=== PATIENT | female | born 1955 | race African-American/Black ===

== ENCOUNTER 2016-02-26 10:05 | Emergency (ER) | payer BC, MEDICARE ==
[~2016-02-26] VITALS: Ht 177.8 cm; Wt 127.9 kg
[~2016-02-26 10:05] MED LIST: AMLO10TA2 PO; AMLO5TAB2 PO; AZIT250T PO; BENZ100C PO; BUDE10.2 IH; CYCL10TA2 PO; HYDR-971 PO; HYDR50TA6 PO; LEVO200T PO; LOSA100T2 PO; MONT10TA6 PO; PRED50TA PO; PROAIR RESPICL90 MCG IH; RANI150T6 PO; ZOLP5TAB PO
--- NOTE | 2016-02-26 10:43 | RAD ---
EXAM: Chest, single view. HISTORY: Chest pain. COMPARISON: 02/09/2016. FINDINGS: A frontal view of the chest is obtained. There is stable left basilar atelectasis or pleural-parenchymal scarring. There is stable cardiomegaly. There is no pneumothorax. IMPRESSION: 1. Stable suspected left basilar atelectasis or pleural parenchymal scarring. 2. Stable cardiomegaly.
[2016-02-26 10:44] LABS: BASO # 0.1 x10^3/uL (0.0-0.2); BASO % 1 % (0-3); EOS % 9 % (0-3); HEMATOCRIT 43.8 % (36.0-47.0); HEMOGLOBIN 14.1 g/dL (12.0-15.5); LYMPH % 38 % (24-48); MEAN CORPUSCULAR HEMOGLOBIN 27 pg (25-35); MEAN CORPUSCULAR HGB CONC 32 g/dL (31-37); MEAN CORPUSCULAR VOLUME 82 fL (79-100); MONO % 4 % (0-9); NEUT % 48 % (31-73); PLATELET COUNT 255 x10^3/uL (140-400); RED BLOOD COUNT 5.31 x10^6/uL (3.50-5.40); RED CELL DISTRIBUTION WIDTH 15.9 % (11.5-14.5); WHITE BLOOD COUNT 7.8 x10^3/uL (4.0-11.0)
--- NOTE | 2016-02-26 10:44 | EKG ---
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
[2016-02-26 10:46] LABS: CREATININE 1.5 mg/dL (0.6-1.0); GFR 43.2; POTASSIUM 3.6 mmol/L (3.5-5.1)
--- NOTE | 2016-02-26 10:49 | PHYS DOC ---
Past Medical History Past Medical History: Asthma, CHF, Hypertension, Hypothyroid Additional Past Medical Histor: constipation Past Surgical History: Cholecystectomy, Hysterectomy Additional Past Surgical Histo: hernia repair, exploratory, nasal polyps removed Additional Information: quit in 2002 Alcohol Use: None Drug Use: Opiates Adult General Chief Complaint Chief Complaint: CHEST PAIN HPI HPI 52-year-old female presenting to the emergency department today with chest pain that started yesterday around noon. It is intermittent and described as a heaviness. She also complains of pain in her abdomen and left upper quadrant that is sharp mild. She reports falling down 5 or 6 steps in her house. She describes this as slipping onto her bottom and slowly bumping down each step. She denies head trauma or loss of consciousness. Patient reports deathly allergy to aspirin. She reports throat closure. Review of Systems Review of Systems ROS is negative for nausea vomiting fevers chills. She denies diaphoresis or cough. She denies headache. All other review of systems is negative unless otherwise noted in history of present illness. Allergies Allergies Allergies Coded Allergies Type Severity Reaction Last Updated Verified aspirin Allergy Severe Shortness of Air 02/26/16 Yes Sulfa (Sulfonamide Antibiotics) Allergy Intermediate 02/26/16 Yes ketorolac Allergy Intermediate 02/26/16 Yes sulfamethoxazole Allergy Intermediate 02/26/16 Yes trimethoprim Allergy Intermediate 02/26/16 Yes Physical Exam Physical Exam Constitutional: Well developed, well nourished, no acute distress, non-toxic appearance. HENT: Normocephalic, atraumatic, no evidence of ecchymosis lacerations or abrasions., bilateral external ears normal, oropharynx moist, no oral exudates, nose normal. [] Eyes: PERRLA, EOMI, conjunctiva normal, no discharge. [] Neck: Normal range of motion, no tenderness, supple, no stridor. Spinal evaluation shows nontender in the cervical thoracic or lumbar region. No step- offs abrasions ecchymosis or lacerations present. Cardiovascular:Heart rate regular rhythm, no murmur Lungs & Thorax: Bilateral breath sounds clear to auscultation [] Abdomen: Bowel sounds normal, soft, no tenderness, no masses, no pulsatile masses. [] Skin: Warm, dry, no erythema, no rash. Back: No tenderness, no CVA tenderness. [] Extremities: No tenderness, no cyanosis, no clubbing, ROM intact, no edema. Neurologic: Alert and oriented X 3, normal motor function, normal sensory function, no focal deficits noted. Psychologic: Affect normal, judgement normal, mood normal. [] Current Patient Data Vital Signs Vital Signs Date Time Temp Pulse Resp B/P Pulse Ox O2 Delivery O2 Flow Rate FiO2 02/26/16 12:10 64 20 152/95 97 Room Air 02/26/16 10:17 97.2 97.2 Lab Values Laboratory Tests Test 02/26/16 10:19 White Blood Count 7.8x10^3/uL (4.0-11.0) Red Blood Count 5.31x10^6/uL (3.50-5.40) Hemoglobin 14.1g/dL (12.0-15.5) Hematocrit 43.8% (36.0-47.0) Mean Corpuscular Volume 82fL (79-100) Mean Corpuscular Hemoglobin 27pg (25-35) Mean Corpuscular Hemoglobin Concent 32g/dL (31-37) Red Cell Distribution Width 15.9% (11.5-14.5) H Platelet Count 255x10^3/uL (140-400) Neutrophils (%) (Auto) 48% (31-73) Lymphocytes (%) (Auto) 38% (24-48) Monocytes (%) (Auto) 4% (0-9) Eosinophils (%) (Auto) 9% (0-3) H Basophils (%) (Auto) 1% (0-3) Neutrophils # (Auto) 3.7x10^3uL (1.8-7.7) Lymphocytes # (Auto) 3.0x10^3/uL (1.0-4.8) Monocytes # (Auto) 0.3x10^3/uL (0.0-1.1) Eosinophils # (Auto) 0.7x10^3/uL (0.0-0.7) Basophils # (Auto) 0.1x10^3/uL (0.0-0.2) Sodium Level 136mmol/L (136-145) Potassium Level 3.6mmol/L (3.5-5.1) Chloride Level 101mmol/L (98-107) Carbon Dioxide Level 29mmol/L (21-32) Anion Gap 6 (6-14) Blood Urea Nitrogen 9mg/dL (7-20) Creatinine 1.5mg/dL (0.6-1.0) H Estimated GFR (Cockcroft-Gault) 43.2 Glucose Level 123mg/dL (70-99) H Calcium Level 10.0mg/dL (8.5-10.1) Total Bilirubin 1.0mg/dL (0.2-1.0) Direct Bilirubin 0.1mg/dL (0.0-0.2) Aspartate Amino Transferase (AST) 24U/L (15-37) Alanine Aminotransferase (ALT) 25U/L (14-59) Alkaline Phosphatase 47U/L (46-116) Troponin I Quantitative < 0.017ng/mL (0.000-0.055) TY-Nzt-N-Type Natriuretic Peptide 38pg/mL (0-124) Total Protein 7.5g/dL (6.4-8.2) Albumin 3.8g/dL (3.4-5.0) Lipase 203U/L (73-393) Laboratory Tests 02/26/16 10:19 Laboratory Tests 02/26/16 10:19 EKG EKG EKG shows sinus rhythm with a regular rate. [place] is leftward. Intervals show prolonged QT. ST segments are congruent. [] Radiology/Procedures Radiology/Procedures [facility] [address] [place] [address] IMAGING REPORT Signed PATIENT: JERRY WAYNE ACCOUNT: [id number] : 1955 LOCATION: ER AGE: 60 SEX: F EXAM STATUS: PRE ER ORD. PHYSICIAN: ROSANA ELLINGTON MD REASON: chest pain PROCEDURE: CHEST AP ONLY EXAM: Chest, single view. HISTORY: Chest pain. COMPARISON: 02/09/2016. FINDINGS: A frontal view of the chest is obtained. There is stable left basilar atelectasis or pleural-parenchymal scarring. There is stable cardiomegaly. There is no pneumothorax. IMPRESSION: 1. Stable suspected left basilar atelectasis or pleural parenchymal scarring. 2. Stable cardiomegaly. DICTATED and SIGNED BY: KIMBERLY PALACIOS MD DATE: 02/26/16 1040 CC: ROSANA ELILNGTON MD; EWA MORENO MD ~ [] Course & Med Decision Making Course & Med Decision Making Pertinent Labs and Imaging studies reviewed. (See chart for details) [52-year-old female presenting to the emergency department today with chest pain and abdominal pain. She reported a recent fall. No evidence of head trauma on examination. Vital signs remarkable for mild hypertension otherwise within normal limits. Physical exam showed no evidence of traumatic injury to the chest wall neck or head. No soft and nontender. EKG without previous comparison shows no ST changes. Not suggestive of acute ischemia. Chest x-ray without acute findings. Blood work shows normal CBC. Chemistry panel shows mild elevation creatinine similar to previous. Troponin negative. Lipase within normal limits. ProBNP normal. On reevaluation the patient's pain improved. She described being chest pain-free. Her symptoms had been present for greater than 6 hours. I felt 1 troponin sufficient at this time. The patient was in discharged home with nitroglycerin as needed if her pain returned to follow-up with cardiology on Monday or Monday for outpatient evaluation.. Dragon Disclaimer Dragon Disclaimer This electronic medical record was generated, in whole or in part, using a voice recognition dictation system. Departure Departure Impression: Primary Impression: Chest pain Additional Impressions: Fall Abdominal pain Disposition: HOME, SELF-CARE Condition: IMPROVED Referrals: EWA MORENO MD (PCP) Patient Instructions: Chest Pain (Nonspecific) Additional Instructions: Thank you for allowing us to participate in your care today. Followup with Cardiology on Monday or Monday of next week. If you do not have a primary care provider you can ask for a list of our primary care providers. Return to the emergency department you have any new or concerning findings. This should be evaluated by the primary care physician and any necessary consulting services for continued management within a few days after discharge. Return to emergency room if you have any new or concerning symptoms including but not limited to fever, chills, nausea, vomiting, intractable pain, any new rashes, chest pain, shortness of air, uncontrolled bleeding, difficulty breathing, and/or vision loss. You may have been prescribed medication that can change in your level of thinking and ability to operate machinery. These medications include hydrocodone and Ativan. Also, Benadryl has been known to do this as well. Be sure to check with your pharmacist and ask if the medications you've prescribed can affect your level of consciousness. I recommend not operating heavy machinery or driving while on medication such as these. Scripts Nitroglycerin (NITROGLYCERIN SubLingual)0.4 Mg Tab.subl1 Tab SL UD #5 TAB Ref 0 Take one tablet underneath the tongue if your chest pressure develops. You may take up to 2 tablets within 30 minutes. If you take 2 tablets of this medication call 911 to bring a to and emergency department. Prov:ROSANA ELLINGTON MD 02/26/16 Problem Qualifiers ROSANA ELLINGTON MD Feb 26, 2016 10:49
[2016-02-26 10:52] LABS: ALBUMIN 3.8 g/dL (3.4-5.0); DIRECT BILIRUBIN 0.1 mg/dL (0.0-0.2); TOTAL PROTEIN 7.5 g/dL (6.4-8.2)
[2016-02-26] MEDS ORDERED: NITR0.4T6 SL (11:55)
[2016-02-26 12:10] VITALS: BP 152/95
== END 2016-02-26 12:15 | disposition home or self-care (01) ==
LOC: ER 10:05
DX: R07.89 Other chest pain (principal); R10.12 Left upper quadrant pain; I11.0 Hypertensive heart disease with heart failure; I50.9 Heart failure, unspecified; J45.909 Unspecified asthma, uncomplicated; E03.9 Hypothyroidism, unspecified; F11.10 Opioid abuse, uncomplicated; Z87.891 Personal history of nicotine dependence; Z90.710 Acquired absence of both cervix and uterus; Z90.49 Acquired absence of other specified parts of digestive tract; Z88.2 Allergy status to sulfonamides; Z88.8 Allergy status to other drugs, medicaments and biological substances; W10.8XXA Fall (on) (from) other stairs and steps, initial encounter; Y93.89 Activity, other specified; Y99.8 Other external cause status; Y92.098 Other place in other non-institutional residence as the place of occurrence of the external cause
CPT/HCPCS: 36415; 71010; 80048; 80076; 83690; 83880; 84484; 85027; 93005; 99285-25

== ENCOUNTER 2016-04-01 21:08 | Emergency (ER) | payer SELFPAY ==
[~2016-04-01] VITALS: Ht 177.8 cm; Wt 127.9 kg
[~2016-04-01 21:08] MED LIST changes: +NITR0.4T6 SL
[2016-04-01] MEDS ORDERED: IPRATRPIUM/ALBUTEROL 0.5/2.5MG 3 ML NEBU. NEB ONE (22:00)
--- NOTE | 2016-04-01 22:47 | ED.ADGEN ---
Past Medical History Past Medical History: Asthma, CHF, Hypertension, Hypothyroid Additional Past Medical Histor: constipation Past Surgical History: Cholecystectomy, Hysterectomy Additional Past Surgical Histo: hernia repair, exploratory, nasal polyps removed Alcohol Use: None Drug Use: Opiates Adult General Chief Complaint Chief Complaint: SHORTNESS OF BREATH HPI HPI Patient is a 60 year old woman, history of asthma, CHF, hypertension, who presents to the emergency department with complaint of cough and shortness of breath. 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 Does not currently have an albuterol inhaler. Denies any chest pain, any nausea or vomiting, any weakness numbness or tingling , any injuries. No headache, no blurry vision, no swelling in extremities. Patient received 2 tablets treatment en route to the ED via EMS, and is currently receiving a nebulizer treatment in the ED. Does not use steroids and regular basis. She states that she is feeling somewhat better after receiving a breathing treatment. Review of Systems Review of Systems Constitutional: Fever, no chills. Eyes: Denies change in visual acuity. [] HENT: Denies nasal congestion or sore throat. [] Respiratory: Cough, shortness of breath. Cardiovascular: Denies chest pain or edema. [] GI: Denies abdominal pain, nausea, vomiting, bloody stools or diarrhea. [] : Denies dysuria. [] Musculoskeletal: Denies back pain or joint pain. [] Integument: Denies rash. [] Neurologic: Denies headache, focal weakness or sensory changes. [] Endocrine: Denies polyuria or polydipsia. [] Lymphatic: Denies swollen glands. [] Psychiatric: Denies depression or anxiety. [] Current Medications Current Medications Current Medications Medications (Trade) Dose Ordered Sig/Indra Start Time Stop Time Status Last Admin Dose Admin Albuterol/ Ipratropium (Duoneb) 3 ml 1X ONCE 04/01/16 22:00 04/01/16 22:01 DC 04/01/16 21:48 3 ML Prednisone (Prednisone) 40 mg 1X ONCE 04/02/16 00:00 04/02/16 00:01 DC 04/01/16 23:54 40 MG Allergies Allergies Allergies Coded Allergies Type Severity Reaction Last Updated Verified aspirin Allergy Severe Shortness of Air 02/26/16 Yes Sulfa (Sulfonamide Antibiotics) Allergy Intermediate 02/26/16 Yes ketorolac Allergy Intermediate 02/26/16 Yes sulfamethoxazole Allergy Intermediate 02/26/16 Yes trimethoprim Allergy Intermediate 02/26/16 Yes Physical Exam Physical Exam Constitutional: Well developed, well nourished, no acute distress, non-toxic appearance. [] HENT: Normocephalic, atraumatic, bilateral external ears normal, oropharynx moist, no oral exudates, nose normal. [] Eyes: PERRLA, EOMI, conjunctiva normal, no discharge. [] Neck: Normal range of motion, no tenderness, supple, no stridor. [] Cardiovascular:Heart rate regular rhythm, no murmur, tachycardic, S1, S2, rubs or gallops. [] Lungs & Thorax: Mild scattered wheezing noted throughout, patient coughing and examination. [] Abdomen: Bowel sounds normal, soft, no tenderness, no rebound, rigidity, no guarding, no masses, no pulsatile masses. [] Skin: Warm, dry, no erythema, no rash. [] Back: No tenderness, no CVA tenderness. [] Extremities: No tenderness, no cyanosis, no clubbing, ROM intact, no edema. Negative Homans sign. [] Neurologic: Alert and oriented X 3, normal motor function, normal sensory function, no focal deficits noted. [] Psychologic: Affect normal, judgement normal, mood normal. [] Current Patient Data Vital Signs Vital Signs Date Time Temp Pulse Resp B/P Pulse Ox O2 Delivery O2 Flow Rate FiO2 04/01/16 23:56 90 20 150/89 98 Room Air 04/01/16 21:25 99.7 99.7 Lab Values Laboratory Tests Test 04/01/16 22:36 04/01/16 22:40 White Blood Count 8.8x10^3/uL (4.0-11.0) Red Blood Count 4.37x10^6/uL (3.50-5.40) Hemoglobin 11.8g/dL (12.0-15.5) L Hematocrit 37.0% (36.0-47.0) Mean Corpuscular Volume 85fL (79-100) Mean Corpuscular Hemoglobin 27pg (25-35) Mean Corpuscular Hemoglobin Concent 32g/dL (31-37) Red Cell Distribution Width 16.4% (11.5-14.5) H Platelet Count 179x10^3/uL (140-400) Neutrophils (%) (Auto) 84% (31-73) H Lymphocytes (%) (Auto) 10% (24-48) L Monocytes (%) (Auto) 6% (0-9) Eosinophils (%) (Auto) 1% (0-3) Basophils (%) (Auto) 0% (0-3) Neutrophils # (Auto) 7.4x10^3uL (1.8-7.7) Lymphocytes # (Auto) 0.8x10^3/uL (1.0-4.8) L Monocytes # (Auto) 0.5x10^3/uL (0.0-1.1) Eosinophils # (Auto) 0.1x10^3/uL (0.0-0.7) Basophils # (Auto) 0.0x10^3/uL (0.0-0.2) Sodium Level 148mmol/L (136-145) H Potassium Level 3.4mmol/L (3.5-5.1) L Chloride Level 110mmol/L (98-107) H Carbon Dioxide Level 29mmol/L (21-32) Anion Gap 9 (6-14) Blood Urea Nitrogen 14mg/dL (7-20) Creatinine 1.4mg/dL (0.6-1.0) H Estimated GFR (Cockcroft-Gault) 46.7 Glucose Level 120mg/dL (70-99) H Calcium Level 10.1mg/dL (8.5-10.1) Influenza Type A Antigen Negative (NEGATIVE) Influenza Type B Antigen Negative (NEGATIVE) Laboratory Tests 04/01/16 22:36 Laboratory Tests 04/01/16 22:36 EKG EKG ECG: Heart rate 121 beats minute, sinus tachycardia, QTC of 389, QRS of 96, left axis deviation, abnormal ECG, does not meet STEMI criteria. As interpreted by me. [] Radiology/Procedures Radiology/Procedures X-ray: Two-view: PA and lateral: Enlarged cardiac silhouette, no infiltrates, no effusions, no pneumothorax, mildly flattened diaphragms, as interpreted by me. Course & Med Decision Making Course & Med Decision Making Pertinent Labs and Imaging studies reviewed. (See chart for details) Patient's heart rate initially 80s, after receiving multiple nebulizer treatments, heart rate is now in the 1 teens to 120s, patient states that she is feeling better, wheezing is completely resolved after the last treatment. Chest x-rays unremarkable, lab her studies not reveal any signs of infection or other concerning findings. I did discuss these findings with patient, she is resting comfortably at this time, states that she is ready to go home. She states that she does not currently have a inhaler at this time, requested a refill given. She was ablated in the emergency department, oxygen saturation was 94-95, heart rate from the 90s to 114, she denies any lightheadedness or dizziness, and states that she again is ready be discharged. Patient's family is at bedside. We did discuss concerning symptoms that prompt return. Patient was given a dose of prednisone in the ED, given a four-day course of prednisone , 40 mg to be taken once daily, along with a prescription for albuterol inhaler , and also for guaifenesin with codeine, medication instructions and precautions given. Patient has an appointment to follow up with her primary care provider next Monday, will do so, and return to the ED if any concerning symptoms develop. Patient discharged home with her family with plan as above in stable condition. Dragon Disclaimer Dragon Disclaimer This electronic medical record was generated, in whole or in part, using a voice recognition dictation system. Departure Impression: Primary Impression: Asthma exacerbation Disposition: HOME, SELF-CARE Condition: IMPROVED Scripts Prednisone 20 Mg Tablet2 Tab PO DAILY #8 TAB Prov:KWESI CEDEÑO DO 04/02/16 Albuterol Sulfate (Proair Hfa Inhaler)8.5 Gm Hfa.aer.ad2 Puff INH PRN Q4-6HRS PRN SHORTNESS OF BREATH #1 INHALER Ref 0 Prov:KWESI CEDEÑO DO 04/02/16 Guaifenesin/Codeine Phosphate (Codeine-Guaifen 10-100 mg/5 ml)120 Ml Liquid5 Ml PO Q6-8HRS PRN COUGH #120 LIQUID Prov:KWESI CEDEÑO DO 04/02/16 KWESI CEDEÑO DO Apr 01, 2016 22:47
[2016-04-01 22:48] LABS: BASO % 0 % (0-3); EOS % 1 % (0-3); HEMOGLOBIN 11.8 g/dL (12.0-15.5); LYMPH # 0.8 x10^3/uL (1.0-4.8); LYMPH % 10 % (24-48); MEAN CORPUSCULAR HEMOGLOBIN 27 pg (25-35); MEAN CORPUSCULAR HGB CONC 32 g/dL (31-37); MEAN CORPUSCULAR VOLUME 85 fL (79-100); MONO % 6 % (0-9); NEUT % 84 % (31-73); PLATELET COUNT 179 x10^3/uL (140-400); RED BLOOD COUNT 4.37 x10^6/uL (3.50-5.40); RED CELL DISTRIBUTION WIDTH 16.4 % (11.5-14.5); WHITE BLOOD COUNT 8.8 x10^3/uL (4.0-11.0)
[2016-04-01 22:55] LABS: CALCIUM 10.1 mg/dL (8.5-10.1); CREATININE 1.4 mg/dL (0.6-1.0); GFR 46.7; POTASSIUM 3.4 mmol/L (3.5-5.1)
[2016-04-01 23:06] LABS: OBC FLU VALID
[2016-04-01 23:56] VITALS: BP 150/89
[2016-04-02] MEDS ORDERED: PREDNISONE 20 MG TABLET PO ONE
[2016-04-02] MEDS ORDERED: GUAI120L35 PO (00:04)
[2016-04-02] MEDS ORDERED: PRED20TA PO (00:04)
[2016-04-02] MEDS ORDERED: PROAIR HFA8.5 GM INH (00:04)
--- NOTE | 2016-04-02 02:12 | EKG ---
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
--- NOTE | 2016-04-02 08:18 | RAD ---
Indication shortness of breath. History of asthma. PA and lateral views of the chest were obtained and are compared to a study February 26, 2016. There is unchanged cardiomegaly. There is some persistent volume loss in the left lower lobe probably reflecting scar. Aeration of the left lung base has improved slightly relative to the previous study. The right hemithorax is clear. A new finding in the chest is not seen. There is no gross congestive heart failure. There may be a small left pleural effusion. There is no pneumothorax. IMPRESSION: Stable cardiomegaly. Some volume loss persists in the left lower lobe but aeration of the left lung has improved slightly relative to the previous exam. A new finding in the chest is not seen
== END 2016-04-02 00:10 | disposition home or self-care (01) ==
LOC: ER 21:08
DX: J45.901 Unspecified asthma with (acute) exacerbation (principal); E03.9 Hypothyroidism, unspecified; I10 Essential (primary) hypertension; I11.0 Hypertensive heart disease with heart failure; I50.9 Heart failure, unspecified; Z88.2 Allergy status to sulfonamides; Z88.8 Allergy status to other drugs, medicaments and biological substances; Z88.6 Allergy status to analgesic agent
CPT/HCPCS: 36415; 71020; 80048; 85027; 87804; 93005; 94250; 94640; 99285; J7512; J7620

== ENCOUNTER 2016-04-16 19:31 | Emergency (ER) | payer SELFPAY ==
[~2016-04-16 19:31] MED LIST changes: +GUAI120L35 PO; +PRED20TA PO; +PROAIR HFA8.5 GM INH
[2016-04-16 21:03] VITALS: BP 150/89
--- NOTE | 2016-04-16 21:03 | PHYS DOC ---
Past Medical History Past Medical History: Asthma, CHF, Hypertension, Hypothyroid Additional Past Medical Histor: constipation Past Surgical History: Cholecystectomy, Hysterectomy Additional Past Surgical Histo: hernia repair, exploratory, nasal polyps removed Alcohol Use: None Drug Use: Opiates Adult General Chief Complaint Chief Complaint: KNEE INJURY HPI HPI Patient is a 60 year old female who presents with right knee pain after fall at 1730 tonight. Patient states that she got up to answer the phone at her job and tripped on the cord. She fell, landing on the right knee. She denies any other injuries. She denies any numbness or tingling in the toes. She has been ambulatory since the injury, however with pain. Her PCP is Dr. Moreno. Review of Systems Review of Systems Constitutional: Denies fever or chills. [] Musculoskeletal: Denies back pain. Reports right knee pain. Integument: Denies rash or skin lesions. [] Neurologic: Denies headache, focal weakness or sensory changes. [] Allergies Allergies Allergies Coded Allergies Type Severity Reaction Last Updated Verified aspirin Allergy Severe Shortness of Air 02/26/16 Yes Sulfa (Sulfonamide Antibiotics) Allergy Intermediate 02/26/16 Yes ketorolac Allergy Intermediate 02/26/16 Yes sulfamethoxazole Allergy Intermediate 02/26/16 Yes trimethoprim Allergy Intermediate 02/26/16 Yes Physical Exam Physical Exam Constitutional: Well developed, well nourished, no acute distress, non-toxic appearance. [] HENT: Normocephalic, atraumatic, oropharynx moist. [] Eyes: PERRLA, EOMI, conjunctiva normal, no discharge. [] Skin: Warm, dry, no erythema, no rash. There is no laceration, abrasion, ecchymosis, or other external sign of injury. Extremities: Right patellar tenderness, full extension with flexion limited to 90 in the right knee, mild edema. Distal pulses equal bilaterally. Less than 2 second capillary refill in the toes. Light touch sensation intact in the toes. There is no tenderness in the hip, thigh, calf, ankle, or foot. Neurologic: Alert and oriented X 3, normal motor function, normal sensory function, no focal deficits noted. [] Psychologic: Affect normal, judgement normal, mood normal. [] Current Patient Data Vital Signs Vital Signs Date Time Temp Pulse Resp B/P Pulse Ox O2 Delivery O2 Flow Rate FiO2 3/4/17 21:03 98.2 85 18 97 Room Air 98.2 EKG EKG [] Radiology/Procedures Radiology/Procedures 4-view xray of the right knee reviewed and interpreted by myself with Dr. Pierre. There are no acute fractures or dislocations. Course & Med Decision Making Course & Med Decision Making Pertinent Labs and Imaging studies reviewed. (See chart for details) The patient was provided with an Bhavik wrap. She was given contact information for orthopedics for follow up. She was given a work note for light duty for 1 week. Return precautions were discussed. She verbalizes understanding and agrees with plan. Dragon Disclaimer Dragon Disclaimer This electronic medical record was generated, in whole or in part, using a voice recognition dictation system. Departure Departure Impression: Primary Impression: Knee injury Disposition: HOME, SELF-CARE Condition: STABLE Referrals: EWA MORENO MD (PCP) CARLOS DYER II, MD Patient Instructions: Knee Pain, [id number], Knee Wraps (Elastic Bandage) and RICE Additional Instructions: Your xray does not show any broken bones or dislocations. Please wear the provided Bhavik wrap for comfort and stability. Please take the prescribed pain medication as directed. Do not drive or operate heavy machinery while taking pain medication. Please follow up with the orthopedic doctor listed below if your pain continues. Return to the emergency department if you have any new or concerning symptoms. Scripts Acetaminophen With Codeine (Tylenol With Codeine #3 Tablet)1 Each Tablet1 Tab PO PRN Q6HRS PRN PAIN #20 TAB Prov:KWESI BOLAÑOS 04/16/16 Problem Qualifiers Primary Impression: Knee injury Encounter type: initial encounter Laterality: right Qualified Code: S89.91XA - Unspecified injury of right lower leg, initial encounter KWESI BOLAÑOS Apr 16, 2016 21:03
[2016-04-16] MEDS ORDERED: ACET-704 PO (21:43)
--- NOTE | 2016-04-17 08:54 | RAD ---
Examination: 4 views of the right knee History: History of trauma anterior knee pain Comparison: None available Findings: The alignment of the right knee joint grossly appears unremarkable. Small osteophyte formation identified in the medial compartment. There is no acute fracture or dislocation evident. Small knee joint effusion. Mild soft tissue irregularity identified in the infrapatellar region likely secondary to soft tissue injury Impression: 1. No acute osseous findings. 2. Small knee joint effusion. 3. Mild soft tissue irregularity identified in the infrapatellar region likely secondary to soft tissue injury
== END 2016-04-16 21:52 | disposition home or self-care (01) ==
LOC: ER 19:31
DX: S89.91XA Unspecified injury of right lower leg, initial encounter (principal); E03.9 Hypothyroidism, unspecified; I11.0 Hypertensive heart disease with heart failure; I50.9 Heart failure, unspecified; J45.909 Unspecified asthma, uncomplicated; F11.10 Opioid abuse, uncomplicated; Z88.1 Allergy status to other antibiotic agents; Z88.2 Allergy status to sulfonamides; Z88.6 Allergy status to analgesic agent; W18.09XA Striking against other object with subsequent fall, initial encounter; Y93.89 Activity, other specified; Y92.89 Other specified places as the place of occurrence of the external cause; Y99.8 Other external cause status
CPT/HCPCS: 73564; 99284

== ENCOUNTER 2016-06-08 13:23 | Emergency (ER) | payer SELFPAY ==
[~2016-06-08 13:23] MED LIST changes: +ACET-704 PO
[2016-06-08] MEDS ORDERED: predniSONE 10 MG TABLET ONE (13:50)
[2016-06-08] MEDS ORDERED: HYDROCODONE/APAP 5/325MG TABLET. ONE (13:50)
[2016-06-08] MEDS ORDERED: HYDROCODONE/APAP 5/325MG TABLET. PO ONE (14:00)
[2016-06-08] MEDS ORDERED: predniSONE 10 MG TABLET PO ONE (14:00)
[2016-06-08] MEDS ORDERED: IPRATRPIUM/ALBUTEROL 0.5/2.5MG 3 ML NEBU. NEB ONE (14:00)
--- NOTE | 2016-06-08 14:01 | PHYS DOC ---
Past Medical History Past Medical History: Asthma, CHF, COPD, Hypertension, Hypothyroid Additional Past Medical Histor: constipation Past Surgical History: Cholecystectomy, Hysterectomy Additional Past Surgical Histo: hernia repair, exploratory, nasal polyps removed Alcohol Use: None Drug Use: Opiates Adult General Chief Complaint Chief Complaint: GENERALIZED BODY ACHES HPI HPI 60-year-old female who's having generalized myalgias since last evening. She describes some mild nausea but no vomiting. She states she has been able to drink cranberry juice and water today without difficulty. She states she has a minimal appetite. She does state some mild chest tenderness but states she is achey all over. She has history of asthma but does not currently take any asthma medications. She does not smoke or drink alcohol. She does report a mild sore throat as well. Patient is speaking in complete sentences and in no acute distress saturating near 100% on room air. She is completely nontoxic and afebrile upon arrival. She states she does have history of hypertension but is compliant with her medications and took them earlier today. Review of Systems Review of Systems Constitutional: Denies fever or chills [] Eyes: Denies change in visual acuity, redness, or eye pain [] HENT: Denies nasal congestion or sore throat [] Respiratory: Denies cough or shortness of breath [] Cardiovascular: No additional information not addressed in HPI [] GI: Denies abdominal pain, nausea, vomiting, bloody stools or diarrhea [] : Denies dysuria or hematuria [] Musculoskeletal: Denies back pain, has joint pain [] Integument: Denies rash or skin lesions [] Neurologic: Denies headache, focal weakness or sensory changes [] Endocrine: Denies polyuria or polydipsia [] Current Medications Current Medications Current Medications Medications (Trade) Dose Ordered Sig/Indra Start Time Stop Time Status Last Admin Dose Admin Acetaminophen/ Hydrocodone Bitart (Lortab 5/325) 1 tab STK-MED ONCE 06/08/16 13:50 06/08/16 13:51 DC Albuterol/ Ipratropium (Duoneb) 3 ml 1X ONCE 06/08/16 14:00 06/08/16 14:01 DC 06/08/16 14:00 3 ML Prednisone (Prednisone) 10 mg STK-MED ONCE 06/08/16 13:50 06/08/16 13:51 DC Allergies Allergies Allergies Coded Allergies Type Severity Reaction Last Updated Verified aspirin Allergy Severe Shortness of Air 02/26/16 Yes Sulfa (Sulfonamide Antibiotics) Allergy Intermediate 02/26/16 Yes ketorolac Allergy Intermediate 02/26/16 Yes sulfamethoxazole Allergy Intermediate 02/26/16 Yes trimethoprim Allergy Intermediate 02/26/16 Yes Physical Exam Physical Exam Constitutional: Well developed, well nourished, no acute distress, non-toxic appearance. [] HENT: Normocephalic, atraumatic, bilateral external ears normal, oropharynx moist, no oral exudates, nose normal. [] Eyes: PERRLA, EOMI, conjunctiva normal, no discharge. [] Neck: Normal range of motion, no tenderness, supple, no stridor. [] Cardiovascular:Heart rate regular rhythm, no murmur [] Lungs & Thorax: Bilateral breath sounds clear to auscultation [] Abdomen: Bowel sounds normal, soft, no tenderness, no masses, no pulsatile masses. [] Skin: Warm, dry, no erythema, no rash. [] Back: No tenderness, no CVA tenderness. [] Extremities: No tenderness, no cyanosis, no clubbing, ROM intact, no edema. [] Neurologic: Alert and oriented X 3, normal motor function, normal sensory function, no focal deficits noted. [] Psychologic: Affect normal, judgement normal, mood normal. [] Current Patient Data Vital Signs Vital Signs Date Time Temp Pulse Resp B/P Pulse Ox O2 Delivery O2 Flow Rate FiO2 06/08/16 14:22 80 20 153/106 94 Room Air 06/08/16 13:36 98.4 98.4 Lab Values Laboratory Tests Test 06/08/16 13:50 White Blood Count 6.0x10^3/uL (4.0-11.0) Red Blood Count 4.50x10^6/uL (3.50-5.40) Hemoglobin 12.6g/dL (12.0-15.5) Hematocrit 38.2% (36.0-47.0) Mean Corpuscular Volume 85fL (79-100) Mean Corpuscular Hemoglobin 28pg (25-35) Mean Corpuscular Hemoglobin Concent 33g/dL (31-37) Red Cell Distribution Width 16.3% (11.5-14.5) H Platelet Count 205x10^3/uL (140-400) Neutrophils (%) (Auto) 46% (31-73) Lymphocytes (%) (Auto) 36% (24-48) Monocytes (%) (Auto) 7% (0-9) Eosinophils (%) (Auto) 10% (0-3) H Basophils (%) (Auto) 1% (0-3) Neutrophils # (Auto) 2.8x10^3uL (1.8-7.7) Lymphocytes # (Auto) 2.2x10^3/uL (1.0-4.8) Monocytes # (Auto) 0.4x10^3/uL (0.0-1.1) Eosinophils # (Auto) 0.6x10^3/uL (0.0-0.7) Basophils # (Auto) 0.1x10^3/uL (0.0-0.2) Sodium Level 144mmol/L (136-145) Potassium Level 3.6mmol/L (3.5-5.1) Chloride Level 107mmol/L (98-107) Carbon Dioxide Level 30mmol/L (21-32) Anion Gap 7 (6-14) Blood Urea Nitrogen 16mg/dL (7-20) Creatinine 1.2mg/dL (0.6-1.0) H Estimated GFR (Cockcroft-Gault) 55.8 Glucose Level 94mg/dL (70-99) Calcium Level 9.8mg/dL (8.5-10.1) Troponin I Quantitative 0.028ng/mL (0.000-0.055) Laboratory Tests 06/08/16 13:50 Laboratory Tests 06/08/16 13:50 EKG EKG EKG as interpreted by dc shows a sinus rhythm with a rate of 70 bpm. There is a leftward axis. Intervals are normal. There are no obvious ischemic findings. This EKG does not meet STEMI criteria. Radiology/Procedures Radiology/Procedures Exam: AP portable chest. History: Chest pain, flulike symptoms, congestive heart failure. Comparison: 04/01/2016. Findings: There is persistent enlargement of the cardiac silhouette. Lungs are without infiltrate. No pneumothorax or pleural effusion is appreciated. Impression: 1. No acute cardiopulmonary process. 2. Persistent enlargement of cardiac silhouette. DICTATED and SIGNED BY: VIDAL MCKEON MD DATE: 06/08/16 [id number] CC: NICOL FARMER DO; EWA MORENO MD ~ Course & Med Decision Making Course & Med Decision Making Pertinent Labs and Imaging studies reviewed. (See chart for details) 60 yo female with generalized myalgias and subjective reproducible chest pain will have laboratory workup, EKG, and chest film. Her EKG at this time does not reveal any obvious ischemic findings. Patient is unable to tolerate anti- inflammatory medications. I will order her a DuoNeb for her asthma history and prednisone. I believe her symptoms are likely related to a viral syndrome. She is currently nontoxic and afebrile at this time. Her laboratory workup is unremarkable. Her symptoms are nonspecific at this time. Her chest film shows continued demonstration of an enlarged cardiac silhouette but no acute process. Upon my repeat assessment, the patient does feels symptomatically better after breathing treatment although slightly jittery per her words. I will be prescribing her nebulizer solution an inhaler as well as a course of prednisone and pain meds as needed. I did want her to follow closely in the next 1-[address] Moreno for symptom resolution and she is agreeable with this plan. Dragon Disclaimer Dragon Disclaimer This electronic medical record was generated, in whole or in part, using a voice recognition dictation system. Departure Departure Impression: Primary Impression: Asthma Additional Impression: Generalized muscle ache Disposition: 01 HOME, SELF-CARE Admitting Physician: Other Condition: IMPROVED Referrals: EWA MORENO MD (PCP) Patient Instructions: Asthma, Adult, Viral Syndrome Additional Instructions: Please take your medications as prescribed and follow closely with Dr. Moreno in the next 1-2 days for your bodyache symptoms. Return to the ER immediately if you develop any worsening of your breathing or develop any chest pain or worsening of your symptoms. Scripts Hydrocodone/Apap 5-325 (Peosta 5-325 Tablet)1 Each Tablet1 Tab PO PRN Q6HRS PRN PAIN #10 TAB Ref 0 Prov:NICOL FARMER DO 06/08/16 Prednisone 50 Mg [id number] Mg PO DAILY #4 TAB Prov:NICOL FARMER DO 06/08/16 Albuterol Sulfate (Proair Hfa Inhaler)8.5 Gm Hfa.aer.ad1 Puff INH PRN Q6HRS PRN SHORTNESS OF BREATH #1 INHALER Ref 0 Prov:NICOL FARMER DO 06/08/16 Albuterol Sulfate (Albuterol Sulfate Neb Soln)0.63 Mg/3 Ml Vial.neb0.63 Mg NEB PRN Q4HRS PRN WHEEZING #1 EACH Ref 0 Prov:NICOL FARMER DO 06/08/16 Problem Qualifiers NICOL FARMER DO Jun 08, 2016 14:01
[2016-06-08 14:03] LABS: BASO # 0.1 x10^3/uL (0.0-0.2); BASO % 1 % (0-3); EOS % 10 % (0-3); HEMATOCRIT 38.2 % (36.0-47.0); HEMOGLOBIN 12.6 g/dL (12.0-15.5); LYMPH # 2.2 x10^3/uL (1.0-4.8); LYMPH % 36 % (24-48); MEAN CORPUSCULAR HEMOGLOBIN 28 pg (25-35); MEAN CORPUSCULAR HGB CONC 33 g/dL (31-37); MEAN CORPUSCULAR VOLUME 85 fL (79-100); MONO % 7 % (0-9); NEUT % 46 % (31-73); PLATELET COUNT 205 x10^3/uL (140-400); RED CELL DISTRIBUTION WIDTH 16.3 % (11.5-14.5)
[2016-06-08 14:11] LABS: CALCIUM 9.8 mg/dL (8.5-10.1); CREATININE 1.2 mg/dL (0.6-1.0); GFR 55.8; POTASSIUM 3.6 mmol/L (3.5-5.1)
[2016-06-08 14:22] VITALS: BP 153/106
--- NOTE | 2016-06-08 14:40 | RAD ---
Exam: AP portable chest. History: Chest pain, flulike symptoms, congestive heart failure. Comparison: 04/01/2016. Findings: There is persistent enlargement of the cardiac silhouette. Lungs are without infiltrate. No pneumothorax or pleural effusion is appreciated. Impression: 1. No acute cardiopulmonary process. 2. Persistent enlargement of cardiac silhouette.
[2016-06-08] MEDS ORDERED: ALBU0.63 NEB (14:54)
[2016-06-08] MEDS ORDERED: PRED50TA PO (14:54)
[2016-06-08] MEDS ORDERED: PROAIR HFA8.5 GM INH (14:54)
[2016-06-08] MEDS ORDERED: HYDR-971 PO (14:54)
--- NOTE | 2016-06-08 16:23 | EKG ---
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
== END 2016-06-08 15:27 | disposition home or self-care (01) ==
LOC: ER 13:23
DX: J45.909 Unspecified asthma, uncomplicated (principal); M79.1 Myalgia; R11.0 Nausea; I11.0 Hypertensive heart disease with heart failure; I50.9 Heart failure, unspecified; J44.9 Chronic obstructive pulmonary disease, unspecified; F11.10 Opioid abuse, uncomplicated; E03.9 Hypothyroidism, unspecified; Z88.2 Allergy status to sulfonamides; Z88.6 Allergy status to analgesic agent; Z88.1 Allergy status to other antibiotic agents
CPT/HCPCS: 36415; 71010; 80048; 84484; 85027; 93005; 94640; 99285; J7512; J7620

== ENCOUNTER 2016-07-08 18:10 | Emergency (ER) | payer SELFPAY ==
[~2016-07-08] VITALS: Ht 177.8 cm; Wt 127.9 kg
[~2016-07-08 18:10] MED LIST changes: +ALBU0.63 NEB
[2016-07-08 18:30] VITALS: BP 143/89
[2016-07-08] MEDS ORDERED: AZIT250T6 PO (18:39)
--- NOTE | 2016-07-08 18:40 | PHYS DOC ---
Past Medical History Past Medical History: Asthma, CHF, COPD, Hypertension, Hypothyroid Additional Past Medical Histor: constipation Past Surgical History: Cholecystectomy, Hysterectomy Additional Past Surgical Histo: hernia repair, exploratory, nasal polyps removed Alcohol Use: None Drug Use: Opiates Adult General Chief Complaint Chief Complaint: SORE THROAT HPI HPI 60-year-old female presenting to the emergency department with sore throat cough congestion over 2 weeks. She also has sinus pressure. She is been using nasal rinses with mild relief. He denies fevers chills or neck stiffness. Onset 2 weeks. Location sinuses and lungs. Duration intermittent. No exacerbating factors present. Review of systems is negative for fevers chills. She does complain of a mild headache. She denies vision changes numbness or weakness. All other review of systems is negative unless otherwise noted in history of present illness. Review of Systems Review of Systems SEE ABOVE. Allergies Allergies Allergies Coded Allergies Type Severity Reaction Last Updated Verified aspirin Allergy Severe Shortness of Air 02/26/16 Yes Sulfa (Sulfonamide Antibiotics) Allergy Intermediate 02/26/16 Yes ketorolac Allergy Intermediate 02/26/16 Yes sulfamethoxazole Allergy Intermediate 02/26/16 Yes trimethoprim Allergy Intermediate 02/26/16 Yes Physical Exam Physical Exam Constitutional: Well developed, well nourished, no acute distress, non-toxic appearance. HENT: Normocephalic, atraumatic, bilateral external ears normal, oropharynx moist, no oral exudates, nose normal. [] Eyes: PERRLA, EOMI, conjunctiva normal, no discharge. Neck: Normal range of motion, no tenderness, supple, no stridor. [] Cardiovascular:Heart rate regular rhythm, no murmur [] Lungs & Thorax: Bilateral breath sounds clear to auscultation Abdomen: Bowel sounds normal, soft, no tenderness, no masses, no pulsatile masses. [] Skin: Warm, dry, no erythema, no rash. Back: No tenderness, no CVA tenderness. [] Extremities: No tenderness, no cyanosis, no clubbing, ROM intact, no edema. Neurologic: Alert and oriented X 3, normal motor function, normal sensory function, no focal deficits noted. [] Psychologic: Affect normal, judgement normal, mood normal. EKG EKG [] Radiology/Procedures Radiology/Procedures [] Course & Med Decision Making Course & Med Decision Making Pertinent Labs and Imaging studies reviewed. (See chart for details) 52-year-old female presenting to the emergency department with signs and symptoms suggestive of acute sinusitis versus upper respiratory tract infection. I recommended she continue using nasal rinses and given the timing of her symptoms I added on azithromycin. The patient was then discharged home in stable condition to follow up with their primary care physician over the next 2-3 days. They were to return if their symptoms worsened or if they were concerned for any reason. [id number] discharge instructions and return precautions were given. Patient's questions were answered to their satisfaction. Patient is comfortable plan. Dragon Disclaimer Dragon Disclaimer This electronic medical record was generated, in whole or in part, using a voice recognition dictation system. Departure Departure Impression: Primary Impression: Acute sinusitis Additional Impression: Head congestion Disposition: 01 HOME, SELF-CARE Condition: STABLE Referrals: EWA MORENO MD (PCP) Patient Instructions: Sinusitis Additional Instructions: Thank you for allowing us to participate in your care today. What is sinusitis? Sinusitis is a condition that can cause a stuffy nose, pain in the face, and yellow or green discharge (mucus) from the nose. The sinuses are hollow areas in the bones of the face (figure 1). They have a thin lining that normally makes a small amount of mucus. When this lining gets infected, it swells and makes extra mucus. This causes symptoms. Sinusitis can occur when a person gets sick with a cold. The germs causing the cold can also infect the sinuses. Many times, a person feels like his or her cold is getting better. But then he or she gets sinusitis and begins to feel sick again. What are the symptoms of sinusitis? Common symptoms of sinusitis include: Stuffy or blocked nose Thick yellow or green discharge from the nose Pain in the teeth Pain or pressure in the face This often feels worse when a person bends forward. People with sinusitis can also have other symptoms that include: Fever Cough Trouble smelling Ear pressure or fullness Headache Bad breath Feeling tired Most of the time, symptoms start to improve in 7 to 10 days. Should I see a doctor or nurse? See your doctor or nurse if your symptoms last more than 10 days, or if your symptoms get better at first but then get worse. Sometimes, sinusitis can lead to serious problems. See your doctor or nurse right away (do not wait 10 days) if you have: Fever higher than 102F (38.9C) Sudden and severe pain in the face and head Trouble seeing or seeing double Trouble thinking clearly Swelling or redness around one or both eyes A stiff neck Is there anything I can do on my own to feel better? Yes. To reduce your symptoms, you can: Take an uxif-xcm-dunyxym pain reliever to reduce the pain Rinse your nose and sinuses with salt water a few times a day Ask your doctor or nurse about the best way to do this. Antihistamines do not improve symptoms of sinusitis. Common antihistamines include diphenhydramine (sample brand name: Benadryl), chlorpheniramine (sample brand name: Chlor-Trimeton), loratadine (sample brand name: Claritin), and cetirizine (sample brand name: Zyrtec). They can treat allergies, but not sinus infections, and could increase your discomfort by drying the lining of your nose and sinuses, or making you tired. Your doctor might also prescribe a steroid nose spray to reduce the swelling in your nose. (Steroid nose sprays do not contain the same steroids that some athletes take illegally.) How is sinusitis treated? Most of the time, sinusitis does not need to be treated with antibiotic medicines. This is because most sinusitis is caused by viruses not bacteria and antibiotics do not kill viruses. Many people get over sinus infections without antibiotics. Some people with sinusitis do need treatment with antibiotics. If your symptoms have not improved after 10 days, ask your doctor if you should take antibiotics. Your doctor might recommend that you wait 1 more week to see if your symptoms improve. But if you have symptoms such as a fever or a lot of pain , he or she might prescribe antibiotics. It is important to follow your doctor' s instructions about taking your antibiotics. What if my symptoms do not get better? If your symptoms do not get better, talk with your doctor or nurse. He or she might order tests to figure out why you still have symptoms. These can include: CT scan or other imaging tests Imaging tests create pictures of the inside of the body. A test to look inside the sinuses For this test, a doctor puts a thin tube with a camera on the end into the nose and up into the sinuses. Some people get a lot of sinus infections or have symptoms that last at least 3 months. These people can have a different type of sinusitis called "chronic sinusitis." Chronic sinusitis can be caused by different things. For example, some people have growths in their nose or sinuses that are called "polyps." Other people have allergies that cause their symptoms. Chronic sinusitis can be treated in different ways. If you have chronic sinusitis, talk with your doctor about which treatments are right for you. Followup with your primary care physician in 3 days if your symptoms do not improve. If you do not have a primary care provider you can ask for a list of our primary care providers. Return to the emergency department you have any new or concerning findings. This should be evaluated by the primary care physician and any necessary consulting services for continued management within a few days after discharge. Return to emergency room if you have any new or concerning symptoms including but not limited to fever, chills, nausea, vomiting, intractable pain, any new rashes, chest pain, shortness of air, uncontrolled bleeding, difficulty breathing, and/or vision loss. Scripts Azithromycin (AZITHROMYCIN TABLET) 250 Mg Tablet 1 PKG PO UD, #6 TAB Prov: ROSANA ELLINGTON MD 07/08/16 Problem Qualifiers ROSANA ELLINGTON MD July 08, 2016 18:40
[2016-07-08] MEDS ORDERED: BENZ100C PO (18:42)
== END 2016-07-08 18:56 | disposition home or self-care (01) ==
LOC: ER 18:56
DX: J01.90 Acute sinusitis, unspecified (principal); R09.81 Nasal congestion; R51 Headache; I11.0 Hypertensive heart disease with heart failure; I50.9 Heart failure, unspecified; J44.9 Chronic obstructive pulmonary disease, unspecified; E03.9 Hypothyroidism, unspecified; F11.10 Opioid abuse, uncomplicated; Z88.6 Allergy status to analgesic agent; Z88.2 Allergy status to sulfonamides; Z88.1 Allergy status to other antibiotic agents; Z88.8 Allergy status to other drugs, medicaments and biological substances
CPT/HCPCS: 99283

== ENCOUNTER 2016-07-25 04:49 | Emergency (ER) | payer SELFPAY ==
[~2016-07-25] VITALS: Ht 176.5 cm; Wt 127.9 kg
[~2016-07-25 04:49] MED LIST changes: +AZIT250T6 PO; +NITR0.4T22 SL; -NITR0.4T6 SL
[2016-07-25 05:29] VITALS: BP 139/98
--- NOTE | 2016-07-25 06:50 | PHYS DOC ---
Past Medical History Past Medical History: Asthma, Hypertension, Hypothyroid Additional Past Medical Histor: constipation Past Surgical History: Hysterectomy, Other Additional Past Surgical Histo: HERNIA REPAIR, GALL BLADDER, NASAL Alcohol Use: None Drug Use: None Adult General Chief Complaint Chief Complaint: COUGH HPI HPI Patient is a 60 year old female presenting to the emergency department for evaluation of cough and chest congestion body aches shortness of breath that has been going on for at least 2 days. She says the cough is productive of greenish sputum and that she feels quite short of breath. She says that she has a history of asthma but is only been using her inhaler sparingly for unclear reasons. Patient says she has chills but no measured fevers and no nausea vomiting or diaphoresis. Review of Systems Review of Systems Constitutional: Denies fever or chills [] Eyes: Denies change in visual acuity, redness, or eye pain [] HENT: + nasal congestion and sore throat [] Respiratory: + cough and shortness of breath [] Cardiovascular: No additional information not addressed in HPI [] GI: Denies abdominal pain, nausea, vomiting, bloody stools or diarrhea [] Current Medications Current Medications Current Medications Medications (Trade) Dose Ordered Sig/Indra Start Time Stop Time Status Last Admin Dose Admin Albuterol Sulfate (Ventolin Neb Soln) 5 mg 1X ONCE 07/25/16 07:00 07/25/16 07:01 DC 07/25/16 06:41 5 MG Albuterol/ Ipratropium (Duoneb) 3 ml 1X ONCE 07/25/16 07:00 07/25/16 07:01 DC 07/25/16 06:40 3 ML Dexamethasone (Decadron) 10 mg 1X ONCE 07/25/16 07:00 07/25/16 07:01 DC 07/25/16 06:47 10 MG Allergies Allergies Allergies Coded Allergies Type Severity Reaction Last Updated Verified aspirin Allergy Severe Shortness of Air 02/26/16 Yes Sulfa (Sulfonamide Antibiotics) Allergy Intermediate 02/26/16 Yes ketorolac Allergy Intermediate 02/26/16 Yes sulfamethoxazole Allergy Intermediate 02/26/16 Yes trimethoprim Allergy Intermediate 02/26/16 Yes Physical Exam Physical Exam Constitutional: Well developed, well nourished, no acute distress, non-toxic appearance. [] HENT: Normocephalic, atraumatic, bilateral external ears normal, oropharynx erythematous with boggy nasal turbinates Eyes: PERRLA, EOMI, conjunctiva normal, no discharge. [] Cardiovascular:Heart rate regular rhythm, no murmur [] Lungs & Thorax: Bilateral breath sounds diminished with inspiratory and expiratory wheezing Current Patient Data Vital Signs Vital Signs Date Time Temp Pulse Resp B/P (MAP) Pulse Ox O2 Delivery O2 Flow Rate FiO2 07/25/16 06:46 96 Room Air 07/25/16 05:29 99.3 80 20 99.3 EKG EKG [] Radiology/Procedures Radiology/Procedures EXAM: Chest 2 views. HISTORY: Cough. COMPARISON: 06/08/2016. FINDINGS: Frontal and lateral views of the chest are obtained. Interstitial opacities in the bases best seen on the lateral projection suggest atelectasis and mild pulmonary edema. There is a small amount of fluid in the right minor fissure. There is no pneumothorax. The heart is moderately enlarged. The aorta is calcified and tortuous. Cholecystectomy clips are noted. IMPRESSION: 1. Moderate cardiomegaly. Mild pulmonary edema. DICTATED and SIGNED BY: MALLIKA ROBERTSON MD DATE: 07/25/16 07 Course & Med Decision Making Course & Med Decision Making Will give breathing treatment steroid check chest x-ray and reassess. Patient says that she is feeling completely better and on repeat exam she has no further wheezing and much improved aeration of her lungs. Her repeat vital signs are normal including a normal oxygen saturation. Given patient appears well with normal vital signs benign physical exam and workup she'll be discharged with supportive treatment including nebulized treatments every 4 hours along with Zithromax and instructions to take Benadryl. Patient aware and agreeable with plan for discharge and verbalized understanding of the above instructions. Dragon Disclaimer Dragon Disclaimer This electronic medical record was generated, in whole or in part, using a voice recognition dictation system. Departure Departure Impression: Primary Impression: Acute bronchitis Additional Impression: Asthma exacerbation Disposition: 01 HOME, SELF-CARE Condition: GOOD Referrals: EWA MORENO MD (PCP) Patient Instructions: Acute Bronchitis Additional Instructions: Use here albuterol every 4 hours and more often if needed. Take antihistamine such as Benadryl or Claritin in addition use [id number] Nasonex for your sinus congestion. Follow with your primary care provider later this week and come back to the ER sooner with any worsening pain shortness of breath or other general concerns. Scripts Hydrocodone/Apap 5-325 (NORCO 5-325 TABLET) 1 Each Tablet 1 TAB PO PRN Q6HRS for COUGH, #10 TAB 0 Refills Prov: PATRICIA TRAORE DO 07/25/16 Azithromycin (ZITHROMAX PACKET) 1 Gm Packet 1 PACKET PO ONCE, #1 PACKET Prov: PATRICIA TRAORE DO 07/25/16 Problem Qualifiers Primary Impression: Acute bronchitis Bronchitis organism: unspecified organism Qualified Codes: J20.9 - Acute bronchitis, unspecified PATRICIA TRAORE DO Jul 25, 2016 06:50
[2016-07-25] MEDS ORDERED: ALBUTEROL SULFATE 2.5 MG/3 ML NEBU. NEB ONE (07:00)
[2016-07-25] MEDS ORDERED: IPRATRPIUM/ALBUTEROL 0.5/2.5MG 3 ML NEBU. NEB ONE (07:00)
[2016-07-25] MEDS ORDERED: DEXAMETHASONE 4 MG TABLET PO ONE (07:00)
--- NOTE | 2016-07-25 07:27 | RAD ---
EXAM: Chest 2 views. HISTORY: Cough. COMPARISON: 06/08/2016. FINDINGS: Frontal and lateral views of the chest are obtained. Interstitial opacities in the bases best seen on the lateral projection suggest atelectasis and mild pulmonary edema. There is a small amount of fluid in the right minor fissure. There is no pneumothorax. The heart is moderately enlarged. The aorta is calcified and tortuous. Cholecystectomy clips are noted. IMPRESSION: 1. Moderate cardiomegaly. Mild pulmonary edema.
[2016-07-25] MEDS ORDERED: HYDR-971 PO (08:06)
[2016-07-25] MEDS ORDERED: AZIT1PAC PO (08:06)
[2016-07-25 10:16] LABS: NEGATIVE OBC STREP NEG; POSITIVE OBC STREP POS
[2016-07-25 10:39] LABS: OBC FLU VALID
== END 2016-07-25 08:35 | disposition home or self-care (01) ==
LOC: ER 04:49
DX: J45.901 Unspecified asthma with (acute) exacerbation (principal); J20.9 Acute bronchitis, unspecified; I10 Essential (primary) hypertension; E03.9 Hypothyroidism, unspecified; Z88.6 Allergy status to analgesic agent; Z88.2 Allergy status to sulfonamides
CPT/HCPCS: 71020; 87070; 87804; 87880; 94640; 99285; J7620; J8540

== ENCOUNTER 2016-09-30 15:59 | Emergency (ER) | payer MEDICARE ==
[~2016-09-30] VITALS: Ht 175.3 cm; Wt 127.9 kg
[~2016-09-30 15:59] MED LIST changes: +AZIT1PAC PO
[2016-09-30 16:40] LABS: BASO # 0.1 x10^3/uL (0.0-0.2); BASO % 1 % (0-3); EOS % 20 % (0-3); HEMATOCRIT 37.9 % (36.0-47.0); HEMOGLOBIN 12.4 g/dL (12.0-15.5); LYMPH # 2.4 x10^3/uL (1.0-4.8); LYMPH % 30 % (24-48); MEAN CORPUSCULAR HEMOGLOBIN 27 pg (25-35); MEAN CORPUSCULAR HGB CONC 33 g/dL (31-37); MEAN CORPUSCULAR VOLUME 83 fL (79-100); MONO % 4 % (0-9); NEUT % 45 % (31-73); PLATELET COUNT 206 x10^3/uL (140-400); RED BLOOD COUNT 4.56 x10^6/uL (3.50-5.40); RED CELL DISTRIBUTION WIDTH 15.8 % (11.5-14.5); WHITE BLOOD COUNT 7.9 x10^3/uL (4.0-11.0)
[2016-09-30] MEDS ORDERED: IPRATRPIUM/ALBUTEROL 0.5/2.5MG 3 ML NEBU. NEB ONE (16:45)
[2016-09-30] MEDS ORDERED: methylPREDNISolone SOD SUCC PF 125 MG/2 ML VIAL. IV ONE (16:45)
--- NOTE | 2016-09-30 17:05 | RAD ---
Portable chest, 09/30/2016: History: Shortness of breath, asthma Comparison is made to a study from 07/25/2016. The heart is moderately enlarged. The pulmonary vascularity is within normal limits. There is tortuosity of the thoracic aorta. Poor definition of the left hemidiaphragm is probably due to the patient's size and the portable technique. No definite acute infiltrate is seen. There is no evidence of pleural fluid. IMPRESSION: 1. Cardiomegaly and aortic ectasia. 2. No acute abnormality is detected.
[2016-09-30 17:48] LABS: CALCIUM 9.9 mg/dL (8.5-10.1); CREATININE 1.5 mg/dL (0.6-1.0); POTASSIUM 3.6 mmol/L (3.5-5.1)
[2016-09-30 17:54] LABS: ALBUMIN 3.8 g/dL (3.4-5.0); ALBUMIN/GLOBULIN RATIO 1.2 (1.0-1.7)
[2016-09-30] MEDS ORDERED: ALBUTEROL SULFATE 2.5 MG/3 ML NEBU. NEB ONE ×2 (18:00)
[2016-09-30] MEDS ORDERED: PRED50TA PO (19:00)
--- NOTE | 2016-09-30 19:00 | PHYS DOC ---
Past Medical History Past Medical History: Asthma, Hypertension, Hypothyroid, Other Additional Past Medical Histor: constipation, graves disease Past Surgical History: , Hysterectomy, Other Additional Past Surgical Histo: HERNIA REPAIR, GALL BLADDER, NASAL Alcohol Use: None Drug Use: None Adult General Chief Complaint Chief Complaint: ASTHMA HPI HPI Patient is a 61 year old female who presents here today secondary to shortness of breath. Patient has a history of hypertension and asthma. Patient reports she was diagnosed with asthma in 2004. Patient has any history of coronary disease, CHF, or strokes. Patient denies any diabetes liver longer kidney problems. Patient is status post a cholecystectomy and hernia repair. Patient does not smoke drink or do any drugs. Patient is allergies Bactrim Toradol and aspirin. Recent fevers shakes chills. Patient reports that she's had some nausea with no vomiting or diarrhea. Patient reports she's had URI symptoms with a nonproductive cough. Patient reports that she usually uses a nebulizer machine at home however her nebulizers recently broken and she has not been able to get a new one quite yet. Patient reports that she does have inhalers at home which she has been utilizing. Review of systems: Constitutional: Denies fever or chills Eyes: Denies change in visual acuity, redness, or eye pain HENT: Denies nasal congestion or sore throat All other review systems are negative except as documented in the history of present illness portion. Physical exam: Constitutional: Well developed, well nourished, no acute distress, non-toxic appearance. HENT: Normocephalic, atraumatic, bilateral external ears normal, nose normal. Eyes: EOMI, conjunctiva normal, no discharge. Neck: Normal range of motion, no tenderness, supple, no stridor. Cardiovascular:Heart rate regular rhythm Lungs & Thorax: Bilateral breath sounds clear to auscultation no respiratory distress diffuse inspiratory and expiratory wheezing. Abdomen: Bowel sounds normal, soft, no tenderness, no masses, no pulsatile masses. Skin: Warm, dry, no erythema, no rash. Back: No tenderness, no CVA tenderness. Extremities: No tenderness, no cyanosis, no clubbing, ROM intact, no edema. Neurologic: Alert and oriented X 3, normal motor function, normal sensory function, no focal deficits noted. Psychologic: Affect normal, judgement normal, mood normal. Patient's physical exam the ER significant for diffuse inspiratory expiratory wheezing. Patient's pulse ox is 98% on room air. Patient is able speak in full sentences. Patient does not appear to be in respiratory distress. Patient's chest x-ray revealed a normal heart no infiltrates or effusions. EKG Normal sinus rhythm at a heart rate of [address]-T wave abnormalities, no evidence of ST elevation [place], interpreted by ER physician. Assessment and plan: Acute asthma exacerbation 61-year-old female who presents here today secondary to acute asthma exacerbation. While in the ER the patient received a DuoNeb and 2 Ventolin neb treatments. Patient received IV Solu-Medrol. Patient was evaluated for possible admission. Patient reports after her neb treatment she feels 100% improved and does not think it she would benefit from being admitted to the hospital. Patient has been ambulated in the ER and she feels back to her baseline. Patient is requesting that we assist her with a prescription for a nebulizer machine. Patient is stable for discharge to home. Patient's pulse ox has remained 98-99% on room air in the ER. Patient speaking in full sentences without any dyspnea. Patient's repeat lung exam reveals clear lungs without any wheezing rales or rhonchi. After ambulation the patient's lungs are still clear. Patient will be discharged home with a prescription for steroids and have nebulizer machine. Current Medications Current Medications Current Medications Medications (Trade) Dose Ordered Sig/Indra Start Time Stop Time Status Last Admin Dose Admin Albuterol Sulfate (Ventolin Neb Soln) 2.5 mg 1X ONCE 09/30/16 18:00 09/30/16 18:01 DC 09/30/16 18:09 2.5 MG Albuterol/ Ipratropium (Duoneb) 3 ml 1X ONCE 09/30/16 16:45 09/30/16 16:46 DC 09/30/16 16:19 3 ML Methylprednisolone Sodium Succinate (SOLU-Medrol 125MG VIAL) 125 mg 1X ONCE 09/30/16 16:45 09/30/16 16:46 DC 09/30/16 16:37 125 MG Allergies Allergies Allergies Coded Allergies Type Severity Reaction Last Updated Verified aspirin Allergy Severe Shortness of Air 02/26/16 Yes Sulfa (Sulfonamide Antibiotics) Allergy Intermediate 02/26/16 Yes ketorolac Allergy Intermediate 02/26/16 Yes sulfamethoxazole Allergy Intermediate 02/26/16 Yes trimethoprim Allergy Intermediate 02/26/16 Yes Current Patient Data Vital Signs Vital Signs Date Time Temp Pulse Resp B/P (MAP) Pulse Ox O2 Delivery O2 Flow Rate FiO2 09/30/16 18:15 Room Air 09/30/16 18:10 94 09/30/16 17:30 62 15 159/101 (120) 09/30/16 16:09 97.8 97.8 Lab Values Laboratory Tests Test 09/30/16 16:20 09/30/16 17:20 White Blood Count 7.9 x10^3/uL (4.0-11.0) Red Blood Count 4.56 x10^6/uL (3.50-5.40) Hemoglobin 12.4 g/dL (12.0-15.5) Hematocrit 37.9 % (36.0-47.0) Mean Corpuscular Volume 83 fL (79-100) Mean Corpuscular Hemoglobin 27 pg (25-35) Mean Corpuscular Hemoglobin Concent 33 g/dL (31-37) Red Cell Distribution Width 15.8 % (11.5-14.5) H Platelet Count 206 x10^3/uL (140-400) Neutrophils (%) (Auto) 45 % (31-73) Lymphocytes (%) (Auto) 30 % (24-48) Monocytes (%) (Auto) 4 % (0-9) Eosinophils (%) (Auto) 20 % (0-3) H Basophils (%) (Auto) 1 % (0-3) Neutrophils # (Auto) 3.6 x10^3uL (1.8-7.7) Lymphocytes # (Auto) 2.4 x10^3/uL (1.0-4.8) Monocytes # (Auto) 0.3 x10^3/uL (0.0-1.1) Eosinophils # (Auto) 1.6 x10^3/uL (0.0-0.7) H Basophils # (Auto) 0.1 x10^3/uL (0.0-0.2) Platelet Estimate Pending Sodium Level 143 mmol/L (136-145) Potassium Level 3.6 mmol/L (3.5-5.1) Chloride Level 106 mmol/L (98-107) Carbon Dioxide Level 29 mmol/L (21-32) Anion Gap 8 (6-14) Blood Urea Nitrogen 13 mg/dL (7-20) Creatinine 1.5 mg/dL (0.6-1.0) H Estimated GFR (Cockcroft-Gault) 43.0 BUN/Creatinine Ratio 9 (6-20) Glucose Level 112 mg/dL (70-99) H Calcium Level 9.9 mg/dL (8.5-10.1) Total Bilirubin 1.0 mg/dL (0.2-1.0) Aspartate Amino Transferase (AST) 36 U/L (15-37) Alanine Aminotransferase (ALT) 29 U/L (14-59) Alkaline Phosphatase 52 U/L (46-116) Troponin I Quantitative 0.017 ng/mL (0.000-0.055) LW-Xhj-K-Type Natriuretic Peptide 82 pg/mL (0-124) Total Protein 7.0 g/dL (6.4-8.2) Albumin 3.8 g/dL (3.4-5.0) Albumin/Globulin Ratio 1.2 (1.0-1.7) Laboratory Tests 09/30/16 16:20 Laboratory Tests 09/30/16 17:20 EKG EKG [] Radiology/Procedures Radiology/Procedures [] Course & Med Decision Making Course & Med Decision Making Pertinent Labs and Imaging studies reviewed. (See chart for details) [] Dragon Disclaimer Dragon Disclaimer This electronic medical record was generated, in whole or in part, using a voice recognition dictation system. Departure Departure Impression: Primary Impression: Asthma exacerbation Disposition: 01 HOME, SELF-CARE Condition: IMPROVED Referrals: EWA MORENO MD (PCP) Patient Instructions: Asthma, Adult Additional Instructions: Thank you for allowing us to participate in your care today. Followup with your primary care physician in 3 days if your symptoms do not improve. Call your Primary Doctor tomorrow and inform them of your visit today. If you do not have a primary care provider you can ask for a list of our primary care providers. Return to the emergency department you have any new or concerning findings. This should be evaluated by the primary care physician and any necessary consulting services for continued management within a few days after discharge. Return to emergency room if you have any new or concerning symptoms including but not limited to fever, chills, nausea, vomiting, intractable pain, any new rashes, chest pain, shortness of air, uncontrolled bleeding, difficulty breathing, and/or vision loss. You may have been prescribed medication that can change in your level of thinking and ability to operate machinery. These medications include hydrocodone and Ativan. Also, Benadryl has been known to do this as well. Be sure to check with your pharmacist and ask if the medications you've prescribed can affect your level of consciousness. I recommend not operating heavy machinery or driving while on medication such as these. Scripts Prednisone (PREDNISONE) 50 Mg Tablet 1 TAB PO DAILY, #5 TAB Prov: MAZIN SHOEMAKER MD 09/30/16 MAZIN SHOEMAKER MD Sep 30, 2016 19:00
[2016-09-30 19:10] VITALS: BP 139/91
[2016-09-30 19:25] LABS: % BASOS 2 % (0-3); % EOS 12 % (0-5)
[2016-09-30 19:30] LABS: ANISOCYTOSIS SLIGHT; PLT ESTIMATE ADEQUATE (ADEQUATE)
--- NOTE | 2016-10-01 07:13 | EKG ---
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
== END 2016-09-30 19:10 | disposition home or self-care (01) ==
LOC: ER 15:59
DX: J45.901 Unspecified asthma with (acute) exacerbation (principal); I11.0 Hypertensive heart disease with heart failure; I50.9 Heart failure, unspecified; E03.9 Hypothyroidism, unspecified; E05.00 Thyrotoxicosis with diffuse goiter without thyrotoxic crisis or storm; Z86.73 Personal history of transient ischemic attack (TIA), and cerebral infarction without residual deficits; Z90.49 Acquired absence of other specified parts of digestive tract; Z79.899 Other long term (current) drug therapy; Z88.6 Allergy status to analgesic agent; Z88.2 Allergy status to sulfonamides; Z88.1 Allergy status to other antibiotic agents; Z88.8 Allergy status to other drugs, medicaments and biological substances
CPT/HCPCS: 36415; 71010; 80053; 83880; 84484; 85007; 85025; 93005; 94250; 94640; 96374; 99285; J2930; J7613; J7620

== ENCOUNTER 2016-11-09 09:46 | Inpatient (IN) | payer MEDICARE ==
[~2016-11-09] VITALS: Ht 177.8 cm; Wt 135.2 kg
--- NOTE | 2016-11-09 09:51 | PHYS DOC ---
Past Medical History Past Medical History: Asthma, Hypertension, Hypothyroid, Other Additional Past Medical Histor: constipation, graves disease Past Surgical History: , Hysterectomy, Other Additional Past Surgical Histo: HERNIA REPAIR, GALL BLADDER, NASAL Alcohol Use: None Drug Use: None Adult General Chief Complaint Chief Complaint: ASTHMA HPI HPI Patient is a 61 year old -[place] female who presents with shortness of breath and chest pain. She states she's had intermittent chest pain over the last 2 weeks but this morning she got up when she started and late she had dull achy sensation in her right side of her chest that did not radiate. She felt nauseated became diaphoretic and short of breath with this. She states it resolved when she stopped walking. She states she's been having yellow minimal sputum production over the last several days. She is been using her albuterol inhaler more without any relief. She states her nebulizer is broken. 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 She denies ever having a heart attack in the past and she states been several years since she's had an echo. She states she is allergic to nonsteroidals and they make her itch. She does have a history of smoking but stopped several years ago and smoked approximately 3-4 cigarettes a day for 20 years. Review of Systems Review of Systems Constitutional: Denies fever or chills [] Eyes: Denies change in visual acuity, redness, or eye pain [] HENT: Denies nasal congestion or sore throat [] Respiratory: Positive for yellow sputum and dyspnea on exertion Cardiovascular: No additional information not addressed in HPI [] GI: Denies abdominal pain, nausea, vomiting, bloody stools or diarrhea [] : Denies dysuria or hematuria [] Musculoskeletal: Denies back pain or joint pain [] Integument: Denies rash or skin lesions [] Neurologic: Denies headache, focal weakness or sensory changes [] Endocrine: Denies polyuria or polydipsia [] Current Medications Current Medications Current Medications Medications (Trade) Dose Ordered Sig/Indra Start Time Stop Time Status Last Admin Dose Admin Albuterol/ Ipratropium (Duoneb) 3 ml 1X ONCE 11/09/16 10:15 11/09/16 10:16 DC 11/09/16 10:54 3 ML Methylprednisolone Sodium Succinate (SOLU-Medrol 125MG VIAL) 125 mg 1X ONCE 11/09/16 13:00 11/09/16 13:01 DC 11/09/16 13:04 125 MG Allergies Allergies Allergies Coded Allergies Type Severity Reaction Last Updated Verified NSAIDS (Non-Steroidal Anti-Inflamma Allergy Severe itching,throat"swells" 11/09 Yes aspirin Allergy Severe Shortness of Air 11/09/16 Yes Sulfa (Sulfonamide Antibiotics) Allergy Intermediate 11/09/16 Yes ketorolac Allergy Intermediate 11/09/16 Yes sulfamethoxazole Allergy Intermediate 11/09/16 Yes trimethoprim Allergy Intermediate 11/09/16 Yes Physical Exam Physical Exam Constitutional: Well developed, well nourished, no acute distress, non-toxic appearance. [] HENT: Normocephalic, atraumatic, bilateral external ears normal, oropharynx moist, no oral exudates, nose normal. [] Eyes: PERRLA, EOMI, conjunctiva normal, no discharge. [] Neck: Normal range of motion, no tenderness, supple, no stridor. [] Cardiovascular:Heart rate regular rhythm, no murmur [] Lungs & Thorax: Decreased breath sounds at the bases bilaterally, no wheezing noted Abdomen: Bowel sounds normal, soft, no tenderness, no masses, no pulsatile masses. [] Skin: Warm, dry, no erythema, no rash. [] Back: No tenderness, no CVA tenderness. [] Extremities: No tenderness, no cyanosis, no clubbing, ROM intact, no edema. [] Neurologic: Alert and oriented X 3, normal motor function, normal sensory function, no focal deficits noted. [] Psychologic: Affect normal, judgement normal, mood normal. [] Current Patient Data Vital Signs Vital Signs Date Time Temp Pulse Resp B/P (MAP) Pulse Ox O2 Delivery O2 Flow Rate FiO2 11/09/16 12:22 74 20 158/107 (124) 97 Room Air 11/09/16 09:55 98.0 98.0 Lab Values Laboratory Tests Test 11/09/16 10:20 White Blood Count 6.2 x10^3/uL (4.0-11.0) Red Blood Count 4.47 x10^6/uL (3.50-5.40) Hemoglobin 12.0 g/dL (12.0-15.5) Hematocrit 37.2 % (36.0-47.0) Mean Corpuscular Volume 83 fL (79-100) Mean Corpuscular Hemoglobin 27 pg (25-35) Mean Corpuscular Hemoglobin Concent 32 g/dL (31-37) Red Cell Distribution Width 17.0 % (11.5-14.5) H Platelet Count 210 x10^3/uL (140-400) Neutrophils (%) (Auto) 43 % (31-73) Lymphocytes (%) (Auto) 38 % (24-48) Monocytes (%) (Auto) 5 % (0-9) Eosinophils (%) (Auto) 13 % (0-3) H Basophils (%) (Auto) 1 % (0-3) Neutrophils # (Auto) 2.7 x10^3uL (1.8-7.7) Lymphocytes # (Auto) 2.4 x10^3/uL (1.0-4.8) Monocytes # (Auto) 0.3 x10^3/uL (0.0-1.1) Eosinophils # (Auto) 0.8 x10^3/uL (0.0-0.7) H Basophils # (Auto) 0.1 x10^3/uL (0.0-0.2) Prothrombin Time 13.4 SEC (11.7-14.0) Prothrombin Time INR 1.1 (0.8-1.1) Sodium Level 143 mmol/L (136-145) Potassium Level 3.8 mmol/L (3.5-5.1) Chloride Level 106 mmol/L (98-107) Carbon Dioxide Level 31 mmol/L (21-32) Anion Gap 6 (6-14) Blood Urea Nitrogen 11 mg/dL (7-20) Creatinine 1.4 mg/dL (0.6-1.0) H Estimated GFR (Cockcroft-Gault) 46.6 Glucose Level 99 mg/dL (70-99) Calcium Level 9.3 mg/dL (8.5-10.1) Magnesium Level 2.2 mg/dL (1.8-2.4) Total Bilirubin 1.1 mg/dL (0.2-1.0) H Direct Bilirubin 0.2 mg/dL (0.0-0.2) Aspartate Amino Transferase (AST) 53 U/L (15-37) H Alanine Aminotransferase (ALT) 43 U/L (14-59) Alkaline Phosphatase 49 U/L (46-116) Creatine Kinase 716 U/L (26-192) H Creatine Kinase MB (Mass) 6.3 ng/mL (0.0-3.6) H Creatine Kinase MB Relative Index 0.9 % (0-4) Troponin I Quantitative 0.023 ng/mL (0.000-0.055) FE-Sri-U-Type Natriuretic Peptide 242 pg/mL (0-124) H Total Protein 7.3 g/dL (6.4-8.2) Albumin 3.8 g/dL (3.4-5.0) Lipase 162 U/L (73-393) Thyroid Stimulating Hormone (TSH) 36.679 uIU/mL (0.358-3.74) H Laboratory Tests 11/09/16 10:20 Laboratory Tests 11/09/16 10:20 EKG EKG EKG shows sinus rhythm with rate [address] elevations, T-wave inversions noted in lead 3, V1 through V5, left axis deviation noted, QTC 432 ms , as interpreted by me. Radiology/Procedures Radiology/Procedures [facility] [address] [place], [place] [id number] IMAGING REPORT Signed PATIENT: JERRY WAYNE ACCOUNT: [id number] : 1955 LOCATION: ER AGE: 61 SEX: F EXAM STATUS: REG ER ORD. PHYSICIAN: FABIÁN HART MD REASON: soa PROCEDURE: PORTABLE CHEST 1V EXAM: Chest, single view. HISTORY: Shortness of air. COMPARISON: 09/30/2016. FINDINGS: A frontal view of the chest is obtained. There is blunting of the left costophrenic angle, suggesting a small left pleural effusion. There is suspected left lower lobe atelectasis or infiltrate. There is stable enlargement of the cardiac silhouette. There is suspected scarring or atelectasis along the right pleural fissure. There is no pneumothorax. IMPRESSION: 1. Suspected small left pleural effusion with lower lobe atelectasis or infiltrate. 2. Cardiomegaly. DICTATED and SIGNED BY: KIMBERLY PALACIOS MD DATE: 11/09/16 1036 CC: FABIÁN HART MD; WEA MORENO MD ~ Impressions: Shortness of breath Chest discomfort Hypertension Asthma Diastolic heart failure Course & Med Decision Making Course & Med Decision Making Pertinent Labs and Imaging studies reviewed. (See chart for details) EKG is similar to one performed in September 2016, troponin is negative S x-ray shows a small effusion with questionable infiltrate. I do not believe she has an infiltrate or infectious process going on and she doesn't have a fever she is a have a leukocytosis. She felt better after she received a DuoNeb. We will start Solu-Medrol and admit to Dr. Grover with cardiology consultation. Patient' s agreeable plans in stable condition at this time. Dragon Disclaimer Dragon Disclaimer This electronic medical record was generated, in whole or in part, using a voice recognition dictation system. Departure Departure Impression: Primary Impression: Chest pain Disposition: ADMITTED INPATIENT Admitting Physician: Michelle Grover Condition: STABLE Referrals: EWA MORENO MD (PCP) Problem Qualifiers Primary Impression: Chest pain Chest pain type: unspecified Qualified Codes: R07.9 - Chest pain, unspecified FABIÁN HART MD Nov 09, 2016 09:51
[2016-11-09] MEDS ORDERED: IPRATRPIUM/ALBUTEROL 0.5/2.5MG 3 ML NEBU. NEB ONE (10:15)
[2016-11-09 10:35] LABS: BASO # 0.1 x10^3/uL (0.0-0.2); BASO % 1 % (0-3); EOS % 13 % (0-3); HEMATOCRIT 37.2 % (36.0-47.0); LYMPH # 2.4 x10^3/uL (1.0-4.8); LYMPH % 38 % (24-48); MEAN CORPUSCULAR HEMOGLOBIN 27 pg (25-35); MEAN CORPUSCULAR HGB CONC 32 g/dL (31-37); MEAN CORPUSCULAR VOLUME 83 fL (79-100); MONO % 5 % (0-9); NEUT % 43 % (31-73); PLATELET COUNT 210 x10^3/uL (140-400); RED BLOOD COUNT 4.47 x10^6/uL (3.50-5.40); WHITE BLOOD COUNT 6.2 x10^3/uL (4.0-11.0)
--- NOTE | 2016-11-09 10:35 | EKG ---
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
--- NOTE | 2016-11-09 10:40 | RAD ---
EXAM: Chest, single view. HISTORY: Shortness of air. COMPARISON: 09/30/2016. FINDINGS: A frontal view of the chest is obtained. There is blunting of the left costophrenic angle, suggesting a small left pleural effusion. There is suspected left lower lobe atelectasis or infiltrate. There is stable enlargement of the cardiac silhouette. There is suspected scarring or atelectasis along the right pleural fissure. There is no pneumothorax. IMPRESSION: 1. Suspected small left pleural effusion with lower lobe atelectasis or infiltrate. 2. Cardiomegaly.
[2016-11-09 10:50] LABS: CALCIUM 9.3 mg/dL (8.5-10.1); CREATININE 1.4 mg/dL (0.6-1.0); GFR 46.6; POTASSIUM 3.8 mmol/L (3.5-5.1)
[2016-11-09 10:52] LABS: ALBUMIN 3.8 g/dL (3.4-5.0); DIRECT BILIRUBIN 0.2 mg/dL (0.0-0.2); MAGNESIUM 2.2 mg/dL (1.8-2.4); TOTAL BILIRUBIN 1.1 mg/dL (0.2-1.0); TOTAL PROTEIN 7.3 g/dL (6.4-8.2)
[2016-11-09 10:55] LABS: INR 1.1 (0.8-1.1); PROTHROMBIN TIME PATIENT 13.4 SEC (11.7-14.0)
[2016-11-09 11:01] LABS: CKMB MASS 6.3 ng/mL (0.0-3.6)
[2016-11-09] MEDS ORDERED: methylPREDNISolone SOD SUCC PF 125 MG/2 ML VIAL. IV ONE (13:00)
[2016-11-09] MEDS ORDERED: ONDANSETRON PF 4 MG/2 ML VIAL. IV PRN (13:15)
[2016-11-09 13:16] LABS: BILIRUBIN,URINE NEGATIVE (NEG); GLUCOSE,URINE NEGATIVE (NEG); NITRITE,URINE NEGATIVE (NEG); PROTEIN,URINE 30 mg/dL (NEG-TRACE); UROBILINOGEN,URINE 0.2 mg/dL (0.2 mg/dL)
[2016-11-09] MEDS ORDERED: ALBUTEROL SULFATE 2.5 MG/3 ML NEBU. NEB PRN (13:30)
[2016-11-09 13:40] LABS: RBC,URINE RARE /HPF (0-2)
[2016-11-09 13:41] LABS: BACTERIA,URINE FEW /HPF (0-FEW); SQUAMOUS EPITHELIAL CELL,UR FEW /LPF
--- NOTE | 2016-11-09 14:37 | PDOC2 ---
CARDIAC CONSULT DATE OF CONSULT Date of Consult DATE: 11/09/16 TIME: 14:29 REASON FOR CONSULT Reason for Consult: Chest pain REFERRING PHYSICIAN Referring Physician: Akash SOURCE Source: Chart review, Patient HISTORY OF PRESENT ILLNESS HISTORY OF PRESENT ILLNESS This is a 61 yo female admitted for complains of chest pain and SOA. Reports that this has been going on for the last 2 days. This was described as dull lower sternal discomfort and is reproducible with epigastric palpation. She does have remote hx of of PUD in the past. Also positive for nausea but no vomiting. No significant diaphoresis nor palpitations. In the last 2 days she has been using her inhalers >5 x a day. He nebulizer is broken. She does not have insurance thus she has been spacing out her medications. She used to use marijuana and cocaine but has not used int in a while. PAST MEDICAL HISTORY Cardiovascular: CHF, HTN, Other (cardiomyopathy?) Pulmonary: Asthma CENTRAL NERVOUS SYSTEM: Other (No pertinent history) GI: GERD Heme/Onc: Other (multiple allergies) Musculoskeletal: Osteoarthritis, Other (morbid obesity) ENT: No pertinent hx Endocrine: Hypothyroidism (graves) Dermatology: No pertinent hx SOCIAL HISTORY Smoke: No ALCOHOL: none Drugs: Other (hx of polysubstance abuse) CURRENT MEDICATIONS CURRENT MEDICATIONS Current Medications Medications (Trade) Dose Ordered Sig/Indra Route PRN Reason Start Time Stop Time Status Last Admin Dose Admin Albuterol/ Ipratropium (Duoneb) 3 ml 1X ONCE NEB 11/09/16 10:15 11/09/16 10:16 DC 11/09/16 10:54 Methylprednisolone Sodium Succinate (SOLU-Medrol 125MG VIAL) 125 mg 1X ONCE IV 11/09/16 13:00 11/09/16 13:01 DC 11/09/16 13:04 ALLERGIES ALLERGIES: Coded Allergies: NSAIDS (Non-Steroidal Anti-Inflamma (Verified Allergy, Severe, itching, throat"swells", 11/09/16) aspirin (Verified Allergy, Severe, Shortness of Air, 11/09/16) Sulfa (Sulfonamide Antibiotics) (Verified Allergy, Intermediate, 11/09/16) ketorolac (Verified Allergy, Intermediate, 11/09/16) sulfamethoxazole (Verified Allergy, Intermediate, 11/09/16) trimethoprim (Verified Allergy, Intermediate, 11/09/16) ROS Review of System 14 point ROS evaluated with pertinent positives noted per HPI PHYSICAL EXAM General: Alert, Oriented X3, Cooperative, No acute distress HEENT: Atraumatic, Mucous membr. moist/pink Lungs: Other (dimnished bases;basilar crackles) Abdomen: Soft, Other (epigastric tenderness, obese) Extremities: No cyanosis, Other (trace to 1+ bilateral LE pitting edema) Skin: No breakdown Neuro: Normal speech, Sensation intact Psych/Mental Status: Mood NL MUSCULOSKELETAL: Osteoarthritic changes both hands VITALS VITALS Vital Signs Date Time Temp Pulse Resp B/P (MAP) Pulse Ox O2 Delivery O2 Flow Rate FiO2 11/09/16 14:15 81 16 133/85 (101) 97 Room Air 11/09/16 09:55 98.0 98.0 LABS Lab: Laboratory Tests Test 11/09/16 10:20 11/09/16 12:37 White Blood Count 6.2 x10^3/uL (4.0-11.0) Red Blood Count 4.47 x10^6/uL (3.50-5.40) Hemoglobin 12.0 g/dL (12.0-15.5) Hematocrit 37.2 % (36.0-47.0) Mean Corpuscular Volume 83 fL (79-100) Mean Corpuscular Hemoglobin 27 pg (25-35) Mean Corpuscular Hemoglobin Concent 32 g/dL (31-37) Red Cell Distribution Width 17.0 % (11.5-14.5) Platelet Count 210 x10^3/uL (140-400) Neutrophils (%) (Auto) 43 % (31-73) Lymphocytes (%) (Auto) 38 % (24-48) Monocytes (%) (Auto) 5 % (0-9) Eosinophils (%) (Auto) 13 % (0-3) Basophils (%) (Auto) 1 % (0-3) Neutrophils # (Auto) 2.7 x10^3uL (1.8-7.7) Lymphocytes # (Auto) 2.4 x10^3/uL (1.0-4.8) Monocytes # (Auto) 0.3 x10^3/uL (0.0-1.1) Eosinophils # (Auto) 0.8 x10^3/uL (0.0-0.7) Basophils # (Auto) 0.1 x10^3/uL (0.0-0.2) Prothrombin Time 13.4 SEC (11.7-14.0) Prothromb Time International Ratio 1.1 (0.8-1.1) Sodium Level 143 mmol/L (136-145) Potassium Level 3.8 mmol/L (3.5-5.1) Chloride Level 106 mmol/L (98-107) Carbon Dioxide Level 31 mmol/L (21-32) Anion Gap 6 (6-14) Blood Urea Nitrogen 11 mg/dL (7-20) Creatinine 1.4 mg/dL (0.6-1.0) Estimated GFR (Cockcroft-Gault) 46.6 Glucose Level 99 mg/dL (70-99) Calcium Level 9.3 mg/dL (8.5-10.1) Magnesium Level 2.2 mg/dL (1.8-2.4) Total Bilirubin 1.1 mg/dL (0.2-1.0) Direct Bilirubin 0.2 mg/dL (0.0-0.2) Aspartate Amino Transf (AST/SGOT) 53 U/L (15-37) Alanine Aminotransferase (ALT/SGPT) 43 U/L (14-59) Alkaline Phosphatase 49 U/L (46-116) Creatine Kinase 716 U/L (26-192) Creatine Kinase MB (Mass) 6.3 ng/mL (0.0-3.6) Creatine Kinase MB Relative Index 0.9 % (0-4) Troponin I Quantitative 0.023 ng/mL (0.000-0.055) MQ-Rmg-J-Type Natriuretic Peptide 242 pg/mL (0-124) Total Protein 7.3 g/dL (6.4-8.2) Albumin 3.8 g/dL (3.4-5.0) Lipase 162 U/L (73-393) Thyroid Stimulating Hormone (TSH) 36.679 uIU/mL (0.358-3.74) Urine Collection Type Unknown Urine Color Yellow Urine Clarity Clear Urine pH 7.0 Urine Specific [place] 1.010 Urine Protein 30 mg/dL (NEG-TRACE) Urine Glucose (UA) Negative mg/dL (NEG) Urine Ketones (Stick) Negative mg/dL (NEG) Urine Blood Negative (NEG) Urine Nitrite Negative (NEG) Urine Bilirubin Negative (NEG) Urine Urobilinogen Dipstick 0.2 mg/dL (0.2 mg/dL) Urine Leukocyte Esterase Negative (NEG) Urine RBC Rare /HPF (0-2) Urine WBC 1-4 /HPF (0-4) Urine Squamous Epithelial Cells Few /LPF Urine Bacteria Few /HPF (0-FEW) ASSESSMENT/PLAN ASSESSMENT/PLAN 1. Atypical chest pain: Initial troponin normal, EKG SR without acute changes. Doubt ACS. Suspect GI and bronchospasm 2. Mild rhabdomyolysis: CK 716, suspect due to uncontrolled hypothyroidism 3. HTN: labile 4. Hypothyroidism: TSH 36. per PCP 5. Asthma exacerbation: hx of multiple allergies. per PCP 6. Noncompliance to treatment: mainly the reason for above uncontrolled comorbid conditions. Reports of financial constraints 7. Morbid obesity: BMI 40 8. Hx of polysubstance abuse Recommendations 1. Discussed treatment compliance, will tailor made meds with [facility] 4 $ 2. TTE, lipids, trend troponin, repeat EKG. UDS 3. Restart prior home meds. Start ppi, imdur and losartan. Allergy to ASA. 4. Lifestyle modification Problems: FATOU ALMONTE CHIEF ARCHITECT Nov 09, 2016 14:37
[2016-11-09 14:39] VITALS: BP 162/114
--- NOTE | 2016-11-09 15:23 | EKG ---
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
[2016-11-09 15:26] LABS: CHOLESTEROL/HDL RATIO 3.1
[2016-11-09] MEDS ORDERED: FLUT1DIS IH (15:36)
[2016-11-09] MEDS ORDERED: hydrALAZINE 20 MG/ML VIAL. IVP PRN (16:15)
[2016-11-09] MEDS ORDERED: IV NORMAL SALINE 1000ML BAG 1,000 ML IV ONE (16:30)
[2016-11-09] MEDS ORDERED: IBUPROFEN 600 MG TABLET. PO PRN (17:00)
[2016-11-09] MEDS ORDERED: NON FORMULARY ITEM (Albuterol Sulfate (Albuterol Sulfate Neb Soln) 0.63 MG) NEB PRN (17:15)
[2016-11-09] MEDS ORDERED: NON FORMULARY ITEM (Albuterol Sulfate (Proair Hfa Inhaler) 2 PUFF) INH PRN (17:15)
[2016-11-09] MEDS: ACETAMINOPHEN 325 MG TABLET. PO PRN (17:25)
[2016-11-09 19:00] VITALS: BP 121/80
[2016-11-09] MEDS: ALBUTEROL SULFATE 2.5 MG/3 ML NEBU. NEB SCH (19:03)
[2016-11-09] MEDS: BUDESONIDE 0.5 MG/2 ML NEBU. NEB SCH (19:03)
[2016-11-09] MEDS ORDERED: NON FORMULARY ITEM (Fluticasone/Salmeterol (Advair 100-50 Diskus) 1 PUFF) IH SCH (21:00)
[2016-11-09 23:00] VITALS: BP 123/86
[2016-11-10] MEDS: ACETAMINOPHEN 325 MG TABLET. PO PRN ×4 (01:57→21:29)
[2016-11-10 03:00] VITALS: BP 149/112
[2016-11-10 04:11] LABS: BASO % 0 % (0-3); EOS % 0 % (0-3); HEMOGLOBIN 12.3 g/dL (12.0-15.5); LYMPH # 0.8 x10^3/uL (1.0-4.8); LYMPH % 17 % (24-48); MEAN CORPUSCULAR HEMOGLOBIN 27 pg (25-35); MEAN CORPUSCULAR HGB CONC 32 g/dL (31-37); MEAN CORPUSCULAR VOLUME 84 fL (79-100); MONO % 2 % (0-9); NEUT % 81 % (31-73); PLATELET COUNT 197 x10^3/uL (140-400); RED BLOOD COUNT 4.54 x10^6/uL (3.50-5.40); RED CELL DISTRIBUTION WIDTH 17.5 % (11.5-14.5); WHITE BLOOD COUNT 4.7 x10^3/uL (4.0-11.0)
[2016-11-10 04:24] LABS: CALCIUM 9.8 mg/dL (8.5-10.1); CREATININE 1.4 mg/dL (0.6-1.0); GFR 46.6; POTASSIUM 4.1 mmol/L (3.5-5.1)
[2016-11-10] MEDS: ALBUTEROL SULFATE 2.5 MG/3 ML NEBU. NEB SCH ×4 (05:48→19:15)
[2016-11-10] MEDS: BUDESONIDE 0.5 MG/2 ML NEBU. NEB SCH ×2 (05:50→19:14)
[2016-11-10 07:00] VITALS: BP 161/107
[2016-11-10] MEDS ORDERED: LEVOTHYROXINE 25 MCG TABLET. PO SCH (07:00)
[2016-11-10] MEDS ORDERED: NON FORMULARY ITEM (Losartan Potassium (Cozaar) 100 MG) PO SCH (09:00)
[2016-11-10] MEDS: LOSARTAN POTASSIUM 50 MG TABLET. PO SCH (09:08)
[2016-11-10] MEDS: PANTOPRAZOLE 40 MG TABLET.DR. PO SCH (09:09)
[2016-11-10] MEDS: MONTELUKAST SODIUM 10 MG TABLET. PO SCH (09:09)
[2016-11-10] MEDS: ISOSORBIDE MONONITRATE ER 30 MG TAB.ER.24H PO SCH (09:09)
[2016-11-10 09:24] LABS: BARBITURATES NEG (NEG); BENZODIAZEPINES NEG (NEG); CANNABINOIDS NEG (NEG); COCAINE NEG (NEG); METHADONE NEG (NEG); OPIATES NEG (NEG); PHENCYCLIDINE NEG (NEG)
--- NOTE | 2016-11-10 10:07 | PDOC ---
CARDIO Progress Notes Date and Time Date of Service 11/10/2016 Time of Evaluation 1000 Subjective Subjective: No Chest Pain, No shortness of breath, No Palpitations, Other ( feels better today) Vitals Vitals Vital Signs Date Time Temp Pulse Resp B/P (MAP) Pulse Ox O2 Delivery O2 Flow Rate FiO2 11/10/16 09:09 128/94 11/10/16 08:01 Room Air 11/10/16 07:00 97.7 75 17 96 97.7 Weight Weight [ ] Laboratory Labs Laboratory Tests Test 11/09/16 10:20 11/09/16 12:37 11/09/16 15:00 11/09/16 19:15 White Blood Count 6.2 x10^3/uL (4.0-11.0) Red Blood Count 4.47 x10^6/uL (3.50-5.40) Hemoglobin 12.0 g/dL (12.0-15.5) Hematocrit 37.2 % (36.0-47.0) Mean Corpuscular Volume 83 fL (79-100) Mean Corpuscular Hemoglobin 27 pg (25-35) Mean Corpuscular Hemoglobin Concent 32 g/dL (31-37) Red Cell Distribution Width 17.0 % (11.5-14.5) Platelet Count 210 x10^3/uL (140-400) Neutrophils (%) (Auto) 43 % (31-73) Lymphocytes (%) (Auto) 38 % (24-48) Monocytes (%) (Auto) 5 % (0-9) Eosinophils (%) (Auto) 13 % (0-3) Basophils (%) (Auto) 1 % (0-3) Neutrophils # (Auto) 2.7 x10^3uL (1.8-7.7) Lymphocytes # (Auto) 2.4 x10^3/uL (1.0-4.8) Monocytes # (Auto) 0.3 x10^3/uL (0.0-1.1) Eosinophils # (Auto) 0.8 x10^3/uL (0.0-0.7) Basophils # (Auto) 0.1 x10^3/uL (0.0-0.2) Prothrombin Time 13.4 SEC (11.7-14.0) Prothromb Time International Ratio 1.1 (0.8-1.1) Sodium Level 143 mmol/L (136-145) Potassium Level 3.8 mmol/L (3.5-5.1) Chloride Level 106 mmol/L (98-107) Carbon Dioxide Level 31 mmol/L (21-32) Anion Gap 6 (6-14) Blood Urea Nitrogen 11 mg/dL (7-20) Creatinine 1.4 mg/dL (0.6-1.0) Estimated GFR (Cockcroft-Gault) 46.6 Glucose Level 99 mg/dL (70-99) Calcium Level 9.3 mg/dL (8.5-10.1) Magnesium Level 2.2 mg/dL (1.8-2.4) Total Bilirubin 1.1 mg/dL (0.2-1.0) Direct Bilirubin 0.2 mg/dL (0.0-0.2) Aspartate Amino Transf (AST/SGOT) 53 U/L (15-37) Alanine Aminotransferase (ALT/SGPT) 43 U/L (14-59) Alkaline Phosphatase 49 U/L (46-116) Creatine Kinase 716 U/L (26-192) Creatine Kinase MB (Mass) 6.3 ng/mL (0.0-3.6) Creatine Kinase MB Relative Index 0.9 % (0-4) Troponin I Quantitative 0.023 ng/mL (0.000-0.055) < 0.017 ng/mL (0.000-0.055) < 0.017 ng/mL (0.000-0.055) ZX-Vuc-M-Type Natriuretic Peptide 242 pg/mL (0-124) Total Protein 7.3 g/dL (6.4-8.2) Albumin 3.8 g/dL (3.4-5.0) Triglycerides Level 65 mg/dL (0-150) Cholesterol Level 257 mg/dL (0-200) LDL Cholesterol, Calculated 160 mg/dL (0-100) VLDL Cholesterol, Calculated 13 mg/dL (0-40) Non-HDL Cholesterol Calculated 173 mg/dL (0-129) HDL Cholesterol 84 mg/dL (40-60) Cholesterol/HDL Ratio 3.1 Lipase 162 U/L (73-393) Thyroid Stimulating Hormone (TSH) 36.679 uIU/mL (0.358-3.74) Urine Collection Type Unknown Urine Color Yellow Urine Clarity Clear Urine pH 7.0 Urine Specific [place] 1.010 Urine Protein 30 mg/dL (NEG-TRACE) Urine Glucose (UA) Negative mg/dL (NEG) Urine Ketones (Stick) Negative mg/dL (NEG) Urine Blood Negative (NEG) Urine Nitrite Negative (NEG) Urine Bilirubin Negative (NEG) Urine Urobilinogen Dipstick 0.2 mg/dL (0.2 mg/dL) Urine Leukocyte Esterase Negative (NEG) Urine RBC Rare /HPF (0-2) Urine WBC 1-4 /HPF (0-4) Urine Squamous Epithelial Cells Few /LPF Urine Bacteria Few /HPF (0-FEW) Test 11/10/16 01:35 11/10/16 04:00 11/10/16 09:00 Troponin I Quantitative < 0.017 ng/mL (0.000-0.055) White Blood Count 4.7 x10^3/uL (4.0-11.0) Red Blood Count 4.54 x10^6/uL (3.50-5.40) Hemoglobin 12.3 g/dL (12.0-15.5) Hematocrit 38.0 % (36.0-47.0) Mean Corpuscular Volume 84 fL (79-100) Mean Corpuscular Hemoglobin 27 pg (25-35) Mean Corpuscular Hemoglobin Concent 32 g/dL (31-37) Red Cell Distribution Width 17.5 % (11.5-14.5) Platelet Count 197 x10^3/uL (140-400) Neutrophils (%) (Auto) 81 % (31-73) Lymphocytes (%) (Auto) 17 % (24-48) Monocytes (%) (Auto) 2 % (0-9) Eosinophils (%) (Auto) 0 % (0-3) Basophils (%) (Auto) 0 % (0-3) Neutrophils # (Auto) 3.8 x10^3uL (1.8-7.7) Lymphocytes # (Auto) 0.8 x10^3/uL (1.0-4.8) Monocytes # (Auto) 0.1 x10^3/uL (0.0-1.1) Eosinophils # (Auto) 0.0 x10^3/uL (0.0-0.7) Basophils # (Auto) 0.0 x10^3/uL (0.0-0.2) Sodium Level 144 mmol/L (136-145) Potassium Level 4.1 mmol/L (3.5-5.1) Chloride Level 107 mmol/L (98-107) Carbon Dioxide Level 26 mmol/L (21-32) Anion Gap 11 (6-14) Blood Urea Nitrogen 14 mg/dL (7-20) Creatinine 1.4 mg/dL (0.6-1.0) Estimated GFR (Cockcroft-Gault) 46.6 Glucose Level 180 mg/dL (70-99) Calcium Level 9.8 mg/dL (8.5-10.1) Urine Opiates Screen Neg (NEG) Urine Methadone Screen Neg (NEG) Urine Barbiturates Neg (NEG) Urine Phencyclidine Screen Neg (NEG) Urine Amphetamine/Methamphetamine Neg (NEG) Urine Benzodiazepines Screen Neg (NEG) Urine Cocaine Screen Neg (NEG) Urine Cannabinoids Screen Neg (NEG) Urine Ethyl Alcohol Neg (NEG) Physical Exam HEENT: Neck Supple W Full Motion Chest: Symmetric LUNGS: Clear to Auscultation Heart: S1S2, RRR (SR no signfiicant ectopies) Abdomen: Soft N/T, Other (obese) Extremities: No Calf Tenderness Neurology: alert, oriented, follow commands Assessment Assessment 1. Atypical chest pain: Suspect GI and bronchospasm. SR, no significnat ectopies overnight. 2. Mild rhabdomyolysis: CK 716, suspect due to uncontrolled hypothyroidism 3. HTN: better with current regimen. 4. Hypothyroidism: TSH 36. per PCP 5. Asthma exacerbation: hx of multiple allergies. SOA better 6. Noncompliance to treatment: mainly the reason for above uncontrolled comorbid conditions. Reports of financial constraints 7. Morbid obesity: BMI 40 8. Hx of polysubstance abuse: negative UDS 9. HLP Recommendations 1. Reinforced treatment compliance, will tailor made meds with [facility] 4$ 2. Await TTE today, if no significant changes then no further cardiac testing. 3. Allergy to ASA. Start on statin, Continue with current BP regimen and PPI 4. Lifestyle modifications FATOU ALMONTE APRN Nov 10, 2016 10:07
--- NOTE | 2016-11-10 10:09 | PDOC1 ---
History and Physical Date of Admission Date of Admission 11/09/16 Identification/Chief Complaint Chief Complaint SOB Problems: Source Source: Chart review, Patient History of Present Illness History of Present Illness Patient is a 61 year old -[place] female who presents with shortness of breath and chest pain. She states she's had intermittent chest pain over the last 2 weeks but this morning she had dull achy sensation in her right side of her chest that did not radiate. She felt nauseated became diaphoretic and short of breath with this. She states it resolved when she stopped walking. She states she's been having yellow minimal sputum production over the last several days. She is been using her albuterol inhaler more without any relief. She states her nebulizer is broken. 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 She denies ever having a heart attack in the past and she states been several years since she's had an echo. she has not been taking any of her meds because can not afford and no insurance Past Medical History Cardiovascular: CHF, HTN, Other (cardiomyopathy?) Pulmonary: Asthma, COPD CENTRAL NERVOUS SYSTEM: Periperal neuropathy, Other (No pertinent history) GI: GERD Heme/Onc: Other (multiple allergies) Hepatobiliary: Other (cholecystectomy) Psych: Depression ENT: No pertinent hx Renal/: UTI Endocrine: Hypothyroidism (graves) Dermatology: No pertinent hx Past Surgical History Past Surgical History: Cholecystectomy, , Hernia Repair, Hysterectomy Family History Family History: High Cholestrol, Hypertension Social History Smoke: Quit ALCOHOL: none Drugs: Other (hx of polysubstance abuse) Current Problem List Problem List Problems Medical Problems: (1) Chest pain Status: Acute Current Medications Current Medications Current Medications Medications (Trade) Dose Ordered Sig/Indra Start Time Stop Time Status Last Admin Dose Admin Acetaminophen (Tylenol) 650 mg PRN Q4HRS PRN 11/09/16 17:00 11/10/16 09:08 650 MG Albuterol Sulfate (Ventolin Neb Soln) 2.5 mg RTQID 11/09/16 20:00 11/10/16 05:48 2.5 MG Albuterol/ Ipratropium (Duoneb) 3 ml 1X ONCE 11/09/16 10:15 11/09/16 10:16 DC 11/09/16 10:54 3 ML Budesonide (Pulmicort) 0.5 mg RTBID 11/09/16 20:00 11/10/16 05:50 0.5 MG Hydralazine HCl (Apresoline) 10 mg PRN Q4HRS PRN 11/09/16 16:15 Ibuprofen (Motrin) 600 mg PRN Q4HRS PRN 11/09/16 17:00 11/09/16 17:09 DC Isosorbide Mononitrate (Imdur) 30 mg DAILY 11/10/16 09:00 11/10/16 09:09 30 MG Levothyroxine Sodium (Synthroid) 25 mcg DAILY07 11/10/16 07:00 11/10/16 05:38 25 MCG Losartan Potassium (Cozaar) 100 mg DAILY 11/10/16 09:00 11/10/16 09:08 100 MG Methylprednisolone Sodium Succinate (SOLU-Medrol 125MG VIAL) 125 mg 1X ONCE 11/09/16 13:00 11/09/16 13:01 DC 11/09/16 13:04 125 MG Montelukast Sodium (Singulair) 10 mg DAILY 11/10/16 09:00 11/10/16 09:09 10 MG Non-Formulary Medication 100 mg DAILY 11/10/16 09:00 UNV Ondansetron HCl (Zofran) 4 mg PRN Q8HRS PRN 11/09/16 13:15 11/10/16 13:14 Pantoprazole Sodium (Protonix) 40 mg DAILYAC 11/10/16 07:30 11/10/16 09:09 40 MG Sodium Chloride 1,000 ml @ 75 mls/hr 1X ONCE 11/09/16 16:30 11/10/16 05:49 DC 11/09/16 16:22 75 MLS/HR Allergies Allergies Allergies Coded Allergies Type Severity Reaction Last Updated Verified NSAIDS (Non-Steroidal Anti-Inflamma Allergy Severe itching,throat"swells" 11/09 Yes aspirin Allergy Severe Shortness of Air 11/09/16 Yes Sulfa (Sulfonamide Antibiotics) Allergy Intermediate 11/09/16 Yes ketorolac Allergy Intermediate 11/09/16 Yes sulfamethoxazole Allergy Intermediate 11/09/16 Yes trimethoprim Allergy Intermediate 11/09/16 Yes ROS Review of System CONSTITUTIONAL: No fever or chills EYES: No recent changes SKIN: No rash or itching CARDIOVASCULAR: see HPI no palpitation RESPIRATORY: see HPI GASTROINTESTINAL: + nausea, NO vomiting or abdominal pain NEUROLOGICAL: some headaches no weakness ENDOCRINE: + cold or heat intolerance GENITOURINARY: No urgency or frequency of urination MUSCULOSKELETAL: No back pain or joint pain LYMPHATICS: No enlarged lymph nodes Physical Exam Physical Exam GEN.: No apparent distress. Alert and oriented. HEENT: Head is normocephalic, atraumatic NECK: Supple. LUNGS: Clear to auscultation. HEART: RRR, S1, S2 present. Peripheral pulses intact ABDOMEN: Soft, mild epigastric tenderness. Positive bowel sounds. EXTREMITIES: Without any cyanosis. NEUROLOGIC: Normal speech, normal tone PSYCHIATRIC: Normal affect, normal mood. SKIN: No ulcerations Vitals Vitals Vital Signs Date Time Temp Pulse Resp B/P (MAP) Pulse Ox O2 Delivery O2 Flow Rate FiO2 11/10/16 09:09 128/94 11/10/16 08:01 Room Air 11/10/16 07:00 97.7 75 17 96 97.7 Labs Labs Laboratory Tests Test 11/09/16 10:20 11/09/16 12:37 11/09/16 15:00 11/09/16 19:15 White Blood Count 6.2 x10^3/uL (4.0-11.0) Red Blood Count 4.47 x10^6/uL (3.50-5.40) Hemoglobin 12.0 g/dL (12.0-15.5) Hematocrit 37.2 % (36.0-47.0) Mean Corpuscular Volume 83 fL (79-100) Mean Corpuscular Hemoglobin 27 pg (25-35) Mean Corpuscular Hemoglobin Concent 32 g/dL (31-37) Red Cell Distribution Width 17.0 % (11.5-14.5) Platelet Count 210 x10^3/uL (140-400) Neutrophils (%) (Auto) 43 % (31-73) Lymphocytes (%) (Auto) 38 % (24-48) Monocytes (%) (Auto) 5 % (0-9) Eosinophils (%) (Auto) 13 % (0-3) Basophils (%) (Auto) 1 % (0-3) Neutrophils # (Auto) 2.7 x10^3uL (1.8-7.7) Lymphocytes # (Auto) 2.4 x10^3/uL (1.0-4.8) Monocytes # (Auto) 0.3 x10^3/uL (0.0-1.1) Eosinophils # (Auto) 0.8 x10^3/uL (0.0-0.7) Basophils # (Auto) 0.1 x10^3/uL (0.0-0.2) Prothrombin Time 13.4 SEC (11.7-14.0) Prothromb Time International Ratio 1.1 (0.8-1.1) Sodium Level 143 mmol/L (136-145) Potassium Level 3.8 mmol/L (3.5-5.1) Chloride Level 106 mmol/L (98-107) Carbon Dioxide Level 31 mmol/L (21-32) Anion Gap 6 (6-14) Blood Urea Nitrogen 11 mg/dL (7-20) Creatinine 1.4 mg/dL (0.6-1.0) Estimated GFR (Cockcroft-Gault) 46.6 Glucose Level 99 mg/dL (70-99) Calcium Level 9.3 mg/dL (8.5-10.1) Magnesium Level 2.2 mg/dL (1.8-2.4) Total Bilirubin 1.1 mg/dL (0.2-1.0) Direct Bilirubin 0.2 mg/dL (0.0-0.2) Aspartate Amino Transf (AST/SGOT) 53 U/L (15-37) Alanine Aminotransferase (ALT/SGPT) 43 U/L (14-59) Alkaline Phosphatase 49 U/L (46-116) Creatine Kinase 716 U/L (26-192) Creatine Kinase MB (Mass) 6.3 ng/mL (0.0-3.6) Creatine Kinase MB Relative Index 0.9 % (0-4) Troponin I Quantitative 0.023 ng/mL (0.000-0.055) < 0.017 ng/mL (0.000-0.055) < 0.017 ng/mL (0.000-0.055) ZO-Wmq-G-Type Natriuretic Peptide 242 pg/mL (0-124) Total Protein 7.3 g/dL (6.4-8.2) Albumin 3.8 g/dL (3.4-5.0) Triglycerides Level 65 mg/dL (0-150) Cholesterol Level 257 mg/dL (0-200) LDL Cholesterol, Calculated 160 mg/dL (0-100) VLDL Cholesterol, Calculated 13 mg/dL (0-40) Non-HDL Cholesterol Calculated 173 mg/dL (0-129) HDL Cholesterol 84 mg/dL (40-60) Cholesterol/HDL Ratio 3.1 Lipase 162 U/L (73-393) Thyroid Stimulating Hormone (TSH) 36.679 uIU/mL (0.358-3.74) Urine Collection Type Unknown Urine Color Yellow Urine Clarity Clear Urine pH 7.0 Urine Specific [place] 1.010 Urine Protein 30 mg/dL (NEG-TRACE) Urine Glucose (UA) Negative mg/dL (NEG) Urine Ketones (Stick) Negative mg/dL (NEG) Urine Blood Negative (NEG) Urine Nitrite Negative (NEG) Urine Bilirubin Negative (NEG) Urine Urobilinogen Dipstick 0.2 mg/dL (0.2 mg/dL) Urine Leukocyte Esterase Negative (NEG) Urine RBC Rare /HPF (0-2) Urine WBC 1-4 /HPF (0-4) Urine Squamous Epithelial Cells Few /LPF Urine Bacteria Few /HPF (0-FEW) Test 11/10/16 01:35 11/10/16 04:00 11/10/16 09:00 Troponin I Quantitative < 0.017 ng/mL (0.000-0.055) White Blood Count 4.7 x10^3/uL (4.0-11.0) Red Blood Count 4.54 x10^6/uL (3.50-5.40) Hemoglobin 12.3 g/dL (12.0-15.5) Hematocrit 38.0 % (36.0-47.0) Mean Corpuscular Volume 84 fL (79-100) Mean Corpuscular Hemoglobin 27 pg (25-35) Mean Corpuscular Hemoglobin Concent 32 g/dL (31-37) Red Cell Distribution Width 17.5 % (11.5-14.5) Platelet Count 197 x10^3/uL (140-400) Neutrophils (%) (Auto) 81 % (31-73) Lymphocytes (%) (Auto) 17 % (24-48) Monocytes (%) (Auto) 2 % (0-9) Eosinophils (%) (Auto) 0 % (0-3) Basophils (%) (Auto) 0 % (0-3) Neutrophils # (Auto) 3.8 x10^3uL (1.8-7.7) Lymphocytes # (Auto) 0.8 x10^3/uL (1.0-4.8) Monocytes # (Auto) 0.1 x10^3/uL (0.0-1.1) Eosinophils # (Auto) 0.0 x10^3/uL (0.0-0.7) Basophils # (Auto) 0.0 x10^3/uL (0.0-0.2) Sodium Level 144 mmol/L (136-145) Potassium Level 4.1 mmol/L (3.5-5.1) Chloride Level 107 mmol/L (98-107) Carbon Dioxide Level 26 mmol/L (21-32) Anion Gap 11 (6-14) Blood Urea Nitrogen 14 mg/dL (7-20) Creatinine 1.4 mg/dL (0.6-1.0) Estimated GFR (Cockcroft-Gault) 46.6 Glucose Level 180 mg/dL (70-99) Calcium Level 9.8 mg/dL (8.5-10.1) Urine Opiates Screen Neg (NEG) Urine Methadone Screen Neg (NEG) Urine Barbiturates Neg (NEG) Urine Phencyclidine Screen Neg (NEG) Urine Amphetamine/Methamphetamine Neg (NEG) Urine Benzodiazepines Screen Neg (NEG) Urine Cocaine Screen Neg (NEG) Urine Cannabinoids Screen Neg (NEG) Urine Ethyl Alcohol Neg (NEG) Laboratory Tests Test 11/09/16 10:20 11/09/16 12:37 11/09/16 15:00 11/09/16 19:15 White Blood Count 6.2 x10^3/uL (4.0-11.0) Red Blood Count 4.47 x10^6/uL (3.50-5.40) Hemoglobin 12.0 g/dL (12.0-15.5) Hematocrit 37.2 % (36.0-47.0) Mean Corpuscular Volume 83 fL (79-100) Mean Corpuscular Hemoglobin 27 pg (25-35) Mean Corpuscular Hemoglobin Concent 32 g/dL (31-37) Red Cell Distribution Width 17.0 % (11.5-14.5) Platelet Count 210 x10^3/uL (140-400) Neutrophils (%) (Auto) 43 % (31-73) Lymphocytes (%) (Auto) 38 % (24-48) Monocytes (%) (Auto) 5 % (0-9) Eosinophils (%) (Auto) 13 % (0-3) Basophils (%) (Auto) 1 % (0-3) Neutrophils # (Auto) 2.7 x10^3uL (1.8-7.7) Lymphocytes # (Auto) 2.4 x10^3/uL (1.0-4.8) Monocytes # (Auto) 0.3 x10^3/uL (0.0-1.1) Eosinophils # (Auto) 0.8 x10^3/uL (0.0-0.7) Basophils # (Auto) 0.1 x10^3/uL (0.0-0.2) Prothrombin Time 13.4 SEC (11.7-14.0) Prothromb Time International Ratio 1.1 (0.8-1.1) Sodium Level 143 mmol/L (136-145) Potassium Level 3.8 mmol/L (3.5-5.1) Chloride Level 106 mmol/L (98-107) Carbon Dioxide Level 31 mmol/L (21-32) Anion Gap 6 (6-14) Blood Urea Nitrogen 11 mg/dL (7-20) Creatinine 1.4 mg/dL (0.6-1.0) Estimated GFR (Cockcroft-Gault) 46.6 Glucose Level 99 mg/dL (70-99) Calcium Level 9.3 mg/dL (8.5-10.1) Magnesium Level 2.2 mg/dL (1.8-2.4) Total Bilirubin 1.1 mg/dL (0.2-1.0) Direct Bilirubin 0.2 mg/dL (0.0-0.2) Aspartate Amino Transf (AST/SGOT) 53 U/L (15-37) Alanine Aminotransferase (ALT/SGPT) 43 U/L (14-59) Alkaline Phosphatase 49 U/L (46-116) Creatine Kinase 716 U/L (26-192) Creatine Kinase MB (Mass) 6.3 ng/mL (0.0-3.6) Creatine Kinase MB Relative Index 0.9 % (0-4) Troponin I Quantitative 0.023 ng/mL (0.000-0.055) < 0.017 ng/mL (0.000-0.055) < 0.017 ng/mL (0.000-0.055) IU-Xig-J-Type Natriuretic Peptide 242 pg/mL (0-124) Total Protein 7.3 g/dL (6.4-8.2) Albumin 3.8 g/dL (3.4-5.0) Triglycerides Level 65 mg/dL (0-150) Cholesterol Level 257 mg/dL (0-200) LDL Cholesterol, Calculated 160 mg/dL (0-100) VLDL Cholesterol, Calculated 13 mg/dL (0-40) Non-HDL Cholesterol Calculated 173 mg/dL (0-129) HDL Cholesterol 84 mg/dL (40-60) Cholesterol/HDL Ratio 3.1 Lipase 162 U/L (73-393) Thyroid Stimulating Hormone (TSH) 36.679 uIU/mL (0.358-3.74) Urine Collection Type Unknown Urine Color Yellow Urine Clarity Clear Urine pH 7.0 Urine Specific [place] 1.010 Urine Protein 30 mg/dL (NEG-TRACE) Urine Glucose (UA) Negative mg/dL (NEG) Urine Ketones (Stick) Negative mg/dL (NEG) Urine Blood Negative (NEG) Urine Nitrite Negative (NEG) Urine Bilirubin Negative (NEG) Urine Urobilinogen Dipstick 0.2 mg/dL (0.2 mg/dL) Urine Leukocyte Esterase Negative (NEG) Urine RBC Rare /HPF (0-2) Urine WBC 1-4 /HPF (0-4) Urine Squamous Epithelial Cells Few /LPF Urine Bacteria Few /HPF (0-FEW) Test 11/10/16 01:35 11/10/16 04:00 11/10/16 09:00 Troponin I Quantitative < 0.017 ng/mL (0.000-0.055) White Blood Count 4.7 x10^3/uL (4.0-11.0) Red Blood Count 4.54 x10^6/uL (3.50-5.40) Hemoglobin 12.3 g/dL (12.0-15.5) Hematocrit 38.0 % (36.0-47.0) Mean Corpuscular Volume 84 fL (79-100) Mean Corpuscular Hemoglobin 27 pg (25-35) Mean Corpuscular Hemoglobin Concent 32 g/dL (31-37) Red Cell Distribution Width 17.5 % (11.5-14.5) Platelet Count 197 x10^3/uL (140-400) Neutrophils (%) (Auto) 81 % (31-73) Lymphocytes (%) (Auto) 17 % (24-48) Monocytes (%) (Auto) 2 % (0-9) Eosinophils (%) (Auto) 0 % (0-3) Basophils (%) (Auto) 0 % (0-3) Neutrophils # (Auto) 3.8 x10^3uL (1.8-7.7) Lymphocytes # (Auto) 0.8 x10^3/uL (1.0-4.8) Monocytes # (Auto) 0.1 x10^3/uL (0.0-1.1) Eosinophils # (Auto) 0.0 x10^3/uL (0.0-0.7) Basophils # (Auto) 0.0 x10^3/uL (0.0-0.2) Sodium Level 144 mmol/L (136-145) Potassium Level 4.1 mmol/L (3.5-5.1) Chloride Level 107 mmol/L (98-107) Carbon Dioxide Level 26 mmol/L (21-32) Anion Gap 11 (6-14) Blood Urea Nitrogen 14 mg/dL (7-20) Creatinine 1.4 mg/dL (0.6-1.0) Estimated GFR (Cockcroft-Gault) 46.6 Glucose Level 180 mg/dL (70-99) Calcium Level 9.8 mg/dL (8.5-10.1) Urine Opiates Screen Neg (NEG) Urine Methadone Screen Neg (NEG) Urine Barbiturates Neg (NEG) Urine Phencyclidine Screen Neg (NEG) Urine Amphetamine/Methamphetamine Neg (NEG) Urine Benzodiazepines Screen Neg (NEG) Urine Cocaine Screen Neg (NEG) Urine Cannabinoids Screen Neg (NEG) Urine Ethyl Alcohol Neg (NEG) VTE Prophylaxis Ordered VTE Prophylaxis Devices: Yes VTE Pharmacological Prophylaxi: Yes Assessment/Plan Assessment/Plan 1. Atypical chest pain. 2. Mild rhabdomyolysis: CK 716, suspect due to uncontrolled hypothyroidism 3. HTN: labile 4. Hypothyroidism: TSH 36. restart medication 5. Asthma exacerbation started steroids and inhalers 6. Noncompliance to treatment: discussed 7. Morbid obesity: BMI 40 8. Hx of polysubstance abuse agree with cardiology plan, restart medication going for generics, echo today MARCELO RUSS MD Nov 10, 2016 10:09
[2016-11-10 10:37] VITALS: BP 132/78
[2016-11-10] MEDS: predniSONE 20 MG TABLET PO SCH (11:14)
[2016-11-10] MEDS: ENOXAPARIN 40 MG/0.4 ML SYRINGE. SQ SCH ×2 (11:14→21:33)
[2016-11-10] MEDS: POTASSIUM CL 20MEQ D5-0.45NACL 1,000 ML IV SCH ×2 (11:15→22:50)
[2016-11-10] MEDS: POLYETHYLENE GLYCOL 3350 17 GM PACKET. PO SCH (11:33)
[2016-11-10] MEDS ORDERED: FLU VACC QS2017-18 (36MOS+)/PF 0.5 ML SYRINGE. VAX IM ONE ×2 (13:15→14:00)
[2016-11-10 15:10] VITALS: BP 120/64
--- NOTE | 2016-11-10 15:29 | CARD ---
APPROVED REPORT EXAM: Two-dimensional and M-mode echocardiogram with Doppler and color Doppler. Other Information Quality : Average INDICATION Chest Pain 2D DIMENSIONS RVDd4.0 (2.9-3.5cm)Left Atrium(2D)3.8 (1.6-4.0cm) IVSd1.3 (0.7-1.1cm)Aortic Root(2D)3.3 (2.0-3.7cm) LVDd5.0 (3.9-5.9cm)LVOT Diameter2.1 (1.8-2.4cm) PWd1.3 (0.7-1.1cm)LVDs3.5 (2.5-4.0cm) SV65.9 mlLVEF(%)33.0 (>50%) Aortic Valve AoV Peak Beau.106.3cm/sAoV VTI15.1cm AO Peak GR.4.5mmHgLVOT Peak Beau.80.6cm/s LVOT VTI 10.41cmAO Mean GR.3mmHg JARED (VMAX)2.79lq8MVG (VTI)2.37cm2 Pulmonary Valve PV Peak Xdzctxdd615.1cm/sPV Peak Grad.4mmHg Tricuspid Valve TR P. Adjrggtu217kj/sRAP SHTXXENL9pqHh TR Peak Gr.35goGqQCKX07hvGi Pulmonary Vein S1 Xemqgbzy95.9cm/sD2 Qyisymrj23.6cm/s LEFT VENTRICLE The left ventricle is normal size. There is borderline concentric left ventricular hypertrophy. Left ventricle systolic function is moderately impaired. The Ejection Fraction is 30-35%. There is global hypokinesis of the left ventricle. Unable to assess diastolic function. There is no ventricular septa l defect visualized. RIGHT VENTRICLE The right ventricle is normal size. The right ventricular systolic function is normal. ATRIA The left atrium size is normal. The right atrium size is normal. The interatrial septum is intact wit h no evidence for an atrial septal defect or patent foramen ovale as noted on 2-D or Doppler imaging. AORTIC VALVE The aortic valve is not well visualized. The aortic valve is trileaflet. Doppler and Color Flow revea led no significant aortic regurgitation. There is no significant aortic valvular stenosis. MITRAL VALVE Mitral annular calcification is mild. There is no mitral valve stenosis. Doppler and Color Flow revea led no mitral valve regurgitation noted. TRICUSPID VALVE The tricuspid valve is normal in structure and function. Doppler and Color Flow revealed mild tricusp id regurgitation. The PA pressure was estimated at 25 mmHg. There is no tricuspid valve stenosis. PULMONIC VALVE The pulmonic valve is not well visualized. Doppler and Color Flow revealed no pulmonic valvular regur gitation. There is no pulmonic valvular stenosis. GREAT VESSELS The aortic root is normal in size. Normal pulmonary venous flow (Doppler). The IVC is normal in size and collapses >50% with inspiration. PERICARDIAL EFFUSION There is a small loculated posterior pericardial effusion with no hemodynamic significance. Critical Notification Date: 11/10/2016 Time: 09:08 Other Discipline : Dunia Jimenez APRN Critical Value: Yes <Conclusion> The left ventricle is normal size. Left ventricle systolic function is moderately impaired. The Ejection Fraction is 30-35%. There is global hypokinesis of the left ventricle. There is no significant aortic valvular stenosis. Doppler and Color Flow revealed no significant aortic regurgitation. Doppler and Color Flow revealed no mitral valve regurgitation noted. Doppler and Color Flow revealed mild tricuspid regurgitation. The PA pressure was estimated at 25 mmHg. There is a small loculated posterior pericardial effusion with no hemodynamic significance.
[2016-11-10] MEDS: METOPROLOL TART IMMED RELEASE 25 MG TABLET. PO SCH ×2 (17:19→21:30)
[2016-11-10 19:00] VITALS: BP 115/74
[2016-11-10] MEDS: ATORVASTATIN CALCIUM 20 MG TABLET PO SCH (21:29)
[2016-11-10 23:00] VITALS: BP 132/91
[2016-11-11 03:07] VITALS: BP 132/86
[2016-11-11 07:00] VITALS: BP 138/95
[2016-11-11] MEDS ORDERED: REGADENOSON 0.4 MG/5 ML DISP.SYRIN. IV ONE (07:45)
[2016-11-11] MEDS: ALBUTEROL SULFATE 2.5 MG/3 ML NEBU. NEB SCH ×4 (07:49→19:16)
[2016-11-11] MEDS: BUDESONIDE 0.5 MG/2 ML NEBU. NEB SCH ×3 (07:52→19:16)
--- NOTE | 2016-11-11 09:29 | PDOC ---
SUBJECTIVE Subjective having stress test this AM, has been with HERRERA last 2 days very persistant HERRERA OBJECTIVE Vital Signs Vital Signs Date Time Temp Pulse Resp B/P (MAP) Pulse Ox O2 Delivery O2 Flow Rate FiO2 11/11/16 07:52 98 Room Air 11/11/16 07:50 98 Room Air 11/11/16 07:35 Room Air 11/11/16 03:07 97.6 57 20 132/86 (101) 96 Room Air 97.6 11/10/16 23:00 97.7 67 20 132/91 (105) 93 Room Air 97.7 11/10/16 21:30 66 133/92 11/10/16 20:00 Room Air 11/10/16 19:16 96 Room Air 11/10/16 19:00 97.8 67 20 115/74 (88) 95 Room Air 97.8 11/10/16 17:19 71 120/64 11/10/16 15:29 96 Room Air 11/10/16 15:10 98.7 71 18 120/64 (82) 96 Room Air 98.7 11/10/16 11:31 97 Room Air 11/10/16 10:37 97.6 78 18 132/78 (96) 95 Room Air 97.6 PHYSICAL EXAM Physical Exam few basilar rales heart RRR abd soft ext no edema ASSESSMENT/PLAN Assessment/Plan 1. Atypical chest pain, but echo with low EF agree with stress test being done this AM 2. Mild rhabdomyolysis: CK improving , suspect due to uncontrolled hypothyroidism 3. HTN: labile but stable now 4. Hypothyroidism: TSH 36. restart medication 5. Asthma exacerbation started steroids and inhalers 6. Noncompliance to treatment: discussed 7. Morbid obesity: BMI 40 8. Hx of polysubstance abuse 9- persistant HERRERA will check CT head and ask neuro eval ? rebound plan to address HERRERA , in process of stress test today, low EF noted Problems: MARCELO RUSS MD Nov 11, 2016 09:29
[2016-11-11 11:00] VITALS: BP 176/116
--- NOTE | 2016-11-11 11:40 | PDOC ---
CARDIO Progress Notes Date and Time Date of Service 11/11/2016 Time of Evaluation 1130 Subjective Subjective: No Chest Pain, No shortness of breath, No Palpitations, No Dizziness Vitals Vitals Vital Signs Date Time Temp Pulse Resp B/P (MAP) Pulse Ox O2 Delivery O2 Flow Rate FiO2 11/11/16 11:30 97 Room Air 11/11/16 07:00 97.5 61 17 138/95 (109) 97.5 Weight Weight [ ] Physical Exam HEENT: Neck Supple W Full Motion Chest: Symmetric LUNGS: Clear to Auscultation Heart: S1S2, RRR (SRSB 50-60s no signfiicant ectopies) Abdomen: Soft N/T, Other (obese) Extremities: No Calf Tenderness Neurology: alert, oriented, follow commands Assessment Assessment 1. Atypical chest pain: Suspect GI and bronchospasm. SR, no significant ectopies overnight. 2. Mild rhabdomyolysis: peaked CK 716, suspect due to uncontrolled hypothyroidism 3. HTN: controlled 4. Hypothyroidism: TSH 36. per PCP 5. Asthma exacerbation: hx of multiple allergies. Much better 6. Noncompliance to treatment: mainly the reason for above uncontrolled comorbid conditions. Reports of financial constraints 7. Morbid obesity: BMI 40 8. Hx of polysubstance abuse: negative UDS 9. HLP 10. Hx of cardiomyopathy: unknown past EF. Presently EF 30-35%, suspect NICM with culprit being obesity/possible ALFRED/hypothyroidism Recommendations 1. Again Reinforced treatment compliance, will tailor made meds with [facility] gener[facility] 4$ 2. MPI pending today to rule out any ischemic etiology. If any perfusion defects then would need to start on plavix. 3. Allergy to ASA. Continue with secondary prevention measures. Low dose BB. 4. Lifestyle modifications 5. further recommendation after cardiac testing result. Discussed compliance and treatment plan 6. Will reeval in 3 months post optimization for ACID consideration. 7. Encouraged home BP, weight and HR monitoring and FR 2L daily. FATOU ALMONTE PLANT ETIOLOGIST Nov 11, 2016 11:40
--- NOTE | 2016-11-11 12:22 | RAD ---
CT head without contrast History: Persistent headache. Comparison: 03/27/2009. Procedure: Axial images are obtained of the head from the skull base through the vertex without IV contrast. Findings: The ventricles and sulci are normal for the patient's age. No mass-effect, intracranial mass, midline shift, hemorrhage or obvious acute infarction is identified. Basilar cisterns are patent. Bone windows demonstrate no significant calvarial abnormality. Moderate mucosal thickening identified in the bilateral sphenoid sinuses and the bilateral ethmoidal sinuses.. Impression: 1. No acute intracranial process. 2. Moderate mucosal thickening identified in the bilateral sphenoid sinuses and the ethmoidal sinuses likely sinus disease. PQRS Compliance Statement: One or more of the following individualized dose reduction techniques were utilized for this examination: 1. Automated exposure control 2. Adjustment of the mA and/or kV according to patient size 3. Use of iterative reconstruction technique faint
[2016-11-11] MEDS: ISOSORBIDE MONONITRATE ER 30 MG TAB.ER.24H PO SCH (12:38)
[2016-11-11] MEDS: MONTELUKAST SODIUM 10 MG TABLET. PO SCH (12:39)
[2016-11-11] MEDS: predniSONE 20 MG TABLET PO SCH (12:39)
[2016-11-11] MEDS: LOSARTAN POTASSIUM 50 MG TABLET. PO SCH (12:39)
[2016-11-11] MEDS: METOPROLOL TART IMMED RELEASE 25 MG TABLET. PO SCH ×2 (12:40→21:07)
[2016-11-11] MEDS: ACETAMINOPHEN 325 MG TABLET. PO PRN ×2 (12:40→23:57)
[2016-11-11] MEDS: LEVOTHYROXINE 75 MCG TABLET PO SCH (12:40)
[2016-11-11] MEDS: PANTOPRAZOLE 40 MG TABLET.DR. PO SCH (12:40)
[2016-11-11] MEDS: POLYETHYLENE GLYCOL 3350 17 GM PACKET. PO SCH (12:41)
[2016-11-11] MEDS: ENOXAPARIN 40 MG/0.4 ML SYRINGE. SQ SCH ×2 (12:41→21:06)
[2016-11-11] MEDS: FUROSEMIDE 20 MG TABLET PO SCH (12:44)
[2016-11-11] MEDS: POTASSIUM CL 20MEQ D5-0.45NACL 1,000 ML IV SCH (12:45)
[2016-11-11] MEDS: AMOXICILLIN/K CLAV 875/125MG TABLET. PO SCH ×2 (14:33→21:06)
--- NOTE | 2016-11-11 14:33 | PDOC2 ---
NEUROLOGY CONSULT Date of Admission Date of Admission DATE: 11/11/16 TIME: 14:22 Reason for Consult Reason for Consult: IMPRESSION: Headaches. SOB Chest pain. DM HTN HLD CHF, EF 30-35% Hypothyroidism Grave's disease. Morbid obesity. RECOMMENDATIONS/PLAN: HCT Continue Lipitor HS. Treat medical and cardiac diseases. HCT on 11/11/16: NO SAH. No acute findings. HISTORY OF PRESENT ILLNESS HISTORY OF PRESENT ILLNESS This is a 61 yo female admitted for complains of chest pain, SOB and other complaints for 2 days before coming to the ER of [facility] She was admitted for furte evaluation. She complained headaches for about 2 days since in the hospital, but her headaches were resolved on 11/11/16. She stated she had headaches in the past but not frequent.No symptoms of mental status changes, decreased vision, diplopia, ataxia, projectile vomiting, numbness or weakness. PAST MEDICAL HISTORY Cardiovascular: CHF, HTN, Other (cardiomyopathy?) Pulmonary: Asthma CENTRAL NERVOUS SYSTEM: Other (No pertinent history) GI: GERD Heme/Onc: Other (multiple allergies) Musculoskeletal: Osteoarthritis, Other (morbid obesity) ENT: No pertinent hx Endocrine: Hypothyroidism (graves) Dermatology: No pertinent hx Past Surgical History Cholecystectomy, , Hernia Repair, Hysterectomy Family History High Cholestrol, Hypertension SOCIAL HISTORY Smoke: No ALCOHOL: none Drugs: Other (hx of polysubstance abuse). ALLERGY: ASA MEDICATIONS: Refer to MAR REVIEW OF SYSTEMS: Constitutional: Obesity. Head: No traumatic brain or head injury. Skin: No edema, or rash. Ear: No infection, tinnitus. Eyes: No vision loss or color blindness. Nose: No bleeding or purulent discharges. Hearing: No hearing decrease. Neck: No injury. Breast: No history of cancer, masses,or discharges. Cardiac: Chest pain, CHF, HTN, HLD. Pulmonary: No COPD. GI: No GI ulcer, GI bleeding, GERD. Urinary/genital: UTI. Endocrinologic: Diabetes Mellitus, hypothyroidism, morbid obesity. Skeletomuscular: No muscular atrophy, deformity, Generalized weakness. Neurological: see HP. Psychiatric: Denies drug use/abuse. Otherwise, not [id number] review of systems. PHYSICAL EXAMINATION: General appearance is in no acute distress. HEENT: Normocephalic and nontraumatic. Eyes, nose, ears, and throat are unremarkable. Neck is supple. No lymphadenopathy. No bruits are heard over the carotid artery. No crepitus. Cardiovascular: S1, S2, regular rate and rhythm. Pulmonary: Clear to auscultation bilaterally. Abdomen: Bowel sounds are positive. Abdomen is soft, nontender, and nondistended. Extremities: No rash, lesions, or edema. No restriction of range of motion NEUROLOGICAL EXAMINATION: Alert Oriented to time, place and person. PERRL. EOMI. CN: no focal findings. Neck: No resistance. Muscle tone: within normal. Muscle strength: 5 DTR: 1+ due to obesity. Plantar reflex: Flexor response bilaterally Gait: At baseline normal. Sensory exam: no abnormal findings. No cerebellar signs elicited. F-T-N test accurate. Current Medications Current Medications Current Medications Albuterol/ Ipratropium (Duoneb) 3 ml 1X ONCE NEB Last administered on 10:54; Start 11/09/16 at 10:15; Stop 11/09/16 at 10:16; Status DC Methylprednisolone Sodium Succinate (SOLU-Medrol 125MG VIAL) 125 mg 1X ONCE IV Last administered on 11/09/16 13:04; Start 11/09/16 at 13:00; Stop 11/09/16 at 13:01; Status DC Ondansetron HCl (Zofran) 4 mg PRN Q8HRS PRN IV NAUSEA/VOMITING; Start 11/09/16 at 13:15; Stop 11/10/16 at 13:14; Status DC Albuterol Sulfate (Ventolin Neb Soln) 2.5 mg PRN Q4HRS PRN NEB SOA; Start 11/09 at 13:30 Sodium Chloride 1,000 ml @ 75 mls/hr 1X ONCE IV Last administered on 16:22; Start 11/09/16 at 16:30; Stop 11/10/16 at 05:49; Status DC Losartan Potassium (Cozaar) 100 mg DAILY PO Last administered on 11/11/16 12: 39; Start 11/10/16 at 09:00 Isosorbide Mononitrate (Imdur) 30 mg DAILY PO Last administered on 11/11/16 12 :38; Start 11/10/16 at 09:00 Hydralazine HCl (Apresoline) 10 mg PRN Q4HRS PRN IVP ELEVATED BP, SEE COMMENTS ; Start 11/09/16 at 16:15 Pantoprazole Sodium (Protonix) 40 mg DAILYAC PO Last administered on 11/11/16 12:40; Start 11/10/16 at 07:30 Acetaminophen (Tylenol) 650 mg PRN Q4HRS PRN PO PAin Last administered on 12:40; Start 11/09/16 at 17:00 Ibuprofen (Motrin) 600 mg PRN Q4HRS PRN PO INFLAMMATION; Start 11/09/16 at 17: 00; Stop 11/09/16 at 17:09; Status DC Montelukast Sodium (Singulair) 10 mg DAILY PO Last administered on 11/11/16 12 :39; Start 11/10/16 at 09:00 Non-Formulary Medication 0.63 mg PRN Q4HRS PRN NEB WHEEZING; Start 11/09/16 at 17:15; Status UNV Non-Formulary Medication 2 puff PRN Q4-6HRS PRN INH SHORTNESS OF BREATH; Start 11/09/16 at 17:15; Status UNV Non-Formulary Medication 1 puff BID IH ; Start 11/09/16 at 21:00; Status UNV Non-Formulary Medication 100 mg DAILY PO ; Start 11/10/16 at 09:00; Status UNV Levothyroxine Sodium (Synthroid) 25 mcg DAILY07 PO Last administered on 05:38; Start 11/10/16 at 07:00; Stop 11/10/16 at 10:21; Status DC Budesonide (Pulmicort) 0.5 mg RTBID NEB Last administered on 11/11/16 07:52; Start 11/09/16 at 20:00 Albuterol Sulfate (Ventolin Neb Soln) 2.5 mg RTQID NEB Last administered on 11:29; Start 11/09/16 at 20:00 Atorvastatin Calcium (Lipitor) 20 mg QHS PO Last administered on 11/10/16 21: 29; Start 11/10/16 at 21:00 Levothyroxine Sodium (Synthroid) 75 mcg DAILY07 PO Last administered on 12:40; Start 11/11/16 at 07:00 Prednisone (Prednisone) 40 mg DAILY PO Last administered on 11/11/16 12:39; Start 11/10/16 at 11:00; Stop 11/11/16 at 13:35; Status DC Enoxaparin Sodium (Lovenox 40mg Syringe) 40 mg Q12HR SQ Last administered on 12:41; Start 11/10/16 at 11:00 Potassium Chloride/Dextrose/ Sod Cl 1,000 ml @ 75 mls/hr [id number] IV Last administered on 11/11/16 12:45; Start 11/10/16 at 10:30 Polyethylene Glycol (miraLAX PACKET) 17 gm DAILY PO Last administered on 12:41; Start 11/10/16 at 12:00 Influenza Virus Vaccine Quadrival (Fluarix Quad Syringe) 0.5 ml ONCE ONCE VAX IM ; Start 11/10/16 at 13:15; Stop 11/10/16 at 13:16; Status Cancel Influenza Virus Vaccine Quadrival (Fluarix Quad Syringe) 0.5 ml ONCE ONCE VAX IM Last administered on 11/10/16 13:56; Start 11/10/16 at 14:00; Stop 11/10/16 at 14:01; Status DC Metoprolol Tartrate (Lopressor) 12.5 mg BID PO Last administered on 11/11/16 12:40; Start 11/10/16 at 16:30 Regadenoson (Lexiscan) 0.4 mg 1X ONCE IV Last administered on 11/11/16 07:45 ; Start 11/11/16 at 07:45; Stop 11/11/16 at 07:46; Status DC Furosemide (Lasix) 20 mg DAILY PO Last administered on 11/11/16 12:44; Start 11/11/16 at 12:00 Prednisone (Prednisone) 30 mg DAILY PO ; Start 11/12/16 at 09:00 Amoxicillin/ Clavulanate Potassium (Augmentin 875/ 125mg) 1 tab BID PO ; Start 11/11/16 at 14:00 Active Scripts Active Albuterol Sulfate Neb Soln (Albuterol Sulfate) 0.63 Mg/3 Ml Vial.neb 0.63 Mg NEB PRN Q4HRS PRN Proair Hfa Inhaler (Albuterol Sulfate) 8.5 Gm Hfa.aer.ad 2 Puff INH PRN Q4-6HRS PRN Proair Respiclick (Albuterol Sulfate) 90 Mcg Aer.pow.ba 1 Puff IH PRN Q6HRS PRN Reported Advair 100-50 Diskus (Fluticasone/Salmeterol) 1 Each Disk.w.dev 1 Puff IH BID Singulair Tablet (Montelukast Sodium) 10 Mg Tablet 10 Mg PO DAILY Cozaar (Losartan Potassium) 100 Mg Tablet 100 Mg PO DAILY Synthroid (Levothyroxine Sodium) 200 Mcg Tablet 200 Mcg PO Allergies Allergies: Coded Allergies: NSAIDS (Non-Steroidal Anti-Inflamma (Verified Allergy, Severe, itching, throat"swells", 11/09/16) aspirin (Verified Allergy, Severe, Shortness of Air, 11/09/16) Sulfa (Sulfonamide Antibiotics) (Verified Allergy, Intermediate, 11/09/16) ketorolac (Verified Allergy, Intermediate, 11/09/16) sulfamethoxazole (Verified Allergy, Intermediate, 11/09/16) trimethoprim (Verified Allergy, Intermediate, 11/09/16) Vitals VITALS Vital Signs Date Time Temp Pulse Resp B/P (MAP) Pulse Ox O2 Delivery O2 Flow Rate FiO2 11/11/16 12:40 61 138/95 11/11/16 11:30 97 Room Air 11/11/16 11:00 97.9 17 97.9 Labs Labs Laboratory Tests Test 11/09/16 15:00 11/09/16 19:15 11/10/16 01:35 11/10/16 04:00 Troponin I Quantitative < 0.017 ng/mL (0.000-0.055) < 0.017 ng/mL (0.000-0.055) < 0.017 ng/mL (0.000-0.055) White Blood Count 4.7 x10^3/uL (4.0-11.0) Red Blood Count 4.54 x10^6/uL (3.50-5.40) Hemoglobin 12.3 g/dL (12.0-15.5) Hematocrit 38.0 % (36.0-47.0) Mean Corpuscular Volume 84 fL (79-100) Mean Corpuscular Hemoglobin 27 pg (25-35) Mean Corpuscular Hemoglobin Concent 32 g/dL (31-37) Red Cell Distribution Width 17.5 % (11.5-14.5) Platelet Count 197 x10^3/uL (140-400) Neutrophils (%) (Auto) 81 % (31-73) Lymphocytes (%) (Auto) 17 % (24-48) Monocytes (%) (Auto) 2 % (0-9) Eosinophils (%) (Auto) 0 % (0-3) Basophils (%) (Auto) 0 % (0-3) Neutrophils # (Auto) 3.8 x10^3uL (1.8-7.7) Lymphocytes # (Auto) 0.8 x10^3/uL (1.0-4.8) Monocytes # (Auto) 0.1 x10^3/uL (0.0-1.1) Eosinophils # (Auto) 0.0 x10^3/uL (0.0-0.7) Basophils # (Auto) 0.0 x10^3/uL (0.0-0.2) Sodium Level 144 mmol/L (136-145) Potassium Level 4.1 mmol/L (3.5-5.1) Chloride Level 107 mmol/L (98-107) Carbon Dioxide Level 26 mmol/L (21-32) Anion Gap 11 (6-14) Blood Urea Nitrogen 14 mg/dL (7-20) Creatinine 1.4 mg/dL (0.6-1.0) Estimated GFR (Cockcroft-Gault) 46.6 Glucose Level 180 mg/dL (70-99) Hemoglobin A1c 6.0 % (4.8-5.6) Calcium Level 9.8 mg/dL (8.5-10.1) Creatine Kinase 561 U/L (26-192) Test 11/10/16 09:00 Urine Opiates Screen Neg (NEG) Urine Methadone Screen Neg (NEG) Urine Barbiturates Neg (NEG) Urine Phencyclidine Screen Neg (NEG) Urine Amphetamine/Methamphetamine Neg (NEG) Urine Benzodiazepines Screen Neg (NEG) Urine Cocaine Screen Neg (NEG) Urine Cannabinoids Screen Neg (NEG) Urine Ethyl Alcohol Neg (NEG) PARVIZ WOODS MD Nov 11, 2016 14:33
[2016-11-11 15:00] VITALS: BP 135/85
[2016-11-11 19:00] VITALS: BP 131/78
[2016-11-11] MEDS: ATORVASTATIN CALCIUM 20 MG TABLET PO SCH (21:06)
[2016-11-11 23:00] VITALS: BP 132/86
[2016-11-12 03:00] VITALS: BP 134/85
[2016-11-12] MEDS: POTASSIUM CL 20MEQ D5-0.45NACL 1,000 ML IV SCH ×2 (03:21→20:31)
[2016-11-12 04:55] LABS: HEMATOCRIT 36.9 % (36.0-47.0); HEMOGLOBIN 11.8 g/dL (12.0-15.5); RED BLOOD COUNT 4.42 x10^6/uL (3.50-5.40); RED CELL DISTRIBUTION WIDTH 17.2 % (11.5-14.5); WHITE BLOOD COUNT 7.8 x10^3/uL (4.0-11.0)
[2016-11-12 05:30] LABS: ALBUMIN 3.6 g/dL (3.4-5.0); CREATININE 1.3 mg/dL (0.6-1.0); GFR 50.7; TOTAL BILIRUBIN 0.7 mg/dL (0.2-1.0); TOTAL PROTEIN 7.3 g/dL (6.4-8.2)
[2016-11-12] MEDS: LEVOTHYROXINE 75 MCG TABLET PO SCH (06:20)
[2016-11-12 07:00] VITALS: BP 149/102
[2016-11-12] MEDS: BUDESONIDE 0.5 MG/2 ML NEBU. NEB SCH ×2 (07:21→19:54)
[2016-11-12] MEDS: ALBUTEROL SULFATE 2.5 MG/3 ML NEBU. NEB SCH ×4 (07:21→20:00)
[2016-11-12] MEDS: AMOXICILLIN/K CLAV 875/125MG TABLET. PO SCH ×2 (09:14→20:30)
[2016-11-12] MEDS: POLYETHYLENE GLYCOL 3350 17 GM PACKET. PO SCH (09:14)
[2016-11-12] MEDS: predniSONE 20 MG TABLET PO SCH (09:14)
[2016-11-12] MEDS: FUROSEMIDE 20 MG TABLET PO SCH (09:15)
[2016-11-12] MEDS: ISOSORBIDE MONONITRATE ER 30 MG TAB.ER.24H PO SCH (09:15)
[2016-11-12] MEDS: METOPROLOL TART IMMED RELEASE 25 MG TABLET. PO SCH ×2 (09:16→20:30)
[2016-11-12] MEDS: LOSARTAN POTASSIUM 50 MG TABLET. PO SCH (09:17)
[2016-11-12] MEDS: MONTELUKAST SODIUM 10 MG TABLET. PO SCH (09:17)
[2016-11-12] MEDS: ACETAMINOPHEN 325 MG TABLET. PO PRN (09:17)
[2016-11-12] MEDS: PANTOPRAZOLE 40 MG TABLET.DR. PO SCH (09:17)
[2016-11-12] MEDS: ENOXAPARIN 40 MG/0.4 ML SYRINGE. SQ SCH ×2 (09:18→20:33)
--- NOTE | 2016-11-12 09:56 | PDOC ---
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 11/12/16 0956: PROGRESS NOTES Subjective Subjective "ready to go home" no chest pain, no dyspnea, no palpitations Objective Objective Vital Signs Date Time Temp Pulse Resp B/P (MAP) Pulse Ox O2 Delivery O2 Flow Rate FiO2 11/12/16 09:17 103 149/102 11/12/16 07:25 98 Room Air 11/12/16 07:00 97.0 20 97.0 Physical Exam Abdomen: Normal bowel sounds, Soft Heart: Normal S1, Normal S2 Extremities: Normal pulses, Other (trace edema) General: Alert, Oriented X3, Cooperative, No acute distress Lungs: Clear to auscultation Neuro: Normal speech, Strength at 5/5 X4 ext Psych/Mental Status: Mental status NL, Mood NL Assessment Assessment Problems Medical Problems: (1) Chest pain Status: Acute Assessment 1. Atypical chest pain: SD ruled out, MPI pending 2. CMP - EF 30-35%. await MPI results. On beta blockers and ARB. Consider Aldactone. Consider OP MCT for tachyarrhythmias. Would benefit from life vest. Suggest case mgmt eval for qualifications for medicaid or medicare B as she currently is not covered for life vest or outpatient procedures. 3. Mild rhabdomyolysis: decreasing (561) 4. HTN: increase metoprolol and monitor for increased asthma symptoms. 5. hyperlipidemia - monitor CK and AST, would suggest trial of statin when normalized with close monitoring of liver enzymes and CK, or consider praluent though this would be very expensive without medication coverage. Comment Review of Relevant I have reviewed the following items gilbert (where applicable) has been applied. Labs Laboratory Tests Test 11/12/16 04:00 White Blood Count 7.8 x10^3/uL (4.0-11.0) Red Blood Count 4.42 x10^6/uL (3.50-5.40) Hemoglobin 11.8 g/dL (12.0-15.5) Hematocrit 36.9 % (36.0-47.0) Mean Corpuscular Volume 84 fL (79-100) Mean Corpuscular Hemoglobin 27 pg (25-35) Mean Corpuscular Hemoglobin Concent 32 g/dL (31-37) Red Cell Distribution Width 17.2 % (11.5-14.5) Platelet Count 197 x10^3/uL (140-400) Sodium Level 142 mmol/L (136-145) Potassium Level 4.0 mmol/L (3.5-5.1) Chloride Level 107 mmol/L (98-107) Carbon Dioxide Level 26 mmol/L (21-32) Anion Gap 9 (6-14) Blood Urea Nitrogen 13 mg/dL (7-20) Creatinine 1.3 mg/dL (0.6-1.0) Estimated GFR (Cockcroft-Gault) 50.7 BUN/Creatinine Ratio 10 (6-20) Glucose Level 136 mg/dL (70-99) Calcium Level 10.0 mg/dL (8.5-10.1) Total Bilirubin 0.7 mg/dL (0.2-1.0) Aspartate Amino Transf (AST/SGOT) 38 U/L (15-37) Alanine Aminotransferase (ALT/SGPT) 41 U/L (14-59) Alkaline Phosphatase 49 U/L (46-116) Total Protein 7.3 g/dL (6.4-8.2) Albumin 3.6 g/dL (3.4-5.0) Albumin/Globulin Ratio 1.0 (1.0-1.7) Laboratory Tests Test 11/12/16 04:00 White Blood Count 7.8 x10^3/uL (4.0-11.0) Red Blood Count 4.42 x10^6/uL (3.50-5.40) Hemoglobin 11.8 g/dL (12.0-15.5) Hematocrit 36.9 % (36.0-47.0) Mean Corpuscular Volume 84 fL (79-100) Mean Corpuscular Hemoglobin 27 pg (25-35) Mean Corpuscular Hemoglobin Concent 32 g/dL (31-37) Red Cell Distribution Width 17.2 % (11.5-14.5) Platelet Count 197 x10^3/uL (140-400) Sodium Level 142 mmol/L (136-145) Potassium Level 4.0 mmol/L (3.5-5.1) Chloride Level 107 mmol/L (98-107) Carbon Dioxide Level 26 mmol/L (21-32) Anion Gap 9 (6-14) Blood Urea Nitrogen 13 mg/dL (7-20) Creatinine 1.3 mg/dL (0.6-1.0) Estimated GFR (Cockcroft-Gault) 50.7 BUN/Creatinine Ratio 10 (6-20) Glucose Level 136 mg/dL (70-99) Calcium Level 10.0 mg/dL (8.5-10.1) Total Bilirubin 0.7 mg/dL (0.2-1.0) Aspartate Amino Transf (AST/SGOT) 38 U/L (15-37) Alanine Aminotransferase (ALT/SGPT) 41 U/L (14-59) Alkaline Phosphatase 49 U/L (46-116) Total Protein 7.3 g/dL (6.4-8.2) Albumin 3.6 g/dL (3.4-5.0) Albumin/Globulin Ratio 1.0 (1.0-1.7) Medications Current Medications Albuterol/ Ipratropium (Duoneb) 3 ml 1X ONCE NEB Last administered on 10:54; Start 11/09/16 at 10:15; Stop 11/09/16 at 10:16; Status DC Methylprednisolone Sodium Succinate (SOLU-Medrol 125MG VIAL) 125 mg 1X ONCE IV Last administered on 11/09/16 13:04; Start 11/09/16 at 13:00; Stop 11/09/16 at 13:01; Status DC Ondansetron HCl (Zofran) 4 mg PRN Q8HRS PRN IV NAUSEA/VOMITING; Start 11/09/16 at 13:15; Stop 11/10/16 at 13:14; Status DC Albuterol Sulfate (Ventolin Neb Soln) 2.5 mg PRN Q4HRS PRN NEB SOA; Start 11/09 at 13:30 Sodium Chloride 1,000 ml @ 75 mls/hr 1X ONCE IV Last administered on 16:22; Start 11/09/16 at 16:30; Stop 11/10/16 at 05:49; Status DC Losartan Potassium (Cozaar) 100 mg DAILY PO Last administered on 11/12/16 09: 17; Start 11/10/16 at 09:00 Isosorbide Mononitrate (Imdur) 30 mg DAILY PO Last administered on 11/12/16 09 :15; Start 11/10/16 at 09:00 Hydralazine HCl (Apresoline) 10 mg PRN Q4HRS PRN IVP ELEVATED BP, SEE COMMENTS ; Start 11/09/16 at 16:15 Pantoprazole Sodium (Protonix) 40 mg DAILYAC PO Last administered on 11/12/16 09:17; Start 11/10/16 at 07:30 Acetaminophen (Tylenol) 650 mg PRN Q4HRS PRN PO PAin Last administered on 09:17; Start 11/09/16 at 17:00 Ibuprofen (Motrin) 600 mg PRN Q4HRS PRN PO INFLAMMATION; Start 11/09/16 at 17: 00; Stop 11/09/16 at 17:09; Status DC Montelukast Sodium (Singulair) 10 mg DAILY PO Last administered on 11/12/16 09 :17; Start 11/10/16 at 09:00 Non-Formulary Medication 0.63 mg PRN Q4HRS PRN NEB WHEEZING; Start 11/09/16 at 17:15; Status UNV Non-Formulary Medication 2 puff PRN Q4-6HRS PRN INH SHORTNESS OF BREATH; Start 11/09/16 at 17:15; Status UNV Non-Formulary Medication 1 puff BID IH ; Start 11/09/16 at 21:00; Status UNV Non-Formulary Medication 100 mg DAILY PO ; Start 11/10/16 at 09:00; Status UNV Levothyroxine Sodium (Synthroid) 25 mcg DAILY07 PO Last administered on 05:38; Start 11/10/16 at 07:00; Stop 11/10/16 at 10:21; Status DC Budesonide (Pulmicort) 0.5 mg RTBID NEB Last administered on 11/12/16 07:21; Start 11/09/16 at 20:00 Albuterol Sulfate (Ventolin Neb Soln) 2.5 mg RTQID NEB Last administered on 07:21; Start 11/09/16 at 20:00 Atorvastatin Calcium (Lipitor) 20 mg QHS PO Last administered on 11/11/16 21: 06; Start 11/10/16 at 21:00 Levothyroxine Sodium (Synthroid) 75 mcg DAILY07 PO Last administered on 06:20; Start 11/11/16 at 07:00 Prednisone (Prednisone) 40 mg DAILY PO Last administered on 11/11/16 12:39; Start 11/10/16 at 11:00; Stop 11/11/16 at 13:35; Status DC Enoxaparin Sodium (Lovenox 40mg Syringe) 40 mg Q12HR SQ Last administered on 09:18; Start 11/10/16 at 11:00 Potassium Chloride/Dextrose/ Sod Cl 1,000 ml @ 75 mls/hr [id number] IV Last administered on 11/12/16 03:21; Start 11/10/16 at 10:30 Polyethylene Glycol (miraLAX PACKET) 17 gm DAILY PO Last administered on 09:14; Start 11/10/16 at 12:00 Influenza Virus Vaccine Quadrival (Fluarix Quad Syringe) 0.5 ml ONCE ONCE VAX IM ; Start 11/10/16 at 13:15; Stop 11/10/16 at 13:16; Status Cancel Influenza Virus Vaccine Quadrival (Fluarix Quad Syringe) 0.5 ml ONCE ONCE VAX IM Last administered on 11/10/16 13:56; Start 11/10/16 at 14:00; Stop 11/10/16 at 14:01; Status DC Metoprolol Tartrate (Lopressor) 12.5 mg BID PO Last administered on 11/12/16 09:16; Start 11/10/16 at 16:30 Regadenoson (Lexiscan) 0.4 mg 1X ONCE IV Last administered on 11/11/16 07:45 ; Start 11/11/16 at 07:45; Stop 11/11/16 at 07:46; Status DC Furosemide (Lasix) 20 mg DAILY PO Last administered on 11/12/16 09:15; Start 11/11/16 at 12:00 Prednisone (Prednisone) 30 mg DAILY PO Last administered on 11/12/16 09:14; Start 11/12/16 at 09:00 Amoxicillin/ Clavulanate Potassium (Augmentin 875/ 125mg) 1 tab BID PO Last administered on 11/12/16 09:14; Start 11/11/16 at 14:00 Active Scripts Active Albuterol Sulfate Neb Soln (Albuterol Sulfate) 0.63 Mg/3 Ml Vial.neb 0.63 Mg NEB PRN Q4HRS PRN Proair Hfa Inhaler (Albuterol Sulfate) 8.5 Gm Hfa.aer.ad 2 Puff INH PRN Q4-6HRS PRN Proair Respiclick (Albuterol Sulfate) 90 Mcg Aer.pow.ba 1 Puff IH PRN Q6HRS PRN Reported Advair 100-50 Diskus (Fluticasone/Salmeterol) 1 Each Disk.w.dev 1 Puff IH BID Singulair Tablet (Montelukast Sodium) 10 Mg Tablet 10 Mg PO DAILY Cozaar (Losartan Potassium) 100 Mg Tablet 100 Mg PO DAILY Synthroid (Levothyroxine Sodium) 200 Mcg Tablet 200 Mcg PO Vitals/I & O Vital Sign - Last 24 Hours 11/11/16 11/11/16 11/11/16 11/11/16 11:00 11:30 12:38 12:39 Temp 97.9 97.9 Pulse 75 61 61 Resp 17 B/P (MAP) 176/116 (136) 138/95 138/95 Pulse Ox 95 97 O2 Delivery Room Air Room Air 11/11/16 11/11/16 11/11/16 11/11/16 12:40 14:54 15:00 19:00 Temp 97.0 98.3 97.0 98.3 Pulse 61 58 65 Resp 17 19 B/P (MAP) 138/95 135/85 (102) 131/78 (95) Pulse Ox 97 92 93 O2 Delivery Room Air Room Air Room Air 11/11/16 11/11/16 11/11/16 11/11/16 19:15 20:10 21:07 23:00 Temp 98.2 98.2 Pulse 65 51 Resp 18 B/P (MAP) 131/78 132/86 (101) Pulse Ox 98 O2 Delivery Room Air Room Air Room Air 11/12/16 11/12/16 11/12/16 11/12/16 03:00 07:00 07:23 07:25 Temp 98.0 97.0 98.0 97.0 Pulse 60 103 Resp 19 20 B/P (MAP) 134/85 (101) 149/102 (118) Pulse Ox 97 97 98 98 O2 Delivery Room Air Room Air Room Air Room Air 11/12/16 11/12/16 11/12/16 09:15 09:16 09:17 Pulse 103 103 103 B/P (MAP) 149/102 149/102 149/102 DION GREGG MD 11/12/16 1325: PROGRESS NOTES Plan Plan of Care Patient seen and examined. Agree with above nurse practitioner note. No acute events overnight. Reports fatigue. No significant amount is on examination except for morbid obesity has been noted. Myocardial perfusion study does not demonstrate any significant perfusion defects. She has significant LV dysfunction. Likely ultimately need outpatient follow-up but it is unclear if she has outpatient insurance coverage. Would benefit from repeat echocardiographic evaluation as well as consideration of an ICD after treatment with medical therapy. FREDDY FU APRN Nov 12, 2016 09:56 DION GREGG MD Nov 12, 2016 13:25
[2016-11-12 10:00] VITALS: BP 134/81
--- NOTE | 2016-11-12 12:11 | PDOC ---
SUBJECTIVE Subjective feels ok no cp or SOB OBJECTIVE Vital Signs Vital Signs Date Time Temp Pulse Resp B/P (MAP) Pulse Ox O2 Delivery O2 Flow Rate FiO2 11/12/16 10:00 96.0 20 20 134/81 (98) 96 Room Air 96.0 11/12/16 09:17 103 149/102 11/12/16 09:16 103 149/102 11/12/16 09:15 103 149/102 11/12/16 07:25 98 Room Air 11/12/16 07:23 98 Room Air 11/12/16 07:00 97.0 103 20 149/102 (118) 97 Room Air 97.0 11/12/16 03:00 98.0 60 19 134/85 (101) 97 Room Air 98.0 11/11/16 23:00 98.2 51 18 132/86 (101) 98 Room Air 98.2 11/11/16 21:07 65 131/78 11/11/16 20:10 Room Air 11/11/16 19:15 Room Air 11/11/16 19:00 98.3 65 19 131/78 (95) 93 Room Air 98.3 11/11/16 15:00 97.0 58 17 135/85 (102) 92 Room Air 97.0 11/11/16 14:54 97 Room Air 11/11/16 12:40 61 138/95 11/11/16 12:39 61 138/95 11/11/16 12:38 61 138/95 PHYSICAL EXAM Physical Exam heart mild tachy lungs fairly clear abd soft and none tender ext no edema ASSESSMENT/PLAN Assessment/Plan 1. Atypical chest pain, but echo with low EF 30-35 % MPI pending 2. Mild rhabdomyolysis: CK improving , suspect due to uncontrolled hypothyroidism 3. HTN: agree with increase B hood 4. Hypothyroidism: TSH 36. restart medication 5. Asthma exacerbation started steroids and inhalers tapering steroids 6. Noncompliance to treatment: discussed , social svc consult 7. Morbid obesity: BMI 40 8. Hx of polysubstance abuse 9- persistant HERRERA , CT head neg appreciate neuro input 10- HLD consider statin when CK normal consult PT and increrase activity Problems: COMMENT Lab Laboratory Tests Test 11/12/16 04:00 White Blood Count 7.8 x10^3/uL (4.0-11.0) Red Blood Count 4.42 x10^6/uL (3.50-5.40) Hemoglobin 11.8 g/dL (12.0-15.5) Hematocrit 36.9 % (36.0-47.0) Mean Corpuscular Volume 84 fL (79-100) Mean Corpuscular Hemoglobin 27 pg (25-35) Mean Corpuscular Hemoglobin Concent 32 g/dL (31-37) Red Cell Distribution Width 17.2 % (11.5-14.5) Platelet Count 197 x10^3/uL (140-400) Sodium Level 142 mmol/L (136-145) Potassium Level 4.0 mmol/L (3.5-5.1) Chloride Level 107 mmol/L (98-107) Carbon Dioxide Level 26 mmol/L (21-32) Anion Gap 9 (6-14) Blood Urea Nitrogen 13 mg/dL (7-20) Creatinine 1.3 mg/dL (0.6-1.0) Estimated GFR (Cockcroft-Gault) 50.7 BUN/Creatinine Ratio 10 (6-20) Glucose Level 136 mg/dL (70-99) Calcium Level 10.0 mg/dL (8.5-10.1) Total Bilirubin 0.7 mg/dL (0.2-1.0) Aspartate Amino Transf (AST/SGOT) 38 U/L (15-37) Alanine Aminotransferase (ALT/SGPT) 41 U/L (14-59) Alkaline Phosphatase 49 U/L (46-116) Total Protein 7.3 g/dL (6.4-8.2) Albumin 3.6 g/dL (3.4-5.0) Albumin/Globulin Ratio 1.0 (1.0-1.7) MARCELO RUSS MD Nov 12, 2016 12:11
--- NOTE | 2016-11-12 13:02 | RAD ---
APPROVED REPORT Test Type: Pharmacological Stress Nurse/Tech: Nichol Manzo R.N. Test Indications: cardiomyopathy Cardiac History: CAD, htn,asthma Medications: See Electronic Medical Record Medical History: See Electronic Medical Record Resting ECG: SR Resting Heart Rate: 82 bpm Resting Blood Pressure: 151/99mmHg Pretest Chest Pain: No chest pain Nurse/Tech Notes S1S2, lungs CTA Consent: The procedure was explained to the patient in lay terms. Informed consent was witnessed. Mio eout was entered into [employer]. History and Stress Test performed by RT Cortes (R) (N) Pharm. Details Pharmacologic stress testing was performed using 0.4mg per 5ml of regadenoson given intravenously ove r 7-10 seconds. Stress Symptoms SOA- recovered by the end of recovery period POST EXERCISE Reason for Termination: Infusion complete Max HR: 96 bpm Max Blood Pressure: 159/92mmHg Blood Pressure response to exercise: Normal blood pressure response during stress. Heart Rate response to exercise: wnl Chest Pain: No. Arrhythmia: No. ST Change: No. INTERPRETATION Stress EKG Conclusion: Negative for ischemia. Imaging Protocol IMAGE PROTOCOL: Stress Tc-99m/rest Tc-99m 2 days Rest: Stress: Viability: Radiopharm.Tc99m DsjznloezTq15i Sestamibi Fieq61sNc 35mCi Img Date 11/12/2016 11/11/2016 Inj-Img Axbv00hdf. 90min. Rest Admin Site:IV - Right WristAdministrator:MEKA Mckay ARRT (R)(N) Stress Admin Site: IV - Left AntecubitalAdministrator: RT Cortes (R)(N) STRESS DATA End Diast. Vol.173.0mlAv. Heart Rate67.0bpm End Syst. Vol.112.5mlCO Index BSA0.0L/min Myocardial Uqoe248.5gEject. Ksqjyfoc79.0% Stress Rates Pk. Fill Rate0.90EDV/secLVtime Pk. Fill 101.62msec Pk. Empty Rate1.30ESV/secLVtime Pk. Gbtlm352.82msec 02/15 Pk. Fill0.59EDV/sec Stress Scores Regional WT1.50Summed WT23.50 Regional WM2.00Summed WM34.50 LV Perfusion Normal perfusion at stress/rest. Subtle anterior/apical fixed perfusion defect most likely secondary to motion artifact. Wall Motion Severe global hypokinesis. EF 35% LV Perf. Quant 17 Seg. SSS7.00 17 Seg. SRS5.00 17 Seg. SDS4.00 Stress Defect Extent (% LAD)5.00Rest Defect Extent (% LAD)9.40Rev. Defect Extent (% LAD)0.00 Stress Defect Extent (% LCX) 25.65Rest Defect Extent (% LCX)15.00Rev. Defect Extent (% LCX)0.00 Stress Defect Extent (% RCA)0.00Rest Defect Extent (% RCA)2.20Rev. Defect Extent (% RCA)0.00 Stress Defect Extent (% TIFFANIE)10.65Rest Defect Extent (% TIFFANIE)9.10Rev. Defect Extent (% TIFFANIE)0.55 Other Information Quality:Average Risk Assessment: Moderate-High Risk Conclusion 1. No ischemia by EKG assessment. 2. Normal perfusion at rest/stress. Motion artifact noted as described above. 3. Severe LV dysfunction. EF 35% 4. Moderate to high risk for future CV events.
[2016-11-12 15:00] VITALS: BP 143/87
[2016-11-12 19:00] VITALS: BP 128/79
[2016-11-12] MEDS: HYDROcodone/APAP 5/325MG 1 TAB TABLET PO PRN (20:29)
[2016-11-12] MEDS: ATORVASTATIN CALCIUM 20 MG TABLET PO SCH (20:30)
[2016-11-12 22:49] VITALS: BP 136/86
[2016-11-13 03:00] VITALS: BP 138/84
[2016-11-13] MEDS: LEVOTHYROXINE 75 MCG TABLET PO SCH (05:06)
[2016-11-13] MEDS: HYDROcodone/APAP 5/325MG 1 TAB TABLET PO PRN (05:06)
[2016-11-13 06:27] LABS: HEMATOCRIT 36.7 % (36.0-47.0); HEMOGLOBIN 12.3 g/dL (12.0-15.5); RED BLOOD COUNT 4.47 x10^6/uL (3.50-5.40); RED CELL DISTRIBUTION WIDTH 17.4 % (11.5-14.5); WHITE BLOOD COUNT 8.2 x10^3/uL (4.0-11.0)
[2016-11-13 06:44] LABS: CALCIUM 10.2 mg/dL (8.5-10.1); CREATININE 1.1 mg/dL (0.6-1.0); GFR 61.5; POTASSIUM 3.8 mmol/L (3.5-5.1)
[2016-11-13 07:00] VITALS: BP 135/97
[2016-11-13] MEDS: ALBUTEROL SULFATE 2.5 MG/3 ML NEBU. NEB SCH ×3 (07:22→15:25)
[2016-11-13] MEDS: BUDESONIDE 0.5 MG/2 ML NEBU. NEB SCH (07:24)
[2016-11-13] MEDS: METOPROLOL TART IMMED RELEASE 25 MG TABLET. PO SCH (08:51)
[2016-11-13] MEDS: predniSONE 20 MG TABLET PO SCH (08:53)
[2016-11-13] MEDS: MONTELUKAST SODIUM 10 MG TABLET. PO SCH (08:53)
[2016-11-13] MEDS: AMOXICILLIN/K CLAV 875/125MG TABLET. PO SCH (08:53)
[2016-11-13] MEDS: ISOSORBIDE MONONITRATE ER 30 MG TAB.ER.24H PO SCH (08:53)
[2016-11-13] MEDS: FUROSEMIDE 20 MG TABLET PO SCH (08:53)
[2016-11-13] MEDS: PANTOPRAZOLE 40 MG TABLET.DR. PO SCH (08:53)
[2016-11-13] MEDS: ENOXAPARIN 40 MG/0.4 ML SYRINGE. SQ SCH (08:54)
[2016-11-13] MEDS: LOSARTAN POTASSIUM 50 MG TABLET. PO SCH (08:54)
[2016-11-13] MEDS: POLYETHYLENE GLYCOL 3350 17 GM PACKET. PO SCH (08:54)
[2016-11-13] MEDS: POTASSIUM CL 20MEQ D5-0.45NACL 1,000 ML IV SCH (09:04)
[2016-11-13 11:00] VITALS: BP 133/94
[2016-11-13] MEDS ORDERED: LOSA100T2 PO (13:40)
[2016-11-13] MEDS ORDERED: FURO20TA3 PO (13:40)
[2016-11-13] MEDS ORDERED: RANI150T6 PO (13:40)
[2016-11-13] MEDS ORDERED: PROAIR RESPICL90 MCG IH (13:40)
[2016-11-13] MEDS ORDERED: LEVO100T5 PO (13:40)
[2016-11-13] MEDS ORDERED: AMOX1TAB11 PO (13:40)
[2016-11-13] MEDS ORDERED: CARV3.122 PO (13:40)
[2016-11-13] MEDS ORDERED: ATOR20TA58 PO (13:40)
[2016-11-13] MEDS ORDERED: FLUT1DIS IH (13:40)
[2016-11-13] MEDS ORDERED: PRED20TA PO (13:40)
--- NOTE | 2016-11-13 13:45 | PDOC ---
SUBJECTIVE Subjective comfortable , no new complaints OBJECTIVE Vital Signs Vital Signs Date Time Temp Pulse Resp B/P (MAP) Pulse Ox O2 Delivery O2 Flow Rate FiO2 11/13/16 11:08 98 Room Air 11/13/16 11:00 97.9 69 16 133/94 (107) 97 Room Air 97.9 11/13/16 08:54 58 135/97 11/13/16 08:53 58 135/97 11/13/16 08:51 58 135/97 11/13/16 07:31 98 Room Air 11/13/16 07:25 98 Room Air 11/13/16 07:00 58 16 135/97 (110) 95 Room Air 11/13/16 06:06 98 Room Air 11/13/16 05:06 98 Room Air 11/13/16 03:00 97.7 63 18 138/84 (102) 98 Room Air 97.7 11/12/16 22:49 97.5 64 18 136/86 (103) 94 Room Air 97.5 11/12/16 20:30 65 143/87 11/12/16 20:29 98 Room Air 11/12/16 20:00 Room Air 11/12/16 19:57 98 Room Air 11/12/16 19:56 98 Room Air 11/12/16 19:00 96.1 65 18 128/79 (95) 90 Room Air 96.1 11/12/16 15:33 Room Air 11/12/16 15:00 97.7 65 20 143/87 (105) 98 Room Air 97.7 PHYSICAL EXAM Physical Exam lungs clear heart RRR abd soft ext no edema ASSESSMENT/PLAN Assessment/Plan 1. Atypical chest pain, but echo with low EF 30-35 % MPI neg , consistant with cardiomyopathy 2. Mild rhabdomyolysis: CK improving , suspect due to uncontrolled hypothyroidism 3. HTN: on losartan 100 mg and coreg 3.125 BID, lasix 20 mg daily 4. Hypothyroidism: TSH 36. restart medication Synthroid at discharge 100 mcg daily 5. Asthma exacerbation started steroids and inhalers tapering steroids out pt 5 days of 20 mg prednisone 6. Noncompliance to treatment: discussed , social svc consult 7. Morbid obesity: BMI 40 8. Hx of polysubstance abuse 9- persistant HERRERA , CT head neg except for sinusitis on Augmentin another week now 10- HLD started statin since CK back to normal , monitor out pt home today if ok with CV Problems: COMMENT Lab Laboratory Tests Test 11/13/16 05:55 White Blood Count 8.2 x10^3/uL (4.0-11.0) Red Blood Count 4.47 x10^6/uL (3.50-5.40) Hemoglobin 12.3 g/dL (12.0-15.5) Hematocrit 36.7 % (36.0-47.0) Mean Corpuscular Volume 82 fL (79-100) Mean Corpuscular Hemoglobin 28 pg (25-35) Mean Corpuscular Hemoglobin Concent 33 g/dL (31-37) Red Cell Distribution Width 17.4 % (11.5-14.5) Platelet Count 201 x10^3/uL (140-400) Sodium Level 140 mmol/L (136-145) Potassium Level 3.8 mmol/L (3.5-5.1) Chloride Level 106 mmol/L (98-107) Carbon Dioxide Level 26 mmol/L (21-32) Anion Gap 8 (6-14) Blood Urea Nitrogen 12 mg/dL (7-20) Creatinine 1.1 mg/dL (0.6-1.0) Estimated GFR (Cockcroft-Gault) 61.5 Glucose Level 122 mg/dL (70-99) Calcium Level 10.2 mg/dL (8.5-10.1) Creatine Kinase 197 U/L (26-192) MARCELO RUSS MD Nov 13, 2016 13:45
--- NOTE | 2016-11-13 13:48 | PDOC3 ---
Discharge Summary* Date of Admission: Nov 09, 2016 Date of Discharge: Nov 13, 2016 Admitting Diagnosis Problems Medical Problems: (1) Chest pain Status: Acute Problems: Final Diagnosis 1. Atypical chest pain, but echo with low EF 30-35 % MPI neg , consistant with cardiomyopathy 2. Mild rhabdomyolysis: CK improving , suspect due to uncontrolled hypothyroidism 3. HTN: on losartan 100 mg and coreg 3.125 BID, lasix 20 mg daily 4. Hypothyroidism: TSH 36. restart medication Synthroid at discharge 100 mcg daily 5. Asthma exacerbation started steroids and inhalers tapering steroids out pt 5 days of 20 mg prednisone 6. Noncompliance to treatment: discussed , social svc consult 7. Morbid obesity: BMI 40 8. Hx of polysubstance abuse 9- persistant HERRERA , CT head neg except for sinusitis on Augmentin another week now 10- HLD started statin since CK back to normal , monitor out pt home today if ok with CV Problems Medical Problems: (1) Chest pain Status: Acute CONSULTS Cardiology, Neurology Procedures CXR, CT head, MPI Brief Hospital Course Ms. Mckeon is a 61 old [sex] who presented with [ ] Disposition/Orders: D/C to Home CONDITION AT DISCHARGE: Improved Diet: Cardiac, Consistent Carbohydrate Scheduled Fluticasone/Salmeterol (Advair 100-50 Diskus), 1 PUFF IH BID, (Reported) Losartan Potassium (Cozaar), 100 MG PO DAILY, (Reported) Montelukast Sodium (Singulair Tablet), 10 MG PO DAILY, (Reported) Scheduled PRN Albuterol Sulfate (Proair Respiclick), 1 PUFF IH PRN Q6HRS PRN for SHORTNESS OF BREATH Albuterol Sulfate (Proair Hfa Inhaler), 2 PUFF INH PRN Q4-6HRS PRN for SHORTNESS OF BREATH Albuterol Sulfate (Albuterol Sulfate Neb Soln), 0.63 MG NEB PRN Q4HRS PRN for WHEEZING Miscellaneous Medications Levothyroxine Sodium (Synthroid), 200 MCG PO, (Reported) Discontinued Medications Amlodipine Besylate (Amlodipine Besylate), 5 MG PO, (Reported) FOLLOW UP APPOINTMENT: Dr. Loco 1-2 weeks to evaluate resume work Time Spent Total time spent with patient [] minutes for coordination of care, counseling, and education. MARCELO RUSS MD Nov 13, 2016 13:48
[2016-11-13] MEDS ORDERED: CARVEDILOL 3.125 MG TABLET. PO SCH (17:00)
[2016-11-14] MEDS ORDERED: predniSONE 20 MG TABLET PO SCH (09:00)
== END 2016-11-13 16:10 | disposition home or self-care (01) | DRG 202 ==
LOC: ER 09:46 → 5 NORTH 12:45
PROVIDERS: ADMIT Internal Medicine; ATTEND Internal Medicine
DX: J45.901 Unspecified asthma with (acute) exacerbation (principal); I42.9 Cardiomyopathy, unspecified; M62.82 Rhabdomyolysis; I11.0 Hypertensive heart disease with heart failure; I50.30 Unspecified diastolic (congestive) heart failure; Z68.41 Body mass index [BMI] 40.0-44.9, adult; K21.9 Gastro-esophageal reflux disease without esophagitis; E11.42 Type 2 diabetes mellitus with diabetic polyneuropathy; E66.01 Morbid (severe) obesity due to excess calories; G62.9 Polyneuropathy, unspecified; R51 Headache; F32.9 Major depressive disorder, single episode, unspecified; M19.90 Unspecified osteoarthritis, unspecified site; E78.5 Hyperlipidemia, unspecified; F12.90 Cannabis use, unspecified, uncomplicated; E03.9 Hypothyroidism, unspecified; E05.00 Thyrotoxicosis with diffuse goiter without thyrotoxic crisis or storm; J44.9 Chronic obstructive pulmonary disease, unspecified; Z79.899 Other long term (current) drug therapy; Z82.49 Family history of ischemic heart disease and other diseases of the circulatory system; Z87.11 Personal history of peptic ulcer disease; Z91.19 Patient's noncompliance with other medical treatment and regimen; Z90.49 Acquired absence of other specified parts of digestive tract; Z90.710 Acquired absence of both cervix and uterus; Z87.440 Personal history of urinary (tract) infections; Z88.6 Allergy status to analgesic agent; Z88.2 Allergy status to sulfonamides; Z88.8 Allergy status to other drugs, medicaments and biological substances; Z23 Encounter for immunization
CPT/HCPCS: 36415; 70450; 71010; 78452; 80048; 80053; 80061; 80076; 80307; 81001; 82550; 82553; 83036; 83690; 83735; 83880; 84443; 84484; 85025; 85027; 85610; 90686; 93005; 93017; 93306; 94250; 94640; 94760; 96374; 96375; 96376; 99285; A9500; J1650; J2785; J2930; J7030; J7512; J7613; J7620; J7626; G0479

== ENCOUNTER 2016-11-22 14:28 | Emergency (ER) | payer MEDICARE ==
[~2016-11-22] VITALS: Ht 175.3 cm; Wt 127.9 kg
[~2016-11-22 14:28] MED LIST changes: +AMOX1TAB11 PO; +ATOR20TA58 PO; +CARV3.122 PO; +FLUT1DIS IH; +FURO20TA3 PO; +LEVO100T5 PO
--- NOTE | 2016-11-22 14:52 | PHYS DOC ---
Past Medical History Past Medical History: Asthma, Hypertension, Hypothyroid, Other Additional Past Medical Histor: constipation, graves disease Past Surgical History: Cholecystectomy, , Hysterectomy, Other Additional Past Surgical Histo: HERNIA REPAIR, NASAL POLYPS Alcohol Use: None Drug Use: None Adult General Chief Complaint Chief Complaint: MECHANICAL FALL HPI HPI Patient is a 61 year old female with history of hypertension who presents today with moderate left flank pain that began this morning at 7 AM after she fell down 6 steps carrying her laundry. Patient denies any loss of consciousness. Denies hitting her head on the ground. She states her pain is worse on deep breaths as well as leaning to the left side. Denies pain radiating to bilateral lower upper extremities. PCP Dr. Moreno Review of Systems Review of Systems Constitutional: Denies fever or chills [] Eyes: Denies change in visual acuity, redness, or eye pain [] HENT: Denies nasal congestion or sore throat [] Respiratory: Denies cough or shortness of breath [] Cardiovascular: Denies any chest pain. GI: Denies abdominal pain, nausea, vomiting, bloody stools or diarrhea [] : Denies dysuria or hematuria [] Musculoskeletal: Left flank pain Integument: Denies rash or skin lesions [] Neurologic: Denies headache, focal weakness or sensory changes [] Current Medications Current Medications Current Medications Medications (Trade) Dose Ordered Sig/Indra Start Time Stop Time Status Last Admin Dose Admin Cyclobenzaprine HCl (Flexeril) 10 mg 1X ONCE 11/22/16 15:00 11/22/16 15:01 UNV Allergies Allergies Allergies Coded Allergies Type Severity Reaction Last Updated Verified NSAIDS (Non-Steroidal Anti-Inflamma Allergy Severe itching,throat"swells" 11/09 Yes aspirin Allergy Severe Shortness of Air 11/09/16 Yes Sulfa (Sulfonamide Antibiotics) Allergy Intermediate 11/09/16 Yes ketorolac Allergy Intermediate 11/09/16 Yes sulfamethoxazole Allergy Intermediate 11/09/16 Yes trimethoprim Allergy Intermediate 11/09/16 Yes Physical Exam Physical Exam Constitutional: Well developed, well nourished, no acute distress, non-toxic appearance. [] HENT: Normocephalic, atraumatic, bilateral external ears normal, oropharynx moist, no oral exudates, nose normal. [] Eyes: PERRLA, EOMI, conjunctiva normal, no discharge. [] Neck: Normal range of motion, no tenderness, supple, no stridor. [] Cardiovascular:Heart rate regular rhythm, no murmur [] Lungs & Thorax: Bilateral breath sounds clear to auscultation [] Abdomen: Bowel sounds normal, soft, no tenderness, no masses, no pulsatile masses. [] Skin: Warm, dry, no erythema, no rash. [] Back: No bruising noted on the left flank. Diffuse paraspinal muscle tenderness on palpation of the left flank region, no midline lumbar, thoracic tenderness, no CVA tenderness. [] Extremities: No tenderness, no cyanosis, no clubbing, ROM intact, no edema. [] Neurologic: Alert and oriented X 3, normal motor function, normal sensory function, no focal deficits noted. [] Psychologic: Affect normal, judgement normal, mood normal. [] Current Patient Data Vital Signs Vital Signs Date Time Temp Pulse Resp B/P (MAP) Pulse Ox O2 Delivery O2 Flow Rate FiO2 11/22/16 14:56 97.7 83 20 150/84 (106) 97 Room Air 97.7 Lab Values Laboratory Tests Test 11/22/16 15:30 Urine Collection Type Unknown Urine Color Yellow Urine Clarity Clear Urine pH 7.0 Urine Specific Carlton 1.015 Urine Protein 100 mg/dL (NEG-TRACE) Urine Glucose (UA) Negative mg/dL (NEG) Urine Ketones (Stick) Negative mg/dL (NEG) Urine Blood Negative (NEG) Urine Nitrite Negative (NEG) Urine Bilirubin Negative (NEG) Urine Urobilinogen Dipstick 0.2 mg/dL (0.2 mg/dL) Urine Leukocyte Esterase Trace (NEG) Urine RBC 0 /HPF (0-2) Urine WBC 1-4 /HPF (0-4) Urine Squamous Epithelial Cells Mod /LPF Urine Bacteria Few /HPF (0-FEW) EKG EKG [] Radiology/Procedures Radiology/Procedures []PROCEDURE: LUMBAR SPINE 2-3V; THORACIC SPINE 3V Exam performed: X-ray thoracic and lumbar spine. History: Patient fell today complaining of back pain. Date of service: 11/22/16. Comparison: None available X-ray thoracic and lumbar spine findings: AP, lateral and swimmer's view of the thoracic spine as well as AP, lateral and coned view of the lumbosacral junction is obtained. Normal thoracic and lumbar curvature is noted. The vertebral body heights and intervertebral disc spaces are grossly maintained. There is no matti or retrolisthesis. No compression fracture. No prevertebral soft tissue swelling. The visualized lungs are clear. Nonspecific bowel gas pattern. Impression: No acute abnormality seen in the x-ray thoracic and lumbar spine. DICTATED and SIGNED BY: DANIELA STEWART MD DATE: 11/22/16 1526 CC: LAMONT SCHREIBER APRN; NON,STAFF; EWA MORENO MD ~ PROCEDURE: CHEST PA & LATERAL Indication fall. Left-sided chest and back pain. Frontal and lateral views of the chest were obtained. Comparison is made to an examination 11/09/2016. There is unchanged cardiomegaly. Slightly tortuous thoracic aorta is noted. There is a small to moderate left pleural effusion. No consolidated pneumonia is seen. There is no evidence of pneumothorax. No definite acute bony finding is seen. IMPRESSION: Stable cardiomegaly. Small to moderate left pleural effusion DICTATED and SIGNED BY: JOSE CHACON MD DATE: 11/22/16 1524 CC: LAMONT SCHREIBER APRN; NON,STAFF; EWA MORENO MD ~ Course & Med Decision Making Course & Med Decision Making Pertinent Labs and Imaging studies reviewed. (See chart for details) Patient is in the ED with complaints of left flank pain after falling down 6 steps. She had no loss of consciousness. Chest x-ray was noted for Stable cardiomegaly and Small to moderate left pleural effusion which patient has had in previous x-rays. Lumbar and thoracic spine x-rays were negative for any acute findings. Urine analysis was negative for infection or blood. Patient's blood pressure was in the 150s/100s. She states she has history of hypertension. She follows up with Dr. Moreno. Instructed patient to make sure she follows up for her high blood pressure as well as chronic pleural effusion. Dragon Disclaimer Dragon Disclaimer This electronic medical record was generated, in whole or in part, using a voice recognition dictation system. Departure Departure Impression: Primary Impression: Fall down steps Additional Impressions: Contusion of thoracic wall Hypertension Pleural effusion Disposition: 01 HOME, SELF-CARE Condition: STABLE Referrals: EWA MROENO MD (PCP) Patient Instructions: Contusion, [id number], Fall Prevention and Home Safety , Hypertension, Pleural Effusion-Brief Additional Instructions: You were seen for thoracic contusion after falling. Your blood pressure was also notably high 150/80 please consider following up with the primary care doctor for this. You also have pleural effusion showing up in your xray today as well as your xray the last time you were seen in the ED. You need to make sure the primary care doctor is aware of this. I printed chest x-ray for you to take to her doctor. Apply heat or Ice to the affected area. Do not drive or operate machinery on your pain medications. Scripts Acetaminophen With Codeine (TYLENOL WITH CODEINE #3 TABLET) 1 Each Tablet 1 TAB PO PRN Q6HRS Y for PAIN, #30 TAB Prov: LAMONT SCHREIBER APRN 11/22/16 Cyclobenzaprine Hcl (CYCLOBENZAPRINE HCL) 10 Mg Tablet 1 TAB PO TID, #30 TAB Prov: LAMONT SCHREIBER APRN 11/22/16 Problem Qualifiers Primary Impression: Fall down steps Encounter type: initial encounter Qualified Codes: W10.8XXA - Fall (on) ( from) other stairs and steps, initial encounter Additional Impressions: Contusion of thoracic wall Encounter type: initial encounter Contusion of thoracic wall detail: back wall of thorax Laterality: left Qualified Codes: S20.222A - Contusion of left back wall of thorax, initial encounter Hypertension Hypertension type: unspecified Qualified Codes: I10 - Essential (primary) hypertension LAMONT SCHREIBER APRN Nov 22, 2016 14:52
[2016-11-22] MEDS ORDERED: CYCLOBENZAPRINE 10 MG TABLET. PO ONE ×2 (15:00→15:15)
--- NOTE | 2016-11-22 15:28 | RAD ---
Indication fall. Left-sided chest and back pain. Frontal and lateral views of the chest were obtained. Comparison is made to an examination 11/09/2016. There is unchanged cardiomegaly. Slightly tortuous thoracic aorta is noted. There is a small to moderate left pleural effusion. No consolidated pneumonia is seen. There is no evidence of pneumothorax. No definite acute bony finding is seen. IMPRESSION: Stable cardiomegaly. Small to moderate left pleural effusion
--- NOTE | 2016-11-22 15:30 | RAD ---
Exam performed: X-ray thoracic and lumbar spine. History: Patient fell today complaining of back pain. Date of service: 11/22/16. Comparison: None available X-ray thoracic and lumbar spine findings: AP, lateral and swimmer's view of the thoracic spine as well as AP, lateral and coned view of the lumbosacral junction is obtained. Normal thoracic and lumbar curvature is noted. The vertebral body heights and intervertebral disc spaces are grossly maintained. There is no matti or retrolisthesis. No compression fracture. No prevertebral soft tissue swelling. The visualized lungs are clear. Nonspecific bowel gas pattern. Impression: No acute abnormality seen in the x-ray thoracic and lumbar spine.
[2016-11-22 15:46] LABS: BILIRUBIN,URINE NEGATIVE (NEG); GLUCOSE,URINE NEGATIVE (NEG); NITRITE,URINE NEGATIVE (NEG); PROTEIN,URINE 100 mg/dL (NEG-TRACE); UROBILINOGEN,URINE 0.2 mg/dL (0.2 mg/dL)
[2016-11-22 15:52] LABS: BACTERIA,URINE FEW /HPF (0-FEW); RBC,URINE 0 /HPF (0-2); SQUAMOUS EPITHELIAL CELL,UR MOD /LPF
[2016-11-22 16:07] VITALS: BP 157/106
[2016-11-22] MEDS ORDERED: CYCL10TA2 PO (16:12)
[2016-11-22] MEDS ORDERED: ACET-704 PO (16:12)
== END 2016-11-22 16:28 | disposition home or self-care (01) ==
LOC: ER 14:28
DX: S20.20XA Contusion of thorax, unspecified, initial encounter (principal); J90 Pleural effusion, not elsewhere classified; I10 Essential (primary) hypertension; J45.909 Unspecified asthma, uncomplicated; Z88.2 Allergy status to sulfonamides; Z88.8 Allergy status to other drugs, medicaments and biological substances; W10.8XXA Fall (on) (from) other stairs and steps, initial encounter; Y93.89 Activity, other specified; Y92.89 Other specified places as the place of occurrence of the external cause; Y99.8 Other external cause status
CPT/HCPCS: 71020; 72072; 72100; 81001; 99285

== ENCOUNTER 2017-02-14 22:19 | Emergency (ER) | payer MEDICARE ==
[2017-02-14 23:06] LABS: FECAL OB PT POSITIVE (NEG); NEG OBC FOB NEG; POS OBC FOB POS
[2017-02-14] MEDS: IV NORMAL SALINE 1000ML BAG 1,000 ML IV (23:15)
[2017-02-14 23:21] LABS: ADD MAN DIFF? NO
[2017-02-14 23:23] LABS: BASO # 0.1 x10^3/uL (0.0-0.2); BASO % 1 % (0-3); EOS # 0.9 x10^3/uL (0.0-0.7); EOS % 10 % (0-3); HEMATOCRIT 40.3 % (36.0-47.0); HEMOGLOBIN 12.8 g/dL (12.0-15.5); LYMPH # 3.5 x10^3/uL (1.0-4.8); LYMPH % 38 % (24-48); MEAN CORPUSCULAR HEMOGLOBIN 26 pg (25-35); MEAN CORPUSCULAR HGB CONC 32 g/dL (31-37); MEAN CORPUSCULAR VOLUME 83 fL (79-100); MONO # 0.5 x10^3/uL (0.0-1.1); MONO % 5 % (0-9); NEUT # 4.1 x10^3uL (1.8-7.7); NEUT % 45 % (31-73); PLATELET COUNT 266 x10^3/uL (140-400); RED BLOOD COUNT 4.87 x10^6/uL (3.50-5.40); RED CELL DISTRIBUTION WIDTH 15.3 % (11.5-14.5)
[2017-02-14 23:33] LABS: PARTIAL THROMBOPLASTIN TIME 31 SEC (24-38); PROTHROMBIN TIME PATIENT 12.2 SEC (11.7-14.0)
[2017-02-14 23:35] LABS: ANION GAP 11 (6-14); BLOOD UREA NITROGEN 18 mg/dL (7-20); BUN/CREATININE RATIO 11 (6-20); CALCIUM 9.5 mg/dL (8.5-10.1); CARBON DIOXIDE 25 mmol/L (21-32); CHLORIDE 108 mmol/L (98-107); CREATININE 1.6 mg/dL (0.6-1.0); GFR 39.9; GLUCOSE 126 mg/dL (70-99); SODIUM 144 mmol/L (136-145)
[2017-02-14 23:40] LABS: ALBUMIN 3.4 g/dL (3.4-5.0); ALBUMIN/GLOBULIN RATIO 0.9 (1.0-1.7); ALK PHOS 66 U/L (46-116); ALT (SGPT) 44 U/L (14-59); AST (SGOT) 32 U/L (15-37); TOTAL BILIRUBIN 0.5 mg/dL (0.2-1.0); TOTAL PROTEIN 7.4 g/dL (6.4-8.2)
[2017-02-15] MEDS ORDERED: IV NORMAL SALINE 1000ML BAG 1,000 ML IV (00:01)
[2017-02-15] MEDS ORDERED: POLYETHYLENE GLYCOL 3350 17 GM PACKET. PO (00:15)
[2017-02-15] MEDS ORDERED: ACETAMINOPHEN 325 MG TABLET. PO (00:15)
[2017-02-15] MEDS: HYDROCORTISONE ACETATE 25 MG SUPP.RECT PR (00:15)
[2017-02-15] MEDS ORDERED: DOCUSATE SODIUM 100 MG CAPSULE. PO (00:15)
[2017-02-15] MEDS ORDERED: ONDANSETRON PF 4 MG/2 ML VIAL. IV (00:15)
[2017-02-15] MEDS ORDERED: MORPHINE SULFATE 2 MG/ML DISP.SYRIN. IV (00:15)
[2017-02-15 00:49] LABS: BILIRUBIN,URINE NEGATIVE (NEG); CLARITY,URINE CLEAR; COLOR,URINE YELLOW; GLUCOSE,URINE NEGATIVE (NEG); NITRITE,URINE NEGATIVE (NEG); PROTEIN,URINE 100 mg/dL (NEG-TRACE); UROBILINOGEN,URINE 0.2 mg/dL (0.2 mg/dL)
[2017-02-15 01:10] LABS: AMORPHOUS SEDIMENT,UR PRESENT /HPF; BACTERIA,URINE FEW /HPF (0-FEW); RBC,URINE OCC /HPF (0-2); SQUAMOUS EPITHELIAL CELL,UR FEW /LPF
== END 2017-02-15 01:15 | disposition home or self-care (01) ==
LOC: ER 02-15 01:15
DX: K62.5 Hemorrhage of anus and rectum (principal); I11.0 Hypertensive heart disease with heart failure; I50.9 Heart failure, unspecified; E03.9 Hypothyroidism, unspecified; M32.9 Systemic lupus erythematosus, unspecified; J45.909 Unspecified asthma, uncomplicated; Z90.710 Acquired absence of both cervix and uterus; Z90.49 Acquired absence of other specified parts of digestive tract; Z88.2 Allergy status to sulfonamides; Z88.6 Allergy status to analgesic agent; Z88.1 Allergy status to other antibiotic agents
CPT/HCPCS: 36415; 80053; 81001; 82274; 85025; 85610; 85730; 86850; 86900; 86901; 87086; 96360; 99284-25; J7030

== ENCOUNTER 2017-04-07 11:05 | Emergency (ER) | payer MEDICARE, SELFPAY ==
[2017-04-07] MEDS: LOSARTAN POTASSIUM 50 MG TABLET. PO ×2 (11:45)
[2017-04-07] MEDS: predniSONE 20 MG TABLET PO ×2 (11:45)
[2017-04-07] MEDS: HYDROcodone/APAP 5/325MG 1 TAB TABLET PO ×2 (11:45)
[2017-04-07] MEDS: IPRATRPIUM/ALBUTEROL 0.5/2.5MG 3 ML NEBU. NEB ×2 (12:02)
[2017-04-07 12:12] LABS: INFLUENZA A PATIENT NEGATIVE (NEGATIVE); INFLUENZA B PATIENT NEGATIVE (NEGATIVE); OBC FLU VALID
== END 2017-04-07 13:13 | disposition home or self-care (01) ==
LOC: ER 11:05
DX: J45.21 Mild intermittent asthma with (acute) exacerbation (principal); I11.0 Hypertensive heart disease with heart failure; I50.9 Heart failure, unspecified; M32.9 Systemic lupus erythematosus, unspecified; E03.9 Hypothyroidism, unspecified; Z88.2 Allergy status to sulfonamides; Z88.6 Allergy status to analgesic agent; Z88.1 Allergy status to other antibiotic agents; Z91.041 Radiographic dye allergy status
CPT/HCPCS: 71046; 87804; 87804-59; 94640; 99285-25; J7512; J7620

== ENCOUNTER 2017-07-07 18:03 | Emergency (ER) | payer MEDICAID, MEDICARE ==
[2017-07-07] MEDS: IPRATRPIUM/ALBUTEROL 0.5/2.5MG 3 ML NEBU. NEB (18:41)
[2017-07-07 18:49] LABS: ADD MAN DIFF? NO
[2017-07-07 18:51] LABS: BASO # 0.1 x10^3/uL (0.0-0.2); BASO % 1 % (0-3); EOS % 14 % (0-3); HEMATOCRIT 38.8 % (36.0-47.0); HEMOGLOBIN 12.6 g/dL (12.0-15.5); LYMPH # 2.5 x10^3/uL (1.0-4.8); LYMPH % 36 % (24-48); MEAN CORPUSCULAR HEMOGLOBIN 26 pg (25-35); MEAN CORPUSCULAR HGB CONC 33 g/dL (31-37); MEAN CORPUSCULAR VOLUME 81 fL (79-100); MONO # 0.4 x10^3/uL (0.0-1.1); MONO % 6 % (0-9); NEUT % 43 % (31-73); PLATELET COUNT 219 x10^3/uL (140-400); RED BLOOD COUNT 4.78 x10^6/uL (3.50-5.40)
[2017-07-07 19:05] LABS: ANION GAP 8 (6-14); BLOOD UREA NITROGEN 14 mg/dL (7-20); BUN/CREATININE RATIO 11 (6-20); CALCIUM 10.3 mg/dL (8.5-10.1); CARBON DIOXIDE 30 mmol/L (21-32); CHLORIDE 104 mmol/L (98-107); CREATININE 1.3 mg/dL (0.6-1.0); GFR 50.7; GLUCOSE 100 mg/dL (70-99); POTASSIUM 3.7 mmol/L (3.5-5.1); SODIUM 142 mmol/L (136-145)
[2017-07-07 19:10] LABS: ALBUMIN 4.3 g/dL (3.4-5.0); ALK PHOS 76 U/L (46-116); ALT (SGPT) 29 U/L (14-59); AST (SGOT) 17 U/L (15-37); TOTAL BILIRUBIN 1.1 mg/dL (0.2-1.0); TOTAL PROTEIN 8.6 g/dL (6.4-8.2)
[2017-07-07 19:18] LABS: NT-PRO BNP 179 pg/mL (0-124)
[2017-07-07 19:18] LABS: BILIRUBIN,URINE NEGATIVE (NEG); CLARITY,URINE CLEAR; COLOR,URINE YELLOW; GLUCOSE,URINE NEGATIVE (NEG); NITRITE,URINE NEGATIVE (NEG); PROTEIN,URINE 100 mg/dL (NEG-TRACE)
[2017-07-07] MEDS: diphenhydrAMINE 50 MG/ML VIAL IVP (19:26)
[2017-07-07] MEDS: MORPHINE SULFATE 4 MG/ML DISP.SYRIN. IV (19:26)
[2017-07-07] MEDS: methylPREDNISolone SOD SUCC PF 125 MG/2 ML VIAL. IV (19:26)
[2017-07-07 19:27] LABS: BACTERIA,URINE MANY /HPF (0-FEW); HYALINE CASTS, URINE MODERATE /HPF; RBC,URINE 0 /HPF (0-2); SQUAMOUS EPITHELIAL CELL,UR MANY /LPF; WBC,URINE 20-40 /HPF (0-4)
== END 2017-07-07 21:15 | disposition home or self-care (01) ==
LOC: ER 18:03
DX: J20.9 Acute bronchitis, unspecified (principal); J45.901 Unspecified asthma with (acute) exacerbation; I11.0 Hypertensive heart disease with heart failure; I50.9 Heart failure, unspecified; E03.9 Hypothyroidism, unspecified; Z88.2 Allergy status to sulfonamides; Z88.6 Allergy status to analgesic agent; Z88.8 Allergy status to other drugs, medicaments and biological substances
CPT/HCPCS: 36415; 71045; 80053; 81001; 83880; 84484; 85025; 93005; 94640; 96374; 96375; 99285-25; J1200; J2270; J2930; J7620

== ENCOUNTER 2017-08-03 17:50 | Emergency (ER) | payer MEDICARE, OTHER, MEDICAID ==
[2017-08-03 19:13] LABS: BILIRUBIN,URINE NEGATIVE (NEG); CLARITY,URINE CLEAR; COLOR,URINE YELLOW; GLUCOSE,URINE NEGATIVE (NEG); NITRITE,URINE NEGATIVE (NEG); PROTEIN,URINE 100 mg/dL (NEG-TRACE)
[2017-08-03 19:24] LABS: ADD MAN DIFF? NO
[2017-08-03] MEDS: fentaNYL PF VIAL 100 MCG/2 ML VIAL IV (19:25)
[2017-08-03 19:27] LABS: BASO % 1 % (0-3); EOS % 0 % (0-3); HEMATOCRIT 38.1 % (36.0-47.0); HEMOGLOBIN 12.5 g/dL (12.0-15.5); LYMPH # 1.2 x10^3/uL (1.0-4.8); LYMPH % 18 % (24-48); MEAN CORPUSCULAR HEMOGLOBIN 27 pg (25-35); MEAN CORPUSCULAR HGB CONC 33 g/dL (31-37); MEAN CORPUSCULAR VOLUME 81 fL (79-100); MONO # 0.2 x10^3/uL (0.0-1.1); MONO % 3 % (0-9); NEUT # 5.1 x10^3uL (1.8-7.7); NEUT % 78 % (31-73); RED BLOOD COUNT 4.73 x10^6/uL (3.50-5.40); RED CELL DISTRIBUTION WIDTH 15.4 % (11.5-14.5); WHITE BLOOD COUNT 6.6 x10^3/uL (4.0-11.0)
[2017-08-03 19:35] LABS: BACTERIA,URINE FEW /HPF (0-FEW); RBC,URINE 0 /HPF (0-2); SQUAMOUS EPITHELIAL CELL,UR FEW /LPF
[2017-08-03 19:59] LABS: PLATELET COUNT 203 x10^3/uL (140-400)
[2017-08-03 20:09] LABS: ANION GAP 8 (6-14); BLOOD UREA NITROGEN 12 mg/dL (7-20); BUN/CREATININE RATIO 8 (6-20); CALCIUM 9.7 mg/dL (8.5-10.1); CARBON DIOXIDE 27 mmol/L (21-32); CHLORIDE 106 mmol/L (98-107); CREATININE 1.5 mg/dL (0.6-1.0); GLUCOSE 133 mg/dL (70-99); POTASSIUM 4.2 mmol/L (3.5-5.1); SODIUM 141 mmol/L (136-145)
[2017-08-03 20:10] LABS: ALBUMIN 3.6 g/dL (3.4-5.0); ALBUMIN/GLOBULIN RATIO 0.9 (1.0-1.7); ALK PHOS 62 U/L (46-116); ALT (SGPT) 31 U/L (14-59); AST (SGOT) 24 U/L (15-37); LIPASE 146 U/L (73-393); TOTAL BILIRUBIN 0.6 mg/dL (0.2-1.0); TOTAL PROTEIN 7.5 g/dL (6.4-8.2)
== END 2017-08-03 22:40 | disposition home or self-care (01) ==
LOC: ER 17:50
DX: R10.31 Right lower quadrant pain (principal); R30.0 Dysuria; Z88.2 Allergy status to sulfonamides; Z88.8 Allergy status to other drugs, medicaments and biological substances; Z91.041 Radiographic dye allergy status; Z88.6 Allergy status to analgesic agent; Z91.013 Allergy to seafood; Z90.49 Acquired absence of other specified parts of digestive tract
CPT/HCPCS: 36415; 74176; 80053; 81001; 83690; 85025; 96374; 99285-25; J3010

== ENCOUNTER 2017-09-02 14:31 | Emergency (ER) | payer OTHER, MEDICARE ==
[2017-09-02] MEDS: IPRATRPIUM/ALBUTEROL 0.5/2.5MG 3 ML NEBU. NEB (15:35)
[2017-09-02] MEDS: methylPREDNISolone SOD SUCC PF 125 MG/2 ML VIAL. IV (15:40)
[2017-09-02] MEDS: ONDANSETRON PF 4 MG/2 ML VIAL. IV (15:41)
[2017-09-02] MEDS: MORPHINE SULFATE 4 MG/ML DISP.SYRIN. IV (15:41)
[2017-09-02 15:50] LABS: ADD MAN DIFF? NO
[2017-09-02 16:02] LABS: BASO # 0.1 x10^3/uL (0.0-0.2); BASO % 1 % (0-3); EOS # 0.9 x10^3/uL (0.0-0.7); EOS % 12 % (0-3); HEMATOCRIT 37.2 % (36.0-47.0); HEMOGLOBIN 12.1 g/dL (12.0-15.5); LYMPH # 2.5 x10^3/uL (1.0-4.8); LYMPH % 33 % (24-48); MEAN CORPUSCULAR HEMOGLOBIN 26 pg (25-35); MEAN CORPUSCULAR HGB CONC 33 g/dL (31-37); MEAN CORPUSCULAR VOLUME 80 fL (79-100); MONO # 0.5 x10^3/uL (0.0-1.1); MONO % 7 % (0-9); NEUT # 3.6 x10^3uL (1.8-7.7); NEUT % 47 % (31-73); RED BLOOD COUNT 4.63 x10^6/uL (3.50-5.40); RED CELL DISTRIBUTION WIDTH 16.1 % (11.5-14.5); WHITE BLOOD COUNT 7.6 x10^3/uL (4.0-11.0)
[2017-09-02 16:05] LABS: ANION GAP 8 (6-14); BLOOD UREA NITROGEN 11 mg/dL (7-20); BUN/CREATININE RATIO 8 (6-20); CALCIUM 9.3 mg/dL (8.5-10.1); CARBON DIOXIDE 28 mmol/L (21-32); CHLORIDE 105 mmol/L (98-107); CREATININE 1.4 mg/dL (0.6-1.0); GFR 46.4; GLUCOSE 105 mg/dL (70-99); SODIUM 141 mmol/L (136-145)
[2017-09-02 16:10] LABS: ALBUMIN 3.6 g/dL (3.4-5.0); ALBUMIN/GLOBULIN RATIO 0.9 (1.0-1.7); ALK PHOS 63 U/L (46-116); ALT (SGPT) 34 U/L (14-59); AST (SGOT) 30 U/L (15-37); TOTAL BILIRUBIN 0.9 mg/dL (0.2-1.0); TOTAL PROTEIN 7.4 g/dL (6.4-8.2)
[2017-09-02 16:12] LABS: TROPONINI 0.033 ng/mL (0.000-0.055)
[2017-09-02 16:17] LABS: PLATELET COUNT 141 x10^3/uL (140-400)
[2017-09-02 16:17] LABS: NT-PRO BNP 288 pg/mL (0-124)
[2017-09-02 17:00] LABS: BILIRUBIN,URINE NEGATIVE (NEG); CLARITY,URINE CLEAR; COLOR,URINE YELLOW; GLUCOSE,URINE NEGATIVE (NEG); NITRITE,URINE NEGATIVE (NEG); PROTEIN,URINE 100 mg/dL (NEG-TRACE)
[2017-09-02 17:12] LABS: BACTERIA,URINE FEW /HPF (0-FEW); RBC,URINE 0 /HPF (0-2); SQUAMOUS EPITHELIAL CELL,UR MANY /LPF
[2017-09-02 17:13] LABS: HYALINE CASTS, URINE MANY /HPF
== END 2017-09-02 18:15 | disposition home or self-care (01) ==
LOC: ER 14:31
DX: J45.901 Unspecified asthma with (acute) exacerbation (principal); I11.0 Hypertensive heart disease with heart failure; I50.9 Heart failure, unspecified; E03.9 Hypothyroidism, unspecified; Z88.6 Allergy status to analgesic agent; Z88.2 Allergy status to sulfonamides; Z88.8 Allergy status to other drugs, medicaments and biological substances
CPT/HCPCS: 36415; 71045; 80053; 81001; 83880; 84484; 85025; 93005; 94640; 96374; 96375; 99285-25; J2270; J2405; J2930; J7620

== ENCOUNTER → 2017-11-17 | Outpatient (CLI) | payer OTHER ==
[2017-10-17 11:00] VITALS: BP 120/83
[~2017-11-17] MED LIST changes: +ALBU2.5V5 NEB; +ALBU8.5H8 IH; -AMLO10TA2 PO; +AMLO10TA6 PO; -AMLO5TAB2 PO; +AMLO5TAB7 PO; +CARV12.52 PO; +CEFP100T PO; +CEPH-264 PO; +DOCU-109 PO; +EPIPEN0.3 MG/0.3 IJ; +ERGO500027 PO; +FLUT1DIS3 IH; +HYDR30CR61 TP; +LEVO100T PO; +LEVO125T PO; +MONT10TA9 PO; +PARO20TA3 PO; +POLY119P4 PO; +PROM118S5 PO; +RANI150T21 PO; -RANI150T6 PO; +VENTOLIN HFA18 GM INH
--- NOTE | 2017-11-17 09:26 | KCIC ---
Examination: CT CHEST WO CONTRAST History: Chest pain Comparison/Correlation: 12/26/2016 CTA of the chest Findings: Axial images of the chest were obtained without contrast. Sagittal and coronal reformatted images were provided. The tracheobronchial tree is normal. No pneumothorax. No suspicious pulmonary nodules or masses. No infiltrates or effusions. No pleural or significant pericardial effusion. Minimal pericardial thickening or fluid noted. Coronary arterial calcification involving the proximal left anterior descending artery evident. Right coronary artery calcification also noted. Main pulmonary artery diameter of 4.2 cm identified. Bony structures are unremarkable for the patient's age. Cholecystectomy is noted. Small hiatal hernia is present. Suture material involves the gastroesophageal junction and stomach. Stomach appears to be of small volume. Impression: No infiltrate. Dilated main pulmonary artery is of concern for pulmonary artery hypertension. Small hiatal hernia. Electronically signed by: Gene Campuzano MD (11/17/2017 9:22 AM) [id number]
== END | disposition home or self-care (01) ==
LOC: KCIC CT 08:17
PROVIDERS: ATTEND Nurse Practitioner Gerontology
DX: K44.9 Diaphragmatic hernia without obstruction or gangrene (principal); I25.10 Atherosclerotic heart disease of native coronary artery without angina pectoris; Z90.49 Acquired absence of other specified parts of digestive tract
CPT/HCPCS: 71250

== ENCOUNTER 2017-11-18 18:05 | Emergency (ER) | payer MEDICARE, OTHER ==
[~2017-11-18] VITALS: Ht 177.8 cm; Wt 130.2 kg
[~2017-11-18 18:05] MED LIST changes: -ALBU8.5H8 IH
[2017-11-18] MEDS ORDERED: IV NORMAL SALINE 1000ML BAG 1,000 ML IV ONE (18:30)
[2017-11-18] MEDS ORDERED: IPRATRPIUM/ALBUTEROL 0.5/2.5MG 3 ML NEBU. NEB ONE (18:30)
[2017-11-18 18:50] LABS: BASO # 0.1 x10^3/uL (0.0-0.2); BASO % 1 % (0-3); EOS # 0.8 x10^3/uL (0.0-0.7); EOS % 11 % (0-3); HEMATOCRIT 35.4 % (36.0-47.0); HEMOGLOBIN 11.8 g/dL (12.0-15.5); LYMPH # 2.5 x10^3/uL (1.0-4.8); LYMPH % 35 % (24-48); MEAN CORPUSCULAR HEMOGLOBIN 27 pg (25-35); MEAN CORPUSCULAR HGB CONC 34 g/dL (31-37); MEAN CORPUSCULAR VOLUME 80 fL (79-100); MONO # 0.5 x10^3/uL (0.0-1.1); MONO % 7 % (0-9); NEUT # 3.2 x10^3uL (1.8-7.7); NEUT % 46 % (31-73); PLATELET COUNT 240 x10^3/uL (140-400); RED BLOOD COUNT 4.45 x10^6/uL (3.50-5.40); RED CELL DISTRIBUTION WIDTH 16.9 % (11.5-14.5)
[2017-11-18 18:57] LABS: INFLUENZA A PATIENT NEGATIVE (NEGATIVE); INFLUENZA B PATIENT NEGATIVE (NEGATIVE)
[2017-11-18 19:00] LABS: CALCIUM 9.8 mg/dL (8.5-10.1); CREATININE 1.4 mg/dL (0.6-1.0); GFR 46.4
[2017-11-18 19:05] LABS: ALBUMIN 3.5 g/dL (3.4-5.0); ALBUMIN/GLOBULIN RATIO 0.9 (1.0-1.7); TOTAL BILIRUBIN 0.6 mg/dL (0.2-1.0); TOTAL PROTEIN 7.4 g/dL (6.4-8.2)
[2017-11-18] MEDS ORDERED: CONTRAST GIVEN. MC PRN (19:30)
--- NOTE | 2017-11-18 19:43 | RAD ---
EXAM: CHEST 2 VIEWS. HISTORY: Shortness of breath, asthma, cough. COMPARISON: November 03, 2017. FINDINGS: Frontal and lateral views of the chest are obtained. There is mild atelectasis in the bases. There is no pneumothorax or clear pleural effusion. The heart is moderately enlarged. The aorta is tortuous. IMPRESSION: 1. Moderate cardiomegaly. Electronically signed by: Rogelio Marin MD (11/18/2017 7:40 PM) [facility]
[2017-11-18] MEDS ORDERED: IOHEXOL 300 MG/ML 100ML VIAL. IV ONE (20:00)
[2017-11-18] MEDS ORDERED: HYDROcodone/APAP 10/325 1 TAB TABLET PO ONE (20:00)
--- NOTE | 2017-11-18 20:09 | RAD ---
EXAM: CT ANGIOGRAPHY OF THE CHEST WITH AND WITHOUT INTRAVENOUS CONTRAST. HISTORY: Shortness of breath. TECHNIQUE: Computed tomographic angiography of the chest was performed before and after the intravenous administration of 60 mL Isovue-370. 3-D maximum intensity projections were also performed. COMPARISON: November 17, 2017, October 12, 2017. FINDINGS: Images of the upper abdomen reveal changes of sleeve gastrectomy. There is a small hiatal hernia. A hypoattenuating lesion in the spleen measures 12 mm and is stable across prior studies. Bone windows reveal no suspicious lesions. No pulmonary emboli are identified. The main pulmonary artery measures 4.0 cm. There is no aortic dissection or aneurysm. There are no pathologically enlarged mediastinal or axillary lymph nodes. There is a small pericardial effusion. There is no pleural effusion. The heart is moderately enlarged. There is a small region of air trapping in the left upper lobe, stable. This is likely postinflammatory. There is mild dependent atelectasis without clear infiltrate. IMPRESSION: 1. No pulmonary embolism. 2. Enlargement of the pulmonary arteries is consistent with pulmonary arterial hypertension. 3. Moderate cardiomegaly. Small pericardial effusion. 4. Small hiatal hernia after sleeve gastrectomy. *One or more of the following individualized dose reduction techniques were utilized for this examination: 1. Automated exposure control. 2. Adjustment of the mA and/or kV according to patient size. 3. Use of iterative reconstruction technique. Electronically signed by: Rogelio Marin MD (11/18/2017 8:06 PM) [facility]
[2017-11-18] MEDS ORDERED: FUROSEMIDE 40 MG/4 ML VIAL. IVP ONE (21:00)
[2017-11-18 21:06] VITALS: BP 147/72
[2017-11-18] MEDS ORDERED: ALBU8.5H8 IH (21:15)
[2017-11-18] MEDS ORDERED: PRED50TA PO (21:15)
--- NOTE | 2017-11-18 21:15 | PHYS DOC ---
Past Medical History Past Medical History: Asthma, CHF, Constipation, Hypertension, Hypothyroid, Other Additional Past Medical Histor: graves disease,lupus Past Surgical History: Cholecystectomy, , Hysterectomy, Other Additional Past Surgical Histo: HERNIA REPAIR,NASAL POLYPS Alcohol Use: None Drug Use: None Adult General Chief Complaint Chief Complaint: SHORTNESS OF BREATH HPI HPI Patient is a 62 year old female with recent hospitalization month ago for pneumonia presents with a cough, voice hoarseness, progressive shortness of breath. Reports chest wall pain with cough and deep breathing. No fever chills nausea vomiting or sweats. Patient was seen by her PCP earlier this week and had an outpatient CT scan. Patient states she was told that she still had persistent pneumonia despite completing treatment. Denies pain, cramping, swelling or history of DVT or PE. Denies history of COPD, asthma, congestive heart failure CAD. Patient nonsmoker. No other acute symptoms or complaints.. [] Review of Systems Review of Systems ROS as per history of present illness. All other systems were reviewed and found to be within normal limits, except as documented in this note. Current Medications Current Medications Current Medications Medications (Trade) Dose Ordered Sig/Indra Start Time Stop Time Status Last Admin Dose Admin Acetaminophen/ Hydrocodone Bitart (Lortab 10/325) 1 tab 1X ONCE 11/18/17 20:00 11/18/17 20:01 DC 11/18/17 19:41 1 TAB Albuterol/ Ipratropium (Duoneb) 3 ml 1X ONCE 11/18/17 18:30 11/18/17 18:31 DC 11/18/17 18:42 3 ML Furosemide (Lasix) 40 mg 1X ONCE 11/18/17 21:00 11/18/17 21:01 DC Info (CONTRAST GIVEN -- Rx MONITORING) 1 each PRN DAILY PRN 11/18/17 19:30 11/20/17 19:29 Iohexol (Omnipaque 300 Mg/ml) 60 ml 1X ONCE 11/18/17 20:00 11/18/17 20:01 DC 11/18/17 19:31 60 ML Sodium Chloride 1,000 ml @ 1,000 mls/hr 1X ONCE 11/18/17 18:30 11/18/17 19:29 DC 11/18/17 18:30 1,000 MLS/HR Allergies Allergies Allergies Coded Allergies Type Severity Reaction Last Updated Verified NSAIDS (Non-Steroidal Anti-Inflamma Allergy Severe itching,throat"swells" 11/09 Yes aspirin Allergy Severe Shortness of Air 11/09/16 Yes Sulfa (Sulfonamide Antibiotics) Allergy Intermediate 11/09/16 Yes ketorolac Allergy Intermediate 11/09/16 Yes sulfamethoxazole Allergy Intermediate 11/09/16 Yes trimethoprim Allergy Intermediate 11/09/16 Yes I S O L A T I O N *CONTACT* Allergy Unknown 10/17/17 Yes Physical Exam Physical Exam Constitutional: Well developed, well nourished, no acute distress, non-toxic appearance. [] HENT: Normocephalic, atraumatic, bilateral external ears normal, oropharynx moist, nose normal. Voice hoarseness,[] Eyes: PERRLA, EOMI, conjunctiva normal. [] Neck: Normal range of motion, no tenderness. [] Cardiovascular:Heart rate regular rhythm, no murmur [] Lungs & Thorax: Respirations nonlabored, diminished, coarse breath sounds bilaterally.[] Abdomen: Bowel sounds normal, soft, no tenderness, no masses, no pulsatile masses. [] Skin: Warm, dry, no erythema, no rash. [] Back: No tenderness, no CVA tenderness. [] Extremities: No tenderness, negative Homans signs, trace peripheral edema[] Neurologic: Alert and oriented X 3, normal motor function, normal sensory function, no focal deficits noted. [] Psychologic: Affect normal, judgement normal, mood normal. [] Current Patient Data Vital Signs Vital Signs Date Time Temp Pulse Resp B/P (MAP) Pulse Ox O2 Delivery O2 Flow Rate FiO2 11/18/17 19:43 93 16 147/77 (100) 94 11/18/17 19:41 Room Air 11/18/17 18:10 97.2 97.2 Lab Values Laboratory Tests Test 11/18/17 18:27 11/18/17 18:40 Influenza Type A Antigen Negative (NEGATIVE) Influenza Type B Antigen Negative (NEGATIVE) White Blood Count 7.0 x10^3/uL (4.0-11.0) Red Blood Count 4.45 x10^6/uL (3.50-5.40) Hemoglobin 11.8 g/dL (12.0-15.5) L Hematocrit 35.4 % (36.0-47.0) L Mean Corpuscular Volume 80 fL (79-100) Mean Corpuscular Hemoglobin 27 pg (25-35) Mean Corpuscular Hemoglobin Concent 34 g/dL (31-37) Red Cell Distribution Width 16.9 % (11.5-14.5) H Platelet Count 240 x10^3/uL (140-400) Neutrophils (%) (Auto) 46 % (31-73) Lymphocytes (%) (Auto) 35 % (24-48) Monocytes (%) (Auto) 7 % (0-9) Eosinophils (%) (Auto) 11 % (0-3) H Basophils (%) (Auto) 1 % (0-3) Neutrophils # (Auto) 3.2 x10^3uL (1.8-7.7) Lymphocytes # (Auto) 2.5 x10^3/uL (1.0-4.8) Monocytes # (Auto) 0.5 x10^3/uL (0.0-1.1) Eosinophils # (Auto) 0.8 x10^3/uL (0.0-0.7) H Basophils # (Auto) 0.1 x10^3/uL (0.0-0.2) D-Dimer (Leanna) 1.49 ug/mlFEU (0.00-0.50) H Sodium Level 145 mmol/L (136-145) Potassium Level 4.0 mmol/L (3.5-5.1) Chloride Level 109 mmol/L (98-107) H Carbon Dioxide Level 29 mmol/L (21-32) Anion Gap 7 (6-14) Blood Urea Nitrogen 13 mg/dL (7-20) Creatinine 1.4 mg/dL (0.6-1.0) H Estimated GFR (Cockcroft-Gault) 46.4 BUN/Creatinine Ratio 9 (6-20) Glucose Level 98 mg/dL (70-99) Calcium Level 9.8 mg/dL (8.5-10.1) Total Bilirubin 0.6 mg/dL (0.2-1.0) Aspartate Amino Transferase (AST) 17 U/L (15-37) Alanine Aminotransferase (ALT) 22 U/L (14-59) Alkaline Phosphatase 62 U/L (46-116) ZT-Uzr-O-Type Natriuretic Peptide 330 pg/mL (0-124) H Total Protein 7.4 g/dL (6.4-8.2) Albumin 3.5 g/dL (3.4-5.0) Albumin/Globulin Ratio 0.9 (1.0-1.7) L Procalcitonin < 0.10 ng/mL (0.00-0.10) Laboratory Tests 11/18/17 18:40 Laboratory Tests 11/18/17 18:40 EKG EKG [] Radiology/Procedures Radiology/Procedures ['Chest x-ray: No discrete pulmonary infiltrate on preliminary ED reviewed. CT AnGiO chest: No evidence of PE, infiltrate. Findings of small pericardial effusion and enlarged pulmonary arteries noted per radiology report.] Course & Med Decision Making Course & Med Decision Making Pertinent Labs and Imaging studies reviewed. (See chart for details) [Medically, the patient has post pneumonia viral process without evidence of respiratory compromise. Patients symptoms significantly improved with treatment. Tylenol CT findings suggestive of pulmonary hypertension. Discussed this in detail with patient instructed her to follow up with her primary care physician for referral to pulmonology for further testing. Return precautions reviewed. Patient verbalizes understanding and agreement discharge instructions prior to departure.] Dragon Disclaimer Dragon Disclaimer This electronic medical record was generated, in whole or in part, using a voice recognition dictation system. Departure Departure Impression: Primary Impression: Dyspnea Additional Impression: Bronchospasm with bronchitis, acute Disposition: HOME, SELF-CARE Condition: GOOD Referrals: NON,STAFF (PCP) Patient Instructions: Acute Bronchitis, [id number] Additional Instructions: Please go home and rest, increase fluid intake and take Tylenol chest wall pain and take newly prescribed medications as directed. Follow-up with your PCP early next week for reevaluation and specifically to review abnormal CT findings and for consideration of pulmonology referral. In time, return to the ED if new or worsening symptoms. Scripts Albuterol Sulfate (Proair Hfa) 8.5 Gm Hfa.aer.ad 8.5 GM IH Q6-8HRS PRN for WHEEZING, #5 INHALER 1 Refill Prov: JOSELYN GOODSON DO 11/18/17 Prednisone (PREDNISONE) 50 Mg Tablet 1 TAB PO DAILY, #5 TAB Prov: JOSELYN GOODSON DO 11/18/17 Problem Qualifiers JOSELYN GOODSON DO Nov 18, 2017 21:15
--- NOTE | 2017-11-19 13:36 | EKG ---
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
== END 2017-11-18 21:30 | disposition home or self-care (01) ==
LOC: ER 18:05
DX: J20.9 Acute bronchitis, unspecified (principal); R06.00 Dyspnea, unspecified; I11.0 Hypertensive heart disease with heart failure; I50.9 Heart failure, unspecified; J45.909 Unspecified asthma, uncomplicated; E03.9 Hypothyroidism, unspecified; I25.10 Atherosclerotic heart disease of native coronary artery without angina pectoris; M32.9 Systemic lupus erythematosus, unspecified; Z88.2 Allergy status to sulfonamides; Z88.6 Allergy status to analgesic agent; Z88.1 Allergy status to other antibiotic agents; Z88.8 Allergy status to other drugs, medicaments and biological substances; Z91.041 Radiographic dye allergy status
CPT/HCPCS: 36415; 71046; 71275; 80053; 83880; 84145; 85025; 85379; 87804; 93005; 94640; 96374; 99285; J1940; J7030; J7620; Q9967

== ENCOUNTER → 2017-12-13 | Outpatient (CLI) | payer OTHER ==
[2017-11-18 21:06] VITALS: BP 147/72
[~2017-12-13] MED LIST changes: +ALBU8.5H8 IH
--- NOTE | 2017-12-13 17:01 | KCIC ---
Bilateral digital screening mammograms with 3-D tomosynthesis: Reason for examination: Routine screening. Comparison is made to previous study dated 08/05/2014. Bilateral mammograms in CC and oblique projections were obtained with 2-D imaging and 3-D tomosynthesis imaging on a Siemens Inspiration unit and reviewed on the workstation. Interpretation was made with the benefit of CAD. The skin and nipples show no abnormalities. No abnormal axillary lymph nodes are seen. The breast parenchyma shows scattered fatty and fibroglandular density. (Breast density: Category B.) There are no dominant masses, suspicious calcifications or architectural distortion. Benign calcifications are present. Impression: No evidence of malignancy. Recommend routine screening. BI-RAD Category 2: Benign. "Our facility is accredited by the [employer] Mammography Program." This patient's information has been entered into a reminder system for the patient to be notified with the results of her examination and a target date for the next mammogram. Electronically signed by: Trupti Pantoja MD (12/13/2017 4:58 PM) [id number]
== END | disposition home or self-care (01) ==
LOC: KCIC MAMMO 07:40
DX: Z12.31 Encounter for screening mammogram for malignant neoplasm of breast (principal)
CPT/HCPCS: 77063; 77067

== ENCOUNTER 2017-12-18 08:42 | Emergency (ER) | payer MEDICARE, OTHER ==
[~2017-12-18] VITALS: Ht 177.8 cm; Wt 129.7 kg
[2017-12-18] MEDS ORDERED: predniSONE 10 MG TABLET PO ONE (09:15)
[2017-12-18] MEDS ORDERED: IPRATRPIUM/ALBUTEROL 0.5/2.5MG 3 ML NEBU. NEB ONE (09:15)
[2017-12-18 09:29] LABS: BASO # 0.1 x10^3/uL (0.0-0.2); BASO % 1 % (0-3); EOS # 1.1 x10^3/uL (0.0-0.7); EOS % 12 % (0-3); HEMATOCRIT 38.1 % (36.0-47.0); HEMOGLOBIN 12.4 g/dL (12.0-15.5); LYMPH # 2.5 x10^3/uL (1.0-4.8); LYMPH % 28 % (24-48); MEAN CORPUSCULAR HEMOGLOBIN 26 pg (25-35); MEAN CORPUSCULAR HGB CONC 33 g/dL (31-37); MEAN CORPUSCULAR VOLUME 78 fL (79-100); MONO # 0.6 x10^3/uL (0.0-1.1); MONO % 7 % (0-9); NEUT # 4.6 x10^3uL (1.8-7.7); NEUT % 52 % (31-73); RED BLOOD COUNT 4.88 x10^6/uL (3.50-5.40); RED CELL DISTRIBUTION WIDTH 15.6 % (11.5-14.5); WHITE BLOOD COUNT 8.9 x10^3/uL (4.0-11.0)
--- NOTE | 2017-12-18 09:29 | PHYS DOC ---
Past Medical History Past Medical History: Asthma, CHF, Constipation, Hypertension, Hypothyroid, Other Additional Past Medical Histor: graves disease,lupus Past Surgical History: Cholecystectomy, , Hysterectomy, Other Additional Past Surgical Histo: HERNIA REPAIR,NASAL POLYPS Alcohol Use: None Drug Use: None Adult General Chief Complaint Chief Complaint: CHEST PAIN HPI HPI Patient is a 62 year old Female who presents with chest pain, soa, cough, x 1 week. Patient states that she was [facility] and 2 weeks ago and was admitted for the same symptoms and they stated that she had a heart attack in the past and her asthma was acting up so they kept her in the hospital. Patient states she was recently on antibiotic but cannot remember what antibiotic it was. Patient states that she is on 40 mg of prednisone but did not take it today. She has a history of hypertension, CHF, asthma, palpitations, Graves' disease. She is allergic to NSAIDs, aspirin, Toradol, sulfa. She is a smoker in the past and stopped in 2002. Alert and oriented. Patient states she is coughing up dark yellow phlegm, nasal congestion, afebrile, has not been taking any kind of cold medicine. Current vital signs are 140/86, 90.6, 20 respirations, 96% on room air. Patient states that she is supposed to see a wood pole treater for the first time at in January. Patient states that she is also status post ago to this wood pole treater and be fitted for a awake overnight monitor. Patient states the chest pain is pressure and sharp pain is that she when she coughs or has takes a deep breath. Review of Systems Review of Systems Constitutional: Denies fever or chills [] Eyes: Denies change in visual acuity, redness, or eye pain [] HENT: Nasal congestion and sore throat [] Respiratory: Cough or shortness of breath [] Cardiovascular: Chest pain, tightness GI: Denies abdominal pain, nausea, vomiting, bloody stools or diarrhea [] : Denies dysuria or hematuria [] Musculoskeletal: Denies back pain or joint pain [] Integument: Denies rash or skin lesions [] Neurologic: Denies headache, focal weakness or sensory changes [] All other systems were reviewed and found to be within normal limits, except as documented in this note. Current Medications Current Medications Current Medications Medications (Trade) Dose Ordered Sig/Indra Start Time Stop Time Status Last Admin Dose Admin Acetaminophen (Tylenol) 650 mg PRN Q4HRS PRN 12/18/17 12:00 12/19/17 11:59 Albuterol/ Ipratropium (Duoneb) 3 ml 1X ONCE 12/18/17 09:15 12/18/17 09:22 DC 12/18/17 09:32 3 ML Fentanyl Citrate (Fentanyl 2ml Vial) 50 mcg PRN Q2HR PRN 12/18/17 12:00 12/19/17 11:59 Ondansetron HCl (Zofran) 4 mg PRN Q8HRS PRN 12/18/17 12:00 12/19/17 11:59 Prednisone (Prednisone) 50 mg 1X ONCE 12/18/17 09:15 12/18/17 09:22 DC 12/18/17 09:41 50 MG Allergies Allergies Allergies Coded Allergies Type Severity Reaction Last Updated Verified NSAIDS (Non-Steroidal Anti-Inflamma Allergy Severe itching,throat"swells" 11/09 Yes aspirin Allergy Severe Shortness of Air 11/09/16 Yes Sulfa (Sulfonamide Antibiotics) Allergy Intermediate 11/09/16 Yes ketorolac Allergy Intermediate 11/09/16 Yes sulfamethoxazole Allergy Intermediate 11/09/16 Yes trimethoprim Allergy Intermediate 11/09/16 Yes I S O L A T I O N *CONTACT* Allergy Unknown 10/17/17 Yes Physical Exam Physical Exam Constitutional: Well developed, well nourished, no acute distress, non-toxic appearance. [] HENT: Normocephalic, atraumatic, bilateral external ears normal, oropharynx moist, no oral exudates, nose normal. [] Eyes: PERRLA, EOMI, conjunctiva normal, no discharge. [] Neck: Normal range of motion, no tenderness, supple, no stridor. [] Cardiovascular:Heart rate regular rhythm, no murmur [] Lungs & Thorax: Right lung expiratory breath sounds in all lobes, Left lung clear to auscultation [] Abdomen: Bowel sounds normal, soft, no tenderness, no masses, no pulsatile masses. [] Skin: Warm, dry, no erythema, no rash. [] Back: No tenderness, no CVA tenderness. [] Extremities: No tenderness, no cyanosis, no clubbing, ROM intact, Bilateral ankles 2+ edema. [] Neurologic: Alert and oriented X 3, normal motor function, normal sensory function, no focal deficits noted. [] Psychologic: Affect normal, judgement normal, mood normal. [] Current Patient Data Vital Signs Vital Signs Date Time Temp Pulse Resp B/P (MAP) Pulse Ox O2 Delivery O2 Flow Rate FiO2 12/18/17 09:34 97 Room Air 12/18/17 08:48 98.4 90 20 140/86 (104) 98.4 Lab Values Laboratory Tests Test 12/18/17 08:50 12/18/17 09:15 Urine Collection Type Unknown Urine Color Yellow Urine Clarity Clear Urine pH 7.0 Urine Specific [place] 1.015 Urine Protein Negative mg/dL (NEG-TRACE) Urine Glucose (UA) Negative mg/dL (NEG) Urine Ketones (Stick) Negative mg/dL (NEG) Urine Blood Negative (NEG) Urine Nitrite Negative (NEG) Urine Bilirubin Negative (NEG) Urine Urobilinogen Dipstick 1.0 mg/dL (0.2 mg/dL) Urine Leukocyte Esterase Negative (NEG) Urine RBC 0 /HPF (0-2) Urine WBC Occ /HPF (0-4) Urine Squamous Epithelial Cells Few /LPF Urine Bacteria Few /HPF (0-FEW) Urine Opiates Screen Neg (NEG) Urine Methadone Screen Neg (NEG) Urine Barbiturates Neg (NEG) Urine Phencyclidine Screen Neg (NEG) Urine Amphetamine/Methamphetamine Neg (NEG) Urine Benzodiazepines Screen Neg (NEG) Urine Cocaine Screen Neg (NEG) Urine Cannabinoids Screen Neg (NEG) Urine Ethyl Alcohol Neg (NEG) White Blood Count 8.9 x10^3/uL (4.0-11.0) Red Blood Count 4.88 x10^6/uL (3.50-5.40) Hemoglobin 12.4 g/dL (12.0-15.5) Hematocrit 38.1 % (36.0-47.0) Mean Corpuscular Volume 78 fL (79-100) L Mean Corpuscular Hemoglobin 26 pg (25-35) Mean Corpuscular Hemoglobin Concent 33 g/dL (31-37) Red Cell Distribution Width 15.6 % (11.5-14.5) H Platelet Count 219 x10^3/uL (140-400) Neutrophils (%) (Auto) 52 % (31-73) Lymphocytes (%) (Auto) 28 % (24-48) Monocytes (%) (Auto) 7 % (0-9) Eosinophils (%) (Auto) 12 % (0-3) H Basophils (%) (Auto) 1 % (0-3) Neutrophils # (Auto) 4.6 x10^3uL (1.8-7.7) Lymphocytes # (Auto) 2.5 x10^3/uL (1.0-4.8) Monocytes # (Auto) 0.6 x10^3/uL (0.0-1.1) Eosinophils # (Auto) 1.1 x10^3/uL (0.0-0.7) H Basophils # (Auto) 0.1 x10^3/uL (0.0-0.2) Sodium Level 143 mmol/L (136-145) Potassium Level 4.3 mmol/L (3.5-5.1) Chloride Level 106 mmol/L (98-107) Carbon Dioxide Level 25 mmol/L (21-32) Anion Gap 12 (6-14) Blood Urea Nitrogen 18 mg/dL (7-20) Creatinine 1.2 mg/dL (0.6-1.0) H Estimated GFR (Cockcroft-Gault) 55.4 Glucose Level 125 mg/dL (70-99) H Calcium Level 10.2 mg/dL (8.5-10.1) H Troponin I Quantitative 0.024 ng/mL (0.000-0.055) CX-Jwr-Q-Type Natriuretic Peptide 175 pg/mL (0-124) H Laboratory Tests 12/18/17 09:15 Laboratory Tests 12/18/17 09:15 EKG EKG Sinus rhythm, no STEMI Interpretation Time: 9:[address] Viera Radiology/Procedures Radiology/Procedures Chest x-ray Impressions: [facility] [address] [place] [address] IMAGING REPORT Signed PATIENT: JERRY WAYNE ACCOUNT: [id number] : 1955 LOCATION: ER AGE: 62 SEX: F EXAM STATUS: REG ER ORD. PHYSICIAN: ROSSY NGUYEN APRN REASON: COUGH, SOA PROCEDURE: CHEST PA & LATERAL CHEST PA LATERAL dated 12/18/2017 9:14 AM. Comparison: 11/18/2017 Clinical Indication: HISTORY OF ASTHMA, INCREASED CHEST PAIN AND SHORTNESS OF BREATH TODAY. Findings: PA and lateral views of the chest were obtained. Heart size mildly enlarged, unchanged. Mild tortuosity of the thoracic aorta, unchanged. Lungs are somewhat hyperinflated without focal consolidation. Vascular interstitium within normal limits. No pleural effusion or pneumothorax. Impression: 1. No acute radiographic abnormality. Stable findings compared to 11/18/2017. 2. Findings suggestive of COPD. Electronically signed by: Francisco Ireland MD (12/18/2017 9:31 AM) [facility] DICTATED and SIGNED BY: FRANCISCO IRELAND MD DATE: 12/18/17929 Course & Med Decision Making Course & Med Decision Making Patient is a 62 year old Female who presents with chest pain, soa, cough, x 1 week. Patient states that she was just and [facility] 2 weeks ago and was admitted for the same symptoms and they stated that she had a heart attack in the past and her asthma was acting up so they kept her in the hospital. Patient states she was recently on antibiotic but cannot remember what antibiotic it was. Patient states that she is on 40 mg of prednisone but did not take it today. She has a history of hypertension, CHF, asthma, palpitations, Graves' disease, high cholesterol, obesity. She is allergic to NSAIDs, aspirin, Toradol, sulfa. She is a smoker in the past and stopped in 2002. Alert and oriented. Patient states she is coughing up dark yellow phlegm, nasal congestion, afebrile, has not been taking any kind of cold medicine. Current vital signs are 140/86, 90.6, 20 respirations, 96% on room air. Patient states that she is supposed to see a wood pole treater for the first time at in January. Patient states that she is also status post ago to this wood pole treater and be fitted for a awake overnight monitor. Patient states the chest pain is pressure and sharp pain is that she when she coughs or has takes a deep breath. I sent over for records from . Skin is pink warm and dry. She has 2+ edema in her ankles bilaterally. Patient's left lung lobe has slight expiratory wheezes in the upper and lower lobe. The right lung lobe is clear to auscultation. Heart rate is regular without murmur. Patient's EKG is a sinus rhythm and no STEMI which was read by Dr. Viera. Patient speaks in full clear sentences. Patient has no weaknesses or deficits. She is neurologically intact. This patient did not take her prednisone this morning old give her 50 mg of prednisone and a breathing treatment in the ED. Heart score is 4. Chest x-ray shows no acute findings. Patient's troponin is 0.024. Patient will be admitted to the hospital for observation due to her history. Patient has a stress test printouts from that shows a normal study that was done on 11/22/2017. 1126: Patient is refusing admission. Patient states she is feeling better and her chest pain has lessened and she wants to go home. I explained to the patient that there are risks of her leaving and going home as she because for past medical history and her symptoms. Patient is told that if she goes home that there is risk of or worsening of condition that can lead to . The findings are explained to the patient that although she is not currently having a heart attack and there is no indication of current myocardia ischemia that because of her history and her symptoms that at there is risk of this at any time. Patient should follow up with her primary care within the next day she should return to the ED if her chest pain worsens becomes more short of air , begins vomiting, or have an abdominal pain, becoming diaphoretic, or having palpitations, or dizziness. Patient states she will sign out AMA. Stephani Disclaimer Dragon Disclaimer This electronic medical record was generated, in whole or in part, using a voice recognition dictation system. Departure Departure Impression: Primary Impression: Chest pain Disposition: 07 AGAINST MEDICAL ADVICE Condition: STABLE Referrals: MALLIKA PORTER MD, PHD (PCP) Patient Instructions: Chest Pain (Nonspecific), Shortness of Breath Additional Instructions: Follow-up her primary care doctor as soon as possible. Return to the ED if you become diaphoretic, have dizziness, syncope, chest pain, shortness of air, abdominal pain, nausea, vomiting. Continue taking your prednisone breathing treatments as directed. Problem Qualifiers Primary Impression: Chest pain Chest pain type: unspecified Qualified Codes: R07.9 - Chest pain, unspecified ROSSY NGUYEN HOST HOSTESS Dec 18, 2017 09:29
--- NOTE | 2017-12-18 09:34 | RAD ---
CHEST PA LATERAL dated 12/18/2017 9:14 AM. Comparison: 11/18/2017 Clinical Indication: HISTORY OF ASTHMA, INCREASED CHEST PAIN AND SHORTNESS OF BREATH TODAY. Findings: PA and lateral views of the chest were obtained. Heart size mildly enlarged, unchanged. Mild tortuosity of the thoracic aorta, unchanged. Lungs are somewhat hyperinflated without focal consolidation. Vascular interstitium within normal limits. No pleural effusion or pneumothorax. Impression: 1. No acute radiographic abnormality. Stable findings compared to 11/18/2017. 2. Findings suggestive of COPD. Electronically signed by: Francisco Ireland MD (12/18/2017 9:31 AM) [facility]
[2017-12-18 09:39] LABS: CALCIUM 10.2 mg/dL (8.5-10.1); CREATININE 1.2 mg/dL (0.6-1.0); GFR 55.4; POTASSIUM 4.3 mmol/L (3.5-5.1)
[2017-12-18 10:00] LABS: PLATELET COUNT 219 x10^3/uL (140-400)
[2017-12-18 10:34] LABS: BILIRUBIN,URINE NEGATIVE (NEG); CLARITY,URINE CLEAR; COLOR,URINE YELLOW; NITRITE,URINE NEGATIVE (NEG); PROTEIN,URINE NEGATIVE (NEG-TRACE)
[2017-12-18 10:41] LABS: BARBITURATES NEG (NEG); BENZODIAZEPINES NEG (NEG); CANNABINOIDS NEG (NEG); COCAINE NEG (NEG); METHADONE NEG (NEG); OPIATES NEG (NEG); PHENCYCLIDINE NEG (NEG)
[2017-12-18 10:45] LABS: AMPHETAMINE/METHAMPHETAMINE NEG (NEG); BACTERIA,URINE FEW /HPF (0-FEW); RBC,URINE 0 /HPF (0-2); SQUAMOUS EPITHELIAL CELL,UR FEW /LPF; WBC,URINE OCC /HPF (0-4)
--- NOTE | 2017-12-18 11:01 | EKG ---
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
[2017-12-18 11:45] VITALS: BP 133/75
[2017-12-18] MEDS ORDERED: ONDANSETRON PF 4 MG/2 ML VIAL. IV PRN (12:00)
[2017-12-18] MEDS ORDERED: fentaNYL PF VIAL 100 MCG/2 ML VIAL IV PRN (12:00)
[2017-12-18] MEDS ORDERED: ACETAMINOPHEN 325 MG TABLET. PO PRN (12:00)
== END 2017-12-18 12:20 | disposition left against medical advice (07) ==
LOC: ER 08:42
DX: R07.89 Other chest pain (principal); R05 Cough; I11.0 Hypertensive heart disease with heart failure; E03.9 Hypothyroidism, unspecified; I50.9 Heart failure, unspecified; J45.909 Unspecified asthma, uncomplicated; Z90.49 Acquired absence of other specified parts of digestive tract; Z90.710 Acquired absence of both cervix and uterus; Z98.890 Other specified postprocedural states; Z88.6 Allergy status to analgesic agent; Z88.2 Allergy status to sulfonamides; Z88.8 Allergy status to other drugs, medicaments and biological substances; Z91.041 Radiographic dye allergy status; Z88.1 Allergy status to other antibiotic agents
CPT/HCPCS: 36415; 71046; 80048; 80307; 81001; 83880; 84484; 85025; 93005; 94640; 99285; J7512; J7620

== ENCOUNTER 2017-12-22 10:38 | Emergency (ER) | payer OTHER, MEDICARE ==
[~2017-12-22] VITALS: Ht 177.8 cm; Wt 129.7 kg
[2017-12-22 10:55] VITALS: BP 148/97
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
== END 2017-12-22 12:26 | disposition home or self-care (01) ==
LOC: ER 10:38
DX: S60.222A Contusion of left hand, initial encounter (principal); I11.0 Hypertensive heart disease with heart failure; I50.9 Heart failure, unspecified; E03.9 Hypothyroidism, unspecified; J45.909 Unspecified asthma, uncomplicated; Z90.49 Acquired absence of other specified parts of digestive tract; Z90.710 Acquired absence of both cervix and uterus; Z98.890 Other specified postprocedural states; Z88.6 Allergy status to analgesic agent; Z88.1 Allergy status to other antibiotic agents; Z88.2 Allergy status to sulfonamides; Z91.041 Radiographic dye allergy status; Z88.8 Allergy status to other drugs, medicaments and biological substances; V40.5XXA Car driver injured in collision with pedestrian or animal in traffic accident, initial encounter; Y93.89 Activity, other specified; Y92.410 Unspecified street and highway as the place of occurrence of the external cause; Y99.8 Other external cause status
CPT/HCPCS: 73130; 99284

== ENCOUNTER 2018-01-19 09:36 | Emergency (ER) | payer MEDICARE, OTHER ==
[~2018-01-19] VITALS: Ht 172.7 cm; Wt 129.7 kg
[~2018-01-19 09:36] MED LIST changes: +CARV12.511 PO; -CARV12.52 PO; +CARV3.1210 PO; -CARV3.122 PO; +HYDR-3164 PO; -HYDR-971 PO
[2018-01-19] MEDS ORDERED: ALBUTEROL SULFATE 2.5 MG/3 ML NEBU. NEB ONE (10:00)
[2018-01-19] MEDS ORDERED: IPRATRPIUM/ALBUTEROL 0.5/2.5MG 3 ML NEBU. NEB ONE (10:00)
[2018-01-19] MEDS ORDERED: 0.9 % SODIUM CHLORIDE 10 ML DISP.SYRIN. IV ONE (10:00)
[2018-01-19] MEDS ORDERED: methylPREDNISolone SOD SUCC PF 125 MG/2 ML VIAL. IV ONE (10:00)
--- NOTE | 2018-01-19 10:00 | PHYS DOC ---
Past Medical History Past Medical History: Asthma, CHF, Constipation, Hypertension, Hypothyroid, Other Additional Past Medical Histor: graves disease,lupus Past Surgical History: Cholecystectomy, , Hysterectomy, Other Additional Past Surgical Histo: HERNIA REPAIR,NASAL POLYPS Alcohol Use: Sober Drug Use: None Adult General Chief Complaint Chief Complaint: SHORTNESS OF BREATH HPI HPI Patient is a 62 year old female who presents with shortness of breath. This started approximately one week ago. No relief with her home asthma medicines. She has noted wheezing. She reports a heaviness across her chest as well. Both the difficulty breathing as well as the chest heaviness become worse with exertion, better with rest. No radiation of discomfort. Patient reports being on oral steroids approximately a month ago for difficulty breathing. Patient notes that she has had wheezing present. Also notes bilateral lower extremity swelling that is consistent with her previous lower extremity swelling, no worse , and no unilateral swelling. Patient denies any PE risk factors.[] Review of Systems Review of Systems Constitutional: Denies fever or chills [] Eyes: Denies change in visual acuity, redness, or eye pain [] HENT: Denies nasal congestion or sore throat [] Respiratory: Reports cough productive of yellow tinged sputum[] Cardiovascular: No additional information not addressed in HPI [] GI: Denies abdominal pain, nausea, vomiting, bloody stools or diarrhea [] : Denies dysuria or hematuria [] Musculoskeletal: Denies back pain or joint pain [] Integument: Denies rash or skin lesions [] Neurologic: Denies headache, focal weakness or sensory changes [] Endocrine: Denies polyuria or polydipsia [] All other systems were reviewed and found to be within normal limits, except as documented in this note. Current Medications Current Medications Current Medications Medications (Trade) Dose Ordered Sig/Indra Start Time Stop Time Status Last Admin Dose Admin Albuterol Sulfate (Ventolin Neb Soln) 2.5 mg 1X ONCE 01/19/18 10:00 01/19/18 10:01 DC 01/19/18 10:02 2.5 MG Albuterol/ Ipratropium (Duoneb) 3 ml 1X ONCE 01/19/18 10:00 01/19/18 10:01 DC 01/19/18 10:03 3 ML Info (CONTRAST GIVEN -- Rx MONITORING) 1 each PRN DAILY PRN 01/19/18 11:45 01/21/18 11:44 Iohexol (Omnipaque 300 Mg/ml) 60 ml 1X ONCE 01/19/18 11:45 01/19/18 11:46 DC 01/19/18 11:39 60 ML Methylprednisolone Sodium Succinate (SOLU-Medrol 125MG VIAL) 125 mg 1X ONCE 01/19/18 10:00 01/19/18 10:01 DC 01/19/18 10:37 125 MG Sodium Chloride (Normal Saline Flush) 10 ml 1X ONCE 01/19/18 10:00 01/19/18 10:01 DC Tramadol HCl (Ultram) 50 mg 1X ONCE 01/19/18 11:15 01/19/18 11:18 DC 01/19/18 11:34 50 MG Allergies Allergies Allergies Coded Allergies Type Severity Reaction Last Updated Verified NSAIDS (Non-Steroidal Anti-Inflamma Allergy Severe itching,throat"swells" 11/09 Yes aspirin Allergy Severe Shortness of Air 11/09/16 Yes Sulfa (Sulfonamide Antibiotics) Allergy Intermediate 11/09/16 Yes ketorolac Allergy Intermediate 11/09/16 Yes sulfamethoxazole Allergy Intermediate 11/09/16 Yes trimethoprim Allergy Intermediate 11/09/16 Yes I S O L A T I O N *CONTACT* Allergy Unknown 10/17/17 Yes Physical Exam Physical Exam Constitutional: Well developed, well nourished, no acute distress, non-toxic appearance. [] HENT: Normocephalic, atraumatic, bilateral external ears normal, oropharynx moist, no oral exudates, nose normal. [] Eyes: PERRLA, EOMI, conjunctiva normal, no discharge. [] Neck: Normal range of motion, no tenderness, supple, no stridor. [] Cardiovascular:Heart rate regular rhythm, no murmur [] Lungs & Thorax: Respiratory and expiratory wheezes present bilaterally.[] Abdomen: Bowel sounds normal, soft, no tenderness, no masses, no pulsatile masses. [] Skin: Warm, dry, no erythema, no rash. [] Back: No tenderness, no CVA tenderness. [] Extremities: No tenderness, no cyanosis, no clubbing, ROM intact, no edema. [] Neurologic: Alert and oriented X 3, normal motor function, normal sensory function, no focal deficits noted. [] Psychologic: Affect normal, judgement normal, mood normal. [] Current Patient Data Vital Signs Vital Signs Date Time Temp Pulse Resp B/P (MAP) Pulse Ox O2 Delivery O2 Flow Rate FiO2 01/19/18 10:08 96 Room Air 01/19/18 09:43 97.7 108 18 137/91 (106) 97.7 Lab Values Laboratory Tests Test 01/19/18 10:00 01/19/18 11:10 White Blood Count 8.1 x10^3/uL (4.0-11.0) Red Blood Count 5.11 x10^6/uL (3.50-5.40) Hemoglobin 12.7 g/dL (12.0-15.5) Hematocrit 39.0 % (36.0-47.0) Mean Corpuscular Volume 76 fL (79-100) L Mean Corpuscular Hemoglobin 25 pg (25-35) Mean Corpuscular Hemoglobin Concent 33 g/dL (31-37) Red Cell Distribution Width 15.1 % (11.5-14.5) H Platelet Count 204 x10^3/uL (140-400) Neutrophils (%) (Auto) 54 % (31-73) Lymphocytes (%) (Auto) 27 % (24-48) Monocytes (%) (Auto) 5 % (0-9) Eosinophils (%) (Auto) 14 % (0-3) H Basophils (%) (Auto) 1 % (0-3) Neutrophils # (Auto) 4.3 x10^3uL (1.8-7.7) Lymphocytes # (Auto) 2.2 x10^3/uL (1.0-4.8) Monocytes # (Auto) 0.4 x10^3/uL (0.0-1.1) Eosinophils # (Auto) 1.1 x10^3/uL (0.0-0.7) H Basophils # (Auto) 0.1 x10^3/uL (0.0-0.2) D-Dimer (Leanna) 0.73 ug/mlFEU (0.00-0.50) H Sodium Level 141 mmol/L (136-145) Potassium Level 4.0 mmol/L (3.5-5.1) Chloride Level 107 mmol/L (98-107) Carbon Dioxide Level 26 mmol/L (21-32) Anion Gap 8 (6-14) Blood Urea Nitrogen 15 mg/dL (7-20) Creatinine 1.3 mg/dL (0.6-1.0) H Estimated GFR (Cockcroft-Gault) 50.6 BUN/Creatinine Ratio 12 (6-20) Glucose Level 127 mg/dL (70-99) H Calcium Level 10.3 mg/dL (8.5-10.1) H Total Bilirubin 0.6 mg/dL (0.2-1.0) Aspartate Amino Transferase (AST) 16 U/L (15-37) Alanine Aminotransferase (ALT) 17 U/L (14-59) Alkaline Phosphatase 68 U/L (46-116) Troponin I Quantitative 0.019 ng/mL (0.000-0.055) PT-Jco-S-Type Natriuretic Peptide 152 pg/mL (0-124) H Total Protein 7.6 g/dL (6.4-8.2) Albumin 3.6 g/dL (3.4-5.0) Albumin/Globulin Ratio 0.9 (1.0-1.7) L Influenza Type A Antigen Negative (NEGATIVE) Influenza Type B Antigen Negative (NEGATIVE) Laboratory Tests 01/19/18 10:00 Laboratory Tests 01/19/18 10:00 EKG EKG EKG showed sinus rhythm with PVCs. Rate of 95 bpm, no ST elevations, axis of -2 , QTC of 466 ms, no acute changes when compared with EKG of 12/18/2017.[] Radiology/Procedures Radiology/Procedures Chest x-ray did not show any acute features CT angiogram of the chest did not show any evidence of a pulmonary embolism[] Course & Med Decision Making Course & Med Decision Making Pertinent Labs and Imaging studies reviewed. (See chart for details) ED course: 1037, reevaluated the patient after breathing treatment, lungs were clear to auscultation, and patient reported feeling better. Due to the elevated d-dimer beyond age-adjusted parameters, patient was transported to and from CT scan without any complications. After the return of laboratory and imaging findings, these were discussed with the patient who voiced understanding. All questions were answered. Patient was discharged in improved condition. Medical decision making: No evidence of pneumonia, pneumothorax, pulmonary embolism, nor hypoxia. This does not appear to be CHF nor an acute coronary syndrome.[] Dragon Disclaimer Dragon Disclaimer This electronic medical record was generated, in whole or in part, using a voice recognition dictation system. Departure Departure Impression: Primary Impression: Asthma exacerbation Disposition: 01 HOME, SELF-CARE Condition: GOOD Referrals: MALLIKA PORTER MD, PHD (PCP) Follow-up with your regular doctor in 2 days Patient Instructions: Asthma, Adult, Asthma, F.L.A.R.E. Additional Instructions: Follow-up with your regular doctor in 2 days. Return to the ER if worsening difficulty breathing, worsening pain, or any other concerns. Scripts Tramadol Hcl (TRAMADOL HCL) 50 Mg Tablet 50 MG PO Q6HRS PRN for PAIN, #20 TAB Prov: LYNETTE INFANTE DO 01/19/18 Ipratropium Corona (IPRATROPIUM BROMIDE) 0.2 Mg/1 Ml Solution 1 VIAL NEB Q6HRS, #1 B 0 Refills Prov: LYNETTE INFANTE DO 01/19/18 D-Methorphan Hb/Prometh Hcl (PROMETHAZINE-DM SYRUP) 118 Ml Syrup 5 ML PO PRN Q4HRS, #120 ML Prov: LYNETTE INFANTE DO 01/19/18 Problem Qualifiers Primary Impression: Asthma exacerbation Asthma severity: mild Asthma persistence: intermittent Qualified Codes: J45.21 - Mild intermittent asthma with (acute) exacerbation LYNETTE INFANTE DO Jan 19, 2018 09:59
[2018-01-19 10:37] LABS: BASO # 0.1 x10^3/uL (0.0-0.2); BASO % 1 % (0-3); EOS # 1.1 x10^3/uL (0.0-0.7); EOS % 14 % (0-3); HEMOGLOBIN 12.7 g/dL (12.0-15.5); LYMPH # 2.2 x10^3/uL (1.0-4.8); LYMPH % 27 % (24-48); MEAN CORPUSCULAR HEMOGLOBIN 25 pg (25-35); MEAN CORPUSCULAR HGB CONC 33 g/dL (31-37); MEAN CORPUSCULAR VOLUME 76 fL (79-100); MONO # 0.4 x10^3/uL (0.0-1.1); MONO % 5 % (0-9); NEUT # 4.3 x10^3uL (1.8-7.7); NEUT % 54 % (31-73); PLATELET COUNT 204 x10^3/uL (140-400); RED BLOOD COUNT 5.11 x10^6/uL (3.50-5.40); RED CELL DISTRIBUTION WIDTH 15.1 % (11.5-14.5); WHITE BLOOD COUNT 8.1 x10^3/uL (4.0-11.0)
--- NOTE | 2018-01-19 10:41 | EKG ---
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
[2018-01-19 10:46] LABS: CALCIUM 10.3 mg/dL (8.5-10.1); CREATININE 1.3 mg/dL (0.6-1.0); GFR 50.6
[2018-01-19 10:52] LABS: ALBUMIN 3.6 g/dL (3.4-5.0); ALBUMIN/GLOBULIN RATIO 0.9 (1.0-1.7); TOTAL BILIRUBIN 0.6 mg/dL (0.2-1.0); TOTAL PROTEIN 7.6 g/dL (6.4-8.2)
--- NOTE | 2018-01-19 11:07 | RAD ---
Chest, 2 views, 01/19/2018: HISTORY: Cough, congestion, wheezing Comparison is made to a study from 12/18/2017. The heart is enlarged. There is moderate tortuosity of the thoracic aorta. The pulmonary vascularity is normal. No pulmonary infiltrate is seen. There is no evidence of pleural fluid. IMPRESSION: 1. Cardiomegaly and aortic ectasia. 2. No acute abnormality is detected. Electronically signed by: Riccardo Cotton MD (01/19/2018 11:03 AM) [facility]
[2018-01-19] MEDS ORDERED: traMADol 50 MG TABLET PO ONE (11:15)
[2018-01-19 11:38] LABS: INFLUENZA A PATIENT NEGATIVE (NEGATIVE); INFLUENZA B PATIENT NEGATIVE (NEGATIVE)
[2018-01-19] MEDS ORDERED: CONTRAST GIVEN. MC PRN (11:45)
[2018-01-19] MEDS ORDERED: IOHEXOL 300 MG/ML 100ML VIAL. IT ONE (11:45)
--- NOTE | 2018-01-19 12:16 | RAD ---
CTA of the chest with contrast, 01/19/2018: HISTORY: Chest pain, elevated d-dimer Multidetector CT imaging was performed following an IV bolus injection of iodinated contrast material. Multiplanar reconstructions were produced including coronal MIP images. The main pulmonary artery is mildly enlarged. The degree of opacification of the pulmonary arteries is suboptimal due to technical factors. No filling defects are seen in the main or lobar pulmonary arteries to suggest pulmonary emboli. Many of the smaller pulmonary arteries are inadequately opacified for diagnostic purposes. There is mild calcific plaquing of the thoracic aorta without evidence of aneurysm or dissection. Moderate scattered coronary artery calcifications are present. The heart is generally enlarged. A trace amount of pericardial fluid is present. No mediastinal or hilar adenopathy is evident. There is mild streaky atelectasis and/or scarring in the lung bases, more so on the right. No significant volume of pleural fluid is present. There is postsurgical change involving the stomach. IMPRESSION: 1. No central pulmonary emboli are identified, although the degree of opacification of the smaller pulmonary arteries is inadequate for excluding small pulmonary emboli. 2. Cardiomegaly with coronary artery calcifications. 3. Mild right basilar atelectasis. PQRS Compliance Statement: One or more of the following individualized dose reduction techniques were utilized for this examination: 1. Automated exposure control 2. Adjustment of the mA and/or kV according to patient size 3. Use of iterative reconstruction technique Electronically signed by: Riccardo Cotton MD (01/19/2018 12:12 PM) [facility]
[2018-01-19 12:45] VITALS: BP 165/78
[2018-01-19] MEDS ORDERED: D-ME118S2 PO (12:48)
[2018-01-19] MEDS ORDERED: IPRA0.2S5 NEB (12:48)
[2018-01-19] MEDS ORDERED: TRAM50TA PO (12:48)
== END 2018-01-19 13:02 | disposition home or self-care (01) ==
LOC: ER 09:36
DX: J45.21 Mild intermittent asthma with (acute) exacerbation (principal); I11.0 Hypertensive heart disease with heart failure; I50.9 Heart failure, unspecified; E03.9 Hypothyroidism, unspecified; M32.9 Systemic lupus erythematosus, unspecified; Z88.2 Allergy status to sulfonamides; Z88.1 Allergy status to other antibiotic agents; Z88.6 Allergy status to analgesic agent; Z91.041 Radiographic dye allergy status
CPT/HCPCS: 36415; 71046; 71275; 80053; 83880; 84484; 85025; 85379; 87804; 93005; 94640; 96374; 99284; J2930; J7613; J7620; Q9967

== ENCOUNTER → 2018-03-02 | Outpatient (CLI) | payer MEDICARE ==
[~2018-03-02] MED LIST changes: +ALBU2.5V8 IH; +ALBU2.5V8 INH; -ALBU8.5H8 IH; +D-ME118S2 PO; +IPRA0.2S5 NEB; -PROAIR HFA8.5 GM INH; +TRAM50TA PO
--- NOTE | 2018-03-02 17:39 | KCIC ---
Thyroid ultrasound HISTORY: Goiter. Dysphagia. Graves' disease. Right thyroid: * Size (in centimeters): 3.1 x 1.0 x 1.4 * Complex solid nodule right lobe measures 8 x 7 x 7 mm. Vascularity is demonstrated within the nodule. Isthmus: * Thickness (in millimeters): 2 mm Left thyroid: * Size (in centimeters): 2.3 x 0.9 x 0.8 * Small solid complex nodule lower pole measures 7 x 5 x 4 mm. This demonstrates internal vascularity. IMPRESSION: Bilateral solid thyroid nodules with internal vascularity, indeterminate. Electronically signed by: Francisco Donovan MD (03/02/2018 5:34 PM) [facility]
== END | disposition home or self-care (01) ==
LOC: KCIC US 12:41
PROVIDERS: ATTEND Physician Assistant Surgical
DX: E04.2 Nontoxic multinodular goiter (principal); R13.10 Dysphagia, unspecified
CPT/HCPCS: 76536

== ENCOUNTER 2018-03-15 20:11 | Emergency (ER) | payer MEDICARE, OTHER ==
[~2018-03-15] VITALS: Ht 177.8 cm; Wt 127.9 kg
[~2018-03-15 20:11] MED LIST changes: -AMLO10TA6 PO; +AMLO10TA8 PO; +AMLO5TAB10 PO; -AMLO5TAB7 PO; -D-ME118S2 PO; +MONT10TA49 PO; -MONT10TA6 PO; -MONT10TA9 PO; +PROM118S9 PO; +RANI-376 PO; -RANI150T21 PO
--- NOTE | 2018-03-15 20:37 | PHYS DOC ---
Past Medical History Past Medical History: Asthma, CHF, Constipation, Hypertension, Hypothyroid, Other Additional Past Medical Histor: graves disease,lupus Past Surgical History: Cholecystectomy, , Hysterectomy, Other Additional Past Surgical Histo: HERNIA REPAIR,NASAL POLYPS Additional Information: Nonsmoker Alcohol Use: Sober Drug Use: None Adult General Chief Complaint Chief Complaint: SHORTNESS OF BREATH HPI HPI Patient is a 62 year old female who presents with difficulty breathing like previous asthma exacerbations. This one has been going on all day. No chest pain or palpitations. Patient reports postnasal drainage and a sore throat. No fever. Patient reports that her nebulizer machine has stopped working. She does continue to have metered-dose inhalers that she is been using with limited improvement. Patient reports that her last dose of steroids was approximately a month ago. Reports that the symptoms are mild to moderate in intensity.[] Review of Systems Review of Systems Constitutional: Denies fever or chills [] Eyes: Denies change in visual acuity, redness, or eye pain [] HENT: See history of present illness[] Respiratory: See history of present illness[] Cardiovascular: No chest pain or palpitations[] GI: Denies abdominal pain, nausea, vomiting, bloody stools or diarrhea [] : Denies dysuria or hematuria [] Musculoskeletal: Denies back pain or joint pain [] Integument: Denies rash or skin lesions [] Neurologic: Denies headache, focal weakness or sensory changes [] Endocrine: Denies polyuria or polydipsia [] All other systems were reviewed and found to be within normal limits, except as documented in this note. Current Medications Current Medications Current Medications Medications (Trade) Dose Ordered Sig/Indra Start Time Stop Time Status Last Admin Dose Admin Albuterol Sulfate (Ventolin Neb Soln) 2.5 mg 1X ONCE 03/15/18 20:45 03/15/18 20:46 DC 03/15/18 20:42 2.5 MG Albuterol/ Ipratropium (Duoneb) 3 ml 1X ONCE 03/15/18 22:30 03/15/18 22:31 Prednisone (Prednisone) 50 mg 1X ONCE 03/15/18 20:45 03/15/18 20:46 DC 03/15/18 20:45 50 MG Allergies Allergies Allergies Coded Allergies Type Severity Reaction Last Updated Verified NSAIDS (Non-Steroidal Anti-Inflamma Allergy Severe itching,throat"swells" 11/09 Yes aspirin Allergy Severe Shortness of Air 11/09/16 Yes Sulfa (Sulfonamide Antibiotics) Allergy Intermediate 11/09/16 Yes ketorolac Allergy Intermediate 11/09/16 Yes sulfamethoxazole Allergy Intermediate 11/09/16 Yes trimethoprim Allergy Intermediate 11/09/16 Yes I S O L A T I O N *CONTACT* Allergy Unknown 10/17/17 Yes Physical Exam Physical Exam Constitutional: Well developed, well nourished, no acute distress, non-toxic appearance. [] HENT: Normocephalic, atraumatic, bilateral external ears normal, oropharynx moist, no oral exudates, nose normal. Mild maxillary and frontal sinus tenderness to percussion.[] Eyes: PERRLA, EOMI, conjunctiva normal, no discharge. [] Neck: Normal range of motion, no tenderness, supple, no stridor. [] Cardiovascular:Heart rate regular rhythm, no murmur [] Lungs & Thorax: Bilateral breath sounds with expiratory wheezes throughout[] Abdomen: Bowel sounds normal, soft, no tenderness, no masses, no pulsatile masses. [] Skin: Warm, dry, no erythema, no rash. [] Back: No tenderness, no CVA tenderness. [] Extremities: No tenderness, no cyanosis, no clubbing, ROM intact, no edema. [] Neurologic: Alert and oriented X 3, normal motor function, normal sensory function, no focal deficits noted. [] Psychologic: Affect normal, judgement normal, mood normal. [] Current Patient Data Vital Signs Vital Signs Date Time Temp Pulse Resp B/P (MAP) Pulse Ox O2 Delivery O2 Flow Rate FiO2 03/15/18 20:43 94 Room Air 03/15/18 20:35 98.1 87 20 172/105 (127) 98.1 EKG EKG [] Radiology/Procedures Radiology/Procedures [] Course & Med Decision Making Course & Med Decision Making Pertinent Labs and Imaging studies reviewed. (See chart for details) ED course: Patient arrived, was placed in bed, in tolerated exam well. Patient had breathing treatments administered. After to the treatment she was able to ambulate about the emergency department with out oxygen desaturation. However, she still had some wheezes so an additional treatment was administered. Her lung sounds improved with the last treatment. She was discharged in improved condition. Medical decision making: There is no evidence of acute coronary syndrome, congestive heart failure, hypoxia, status asthmaticus, or other acute life- threatening condition at this time.[] Dragon Disclaimer Dragon Disclaimer This electronic medical record was generated, in whole or in part, using a voice recognition dictation system. Departure Departure Impression: Primary Impression: Asthma exacerbation Disposition: HOME, SELF-CARE Condition: IMPROVED Referrals: UNKNOWN PCP NAME (PCP) Patient Instructions: Asthma, Adult Additional Instructions: Follow-up with your regular doctor in 2 days. Return to the ER if worsening difficulty breathing or any other concerns. Scripts Nebulizer (Innospire Go Nebulizer) 1 Each Each EACH , #1 Prov: LYNETTE INFANTE DO 03/15/18 Prednisone (PREDNISONE) 50 Mg Tablet 50 MG PO DAILY for 7 Days, #7 TAB Prov: LYNETTE INFANTE DO 03/15/18 Problem Qualifiers Primary Impression: Asthma exacerbation Asthma severity: mild Asthma persistence: intermittent Qualified Codes: J45.21 - Mild intermittent asthma with (acute) exacerbation LYNETTE INFANTE DO Mar 15, 2018 20:37
[2018-03-15] MEDS ORDERED: ALBUTEROL SULFATE 2.5 MG/3 ML NEBU. NEB ONE (20:45)
[2018-03-15] MEDS ORDERED: predniSONE 10 MG TABLET PO ONE (20:45)
[2018-03-15] MEDS ORDERED: IPRATRPIUM/ALBUTEROL 0.5/2.5MG 3 ML NEBU. NEB ONE ×2 (20:45→22:30)
[2018-03-15 21:30] VITALS: BP 149/89
[2018-03-15] MEDS ORDERED: NEBU-129 MC (22:11)
[2018-03-15] MEDS ORDERED: PRED50TA PO (22:11)
[2018-06-05] MEDS ORDERED: DOXE10CA PO (09:17)
[2018-06-05] MEDS ORDERED: FURO40TA4 PO (09:17)
[2018-06-05] MEDS ORDERED: METF10007 PO (09:17)
[2018-06-05] MEDS ORDERED: PANT20TA2 PO (09:17)
[2018-06-05] MEDS ORDERED: SPIR25TA5 PO (09:17)
[2018-06-05] MEDS ORDERED: RISP1TAB43 PO (09:17)
[2018-06-05] MEDS ORDERED: TRAZ-86 PO (09:17)
[2018-07-07] MEDS ORDERED: MONT10TA49 PO (11:21)
[2018-09-23] MEDS ORDERED: DOXY100T PO (14:41)
== END 2018-03-15 22:20 | disposition home or self-care (01) ==
LOC: ER 20:11
DX: J45.21 Mild intermittent asthma with (acute) exacerbation (principal); I11.0 Hypertensive heart disease with heart failure; I50.9 Heart failure, unspecified; E03.9 Hypothyroidism, unspecified; Z90.49 Acquired absence of other specified parts of digestive tract; Z98.890 Other specified postprocedural states; Z90.710 Acquired absence of both cervix and uterus; Z88.6 Allergy status to analgesic agent; Z88.2 Allergy status to sulfonamides; Z88.8 Allergy status to other drugs, medicaments and biological substances; Z88.1 Allergy status to other antibiotic agents; Z91.041 Radiographic dye allergy status
CPT/HCPCS: 94640; 99284; J7512; J7613; J7620

== ENCOUNTER 2018-04-23 19:51 | Emergency (ER) | payer MEDICARE, OTHER ==
[~2018-04-23] VITALS: Ht 177.8 cm; Wt 126.1 kg
[~2018-04-23 19:51] MED LIST changes: +D-ME118S2 PO; -MONT10TA49 PO; +MONT10TA6 PO; +MONT10TA9 PO; +NEBU-129 MC; -PROM118S9 PO
[2018-04-23 19:55] VITALS: BP 124/85
--- NOTE | 2018-04-23 21:17 | PHYS DOC ---
Past Medical History Past Medical History: Anxiety, Asthma, CHF, Constipation, Depression, Hypertension, Hypothyroid, Other Additional Past Medical Histor: graves disease,lupus Past Surgical History: Cholecystectomy, , Hysterectomy, Other Additional Past Surgical Histo: HERNIA REPAIR,NASAL POLYPS Alcohol Use: Sober Drug Use: None Adult General Chief Complaint Chief Complaint: MECHANICAL FALL HPI HPI Patient is a 62 year old female presents for evaluation after missing a step and falling down some stairs onto her buttocks. Patient states around 1845 she was walking down some stairs she missed a step and landed on her buttocks. Patient states she has bilateral lower back pain as well as pain in her right buttocks. Patient denies any saddle anesthesia and no loss of bowel or bladder. Patient ambulated with a steady gait. Patient arrived by private vehicle history is obtained from the patient. Review of Systems Review of Systems Constitutional: Denies fever or chills [] Eyes: Denies change in visual acuity, redness, or eye pain [] HENT: Denies nasal congestion or sore throat [] Respiratory: Denies cough or shortness of breath [] Cardiovascular: No additional information not addressed in HPI [] GI: Denies abdominal pain, nausea, vomiting, bloody stools or diarrhea [] : Denies dysuria or hematuria [] Musculoskeletal: Positive back pain Integument: Denies rash or skin lesions [] Neurologic: Denies headache, focal weakness or sensory changes [] Endocrine: Denies polyuria or polydipsia [] All other systems were reviewed and found to be within normal limits, except as documented in this note. Allergies Allergies Allergies Coded Allergies Type Severity Reaction Last Updated Verified NSAIDS (Non-Steroidal Anti-Inflamma Allergy Severe itching,throat"swells" 11/09 Yes aspirin Allergy Severe Shortness of Air 11/09/16 Yes Sulfa (Sulfonamide Antibiotics) Allergy Intermediate 11/09/16 Yes ketorolac Allergy Intermediate 11/09/16 Yes sulfamethoxazole Allergy Intermediate 11/09/16 Yes trimethoprim Allergy Intermediate 11/09/16 Yes I S O L A T I O N *CONTACT* Allergy Unknown 10/17/17 Yes Physical Exam Physical Exam Constitutional: Well developed, well nourished, no acute distress, non-toxic appearance. [] HENT: Normocephalic, atraumatic, bilateral external ears normal, oropharynx moist, no oral exudates, nose normal. [] Eyes: PERRLA, EOMI, conjunctiva normal, no discharge. [] Neck: Normal range of motion, no tenderness, supple, no stridor. [] Cardiovascular:Heart rate regular rhythm, no murmur [] Lungs & Thorax: Bilateral breath sounds clear to auscultation [] Abdomen: Bowel sounds normal, soft, no tenderness, no masses, no pulsatile masses. [] Skin: Warm, dry, no erythema, no rash. [] Back: No tenderness, no CVA tenderness. Pain to palpation bilateral paraspinal L4-L5 regions. There is no step-off or deformities of the thoracic or lumbar spine. Patient with full range of motion of right and left hips. Patient ambulates with a steady gait. Patient also has tenderness in the right buttocks. [] Extremities: No tenderness, no cyanosis, no clubbing, ROM intact, no edema. [] Neurologic: Alert and oriented X 3, normal motor function, normal sensory function, no focal deficits noted. [] Psychologic: Affect normal, judgement normal, mood normal. [] Current Patient Data Vital Signs Vital Signs Date Time Temp Pulse Resp B/P (MAP) Pulse Ox O2 Delivery O2 Flow Rate FiO2 04/23/18 19:55 98.2 92 18 124/85 (98) 98 Room Air 98.2 EKG EKG [] Radiology/Procedures Radiology/Procedures [] Course & Med Decision Making Course & Med Decision Making Pertinent Labs and Imaging studies reviewed. (See chart for details) []Patient was evaluated for chief complaint. Based upon history of present illness and physical exam no emergent radiologic workup indicated at this time. Patient was discharged home with Tylenol 3 and Flexeril. Patient was also provided a work excuse. Patient advised to follow up with her primary care physician. Dragon Disclaimer Dragon Disclaimer This electronic medical record was generated, in whole or in part, using a voice recognition dictation system. Departure Departure Impression: Primary Impression: Fall down steps Additional Impression: Acute back pain Disposition: HOME, SELF-CARE Condition: STABLE Referrals: MALLIKA PORTER MD, PHD (PCP) Patient Instructions: Back Pain, Adult Problem Qualifiers Primary Impression: Fall down steps Encounter type: initial encounter Qualified Codes: W10.8XXA - Fall (on) ( from) other stairs and steps, initial encounter Additional Impression: Acute back pain Back pain location: low back pain Back pain laterality: bilateral Sciatica presence: without sciatica Qualified Codes: M54.5 - Low back pain VIVIEN VALLES DO Apr 23, 2018 21:16
[2018-06-05] MEDS ORDERED: FURO40TA4 PO (09:17)
[2018-06-05] MEDS ORDERED: TRAZ-86 PO (09:17)
[2018-06-05] MEDS ORDERED: PANT20TA2 PO (09:17)
[2018-06-05] MEDS ORDERED: SPIR25TA5 PO (09:17)
[2018-06-05] MEDS ORDERED: DOXE10CA PO (09:17)
[2018-06-05] MEDS ORDERED: METF10007 PO (09:17)
[2018-06-05] MEDS ORDERED: RISP1TAB43 PO (09:17)
== END 2018-04-23 21:44 | disposition home or self-care (01) ==
LOC: ER 19:51
DX: M54.5 Low back pain (principal); G89.11 Acute pain due to trauma; E03.9 Hypothyroidism, unspecified; J45.909 Unspecified asthma, uncomplicated; I11.0 Hypertensive heart disease with heart failure; I50.9 Heart failure, unspecified; Z90.710 Acquired absence of both cervix and uterus; Z90.49 Acquired absence of other specified parts of digestive tract; Z88.2 Allergy status to sulfonamides; Z88.1 Allergy status to other antibiotic agents; Z88.6 Allergy status to analgesic agent; Z88.8 Allergy status to other drugs, medicaments and biological substances; Z91.041 Radiographic dye allergy status; W10.8XXA Fall (on) (from) other stairs and steps, initial encounter; Y93.89 Activity, other specified; Y92.89 Other specified places as the place of occurrence of the external cause; Y99.8 Other external cause status
CPT/HCPCS: 99284

== ENCOUNTER 2018-05-19 19:14 | Emergency (ER) | payer MEDICARE, OTHER ==
[~2018-05-19] VITALS: Ht 175.3 cm; Wt 127.9 kg
[2018-05-19] MEDS ORDERED: fentaNYL PF VIAL 100 MCG/2 ML VIAL IV ONE (19:45)
[2018-05-19] MEDS ORDERED: METOCLOPRAMIDE HCL 10 MG/2 ML VIAL. IV ONE (19:45)
[2018-05-19] MEDS ORDERED: IV NORMAL SALINE 1000ML BAG 1,000 ML IV ONE (19:45)
--- NOTE | 2018-05-19 19:52 | PHYS DOC ---
Past Medical History Past Medical History: Anxiety, Asthma, CHF, Constipation, Depression, Hypertension, Hypothyroid, Other Additional Past Medical Histor: graves disease,lupus Past Surgical History: Cholecystectomy, , Hysterectomy, Other Additional Past Surgical Histo: HERNIA REPAIR,NASAL POLYPS Alcohol Use: Sober Drug Use: None Adult General Chief Complaint Chief Complaint: FLANK PAIN HPI HPI Patient is a 62 year old female who presents with flank pain. Patient states flank pain is located on her left side with no radiation. She describes it as sharp in nature and rates it as 7 out of 10. It started two days ago and was initially intermittent, however today her pain has become constant. She took Tylenol at 1600 with no relief of symptoms. Nothing makes her symptoms worse. Additionally, she reports having chills today. Patient denies in fevers, hematuria, constipation, diarrhea, dysuria, or increased frequency of urination. [] Review of Systems Review of Systems Constitutional: Reports chills, denies fever [] Eyes: Denies change in visual acuity, redness, or eye pain [] HENT: Denies nasal congestion or sore throat [] Respiratory: Denies cough or shortness of breath [] Cardiovascular: Denies chest pain and palpitations [] GI:Denies abdominal pain, nausea, vomiting, or diarrhea [] : Denies dysuria or hematuria [] Musculoskeletal: Reports left sided flank pain, denies back pain or joint pain [ ] Integument: Denies rash or skin lesions [] Neurologic: Denies headache or focal weakness[] Complete systems were reviewed and found to be within normal limits, except as documented in this note. Current Medications Current Medications Current Medications Medications (Trade) Dose Ordered Sig/Indra Start Time Stop Time Status Last Admin Dose Admin Fentanyl Citrate (Fentanyl 2ml Vial) 50 mcg 1X ONCE 05/19/18 19:45 05/19/18 19:46 DC 05/19/18 20:01 50 MCG Metoclopramide HCl (Reglan Vial) 10 mg 1X ONCE 05/19/18 19:45 05/19/18 19:46 DC 05/19/18 20:01 10 MG Sodium Chloride 1,000 ml @ 1,000 mls/hr 1X ONCE 05/19/18 19:45 05/19/18 20:44 DC 05/19/18 20:02 1,000 MLS/HR Allergies Allergies Allergies Coded Allergies Type Severity Reaction Last Updated Verified NSAIDS (Non-Steroidal Anti-Inflamma Allergy Severe itching,throat"swells" 11/09 Yes aspirin Allergy Severe Shortness of Air 11/09/16 Yes Sulfa (Sulfonamide Antibiotics) Allergy Intermediate 11/09/16 Yes ketorolac Allergy Intermediate 11/09/16 Yes sulfamethoxazole Allergy Intermediate 11/09/16 Yes trimethoprim Allergy Intermediate 11/09/16 Yes I S O L A T I O N *CONTACT* Allergy Unknown 10/17/17 Yes Physical Exam Physical Exam Constitutional: Well developed, well nourished, no acute distress. [] HENT: Normocephalic, atraumatic, bilateral external ears normal, oropharynx moist. [] Eyes: EOMI, conjunctiva normal, no discharge. [] Neck: Normal range of motion, no tenderness, supple. [] Cardiovascular: Heart rate regular rhythm, no murmur [] Lungs & Thorax: Bilateral breath sounds clear to auscultation, no rhonchi, rales, or wheezes [] Abdomen: Soft, epigastric tender to palpation. [] Skin: Warm, dry, no rash. [] Back: Left-sided CVA tenderness, no tenderness. [] Extremities: No tenderness, no cyanosis, ROM intact, trace bilateral pretibial edema. [] Neurologic: Alert and oriented X 3, normal motor function, no focal deficits noted. [] Psychologic: Affect normal, mood normal. [] Current Patient Data Vital Signs Vital Signs Date Time Temp Pulse Resp B/P (MAP) Pulse Ox O2 Delivery O2 Flow Rate FiO2 05/19/18 22:55 75 16 112/73 (86) 98 05/19/18 22:05 Room Air 05/19/18 19:21 97.9 97.9 Lab Values Laboratory Tests Test 05/19/18 19:58 05/19/18 21:30 White Blood Count 9.2 x10^3/uL (4.0-11.0) Red Blood Count 4.72 x10^6/uL (3.50-5.40) Hemoglobin 11.7 g/dL (12.0-15.5) L Hematocrit 36.0 % (36.0-47.0) Mean Corpuscular Volume 76 fL (79-100) L Mean Corpuscular Hemoglobin 25 pg (25-35) Mean Corpuscular Hemoglobin Concent 33 g/dL (31-37) Red Cell Distribution Width 17.5 % (11.5-14.5) H Platelet Count 278 x10^3/uL (140-400) Neutrophils (%) (Auto) 55 % (31-73) Lymphocytes (%) (Auto) 29 % (24-48) Monocytes (%) (Auto) 10 % (0-9) H Eosinophils (%) (Auto) 6 % (0-3) H Basophils (%) (Auto) 1 % (0-3) Neutrophils # (Auto) 5.1 x10^3uL (1.8-7.7) Lymphocytes # (Auto) 2.7 x10^3/uL (1.0-4.8) Monocytes # (Auto) 0.9 x10^3/uL (0.0-1.1) Eosinophils # (Auto) 0.5 x10^3/uL (0.0-0.7) Basophils # (Auto) 0.1 x10^3/uL (0.0-0.2) Sodium Level 144 mmol/L (136-145) Potassium Level 3.6 mmol/L (3.5-5.1) Chloride Level 105 mmol/L (98-107) Carbon Dioxide Level 27 mmol/L (21-32) Anion Gap 12 (6-14) Blood Urea Nitrogen 17 mg/dL (7-20) Creatinine 1.5 mg/dL (0.6-1.0) H Estimated GFR (Cockcroft-Gault) 42.9 BUN/Creatinine Ratio 11 (6-20) Glucose Level 119 mg/dL (70-99) H Calcium Level 10.3 mg/dL (8.5-10.1) H Magnesium Level 1.7 mg/dL (1.8-2.4) L Total Bilirubin 0.6 mg/dL (0.2-1.0) Aspartate Amino Transferase (AST) 19 U/L (15-37) Alanine Aminotransferase (ALT) 28 U/L (14-59) Alkaline Phosphatase 73 U/L (46-116) Total Protein 7.9 g/dL (6.4-8.2) Albumin 3.5 g/dL (3.4-5.0) Albumin/Globulin Ratio 0.8 (1.0-1.7) L Lipase 171 U/L (73-393) Urine Collection Type Void Urine Color Yellow Urine Clarity Clear Urine pH 5.0 Urine Specific Buck[place] 1.015 Urine Protein Negative mg/dL (NEG-TRACE) Urine Glucose (UA) Negative mg/dL (NEG) Urine Ketones (Stick) Negative mg/dL (NEG) Urine Blood Negative (NEG) Urine Nitrite Negative (NEG) Urine Bilirubin Negative (NEG) Urine Urobilinogen Dipstick 0.2 mg/dL (0.2 mg/dL) Urine Leukocyte Esterase Trace (NEG) Urine RBC 0 /HPF (0-2) Urine WBC 1-4 /HPF (0-4) Urine Squamous Epithelial Cells Many /LPF Urine Bacteria Moderate /HPF (0-FEW) Urine Mucus Marked /LPF Laboratory Tests 05/19/18 19:58 Laboratory Tests 05/19/18 19:58 Microbiology 05/19/18 Urine Culture - Final, Complete 05/19/18 Urine Culture Result 1 (JANINE) - Final, Complete EKG EKG [] Radiology/Procedures Radiology/Procedures PROCEDURE: CT ABDOMEN PELVIS WO CONTRAST Examination: CT of the abdomen pelvis without contrast HISTORY: History of left flank pain COMPARISON: 08/03/2017 TECHNIQUE: Axial CT images of the abdomen pelvis were performed without contrast. Coronal and sagittal reformatted performed Exposure: One or more of the following individualized dose reduction techniques were utilized for this examination: 1. Automated exposure control 2. Adjustment of the mA and/or kV according to patient size 3. Use of iterative reconstruction technique FINDINGS: Minimal bibasilar lung atelectasis. No evidence of free air identified in the abdomen. The evaluation of the solid organs is limited due to lack of IV contrast. The evaluation of bowel is limited due to lack of oral contrast. The visualized noncontrasted liver, spleen, adrenals grossly appears unremarkable. Cholecystectomy clips identified. Small hiatal hernia is identified. The stomach is mildly distended. The small bowel is nondilated. Appendix is normal. Feces and gas noted in the colon. The urinary bladder is mildly distended. Small cortical calcification identified in the left kidney measuring 4 mm. No evidence of hydronephrosis. There is faint minimal fat stranding identified about the distal left ureter. There is a 1.2 cm density identified in the right kidney could be a cyst or cystic lesion. Mild aortic atherosclerosis. The urinary bladder is mildly distended. No evidence of lytic bony destructive lesion. IMPRESSION: 1. Questionable minimal fat stranding identified about the left distal ureter, nonspecific, minimal pyelitis is not excluded. Correlate with urine analysis. 2. 1.2 cm cystic structure identified in the right kidney could be a cyst or cystic lesion similar to prior exam. Electronically signed by: Giacomo Mena MD (05/19/2018 8:01 PM) [facility] Course & Med Decision Making Course & Med Decision Making 62 year-old female presented to the emergency department for left sided flank pain. Patient denied any fevers, hematuria, or dysuria. Left-sided CVA tenderness on exam. Labs and imaging attained and posted to chart. Pertinent Labs and Imaging studies reviewed. Symptomatic treatment provided with interval improvement. CT scan minimal fat stranding in her left ureter.. Urine was negative for infection. Due to urine findings as well as CT findings likely patient recently passed kidney stone and not pyelonephritis. Provided patient with prescription for Tylenol #3, Zofran and work note. Patient stable for discharge with outpatient follow-up with PCP/urologist. Discussed findings and plan with patient and family, who acknowledge understanding and agreement. Dragon Disclaimer Dragon Disclaimer This electronic medical record was generated, in whole or in part, using a voice recognition dictation system. Departure Departure Impression: Primary Impression: Flank pain Disposition: 01 HOME, SELF-CARE Condition: STABLE Referrals: MALLIKA PORTER MD, PHD (PCP) Patient Instructions: Flank Pain, [id number] Scripts Ondansetron (ONDANSETRON ODT) 4 Mg Tab.rapdis 1 TAB PO PRN Q6-8HRS PRN for NAUSEA, #16 TAB Prov: VIDAL KITCHEN DO 05/19/18 Acetaminophen With Codeine (TYLENOL WITH CODEINE #3 TABLET) 1 Each Tablet 1 TAB PO PRN Q6HRS PRN for PAIN, #14 TAB Prov: VIDAL KITCHEN DO 05/19/18 VIDAL KITCHEN DO May 19, 2018 19:52
--- NOTE | 2018-05-19 20:05 | RAD ---
Examination: CT of the abdomen pelvis without contrast HISTORY: History of left flank pain COMPARISON: 08/03/2017 TECHNIQUE: Axial CT images of the abdomen pelvis were performed without contrast. Coronal and sagittal reformatted performed Exposure: One or more of the following individualized dose reduction techniques were utilized for this examination: 1. Automated exposure control 2. Adjustment of the mA and/or kV according to patient size 3. Use of iterative reconstruction technique FINDINGS: Minimal bibasilar lung atelectasis. No evidence of free air identified in the abdomen. The evaluation of the solid organs is limited due to lack of IV contrast. The evaluation of bowel is limited due to lack of oral contrast. The visualized noncontrasted liver, spleen, adrenals grossly appears unremarkable. Cholecystectomy clips identified. Small hiatal hernia is identified. The stomach is mildly distended. The small bowel is nondilated. Appendix is normal. Feces and gas noted in the colon. The urinary bladder is mildly distended. Small cortical calcification identified in the left kidney measuring 4 mm. No evidence of hydronephrosis. There is faint minimal fat stranding identified about the distal left ureter. There is a 1.2 cm density identified in the right kidney could be a cyst or cystic lesion. Mild aortic atherosclerosis. The urinary bladder is mildly distended. No evidence of lytic bony destructive lesion. IMPRESSION: 1. Questionable minimal fat stranding identified about the left distal ureter, nonspecific, minimal pyelitis is not excluded. Correlate with urine analysis. 2. 1.2 cm cystic structure identified in the right kidney could be a cyst or cystic lesion similar to prior exam. Electronically signed by: Giacomo Mena MD (05/19/2018 8:01 PM) [facility]
[2018-05-19 20:18] LABS: BASO # 0.1 x10^3/uL (0.0-0.2); BASO % 1 % (0-3); EOS # 0.5 x10^3/uL (0.0-0.7); EOS % 6 % (0-3); HEMOGLOBIN 11.7 g/dL (12.0-15.5); LYMPH # 2.7 x10^3/uL (1.0-4.8); LYMPH % 29 % (24-48); MEAN CORPUSCULAR HEMOGLOBIN 25 pg (25-35); MEAN CORPUSCULAR HGB CONC 33 g/dL (31-37); MEAN CORPUSCULAR VOLUME 76 fL (79-100); MONO # 0.9 x10^3/uL (0.0-1.1); MONO % 10 % (0-9); NEUT # 5.1 x10^3uL (1.8-7.7); NEUT % 55 % (31-73); PLATELET COUNT 278 x10^3/uL (140-400); RED BLOOD COUNT 4.72 x10^6/uL (3.50-5.40); RED CELL DISTRIBUTION WIDTH 17.5 % (11.5-14.5); WHITE BLOOD COUNT 9.2 x10^3/uL (4.0-11.0)
[2018-05-19 20:20] LABS: CALCIUM 10.3 mg/dL (8.5-10.1); CREATININE 1.5 mg/dL (0.6-1.0); GFR 42.9; POTASSIUM 3.6 mmol/L (3.5-5.1)
[2018-05-19 20:29] LABS: ALBUMIN 3.5 g/dL (3.4-5.0); ALBUMIN/GLOBULIN RATIO 0.8 (1.0-1.7); MAGNESIUM 1.7 mg/dL (1.8-2.4); TOTAL BILIRUBIN 0.6 mg/dL (0.2-1.0); TOTAL PROTEIN 7.9 g/dL (6.4-8.2)
[2018-05-19 21:51] LABS: BILIRUBIN,URINE NEGATIVE (NEG); CLARITY,URINE CLEAR; COLOR,URINE YELLOW; NITRITE,URINE NEGATIVE (NEG); PROTEIN,URINE NEGATIVE (NEG-TRACE); UROBILINOGEN,URINE 0.2 mg/dL (0.2 mg/dL)
[2018-05-19 21:57] LABS: RBC,URINE 0 /HPF (0-2)
[2018-05-19 21:58] LABS: BACTERIA,URINE MODERATE /HPF (0-FEW); SQUAMOUS EPITHELIAL CELL,UR MANY /LPF
[2018-05-19] MEDS ORDERED: ONDA4TAB12 PO (22:29)
[2018-05-19] MEDS ORDERED: ACET-704 PO (22:29)
[2018-05-19 22:55] VITALS: BP 112/73
[2018-06-05] MEDS ORDERED: PANT20TA2 PO (09:17)
[2018-06-05] MEDS ORDERED: RISP1TAB43 PO (09:17)
[2018-06-05] MEDS ORDERED: DOXE10CA PO (09:17)
[2018-06-05] MEDS ORDERED: METF10007 PO (09:17)
[2018-06-05] MEDS ORDERED: SPIR25TA5 PO (09:17)
[2018-06-05] MEDS ORDERED: TRAZ-86 PO (09:17)
[2018-06-05] MEDS ORDERED: FURO40TA4 PO (09:17)
== END 2018-05-19 22:58 | disposition home or self-care (01) ==
LOC: ER 19:14
DX: R10.13 Epigastric pain (principal); I11.9 Hypertensive heart disease without heart failure; I50.9 Heart failure, unspecified; J45.909 Unspecified asthma, uncomplicated; E03.9 Hypothyroidism, unspecified; Z90.710 Acquired absence of both cervix and uterus; Z90.49 Acquired absence of other specified parts of digestive tract; Z98.890 Other specified postprocedural states; Z88.1 Allergy status to other antibiotic agents; Z88.2 Allergy status to sulfonamides; Z88.6 Allergy status to analgesic agent; Z91.041 Radiographic dye allergy status
CPT/HCPCS: 36415; 74176; 80053; 81001; 83690; 83735; 85025; 87086; 96374; 96375; 99284; J2765; J3010; J7030

== ENCOUNTER 2018-05-22 22:19 | Emergency (ER) | payer MEDICARE, OTHER ==
[~2018-05-22] VITALS: Ht 177.8 cm; Wt 127.9 kg
[~2018-05-22 22:19] MED LIST changes: +ONDA4TAB12 PO
[2018-05-22 22:20] VITALS: BP 139/95
--- NOTE | 2018-05-22 22:37 | PHYS DOC ---
Past Medical History Past Medical History: Anxiety, Asthma, CHF, Constipation, Depression, Hypertension, Hypothyroid, Other Additional Past Medical Histor: graves disease,lupus Past Surgical History: Cholecystectomy, , Hysterectomy, Other Additional Past Surgical Histo: HERNIA REPAIR,NASAL POLYPS Alcohol Use: Sober Drug Use: None Adult General Chief Complaint Chief Complaint: INSECT BITE HPI HPI 62-year-old with multiple medical problems presents with an insect bite to her left anterior forearm. She states it's been here for about a day. She's noticed some redness today which concerned her. She denies any pain to the area but she does state that it itches.[] Review of Systems Review of Systems Constitutional: Denies fever or chills [] Eyes: Denies change in visual acuity, redness, or eye pain [] HENT: Denies nasal congestion or sore throat [] Respiratory: Denies cough or shortness of breath [] Cardiovascular: No additional information not addressed in HPI [] GI: Denies abdominal pain, nausea, vomiting, bloody stools or diarrhea [] : Denies dysuria or hematuria [] Musculoskeletal: Denies back pain or joint pain [] Integument: Per history of present illness[] Neurologic: Denies headache, focal weakness or sensory changes [] Endocrine: Denies polyuria or polydipsia [] All other systems were reviewed and found to be within normal limits, except as documented in this note. Allergies Allergies Allergies Coded Allergies Type Severity Reaction Last Updated Verified NSAIDS (Non-Steroidal Anti-Inflamma Allergy Severe itching,throat"swells" 11/09 Yes aspirin Allergy Severe Shortness of Air 11/09/16 Yes Sulfa (Sulfonamide Antibiotics) Allergy Intermediate 11/09/16 Yes ketorolac Allergy Intermediate 11/09/16 Yes sulfamethoxazole Allergy Intermediate 11/09/16 Yes trimethoprim Allergy Intermediate 11/09/16 Yes I S O L A T I O N *CONTACT* Allergy Unknown 10/17/17 Yes Physical Exam Physical Exam Constitutional: Well developed, well nourished, no acute distress, non-toxic appearance. [] HENT: Normocephalic, atraumatic, bilateral external ears normal, oropharynx moist, no oral exudates, nose normal. [] Eyes: PERRLA, EOMI, conjunctiva normal, no discharge. [] Neck: Normal range of motion, no tenderness, supple, no stridor. [] Cardiovascular:Heart rate regular rhythm, no murmur [] Lungs & Thorax: Bilateral breath sounds clear to auscultation [] Abdomen: Bowel sounds normal, soft, no tenderness, no masses, no pulsatile masses. [] Skin: Quarter size area of erythema to the left volar forearm not indurated not warm to touch. [] Back: No tenderness, no CVA tenderness. [] Psychologic: Anxious. [] Current Patient Data Vital Signs Vital Signs Date Time Temp Pulse Resp B/P (MAP) Pulse Ox O2 Delivery O2 Flow Rate FiO2 05/22/18 22:20 98.7 82 15 139/95 (110) 95 Room Air 98.7 EKG EKG [] Radiology/Procedures Radiology/Procedures [] Course & Med Decision Making Course & Med Decision Making Pertinent Labs and Imaging studies reviewed. (See chart for details) [] Dragon Disclaimer Dragon Disclaimer This electronic medical record was generated, in whole or in part, using a voice recognition dictation system. Departure Departure Impression: Primary Impression: Insect bite Disposition: 01 HOME, SELF-CARE Condition: STABLE Patient Instructions: Insect Bite Additional Instructions: Return to the emergency department with any new or concerning symptoms. As we discussed, hydrocortisone cream twice a day on the area should help over the next couple days. Problem Qualifiers Primary Impression: Insect bite Encounter type: initial encounter Site of insect bite: forearm Laterality: left Qualified Codes: S50.862A - Insect bite (nonvenomous) of left forearm, initial encounter; W57.XXXA - Bitten or stung by nonvenomous insect and other nonvenomous arthropods, initial encounter GEORGE CONTRERAS DO May 22, 2018 22:37
[2018-06-05] MEDS ORDERED: METF10007 PO (09:17)
[2018-06-05] MEDS ORDERED: SPIR25TA5 PO (09:17)
[2018-06-05] MEDS ORDERED: DOXE10CA PO (09:17)
[2018-06-05] MEDS ORDERED: PANT20TA2 PO (09:17)
[2018-06-05] MEDS ORDERED: FURO40TA4 PO (09:17)
[2018-06-05] MEDS ORDERED: RISP1TAB43 PO (09:17)
[2018-06-05] MEDS ORDERED: TRAZ-86 PO (09:17)
== END 2018-05-22 22:40 | disposition home or self-care (01) ==
LOC: ER 22:19
DX: S50.862A Insect bite (nonvenomous) of left forearm, initial encounter (principal); F41.9 Anxiety disorder, unspecified; I11.0 Hypertensive heart disease with heart failure; I50.9 Heart failure, unspecified; F32.9 Major depressive disorder, single episode, unspecified; E03.9 Hypothyroidism, unspecified; J45.909 Unspecified asthma, uncomplicated; Z90.49 Acquired absence of other specified parts of digestive tract; Z98.890 Other specified postprocedural states; Z90.710 Acquired absence of both cervix and uterus; Z88.6 Allergy status to analgesic agent; Z88.8 Allergy status to other drugs, medicaments and biological substances; Z88.1 Allergy status to other antibiotic agents; Z88.2 Allergy status to sulfonamides; Z88.5 Allergy status to narcotic agent; Z91.041 Radiographic dye allergy status; W57.XXXA Bitten or stung by nonvenomous insect and other nonvenomous arthropods, initial encounter; Y93.89 Activity, other specified; Y92.89 Other specified places as the place of occurrence of the external cause; Y99.8 Other external cause status
CPT/HCPCS: 99281

== ENCOUNTER 2018-05-30 15:49 | Emergency (ER) | payer MEDICARE, OTHER ==
[~2018-05-30] VITALS: Ht 175.3 cm; Wt 127.9 kg
--- NOTE | 2018-05-30 16:20 | EKG ---
[facility] [address] [place] [address] Test Date: 2018-05-30 Test Time: 16:06:53 Pat Name: JERRY WAYNE Department: Room: Gender: F Assistant Commissioner: : 1955 Requested By: VIDAL KITCHEN Order Number: [id number] Reading MD: Justino Rodriguez Measurements Intervals [place] Rate: 98 P: 0 UT: 196 QRS: -10 QRSD: 86 T: 26 QT: 404 QTc: 518 Interpretive Statements SINUS RHYTHM LEFTWARD AXIS PROLONGED QT Electronically Signed On 06-04-2018 13:28:41 CDT by Justino Rodriguez
[2018-05-30] MEDS ORDERED: IPRATRPIUM/ALBUTEROL 0.5/2.5MG 3 ML NEBU. NEB ONE ×2 (16:30→19:15)
[2018-05-30] MEDS ORDERED: DEXAMETHASONE SOD PHOS 20 MG/5 ML VIAL. IV ONE (16:30)
[2018-05-30 16:47] LABS: BASO # 0.1 x10^3/uL (0.0-0.2); BASO % 1 % (0-3); EOS # 0.5 x10^3/uL (0.0-0.7); EOS % 6 % (0-3); HEMATOCRIT 36.4 % (36.0-47.0); HEMOGLOBIN 11.4 g/dL (12.0-15.5); LYMPH # 2.3 x10^3/uL (1.0-4.8); LYMPH % 27 % (24-48); MEAN CORPUSCULAR HEMOGLOBIN 24 pg (25-35); MEAN CORPUSCULAR HGB CONC 31 g/dL (31-37); MEAN CORPUSCULAR VOLUME 77 fL (79-100); MONO # 0.6 x10^3/uL (0.0-1.1); MONO % 8 % (0-9); NEUT # 4.9 x10^3uL (1.8-7.7); NEUT % 58 % (31-73); PLATELET COUNT 261 x10^3/uL (140-400); RED BLOOD COUNT 4.72 x10^6/uL (3.50-5.40); RED CELL DISTRIBUTION WIDTH 17.1 % (11.5-14.5); WHITE BLOOD COUNT 8.4 x10^3/uL (4.0-11.0)
--- NOTE | 2018-05-30 16:51 | PHYS DOC ---
Past Medical History Past Medical History: Anxiety, Asthma, CHF, Constipation, Depression, Hypertension, Hypothyroid, Other Additional Past Medical Histor: graves disease,lupus (VIDAL KITCHEN DO) Past Surgical History: Cholecystectomy, , Hysterectomy, Other Additional Past Surgical Histo: HERNIA REPAIR,NASAL POLYPS (VIDAL KITCHEN DO) Alcohol Use: Sober Drug Use: None (VIDAL KITCHEN DO) Adult General Chief Complaint Chief Complaint: SHORTNESS OF BREATH HPI HPI Patient is a 62 year old female who presents with intermittent shortness of breath. Patient states that her shortness of breath began two days ago after being exposed to heavy bleach fumes two days ago. Patient states that she has also been experiencing some chest tightness located in the center of her chest since inhaling the fumes. Patient states that she has a history of asthma and thinks the bleach fumes exacerbated her asthma. Patient notes that propping her head up improves her symptoms and strong fumes make them worse. Patient also reports that she has a history of CHF and has noticed that her right lower extremity has been more swollen than her left lower extremity for the past few days. Denies every having a blood clot in her legs or lungs. (VIDAL KITCHEN DO) Review of Systems Review of Systems Constitutional: Denies fever or chills Eyes: Denies change in visual acuity or eye pain HENT: Denies sore throat. Reports nasal congestion. Respiratory: Denies cough. Reports shortness of breath. Cardiovascular: Reports chest tightness. Denies palpitations. GI: Denies abdominal pain, nausea, vomiting, or diarrhea : Denies dysuria or hematuria Musculoskeletal: Denies back pain or joint pain Integument: Denies rash or skin lesions Neurologic: Denies headache, focal weakness or sensory changes Complete systems were reviewed and found to be within normal limits, except as documented in this note. (VIDAL KITCHEN DO) Current Medications Current Medications Current Medications Medications (Trade) Dose Ordered Sig/Indra Start Time Stop Time Status Last Admin Dose Admin Albuterol/ Ipratropium (Duoneb) 3 ml 1X ONCE 05/30/18 19:15 05/30/18 19:16 DC 05/30/18 19:24 3 ML Dexamethasone Sodium Phosphate (Decadron) 10 mg 1X ONCE 05/30/18 16:30 05/30/18 16:31 DC 05/30/18 16:45 10 MG Info (CONTRAST GIVEN -- Rx MONITORING) 1 each PRN DAILY PRN 05/30/18 17:30 06/01/18 17:29 Iohexol (Omnipaque 350 Mg/ml) 90 ml 1X ONCE 05/30/18 17:30 05/30/18 17:31 DC 05/30/18 17:33 90 ML Sodium Chloride 1,000 ml @ 1,000 mls/hr 1X ONCE 05/30/18 17:15 05/30/18 18:14 DC (ULISES CAM MD) Allergies Allergies Allergies Coded Allergies Type Severity Reaction Last Updated Verified NSAIDS (Non-Steroidal Anti-Inflamma Allergy Severe itching,throat"swells" 11/09 Yes aspirin Allergy Severe Shortness of Air 11/09/16 Yes Sulfa (Sulfonamide Antibiotics) Allergy Intermediate 11/09/16 Yes ketorolac Allergy Intermediate 11/09/16 Yes sulfamethoxazole Allergy Intermediate 11/09/16 Yes trimethoprim Allergy Intermediate 11/09/16 Yes I S O L A T I O N *CONTACT* Allergy Unknown 10/17/17 Yes (ULISES CAM MD) Physical Exam Physical Exam Constitutional: Well developed, well nourished, no acute distress, non-toxic appearance. HENT: Normocephalic, atraumatic, oropharynx moist, nose normal. Eyes: PERRL, conjunctiva normal, no discharge. Neck: Normal range of motion, supple, no stridor. Cardiovascular:Heart rate regular rhythm, no murmur Lungs & Thorax: No respiratory distress. Slight wheezes noted in upper lung green. Abdomen: Soft, no tenderness on palpation Skin: Warm, dry, no rash. Back: No midline tenderness, no CVA tenderness. Extremities: ROM intact, bilateral lower extremity edema, right worse than left ; tenderness of right calf on palpation. Neurologic: Alert and oriented X3, normal motor function, normal sensory function, no focal deficits noted. Psychologic: Affect normal. Speech normal. (KITCHENVIDAL QUEEN DO) Current Patient Data Vital Signs Vital Signs Date Time Temp Pulse Resp B/P (MAP) Pulse Ox O2 Delivery O2 Flow Rate FiO2 05/30/18 19:26 96 Room Air 05/30/18 18:45 72 20 143/95 (111) 05/30/18 16:00 98.3 98.3 (ULISES CAM MD) Lab Values Laboratory Tests Test 05/30/18 16:35 05/30/18 16:45 05/30/18 18:40 White Blood Count 8.4 x10^3/uL (4.0-11.0) Red Blood Count 4.72 x10^6/uL (3.50-5.40) Hemoglobin 11.4 g/dL (12.0-15.5) L Hematocrit 36.4 % (36.0-47.0) Mean Corpuscular Volume 77 fL (79-100) L Mean Corpuscular Hemoglobin 24 pg (25-35) L Mean Corpuscular Hemoglobin Concent 31 g/dL (31-37) Red Cell Distribution Width 17.1 % (11.5-14.5) H Platelet Count 261 x10^3/uL (140-400) Neutrophils (%) (Auto) 58 % (31-73) Lymphocytes (%) (Auto) 27 % (24-48) Monocytes (%) (Auto) 8 % (0-9) Eosinophils (%) (Auto) 6 % (0-3) H Basophils (%) (Auto) 1 % (0-3) Neutrophils # (Auto) 4.9 x10^3uL (1.8-7.7) Lymphocytes # (Auto) 2.3 x10^3/uL (1.0-4.8) Monocytes # (Auto) 0.6 x10^3/uL (0.0-1.1) Eosinophils # (Auto) 0.5 x10^3/uL (0.0-0.7) Basophils # (Auto) 0.1 x10^3/uL (0.0-0.2) D-Dimer (Leanna) 2.20 ug/mlFEU (0.00-0.50) H Sodium Level 143 mmol/L (136-145) Potassium Level 3.9 mmol/L (3.5-5.1) Chloride Level 104 mmol/L (98-107) Carbon Dioxide Level 26 mmol/L (21-32) Anion Gap 13 (6-14) Blood Urea Nitrogen 14 mg/dL (7-20) Creatinine 1.2 mg/dL (0.6-1.0) H Estimated GFR (Cockcroft-Gault) 55.4 BUN/Creatinine Ratio 12 (6-20) Glucose Level 101 mg/dL (70-99) H Calcium Level 10.4 mg/dL (8.5-10.1) H Total Bilirubin 0.7 mg/dL (0.2-1.0) Aspartate Amino Transferase (AST) 16 U/L (15-37) Alanine Aminotransferase (ALT) 20 U/L (14-59) Alkaline Phosphatase 61 U/L (46-116) Creatine Kinase 54 U/L (26-192) Creatine Kinase MB (Mass) 0.6 ng/mL (0.0-3.6) Creatine Kinase MB Relative Index % (0-4) Troponin I Quantitative 0.022 ng/mL (0.000-0.055) 0.025 ng/mL (0.000-0.055) CW-Dwd-I-Type Natriuretic Peptide 190 pg/mL (0-124) H Total Protein 7.5 g/dL (6.4-8.2) Albumin 3.3 g/dL (3.4-5.0) L Albumin/Globulin Ratio 0.8 (1.0-1.7) L Influenza Type A Antigen Negative (NEGATIVE) Influenza Type B Antigen Negative (NEGATIVE) Laboratory Tests 05/30/18 16:35 Laboratory Tests 05/30/18 16:35 (ULISES CAM MD) Lab Values Laboratory Tests Test 05/30/18 16:35 05/30/18 16:45 White Blood Count 8.4 x10^3/uL (4.0-11.0) Red Blood Count 4.72 x10^6/uL (3.50-5.40) Hemoglobin 11.4 g/dL (12.0-15.5) L Hematocrit 36.4 % (36.0-47.0) Mean Corpuscular Volume 77 fL (79-100) L Mean Corpuscular Hemoglobin 24 pg (25-35) L Mean Corpuscular Hemoglobin Concent 31 g/dL (31-37) Red Cell Distribution Width 17.1 % (11.5-14.5) H Platelet Count 261 x10^3/uL (140-400) Neutrophils (%) (Auto) 58 % (31-73) Lymphocytes (%) (Auto) 27 % (24-48) Monocytes (%) (Auto) 8 % (0-9) Eosinophils (%) (Auto) 6 % (0-3) H Basophils (%) (Auto) 1 % (0-3) Neutrophils # (Auto) 4.9 x10^3uL (1.8-7.7) Lymphocytes # (Auto) 2.3 x10^3/uL (1.0-4.8) Monocytes # (Auto) 0.6 x10^3/uL (0.0-1.1) Eosinophils # (Auto) 0.5 x10^3/uL (0.0-0.7) Basophils # (Auto) 0.1 x10^3/uL (0.0-0.2) D-Dimer (Leanna) 2.20 ug/mlFEU (0.00-0.50) H Sodium Level 143 mmol/L (136-145) Potassium Level 3.9 mmol/L (3.5-5.1) Chloride Level 104 mmol/L (98-107) Carbon Dioxide Level 26 mmol/L (21-32) Anion Gap 13 (6-14) Blood Urea Nitrogen 14 mg/dL (7-20) Creatinine 1.2 mg/dL (0.6-1.0) H Estimated GFR (Cockcroft-Gault) 55.4 BUN/Creatinine Ratio 12 (6-20) Glucose Level 101 mg/dL (70-99) H Calcium Level 10.4 mg/dL (8.5-10.1) H Total Bilirubin 0.7 mg/dL (0.2-1.0) Aspartate Amino Transferase (AST) 16 U/L (15-37) Alanine Aminotransferase (ALT) 20 U/L (14-59) Alkaline Phosphatase 61 U/L (46-116) Creatine Kinase 54 U/L (26-192) Creatine Kinase MB (Mass) 0.6 ng/mL (0.0-3.6) Creatine Kinase MB Relative Index % (0-4) Troponin I Quantitative 0.022 ng/mL (0.000-0.055) LW-Gny-B-Type Natriuretic Peptide 190 pg/mL (0-124) H Total Protein 7.5 g/dL (6.4-8.2) Albumin 3.3 g/dL (3.4-5.0) L Albumin/Globulin Ratio 0.8 (1.0-1.7) L Influenza Type A Antigen Negative (NEGATIVE) Influenza Type B Antigen Negative (NEGATIVE) Laboratory Tests 05/30/18 16:35 Laboratory Tests 05/30/18 16:35 (VIDAL KITCHEN DO) EKG EKG @1606 NSR at 98bpm, NO ST elevation (VIDAL KITCHEN DO) Radiology/Procedures Radiology/Procedures PROCEDURE: VENOUS LOWER EXTREMITY RIGHT Right lower extremity venous Doppler: Reason for examination: Right leg pain and swelling. The right lower extremity venous system was evaluated from the common femoral and greater saphenous veins distally to the calf veins with grayscale imaging, color-flow imaging and spectral analysis. There is normal blood flow without deep venous thrombosis. There is normal response of the venous system to compression and augmentation. IMPRESSION: No deep venous thrombosis in the right lower extremity. Electronically signed by: Trupti Pantoja MD (05/30/2018 6:18 PM) [facility] PROCEDURE: CT ANGIOGRAPHY CHEST CT angiogram of the chest with contrast: Reason for examination: Short of breath with elevated d-dimer. Comparison is made to previous study dated 01/19/2018. Helical images were obtained through the chest with intravenous administration of 90 cc Omnipaque 350 using PE protocol. 3-D MIPS reconstruction was performed in sagittal and coronal planes. Exposure: One or more of the following individualized dose reduction techniques were utilized for this examination: 1. Automated exposure control 2. Adjustment of the mA and/or kV according to patient size 3. Use of iterative reconstruction technique. The trachea and mainstem bronchi show no intraluminal lesions. No abnormality seen at the esophagus. There is a small hiatal hernia. The thoracic aorta shows no aneurysmal dilatation or dissection but there is some ectasia there are a few small nonspecific lymph nodes in the mediastinum. The heart size is enlarged with no pericardial effusion evident. There are no pulmonary emboli identified. The lung green show a few small bullous changes. No consolidative infiltrates or pleural effusions are seen. There is some linear density consistent with some atelectasis at the left lung base laterally. No pneumothorax is present. No acute bony abnormalities are seen. No abnormality seen at the visualized portions of the liver, spleen or adrenal glands. There are postop changes from previous gastric sleeve surgery. IMPRESSION: Cardiomegaly. Small hiatal hernia. Linear atelectasis at the left lung base laterally. No pulmonary embolus. Electronically signed by: Trupti Pantoja MD (05/30/2018 6:16 PM) [facility] (VIDAL KITCHEN DO) Course & Med Decision Making Course & Med Decision Making Patient is a 62 year old female who presents with shortness of breath. Patient treated with a Duoneb and 10mg Dexamethasone in the ED. Low cardiac risk factors. HEART score 2. D-dimer elevated at 2.20. CT angiogram chest ordered. Other pertinent Labs and Imaging studies reviewed. (See chart for details) Troponin WNL. Awaiting repeat. Symptoms more likely chemical irritation/ pneumonitis. Case signed out to Dr. Cam at 18:00 for further evaluation and final disposition. Discussed current findings and plan with patient, who acknowledges understanding and agreement. (VIDAL KITCHEN DO) Course & Med Decision Making I was asked to follow up on CT chest ultrasound and repeat troponin reviewed results no acute pathology noted I checked on the patient at 7:30 PM she was feeling much much better second neb is ordered she will be discharged in stable condition oxygen level was 99 on room air she was breathing comfortably and speaking full sentences prescription for prednisone she has enough albuterol at home. (ULISES CAM MD) Dragon Disclaimer Dragon Disclaimer This electronic medical record was generated, in whole or in part, using a voice recognition dictation system. (VIDAL KITCHEN DO) Departure Departure Impression: Primary Impression: Dyspnea Additional Impression: Inhalation of noxious fumes Disposition: HOME, SELF-CARE Condition: STABLE Referrals: MALLIKA PORTER MD, PHD (PCP) Scripts Prednisone (PREDNISONE) 50 Mg Tablet 1 TAB PO DAILY, #5 TAB Prov: ULISES CAM MD 05/30/18 Problem Qualifiers Primary Impression: Dyspnea Dyspnea type: unspecified Qualified Codes: R06.00 - Dyspnea, unspecified Additional Impression: Inhalation of noxious fumes Encounter type: initial encounter Injury intent: undetermined intent Qualified Codes: T59.94XA - Toxic effect of unspecified gases, fumes and vapors , undetermined, initial encounter VIDAL KITCHEN DO May 30, 2018 16:51 ULISES CAM MD May 30, 2018 19:38
[2018-05-30 17:09] LABS: CALCIUM 10.4 mg/dL (8.5-10.1); CREATININE 1.2 mg/dL (0.6-1.0); GFR 55.4; POTASSIUM 3.9 mmol/L (3.5-5.1)
[2018-05-30 17:13] LABS: INFLUENZA A PATIENT NEGATIVE (NEGATIVE); INFLUENZA B PATIENT NEGATIVE (NEGATIVE)
[2018-05-30 17:13] LABS: ALBUMIN 3.3 g/dL (3.4-5.0); ALBUMIN/GLOBULIN RATIO 0.8 (1.0-1.7); TOTAL BILIRUBIN 0.7 mg/dL (0.2-1.0); TOTAL PROTEIN 7.5 g/dL (6.4-8.2)
[2018-05-30] MEDS ORDERED: IV NORMAL SALINE 1000ML BAG 1,000 ML IV ONE (17:15)
[2018-05-30 17:20] LABS: CREATINE KINASE 54 U/L (26-192)
[2018-05-30] MEDS ORDERED: CONTRAST GIVEN. MC PRN (17:30)
[2018-05-30] MEDS ORDERED: IOHEXOL 350 MG/ML 100 ML VIAL. IV ONE (17:30)
--- NOTE | 2018-05-30 18:19 | RAD ---
CT angiogram of the chest with contrast: Reason for examination: Short of breath with elevated d-dimer. Comparison is made to previous study dated 01/19/2018. Helical images were obtained through the chest with intravenous administration of 90 cc Omnipaque 350 using PE protocol. 3-D MIPS reconstruction was performed in sagittal and coronal planes. Exposure: One or more of the following individualized dose reduction techniques were utilized for this examination: 1. Automated exposure control 2. Adjustment of the mA and/or kV according to patient size 3. Use of iterative reconstruction technique. The trachea and mainstem bronchi show no intraluminal lesions. No abnormality seen at the esophagus. There is a small hiatal hernia. The thoracic aorta shows no aneurysmal dilatation or dissection but there is some ectasia there are a few small nonspecific lymph nodes in the mediastinum. The heart size is enlarged with no pericardial effusion evident. There are no pulmonary emboli identified. The lung green show a few small bullous changes. No consolidative infiltrates or pleural effusions are seen. There is some linear density consistent with some atelectasis at the left lung base laterally. No pneumothorax is present. No acute bony abnormalities are seen. No abnormality seen at the visualized portions of the liver, spleen or adrenal glands. There are postop changes from previous gastric sleeve surgery. IMPRESSION: Cardiomegaly. Small hiatal hernia. Linear atelectasis at the left lung base laterally. No pulmonary embolus. Electronically signed by: Trupti Pantoja MD (05/30/2018 6:16 PM) [facility]
--- NOTE | 2018-05-30 18:21 | RAD ---
Right lower extremity venous Doppler: Reason for examination: Right leg pain and swelling. The right lower extremity venous system was evaluated from the common femoral and greater saphenous veins distally to the calf veins with grayscale imaging, color-flow imaging and spectral analysis. There is normal blood flow without deep venous thrombosis. There is normal response of the venous system to compression and augmentation. IMPRESSION: No deep venous thrombosis in the right lower extremity. Electronically signed by: Trupti Pantoja MD (05/30/2018 6:18 PM) [facility]
[2018-05-30] MEDS ORDERED: PRED50TA PO (19:34)
[2018-05-30 19:45] VITALS: BP 151/75
[2018-06-05] MEDS ORDERED: RISP1TAB43 PO (09:17)
[2018-06-05] MEDS ORDERED: FURO40TA4 PO (09:17)
[2018-06-05] MEDS ORDERED: DOXE10CA PO (09:17)
[2018-06-05] MEDS ORDERED: PANT20TA2 PO (09:17)
[2018-06-05] MEDS ORDERED: METF10007 PO (09:17)
[2018-06-05] MEDS ORDERED: TRAZ-86 PO (09:17)
[2018-06-05] MEDS ORDERED: SPIR25TA5 PO (09:17)
== END 2018-05-30 19:55 | disposition home or self-care (01) ==
LOC: ER 15:49
DX: T59.94XA Toxic effect of unspecified gases, fumes and vapors, undetermined, initial encounter (principal); R06.00 Dyspnea, unspecified; F41.9 Anxiety disorder, unspecified; J45.909 Unspecified asthma, uncomplicated; R07.89 Other chest pain; I11.0 Hypertensive heart disease with heart failure; I50.9 Heart failure, unspecified; F32.9 Major depressive disorder, single episode, unspecified; E03.9 Hypothyroidism, unspecified; Z90.49 Acquired absence of other specified parts of digestive tract; Z90.710 Acquired absence of both cervix and uterus; Z98.890 Other specified postprocedural states; Z88.8 Allergy status to other drugs, medicaments and biological substances; Z88.6 Allergy status to analgesic agent; Z88.2 Allergy status to sulfonamides; Z88.1 Allergy status to other antibiotic agents; Z91.041 Radiographic dye allergy status; Y92.89 Other specified places as the place of occurrence of the external cause
CPT/HCPCS: 36415; 71275; 80053; 82553; 83880; 84484; 85025; 85379; 87804; 93005; 93971; 94640; 96374; 99285; J1100; J7620; Q9967

== ENCOUNTER → 2018-06-05 | Day surgery (SDC) | payer OTHER ==
[~2018-06-05] MED LIST changes: +ACET500T68 PO; +ARIP5TAB13 PO; +BENZ200C47 PO; +CARV6.2511 PO; +CITA40TA5 PO; +DOXE10CA PO; +EMU OIL TOP; +FLUT9.9S NS; +FURO40TA4 PO; +HYDR-2761 PO; +HYDR-2869 PO; +HYDR12.575 PO; +HYDROmorphone 2 MG/ML VIAL IV PRN; +IV RINGERS,LACTATED 1000ML 1,000 ML IV SCH; +LEVO150T5 PO; +LIDOCAINE 1% PF 2 ML VIAL. ID PRN; +LOSA1TAB19 PO; +METF10007 PO; +MORPHINE SULFATE 2 MG/ML VIAL. IV PRN; +MULT-650 PO; +ONDANSETRON PF 4 MG/2 ML VIAL. IV PRN; +PANT20TA2 PO; +PROCHLORPERAZINE 10 MG/2 ML VIAL. IV PRN; +PROPOFOL 100 ML IV ONE; +PROPOFOL 20 ML IV ONE; +PROPOFOL 60 ML IV ONE; +RISP1TAB43 PO; +SPIR25TA5 PO; +TRAZ-86 PO; +fentaNYL PF VIAL 100 MCG/2 ML VIAL IV PRN
[2018-06-05 13:05] VITALS: BP 139/76
--- NOTE | 2018-06-07 14:06 | PATHOLOGY ---
[facility] Accession Number: [id number] . 01 Material submitted: . PART A: stomach - GASTRIC POLYP PART B: stomach - RANDOM GASTRIC BIOPSY PART C: esophagus, E-G Junction - GE JUNCTION BIOPSY PART D: esophagus - PROXIMAL ESOPHAGUS BIOPSY. Modifiers: proximal PART E: colon - DESCENDING COLON POLYP PROXIMAL. Modifiers: proximal, descending PART F: colon - DISTAL ASCENDING COLON POLYP. Modifiers: distal, ascending . 01 Clinical history: . Dysphagia, CRC screen . 02 Diagnosis: A. Gastric polypectomy, antrum: - Hyperplastic polyp showing focal surface erosion and acute and chronic inflammation. . B. Random gastric biopsies: - Very mild chronic gastritis. . C. Gastroesophageal junction biopsies: - Segments of esophagogastric and gastric mucosa showing chronic inflammation. . D. Proximal esophageal biopsies: - Segments of hyperplastic squamous esophageal mucosa with focal intraepithelial neutrophils. . E. Colon biopsies, proximal ascending colon polyp: - Tubular adenoma. . F. Colon biopsies, distal ascending colon polyp: - Tubular adenoma showing high-grade dysplasia. (JPM:[facility] 06/07/2018) P/06/07/2018 . 02 Comment: Sections of the gastric polyp biopsy reveal a hyperplastic polyp showing focal surface erosion and acute and chronic inflammation. There are no adenomatous changes or evidence of malignancy. . Sections of the random gastric biopsy reveal segments of gastric antral mucosa showing congestion and very mild chronic inflammation. A properly controlled immunoperoxidase stain for Helicobacter is negative for Helicobacter organisms. . Sections of the gastroesophageal junction biopsy reveal segments of esophagogastric and gastric mucosa showing mild to moderate chronic inflammation. There is no evidence of Alan's change, dysplasia, or malignancy. . Sections of the proximal esophageal biopsy reveal segments of tangentially oriented hyperplastic squamous esophageal mucosa showing focal intraepithelial neutrophils consistent with esophagitis. There is no evidence of Alan's change, dysplasia, or malignancy. . Sections of the proximal ascending colon polyp biopsies reveal a tubular adenoma showing no high-grade dysplasia or evidence of malignancy. . Sections of the distal ascending colon polyp biopsies reveal multiple segments of tubular adenoma showing high-grade dysplasia. There is no evidence of malignancy. (JPM:[facility] 06/07/2018) . Immunoperoxidase for Helicobacter on B1. . 02 Electronically signed: . Luis Alberto Brayd MD, Pathologist NPI- [id number] . 01 Gross description: . A. Received in formalin labeled "Kevin Mckeon, gastric polyp," is a 1.1 x 0.8 x 0.7 cm polypoid piece of chaudhry soft tissue with a stalk measuring 0.5 cm in length and 0.5 cm in diameter. The margin of the stalk is inked and the tissue is sectioned perpendicular to the margin and submitted in its entirely in cassette A1 through A3. . B. Received in formalin labeled "Kevin Mckeon, random gastric BX, rule out H. pylori," are 2 segments of chaudhry soft tissue measuring 0.7 x 0.2 x 0.2 cm in aggregate dimensions and ranging from 0.3 to 0.4 cm in maximum dimension. The specimen is submitted entirely in cassette B1. . C. Received in formalin labeled "Latonia Mckeonius, GE junction BX," are 2 segments of chaudhry soft tissue measuring 0.7 x 0.3 x 0.2 cm in aggregate dimensions and ranging from 0.2 to 0.5 cm in maximum dimension. The specimen is submitted entirely in C1. . D. Received in formalin labeled "Latonia Mckeonius, proximal esophagus BX," are 2 segments of chaudhry soft tissue measuring 0.5 x 0.1 x 0.1 cm in aggregate dimensions and ranging from 0.2 to 0.3 cm in maximum dimension. The specimen is submitted entirely in D1. . E. Received in formalin labeled "Ariasetrius, descending colon polyp proximal," is a 0.8 x 0.5 x 0.5 cm polypoid piece of chaudhry soft tissue. The presumed margin is inked and the tissue is sectioned perpendicular to the margin and submitted in its entirely in cassette E1. Additionally received in the same container is a 0.8 x 0.5 x 0.5 cm polypoid piece of chaudhry soft tissue. The margin is inked and the specimen is sectioned perpendicular to the margin and entirely submitted in cassette E2. . . F. Received in formalin labeled "Kevin Mckeon, distal ascending colon polyp," is a 2.1 x 1.5 x 1.6 cm polypoid piece of chaudhry soft tissue. The presumed margin is inked and the tissue is sectioned perpendicular to the margin and submitted in its entirely in cassette F1 through F3. Additionally received in the same container is a 1.3 x 1.0 x 0.9 cm polypoid piece of chaudhry soft tissue. The presumed margin is inked and the specimen is sectioned perpendicular to the margin and entirely submitted in cassette F4 and F5. Also received in the container is a 1.5 x 0.8 x 1.0 cm polypoid piece of chaudhry soft tissue. The presumed margin is inked and the specimen is sectioned perpendicular to the margin and entirely submitted in cassette F6 and F7. Additionally received in the container are multiple fragments of chaudhry soft tissue measuring 1.9 x 1.1 x 0.6 cm in aggregate dimensions. The specimen is filtered and entirely submitted in cassette F8. (TSD; 06/05/2018) TOB/TOB . 02 Pathologist provided ICD-10: K31.7, K29.50, K20.8, D12.4 . 02 CPT . 919422, 778077, 156200, 087538, 519951, 007551, [id number] Specimen Comment: A courtesy copy of this report has been sent to Specimen Comment: [phone], . Specimen Comment: Report sent to / DR PORTER Performed at: [facility] [address], [place] [id number] MD Jayden Bolden MD Phone: [phone] Performed at: [facility] [address], [place] [id number] MD Luis Alberto Brady MD Phone: [phone]
== END | disposition home or self-care (01) ==
LOC: ENDOS 08:53
PROVIDERS: ATTEND Internal Medicine
DX: D12.2 Benign neoplasm of ascending colon (principal); K31.7 Polyp of stomach and duodenum; K22.8 Other specified diseases of esophagus; K31.89 Other diseases of stomach and duodenum; K21.0 Gastro-esophageal reflux disease with esophagitis; K63.5 Polyp of colon; K29.50 Unspecified chronic gastritis without bleeding; I25.10 Atherosclerotic heart disease of native coronary artery without angina pectoris; I11.0 Hypertensive heart disease with heart failure; I50.9 Heart failure, unspecified; J45.909 Unspecified asthma, uncomplicated; E11.9 Type 2 diabetes mellitus without complications; E03.9 Hypothyroidism, unspecified; E78.5 Hyperlipidemia, unspecified; Z86.14 Personal history of Methicillin resistant Staphylococcus aureus infection; Z90.49 Acquired absence of other specified parts of digestive tract; Z90.710 Acquired absence of both cervix and uterus; Z98.890 Other specified postprocedural states; M19.90 Unspecified osteoarthritis, unspecified site; Z79.899 Other long term (current) drug therapy; Z88.2 Allergy status to sulfonamides; Z88.6 Allergy status to analgesic agent; Z88.1 Allergy status to other antibiotic agents; F32.9 Major depressive disorder, single episode, unspecified; F41.9 Anxiety disorder, unspecified; G47.30 Sleep apnea, unspecified; Z86.010 Personal history of colon polyps; E66.01 Morbid (severe) obesity due to excess calories; Z82.3 Family history of stroke; Z82.49 Family history of ischemic heart disease and other diseases of the circulatory system; Z87.891 Personal history of nicotine dependence; Z79.84 Long term (current) use of oral hypoglycemic drugs; Z68.39 Body mass index [BMI] 39.0-39.9, adult
CPT/HCPCS: 43239; 43251; 45385; 88305; 88342; C1757; J2704; 45380; 45382

== ENCOUNTER 2018-07-06 20:20 | Observation (INO) | payer OTHER ==
[~2018-07-06] VITALS: Ht 175.3 cm; Wt 124.9 kg
[~2018-07-06 20:20] MED LIST changes: -ACET500T68 PO; -ARIP5TAB13 PO; -BENZ200C47 PO; -CARV6.2511 PO; -CITA40TA5 PO; -EMU OIL TOP; -FLUT9.9S NS; -HYDR-2761 PO; -HYDR-2869 PO; -HYDR12.575 PO; -HYDROmorphone 2 MG/ML VIAL IV PRN; -IV RINGERS,LACTATED 1000ML 1,000 ML IV SCH; -LEVO150T5 PO; -LIDOCAINE 1% PF 2 ML VIAL. ID PRN; -LOSA1TAB19 PO; -MORPHINE SULFATE 2 MG/ML VIAL. IV PRN; -MULT-650 PO; -ONDANSETRON PF 4 MG/2 ML VIAL. IV PRN; -PROCHLORPERAZINE 10 MG/2 ML VIAL. IV PRN; -PROPOFOL 100 ML IV ONE; -PROPOFOL 20 ML IV ONE; -PROPOFOL 60 ML IV ONE; -fentaNYL PF VIAL 100 MCG/2 ML VIAL IV PRN
--- NOTE | 2018-07-06 21:45 | RAD ---
CHEST AP ONLY History: Chest pain Comparison: January 19, 2018 Findings: Single view of the chest is submitted. There is a tortuous thoracic aorta, may be ectatic. Pericardial cardiac silhouette is again enlarged although similar. There is no new lobar consolidation, pleural fluid, pneumothorax. Impression: 1. Pericardial cardiac silhouette is again enlarged, no new radiographic abnormality. Electronically signed by: Asa Pardo MD (07/06/2018 9:42 PM) [facility]
[2018-07-06 21:47] LABS: BASO # 0.1 x10^3/uL (0.0-0.2); BASO % 1 % (0-3); EOS # 0.7 x10^3/uL (0.0-0.7); EOS % 11 % (0-3); HEMATOCRIT 34.1 % (36.0-47.0); HEMOGLOBIN 11.1 g/dL (12.0-15.5); LYMPH # 2.4 x10^3/uL (1.0-4.8); LYMPH % 36 % (24-48); MEAN CORPUSCULAR HEMOGLOBIN 25 pg (25-35); MEAN CORPUSCULAR HGB CONC 33 g/dL (31-37); MEAN CORPUSCULAR VOLUME 77 fL (79-100); MONO # 0.5 x10^3/uL (0.0-1.1); MONO % 7 % (0-9); NEUT % 45 % (31-73); PLATELET COUNT 262 x10^3/uL (140-400); RED BLOOD COUNT 4.45 x10^6/uL (3.50-5.40); RED CELL DISTRIBUTION WIDTH 15.9 % (11.5-14.5); WHITE BLOOD COUNT 6.6 x10^3/uL (4.0-11.0)
--- NOTE | 2018-07-06 21:54 | PHYS DOC ---
Past Medical History Past Medical History: Anxiety, Asthma, CHF, Constipation, Depression, Hypertension, Hypothyroid, Other Additional Past Medical Histor: graves disease,lupus,pre-CA polyps Past Surgical History: Cholecystectomy, , Hysterectomy, Other Additional Past Surgical Histo: HERNIA REPAIR,NASAL POLYPS Alcohol Use: Sober Drug Use: None Adult General Chief Complaint Chief Complaint: SHORTNESS OF BREATH HPI HPI Patient is a 62 year old F who presents with shortness of breath and chest tightness. She says her asthma has been bothering her since Monday. She has been using inhalers at home with minimal relief. She says her chest typically gets tight due to her asthma. She denies chest pain. She denies vomiting or increased sputum production. She does not smoke drink or use any drugs. Review of Systems Review of Systems Constitutional: Denies fever or chills Eyes: Denies change in visual acuity, redness, or eye pain HENT: Denies nasal congestion or sore throat Respiratory: Endorses SOB Cardiovascular: Denies chest pain GI: Denies abdominal pain, nausea, vomiting, bloody stools or diarrhea : Denies dysuria or hematuria Musculoskeletal: Denies back pain or joint pain Integument: Denies rash or skin lesions Neurologic: Denies headache, focal weakness or sensory changes Endocrine: Denies polyuria or polydipsia All other systems were reviewed and found to be within normal limits, except as documented in this note. Current Medications Current Medications Current Medications Medications (Trade) Dose Ordered Sig/Indra Start Time Stop Time Status Last Admin Dose Admin Albuterol/ Ipratropium (Duoneb) 3 ml 1X ONCE 07/06/18 22:00 07/06/18 22:01 DC 07/06/18 22:18 3 ML Prednisone (Prednisone) 50 mg 1X ONCE 07/06/18 22:00 07/06/18 22:01 DC 07/06/18 21:53 50 MG Allergies Allergies Allergies Coded Allergies Type Severity Reaction Last Updated Verified NSAIDS (Non-Steroidal Anti-Inflamma Allergy Severe itching,throat"swells" Yes aspirin Allergy Severe Shortness of Air 06/05/18 Yes Sulfa (Sulfonamide Antibiotics) Allergy Intermediate 06/05/18 Yes ketorolac Allergy Intermediate 06/05/18 Yes sulfamethoxazole Allergy Intermediate 06/05/18 Yes trimethoprim Allergy Intermediate 06/05/18 Yes I S O L A T I O N *CONTACT* Allergy Unknown 10/17/17 Yes Physical Exam Physical Exam Constitutional: Well developed, well nourished, no acute distress, non-toxic appearance. HENT: Normocephalic, atraumatic, bilateral external ears normal, oropharynx moist, no oral exudates, nose normal. Eyes: PERRLA, EOMI, conjunctiva normal, no discharge. Neck: Normal range of motion, no tenderness, supple, no stridor. Cardiovascular:Heart rate regular rhythm, no murmur Lungs & Thorax: Bilateral breath sounds clear to auscultation Abdomen: Bowel sounds normal, soft, no tenderness, no masses, no pulsatile masses. Skin: Warm, dry, no erythema, no rash. Back: No tenderness, no CVA tenderness. Extremities: No tenderness, no cyanosis, no clubbing, ROM intact, no edema. Neurologic: Alert and oriented X 3, normal motor function, normal sensory function, no focal deficits noted. Psychologic: Affect normal, judgement normal, mood normal. Current Patient Data Vital Signs Vital Signs Date Time Temp Pulse Resp B/P (MAP) Pulse Ox O2 Delivery O2 Flow Rate FiO2 07/06/18 22:45 74 18 150/95 (113) 97 Room Air 07/06/18 20:20 97.9 97.9 Lab Values Laboratory Tests Test 07/06/18 21:30 White Blood Count 6.6 x10^3/uL (4.0-11.0) Red Blood Count 4.45 x10^6/uL (3.50-5.40) Hemoglobin 11.1 g/dL (12.0-15.5) L Hematocrit 34.1 % (36.0-47.0) L Mean Corpuscular Volume 77 fL (79-100) L Mean Corpuscular Hemoglobin 25 pg (25-35) Mean Corpuscular Hemoglobin Concent 33 g/dL (31-37) Red Cell Distribution Width 15.9 % (11.5-14.5) H Platelet Count 262 x10^3/uL (140-400) Neutrophils (%) (Auto) 45 % (31-73) Lymphocytes (%) (Auto) 36 % (24-48) Monocytes (%) (Auto) 7 % (0-9) Eosinophils (%) (Auto) 11 % (0-3) H Basophils (%) (Auto) 1 % (0-3) Neutrophils # (Auto) 3.0 x10^3uL (1.8-7.7) Lymphocytes # (Auto) 2.4 x10^3/uL (1.0-4.8) Monocytes # (Auto) 0.5 x10^3/uL (0.0-1.1) Eosinophils # (Auto) 0.7 x10^3/uL (0.0-0.7) Basophils # (Auto) 0.1 x10^3/uL (0.0-0.2) Sodium Level 143 mmol/L (136-145) Potassium Level 4.0 mmol/L (3.5-5.1) Chloride Level 107 mmol/L (98-107) Carbon Dioxide Level 27 mmol/L (21-32) Anion Gap 9 (6-14) Blood Urea Nitrogen 11 mg/dL (7-20) Creatinine 1.5 mg/dL (0.6-1.0) H Estimated GFR (Cockcroft-Gault) 42.9 BUN/Creatinine Ratio 7 (6-20) Glucose Level 102 mg/dL (70-99) H Calcium Level 10.0 mg/dL (8.5-10.1) Total Bilirubin 0.6 mg/dL (0.2-1.0) Aspartate Amino Transferase (AST) 15 U/L (15-37) Alanine Aminotransferase (ALT) 19 U/L (14-59) Alkaline Phosphatase 62 U/L (46-116) Troponin I Quantitative 0.029 ng/mL (0.000-0.055) GY-Egi-A-Type Natriuretic Peptide 264 pg/mL (0-124) H Total Protein 7.5 g/dL (6.4-8.2) Albumin 3.4 g/dL (3.4-5.0) Albumin/Globulin Ratio 0.8 (1.0-1.7) L Laboratory Tests 07/06/18 21:30 Laboratory Tests 07/06/18 21:30 EKG EKG [] Radiology/Procedures Radiology/Procedures [] Course & Med Decision Making Course & Med Decision Making Pertinent Labs and Imaging studies reviewed. (See chart for details) 62-year-old female presents for asthma, shortness of breath, chest tightness. On exam patient is well-appearing and her lungs are clear. Her oxygen saturation is 100% on room air. Her blood pressure is quite high, she reports taking her usual meds today. Duo nebs and prednisone ordered EKG shows sinus rhythm 87 bpm, no ST elevation or depression, [place] is 216 BP improved. CP improved. Admit for ACS rule out. Dragon Disclaimer Dragon Disclaimer This electronic medical record was generated, in whole or in part, using a voice recognition dictation system. Departure Departure Impression: Primary Impression: Asthma Additional Impression: Chest pain Disposition: ADMITTED INPATIENT Admitting Physician: Dennys Burciaga Condition: IMPROVED Referrals: UNKNOWN PCP NAME (PCP) Problem Qualifiers LENORE FLORES MD July 06, 2018 21:54
[2018-07-06 21:57] LABS: CREATININE 1.5 mg/dL (0.6-1.0); GFR 42.9
[2018-07-06] MEDS ORDERED: IPRATRPIUM/ALBUTEROL 0.5/2.5MG 3 ML NEBU. NEB ONE (22:00)
[2018-07-06] MEDS ORDERED: predniSONE 10 MG TABLET PO ONE (22:00)
[2018-07-06 22:02] LABS: ALBUMIN 3.4 g/dL (3.4-5.0); ALBUMIN/GLOBULIN RATIO 0.8 (1.0-1.7); TOTAL BILIRUBIN 0.6 mg/dL (0.2-1.0); TOTAL PROTEIN 7.5 g/dL (6.4-8.2)
[2018-07-07 00:49] VITALS: BP 171/101
[2018-07-07] MEDS ORDERED: PRED50TA PO (01:55)
[2018-07-07] MEDS ORDERED: CITA40TA5 PO (01:55)
[2018-07-07] MEDS ORDERED: LEVO150T5 PO (01:55)
[2018-07-07] MEDS ORDERED: BENZ200C47 PO (01:55)
[2018-07-07] MEDS ORDERED: PROM118S5 PO (01:55)
[2018-07-07] MEDS ORDERED: LOSA1TAB19 PO ×2 (01:55→11:21)
[2018-07-07] MEDS ORDERED: HYDR-2869 PO ×2 (01:55→11:21)
[2018-07-07] MEDS ORDERED: EMU OIL TOP (01:55)
[2018-07-07] MEDS ORDERED: ARIP5TAB13 PO (01:55)
[2018-07-07] MEDS ORDERED: BUDE10.2 IH ×2 (01:55→11:21)
[2018-07-07] MEDS ORDERED: HYDR-2761 PO ×2 (01:55→11:21)
[2018-07-07] MEDS ORDERED: CARV6.2511 PO ×2 (01:55→11:21)
[2018-07-07] MEDS ORDERED: FLUT9.9S NS (01:55)
[2018-07-07] MEDS ORDERED: ACET500T68 PO (01:55)
[2018-07-07] MEDS ORDERED: MULT-650 PO (01:55)
[2018-07-07 03:39] VITALS: BP 159/97
[2018-07-07 07:00] VITALS: BP 145/81
[2018-07-07] MEDS ORDERED: PROMETHAZINE HCL PO PRN (08:15)
[2018-07-07] MEDS ORDERED: DEXTROSE 50% 25 GM / 50ML DISP.SYRIN. IV PRN (08:15)
[2018-07-07] MEDS ORDERED: HYDROcodone/APAP 5/325MG 1 TAB TABLET PO PRN (08:15)
[2018-07-07] MEDS ORDERED: guaiFENesin DM 200MG/20MG 10 ML SYRUP PO PRN (08:15)
[2018-07-07] MEDS ORDERED: EMU OIL TOP PRN (08:15)
[2018-07-07] MEDS ORDERED: CODEINE PO PRN (08:15)
[2018-07-07] MEDS ORDERED: ACETAMINOPHEN 500 MG TABLET PO PRN (08:30)
[2018-07-07] MEDS ORDERED: hydroCHLOROthiazide 12.5 MG CAPSULE PO SCH (09:00)
[2018-07-07] MEDS ORDERED: metFORMIN 500 MG TABLET PO SCH (09:00)
[2018-07-07] MEDS ORDERED: ARIPiprazole 5 MG TABLET PO SCH (09:00)
[2018-07-07] MEDS ORDERED: LOSARTAN POTASSIUM 50 MG TABLET. PO SCH (09:00)
[2018-07-07] MEDS ORDERED: FLUTICASONE 50MCG/NASAL SPRAY 16GM BOTTLE. NS SCH (09:00)
[2018-07-07] MEDS ORDERED: SPIRONOLACTONE 25 MG TABLET PO SCH (09:00)
[2018-07-07] MEDS ORDERED: predniSONE 20 MG TABLET PO SCH (09:00)
[2018-07-07] MEDS ORDERED: NON FORMULARY ITEM (Losartan/Hydrochlorothiazide (Losartan-Hctz 50-12.5 Mg Tab) 1 EACH) PO SCH (09:00)
[2018-07-07] MEDS ORDERED: LEVOTHYROXINE 150 MCG TABLET PO SCH (09:00)
[2018-07-07] MEDS ORDERED: FUROSEMIDE 40 MG TABLET. PO SCH (09:00)
[2018-07-07] MEDS ORDERED: MULTIVITAMIN with MINERAL TABLET. PO SCH (09:00)
[2018-07-07] MEDS ORDERED: CARVEDILOL 6.25 MG TABLET. PO SCH (09:00)
[2018-07-07] MEDS ORDERED: IPRATRPIUM/ALBUTEROL 0.5/2.5MG 3 ML NEBU. NEB SCH (09:00)
[2018-07-07] MEDS ORDERED: PANTOPRAZOLE 40 MG TABLET.DR. PO SCH (09:00)
[2018-07-07] MEDS ORDERED: CITALOPRAM 20 MG TABLET. PO SCH (09:00)
[2018-07-07] MEDS ORDERED: POLYETHYLENE GLYCOL 3350 17 GM PACKET. PO PRN (09:00)
[2018-07-07] MEDS ORDERED: BENZONATATE 100 MG CAPSULE. PO PRN (09:00)
[2018-07-07 11:00] VITALS: BP 131/83
[2018-07-07] MEDS ORDERED: ALBU2.5V5 NEB (11:21)
[2018-07-07] MEDS ORDERED: MONT10TA9 PO (11:21)
[2018-07-07] MEDS ORDERED: SPIR25TA5 PO (11:21)
[2018-07-07] MEDS ORDERED: HYDR12.575 PO (11:21)
--- NOTE | 2018-07-07 11:28 | PDOC1 ---
History and Physical Date of Admission Date of Admission DATE: 07/07/18 TIME: 11:25 Identification/Chief Complaint Chief Complaint Chest tightness, with SOA and cough Source Source: Caregiver, Chart review, Patient History of Present Illness History of Present Illness She is a 62-year-old female with asthma recently ran out of inhalers, never smoker, known history of asthma. Chest tightness with SOA on dry cough. Chest x- ray is normal. Feels better after treatment breathing nebs, Solu-Medrol. Labs are unremarkable. Agreeable and wants to go home today with prescriptions of inhalers etc. I have reconciled home meds. She also is on multiple blood pressure medications, hypothyroidism on Synthroid and dyslipidemia or diabetes only on OHA Took some time for me to write all her home rx refills COnsults; none PRoc; CXR Past Medical History Cardiovascular: CHF, HTN, Other Pulmonary: Asthma, COPD CENTRAL NERVOUS SYSTEM: Periperal neuropathy, Other GI: Constipation, GERD Heme/Onc: Other Hepatobiliary: Other Psych: Depression Musculoskeletal: Osteoarthritis, Other Renal/: UTI Endocrine: Hypothyroidism Past Surgical History Past Surgical History: Cholecystectomy, , Hernia Repair, Hysterectomy Family History Family History: Hypertension Social History Smoke: No ALCOHOL: none Drugs: None Current Problem List Problem List Problems Medical Problems: (1) Asthma Status: Acute (2) Chest pain Status: Acute Current Medications Current Medications Current Medications Albuterol/ Ipratropium (Duoneb) 3 ml 1X ONCE NEB Last administered on 07/06/18at 22:18; Start 07/06/18 at 22:00; Stop 07/06/18 at 22:01; Status DC Prednisone (Prednisone) 50 mg 1X ONCE PO Last administered on 07/06/18at 21:53; Start 07/06/18 at 22:00; Stop 07/06/18 at 22:01; Status DC Albuterol/ Ipratropium (Duoneb) 3 ml RTQID NEB ; Start 07/07/18 at 09:00 Guaifenesin (Robitussin Dm) 10 ml PRN Q6HRS PRN PO COUGH; Start 07/07/18 at 08:15 Prednisone (Prednisone) 50 mg DAILY PO Last administered on 07/07/18at 09:35; Start 07/07/18 at 09:00 Aripiprazole (Abilify) 5 mg DAILY PO ; Start 07/07/18 at 09:00 Carvedilol (Coreg) 6.25 mg BIDWMEALS PO Last administered on 07/07/18at 09:41; Start 07/07/18 at 09:00 Doxepin HCl (SINEquan) 25 mg QHS PO ; Start 07/07/18 at 21:00 Furosemide (Lasix) 40 mg DAILY PO Last administered on 07/07/18at 09:35; Start 07/07/18 at 09:00 Acetaminophen/ Hydrocodone Bitart (Lortab 5/325) 1 tab PRN Q4HRS PRN PO MODERATE PAIN; Start 07/07/18 at 08:15 Trazodone HCl (Desyrel) 100 mg HS PO ; Start 07/07/18 at 21:00 Acetaminophen (Tylenol) 1,000 mg PRN Q6HRS PRN PO MILD PAIN / TEMP; Start 07/07/18 at 08:30 Benzonatate (Tessalon Perle) 100 mg PRN TID PRN PO COUGH 2ND CHOICE; Start 07/07/18 at 09:00 Citalopram Hydrobromide (CeleXA) 40 mg DAILY PO ; Start 07/07/18 at 09:00 Fluticasone Propionate (Flonase) 2 spray DAILY NS Last administered on 9at 09:36; Start 07/07/18 at 09:00 Hydralazine HCl (Apresoline) 50 mg TID PO Last administered on 07/07/18at 09:34; Start 07/07/18 at 09:00 Levothyroxine Sodium (Synthroid) 150 mcg DAILY06 PO Last administered on 07/07/18at 09:31; Start 07/07/18 at 09:00 Non-Formulary Medication (Losartan/ Hydrochlorothiazide (Losartan-Hctz 50-12.5 Mg Tab)) 1 each DAILY PO ; Start 07/07/18 at 09:00; Status UNV Metformin HCl (Glucophage) 1,000 mg BIDWMEALS PO Last administered on 07/07/18at 09:32; Start 07/07/18 at 09:00 Montelukast Sodium (Singulair) 10 mg QHS PO ; Start 07/07/18 at 21:00 Multivitamins (Thera M Plus) 1 tab DAILY PO Last administered on 07/07/18at 09:31; Start 07/07/18 at 09:00 Pantoprazole Sodium (Protonix) 40 mg DAILYAC PO Last administered on 07/07/18at 09:32; Start 07/07/18 at 09:00 Polyethylene Glycol (miraLAX PACKET) 17 gm PRN DAILY PRN PO CONSTIPATION; Start 07/07/18 at 09:00 Non-Formulary Medication (Promethazine Hcl/Codeine (Promethazine-Codeine Syrup)) 5 ml PRN Q6HRS PRN PO COUGH; Start 07/07/18 at 08:15; Status UNV Risperidone (RisperDAL) 1 mg QHS PO ; Start 07/07/18 at 21:00 Spironolactone (Aldactone) 12.5 mg DAILY PO Last administered on 07/07/18at 09:34; Start 07/07/18 at 09:00 Non-Formulary Medication ([emu oil] ) 1 ml TID PRN PRN TOP PAIN; Start 07/07/18 at 08:15; Status UNV Insulin Human Lispro (HumaLOG) 0-9 UNITS TIDWMEALS SQ ; Start 07/07/18 at 12:00 Dextrose (Dextrose 50%-Water Syringe) 12.5 gm PRN Q15MIN PRN IV SEE COMMENTS; Start 07/07/18 at 08:15 Losartan Potassium (Cozaar) 50 mg DAILY PO ; Start 07/07/18 at 09:00 Hydrochlorothiazide (Microzide) 12.5 mg DAILY PO Last administered on 07/07/18at 09:33; Start 07/07/18 at 09:00 Active Scripts Active Hydrocodone-Apap 5-325 (Hydrocodone Bit/Acetaminophen) 1 Tab Tablet 1 Tab PO PRN Q4HRS PRN MDD 1 Symbicort 160-4.5 Mcg Inhaler (Budesonide/Formoterol Fumarate) 10.2 Gm Hfa.aer.ad 2 Puff IH BID MDD 1 Albuterol Sulfate Neb Soln (Albuterol Sulfate) 2.5 Mg/3 Ml Vial.neb 1 Vial NEB PRN Q4HRS MDD 1 Montelukast Sodium Tablet (Montelukast Sodium) 10 Mg Tablet 10 Mg PO HS MDD 1 Ipratropium [place] 0.2 Mg/1 Ml Solution 1 Vial NEB Q6HRS Proair Hfa (Albuterol Sulfate) 8.5 Gm Hfa.aer.ad 8.5 Gm IH Q6-8HRS PRN Miralax (Polyethylene Glycol 3350) 119 Gm Powder 17 Gm PO DAILY PRN Cozaar (Losartan Potassium) 100 Mg Tablet 100 Mg PO DAILY 30 Days Reported Promethazine-Codeine Syrup (Promethazine Hcl/Codeine) 118 Ml Syrup 5 Ml PO PRN Q6HRS PRN Prednisone 50 Mg Tablet 50 Mg PO DAILY Levothyroxine Sodium 150 Mcg Tablet 150 Mcg PO DAILYAC Flonase Allergy Relief (Fluticasone Propionate) 9.9 Ml [place].susp 2 Sprays NS DAILY [emu oil] 1 Ml TOP TID PRN PRN Citalopram Hbr (Citalopram Hydrobromide) 40 Mg Tablet 40 Mg PO DAILY Centrum Silver Women Tablet (Multivits-Min/Iron/FA/Lutein) 1 Each Tablet 1 Each PO DAILY Benzonatate 200 Mg Capsule 200 Mg PO TID PRN Abilify (Aripiprazole) 5 Mg Tablet 5 Mg PO DAILY Acetaminophen 500 Mg Tablet 1,000 Mg PO PRN Q6HRS PRN Trazodone Hcl 100 Mg Tablet 100 Mg PO HS Protonix (Pantoprazole Sodium) 20 Mg Tablet.dr 40 Mg PO DAILY Metformin Hcl 1,000 Mg Tablet 1,000 Mg PO BIDWMEALS Risperdal (Risperidone) 1 Mg Tablet 1 Mg PO QHS Doxepin Hcl 10 Mg Capsule 25 Mg PO QHS Furosemide 40 Mg Tablet 40 Mg PO DAILY Epipen (Epinephrine) 0.3 Mg/0.3 Ml Auto.injct 0.3 Mg IJ PRN Allergies Allergies: Coded Allergies: NSAIDS (Non-Steroidal Anti-Inflamma (Verified Allergy, Severe, itching,throat"swells", 06/05/18) aspirin (Verified Allergy, Severe, Shortness of Air, 06/05/18) Sulfa (Sulfonamide Antibiotics) (Verified Allergy, Intermediate, 06/05/18) ketorolac (Verified Allergy, Intermediate, 06/05/18) sulfamethoxazole (Verified Allergy, Intermediate, 06/05/18) trimethoprim (Verified Allergy, Intermediate, 06/05/18) I S O L A T I O N *CONTACT* (Verified Allergy, Unknown, 10/17/17) mrsa ROS Review of System As per history of present illness, the rest of ROS 14 point negative Physical Exam General: Alert, Oriented X3, Cooperative, No acute distress HEENT: Atraumatic, PERRLA, EOMI Lungs: Clear to auscultation, Normal air movement, Other (diminished breath sounds but equal air exchange and no crackles or wheezing on auscultation) Heart: S1S2, RRR, no thrills, no rubs, no gallops, no murmurs Cardiovascular: S1 Breasts: Normal, Rt breast nml w/o mass, Lt breast nml w/o mass, Nipples normal Abdomen: Normal bowel sounds, Soft, No tenderness, No hepatosplenomegaly, No masses Rectal Exam: not examined PELVIC: Nml ext genitalia Extremities: No clubbing, No cyanosis, No edema, Normal pulses, No tenderness/swelling Skin: No rashes, No breakdown, No significant lesion Neuro: Normal gait, Normal speech, Strength at 5/5 X4 ext, Normal tone, Sensation intact, Cranial nerves 3-12 NL, Reflexes 2+ Psych/Mental Status: Mental status NL, Mood NL Vitals Vitals Vital Signs Date Time Temp Pulse Resp B/P (MAP) Pulse Ox O2 Delivery O2 Flow Rate FiO2 07/07/18 09:41 74 145/81 07/07/18 08:00 Room Air 07/07/18 07:00 97.9 16 95 97.9 Labs Labs Laboratory Tests Test 07/06/18 21:30 White Blood Count 6.6 x10^3/uL (4.0-11.0) Red Blood Count 4.45 x10^6/uL (3.50-5.40) Hemoglobin 11.1 g/dL (12.0-15.5) Hematocrit 34.1 % (36.0-47.0) Mean Corpuscular Volume 77 fL (79-100) Mean Corpuscular Hemoglobin 25 pg (25-35) Mean Corpuscular Hemoglobin Concent 33 g/dL (31-37) Red Cell Distribution Width 15.9 % (11.5-14.5) Platelet Count 262 x10^3/uL (140-400) Neutrophils (%) (Auto) 45 % (31-73) Lymphocytes (%) (Auto) 36 % (24-48) Monocytes (%) (Auto) 7 % (0-9) Eosinophils (%) (Auto) 11 % (0-3) Basophils (%) (Auto) 1 % (0-3) Neutrophils # (Auto) 3.0 x10^3uL (1.8-7.7) Lymphocytes # (Auto) 2.4 x10^3/uL (1.0-4.8) Monocytes # (Auto) 0.5 x10^3/uL (0.0-1.1) Eosinophils # (Auto) 0.7 x10^3/uL (0.0-0.7) Basophils # (Auto) 0.1 x10^3/uL (0.0-0.2) Sodium Level 143 mmol/L (136-145) Potassium Level 4.0 mmol/L (3.5-5.1) Chloride Level 107 mmol/L (98-107) Carbon Dioxide Level 27 mmol/L (21-32) Anion Gap 9 (6-14) Blood Urea Nitrogen 11 mg/dL (7-20) Creatinine 1.5 mg/dL (0.6-1.0) Estimated GFR (Cockcroft-Gault) 42.9 BUN/Creatinine Ratio 7 (6-20) Glucose Level 102 mg/dL (70-99) Calcium Level 10.0 mg/dL (8.5-10.1) Total Bilirubin 0.6 mg/dL (0.2-1.0) Aspartate Amino Transf (AST/SGOT) 15 U/L (15-37) Alanine Aminotransferase (ALT/SGPT) 19 U/L (14-59) Alkaline Phosphatase 62 U/L (46-116) Troponin I Quantitative 0.029 ng/mL (0.000-0.055) DB-Vsz-S-Type Natriuretic Peptide 264 pg/mL (0-124) Total Protein 7.5 g/dL (6.4-8.2) Albumin 3.4 g/dL (3.4-5.0) Albumin/Globulin Ratio 0.8 (1.0-1.7) Laboratory Tests Test 07/06/18 21:30 White Blood Count 6.6 x10^3/uL (4.0-11.0) Red Blood Count 4.45 x10^6/uL (3.50-5.40) Hemoglobin 11.1 g/dL (12.0-15.5) Hematocrit 34.1 % (36.0-47.0) Mean Corpuscular Volume 77 fL (79-100) Mean Corpuscular Hemoglobin 25 pg (25-35) Mean Corpuscular Hemoglobin Concent 33 g/dL (31-37) Red Cell Distribution Width 15.9 % (11.5-14.5) Platelet Count 262 x10^3/uL (140-400) Neutrophils (%) (Auto) 45 % (31-73) Lymphocytes (%) (Auto) 36 % (24-48) Monocytes (%) (Auto) 7 % (0-9) Eosinophils (%) (Auto) 11 % (0-3) Basophils (%) (Auto) 1 % (0-3) Neutrophils # (Auto) 3.0 x10^3uL (1.8-7.7) Lymphocytes # (Auto) 2.4 x10^3/uL (1.0-4.8) Monocytes # (Auto) 0.5 x10^3/uL (0.0-1.1) Eosinophils # (Auto) 0.7 x10^3/uL (0.0-0.7) Basophils # (Auto) 0.1 x10^3/uL (0.0-0.2) Sodium Level 143 mmol/L (136-145) Potassium Level 4.0 mmol/L (3.5-5.1) Chloride Level 107 mmol/L (98-107) Carbon Dioxide Level 27 mmol/L (21-32) Anion Gap 9 (6-14) Blood Urea Nitrogen 11 mg/dL (7-20) Creatinine 1.5 mg/dL (0.6-1.0) Estimated GFR (Cockcroft-Gault) 42.9 BUN/Creatinine Ratio 7 (6-20) Glucose Level 102 mg/dL (70-99) Calcium Level 10.0 mg/dL (8.5-10.1) Total Bilirubin 0.6 mg/dL (0.2-1.0) Aspartate Amino Transf (AST/SGOT) 15 U/L (15-37) Alanine Aminotransferase (ALT/SGPT) 19 U/L (14-59) Alkaline Phosphatase 62 U/L (46-116) Troponin I Quantitative 0.029 ng/mL (0.000-0.055) XG-Sbh-U-Type Natriuretic Peptide 264 pg/mL (0-124) Total Protein 7.5 g/dL (6.4-8.2) Albumin 3.4 g/dL (3.4-5.0) Albumin/Globulin Ratio 0.8 (1.0-1.7) VTE Prophylaxis Ordered VTE Prophylaxis Devices: Yes VTE Pharmacological Prophylaxi: Yes Assessment/Plan Assessment/Plan Chest tightness secondary to asthma exacerbation NO PNA or infiltrates on chest x-ray Never smoker History CHF hypertension, diabetes, dyslipidemia, hyperthyroidism CHRONIC stable Plan okay for home today, refills of inhalers on chart Patient seen and examined SONY RIVAS MD July 07, 2018 11:28
--- NOTE | 2018-07-07 11:29 | PDOC3 ---
Discharge Summary Visit Information Date of Admission: July 06, 2018 Date of Discharge: July 07, 2018 Admitting Diagnosis Comment: Chest tightness sec to asthma exacerbation Asmanex exacerbation, no pneumonia on x-ray Obesity, BMI 41 CHF, hypertension, diabetes, dyslipidemia, hypothy- all-chronic stable Final Diagnosis Problems Medical Problems: (1) Asthma Status: Acute (2) Chest pain Status: Acute Brief Hospital Course Allergies Allergies Coded Allergies Type Severity Reaction Last Updated Verified NSAIDS (Non-Steroidal Anti-Inflamma Allergy Severe itching,throat"swells" 06/05/18 Yes aspirin Allergy Severe Shortness of Air 06/05/18 Yes Sulfa (Sulfonamide Antibiotics) Allergy Intermediate 06/05/18 Yes ketorolac Allergy Intermediate 06/05/18 Yes sulfamethoxazole Allergy Intermediate 06/05/18 Yes trimethoprim Allergy Intermediate 06/05/18 Yes I S O L A T I O N *CONTACT* Allergy Unknown 10/17/17 Yes Vital Signs Vital Signs Date Time Temp Pulse Resp B/P (MAP) Pulse Ox O2 Delivery O2 Flow Rate FiO2 07/07/18 09:41 74 145/81 07/07/18 08:00 Room Air 07/07/18 07:00 97.9 16 95 97.9 Lab Results Laboratory Tests Test 07/06/18 21:30 White Blood Count 6.6 x10^3/uL (4.0-11.0) Red Blood Count 4.45 x10^6/uL (3.50-5.40) Hemoglobin 11.1 g/dL (12.0-15.5) Hematocrit 34.1 % (36.0-47.0) Mean Corpuscular Volume 77 fL (79-100) Mean Corpuscular Hemoglobin 25 pg (25-35) Mean Corpuscular Hemoglobin Concent 33 g/dL (31-37) Red Cell Distribution Width 15.9 % (11.5-14.5) Platelet Count 262 x10^3/uL (140-400) Neutrophils (%) (Auto) 45 % (31-73) Lymphocytes (%) (Auto) 36 % (24-48) Monocytes (%) (Auto) 7 % (0-9) Eosinophils (%) (Auto) 11 % (0-3) Basophils (%) (Auto) 1 % (0-3) Neutrophils # (Auto) 3.0 x10^3uL (1.8-7.7) Lymphocytes # (Auto) 2.4 x10^3/uL (1.0-4.8) Monocytes # (Auto) 0.5 x10^3/uL (0.0-1.1) Eosinophils # (Auto) 0.7 x10^3/uL (0.0-0.7) Basophils # (Auto) 0.1 x10^3/uL (0.0-0.2) Sodium Level 143 mmol/L (136-145) Potassium Level 4.0 mmol/L (3.5-5.1) Chloride Level 107 mmol/L (98-107) Carbon Dioxide Level 27 mmol/L (21-32) Anion Gap 9 (6-14) Blood Urea Nitrogen 11 mg/dL (7-20) Creatinine 1.5 mg/dL (0.6-1.0) Estimated GFR (Cockcroft-Gault) 42.9 BUN/Creatinine Ratio 7 (6-20) Glucose Level 102 mg/dL (70-99) Calcium Level 10.0 mg/dL (8.5-10.1) Total Bilirubin 0.6 mg/dL (0.2-1.0) Aspartate Amino Transf (AST/SGOT) 15 U/L (15-37) Alanine Aminotransferase (ALT/SGPT) 19 U/L (14-59) Alkaline Phosphatase 62 U/L (46-116) Troponin I Quantitative 0.029 ng/mL (0.000-0.055) CJ-Tgb-G-Type Natriuretic Peptide 264 pg/mL (0-124) Total Protein 7.5 g/dL (6.4-8.2) Albumin 3.4 g/dL (3.4-5.0) Albumin/Globulin Ratio 0.8 (1.0-1.7) Laboratory Tests Test 07/06/18 21:30 White Blood Count 6.6 x10^3/uL (4.0-11.0) Red Blood Count 4.45 x10^6/uL (3.50-5.40) Hemoglobin 11.1 g/dL (12.0-15.5) Hematocrit 34.1 % (36.0-47.0) Mean Corpuscular Volume 77 fL (79-100) Mean Corpuscular Hemoglobin 25 pg (25-35) Mean Corpuscular Hemoglobin Concent 33 g/dL (31-37) Red Cell Distribution Width 15.9 % (11.5-14.5) Platelet Count 262 x10^3/uL (140-400) Neutrophils (%) (Auto) 45 % (31-73) Lymphocytes (%) (Auto) 36 % (24-48) Monocytes (%) (Auto) 7 % (0-9) Eosinophils (%) (Auto) 11 % (0-3) Basophils (%) (Auto) 1 % (0-3) Neutrophils # (Auto) 3.0 x10^3uL (1.8-7.7) Lymphocytes # (Auto) 2.4 x10^3/uL (1.0-4.8) Monocytes # (Auto) 0.5 x10^3/uL (0.0-1.1) Eosinophils # (Auto) 0.7 x10^3/uL (0.0-0.7) Basophils # (Auto) 0.1 x10^3/uL (0.0-0.2) Sodium Level 143 mmol/L (136-145) Potassium Level 4.0 mmol/L (3.5-5.1) Chloride Level 107 mmol/L (98-107) Carbon Dioxide Level 27 mmol/L (21-32) Anion Gap 9 (6-14) Blood Urea Nitrogen 11 mg/dL (7-20) Creatinine 1.5 mg/dL (0.6-1.0) Estimated GFR (Cockcroft-Gault) 42.9 BUN/Creatinine Ratio 7 (6-20) Glucose Level 102 mg/dL (70-99) Calcium Level 10.0 mg/dL (8.5-10.1) Total Bilirubin 0.6 mg/dL (0.2-1.0) Aspartate Amino Transf (AST/SGOT) 15 U/L (15-37) Alanine Aminotransferase (ALT/SGPT) 19 U/L (14-59) Alkaline Phosphatase 62 U/L (46-116) Troponin I Quantitative 0.029 ng/mL (0.000-0.055) LL-Obl-M-Type Natriuretic Peptide 264 pg/mL (0-124) Total Protein 7.5 g/dL (6.4-8.2) Albumin 3.4 g/dL (3.4-5.0) Albumin/Globulin Ratio 0.8 (1.0-1.7) Brief Hospital Course Ms. Mckeon is a 62 old [sex] who presented with [ ] She is a 62-year-old female with asthma recently ran out of inhalers, never smoker, known history of asthma. Chest tightness with SOA on dry cough. Chest x- ray is normal. Feels better after treatment breathing nebs, Solu-Medrol. Labs are unremarkable. Agreeable and wants to go home today with prescriptions of inhalers etc. I have reconciled home meds. She also is on multiple blood pressure medications, hypothyroidism on Synthroid and dyslipidemia or diabetes only on OHA Took some time for me to write all her home rx refills COnsults; none PRoc; CXR Discharge Information Condition at Discharge: Improved, Stable Disposition/Orders: D/C to Home Scheduled Albuterol Sulfate (Albuterol Sulfate Neb Soln) 2.5 Mg/3 Ml Vial.neb, 1 VIAL NEB PRN Q4HRS for asthma MDD 1, #50 Prescribed by: SONY RIVAS on 07/07/181120 Aripiprazole (Abilify) 5 Mg Tablet, 5 MG PO DAILY for mood, (Reported) Entered as Reported by: JARETT GIORDANO on 07/07/18154 Last Action: Continued on 07/07/18812 by SONY RIVAS Budesonide/Formoterol Fumarate (Symbicort 160-4.5 Mcg Inhaler) 10.2 Gm Hfa.aer.ad, 2 PUFF IH BID for copd MDD 1, #1 Prescribed by: SONY RIVAS on 07/07/181120 Citalopram Hydrobromide (Citalopram Hbr) 40 Mg Tablet, 40 MG PO DAILY for mood, (Reported) Entered as Reported by: JARETT GIORDANO on 07/07/18154 Last Action: Converted on 07/07/18812 by SONY RIVAS Doxepin Hcl (Doxepin Hcl) 10 Mg Capsule, 25 MG PO QHS for sleep, (Reported) Entered as Reported by: ASHLY NUNN on 06/05/18 09 Last Action: Continued on 07/07/18812 by SONY RIVAS Fluticasone Propionate (Flonase Allergy Relief) 9.9 Ml [place].susp, 2 SPRAYS NS DAILY for allergies, (Reported) Entered as Reported by: JARETT GIORDANO on 07/07/18154 Last Action: Converted on 07/07/18812 by SONY RIVAS Furosemide (Furosemide) 40 Mg Tablet, 40 MG PO DAILY for water, (Reported) Entered as Reported by: ASHLY NUNN on 06/05/18916 Last Action: Continued on 07/07/18812 by SONY RIVAS Ipratropium Spencer (Ipratropium Spencer) 0.2 Mg/1 Ml Solution, 1 VIAL NEB Q6HRS, #1 Ref 0 Prescribed by: LYNETTE INFANTE DO on 01/19/18 1248 Last Action: HELD on 07/07/18812 by SONY RIVAS Levothyroxine Sodium (Levothyroxine Sodium) 150 Mcg Tablet, 150 MCG PO DAILYAC for THYROID SUPPLEMENT, #30 Ref 0 (Reported) Entered as Reported by: JARETT GIORDANO on 07/07/18154 Last Action: Converted on 07/07/18812 by SONY RIVAS Losartan Potassium (Cozaar) 100 Mg Tablet, 100 MG PO DAILY for 30 Days, #30 Ref 7 Prescribed by: MARCELO RUSS on 11/13/16 1340 Last Action: HELD on 07/07/18812 by SONY RIVAS Metformin Hcl (Metformin Hcl) 1,000 Mg Tablet, 1,000 MG PO BIDWMEALS for iddm, (Reported) Entered as Reported by: ASHLY NUNN on 06/05/18916 Last Action: Converted on 07/07/18812 by SONY RIVAS Montelukast Sodium (Montelukast Sodium Tablet) 10 Mg Tablet, 10 MG PO HS for asthma MDD 1, #30 Ref 5 Prescribed by: SONY RIVAS on 07/07/18 1121 Multivits-Min/Iron/FA/Lutein (Centrum Silver Women Tablet) 1 Each Tablet, 1 EACH PO DAILY for supplement, (Reported) Entered as Reported by: JARETT GIORDANO on 07/07/18154 Last Action: Converted on 07/07/18812 by SONY RIVAS Pantoprazole Sodium (Protonix) 20 Mg Tablet.dr, 40 MG PO DAILY for gerd, (Reported) Entered as Reported by: ASHLY NUNN on 06/05/18916 Last Action: Converted on 07/07/18812 by SONY RIVAS Prednisone (Prednisone) 50 Mg Tablet, 50 MG PO DAILY for antiinflammatory, (Reported) Entered as Reported by: JARETT GIORDANO on 07/07/18154 Last Action: HELD on 07/07/18812 by SONY RIVAS Risperidone (Risperdal) 1 Mg Tablet, 1 MG PO QHS for MOOD STABILIZER, (Reported) Entered as Reported by: ASHLY NUNN on 06/05/18916 Last Action: Converted on 07/07/18812 by SONY RIVAS Trazodone Hcl (Trazodone Hcl) 100 Mg Tablet, 100 MG PO HS for sleep, (Reported) Entered as Reported by: ASHLY NUNN on 06/05/18916 Last Action: Continued on 07/07/18812 by SONY RIVAS Scheduled PRN Acetaminophen (Acetaminophen) 500 Mg Tablet, 1,000 MG PO PRN Q6HRS PRN for PAIN, (Reported) Entered as Reported by: JARETT GIORDANO on 07/07/18154 Last Action: Converted on 07/07/18812 by SONY RIVAS Albuterol Sulfate (Proair Hfa) 8.5 Gm Hfa.aer.ad, 8.5 GM IH Q6-8HRS PRN for WHEEZING, #5 Ref 1 Prescribed by: JOSELYN GOODSON on 11/18/172114 Last Action: HELD on 07/07/18812 by SONY RIVAS Benzonatate (Benzonatate) 200 Mg Capsule, 200 MG PO TID PRN for COUGH, (Reported) Entered as Reported by: JARETT GIORDANO on 07/07/18154 Last Action: Converted on 07/07/18812 by SONY RIVAS Epinephrine (Epipen) 0.3 Mg/0.3 Ml Auto.injct, 0.3 MG IJ for ANAPHYLAXIS, (Reported) Entered as Reported by: Ron Mesa on 05/25/17 1210 Last Action: Reviewed on 07/07/18 0146 by JARETT GIORDANO Hydrocodone Bit/Acetaminophen (Hydrocodone-Apap 5-325 ) 1 Tab Tablet, 1 TAB PO PRN Q4HRS PRN for PAIN MDD 1, #10 Ref 0 Prescribed by: SONY RIVAS on 07/07/18 1121 Polyethylene Glycol 3350 (Miralax) 119 Gm Powder, 17 GM PO DAILY PRN for CONSTIPATION, #527 Prescribed by: CHINEDU YOUNGBLOOD on 02/15/17 0059 Last Action: Converted on 07/07/18812 by SONY RIVAS Promethazine Hcl/Codeine (Promethazine-Codeine Syrup) 118 Ml Syrup, 5 ML PO PRN Q6HRS PRN for COUGH, (Reported) Entered as Reported by: JARETT GIORDANO on 07/07/18154 Last Action: Converted on 07/07/18812 by SONY RIVAS [emu oil] , 1 ML TOP TID PRN PRN for PAIN, (Reported) Entered as Reported by: JARETT GIORDANO on 07/07/18154 Last Action: Converted on 07/07/18812 by SONY RIVAS Discontinued Medications Carvedilol (Carvedilol ) 6.25 Mg Tablet, 6.25 MG PO BIDWMEALS for CARDIAC, (Reported) Discontinued Reason: Prescription changed Entered as Reported by: JARETT GIORDANO on 07/07/18154 Last Action: Continued on 07/07/18812 by SONY RIVAS Hydralazine Hcl (Hydralazine Hcl) 50 Mg Tablet, 50 MG PO TID for htn, (Reported) Discontinued Reason: Prescription changed Entered as Reported by: JARETT GIORDANO on 07/07/18154 Last Action: Converted on 07/07/18812 by SONY RIVAS Losartan/Hydrochlorothiazide (Losartan-Hctz 50-12.5 Mg Tab) 1 Each Tablet, 1 EACH PO DAILY for htn, (Reported) Discontinued Reason: Prescription changed Entered as Reported by: JARETT GIORDANO on 07/07/18154 Last Action: Converted on 07/07/18812 by SONY RIVAS Spironolactone (Spironolactone) 25 Mg Tablet, 12.5 MG PO DAILY for water, (Reported) Discontinued Reason: Prescription changed Entered as Reported by: ASHLY NUNN on 06/05/18916 Last Action: Converted on 07/07/18812 by SONY JACKSON MD July 07, 2018 11:29
[2018-07-07] MEDS ORDERED: INSULIN LISPRO 300 UNITS/3 ML INSULN.PEN. SQ SCH (12:00)
--- NOTE | 2018-07-07 12:00 | NUR ---
Pt discharged to home. Discharge instructions reviewed and pt verbalized understanding.
[2018-07-07] MEDS ORDERED: DOXEPIN HCL 25 MG CAPSULE. PO SCH (21:00)
[2018-07-07] MEDS ORDERED: MONTELUKAST SODIUM 10 MG TABLET. PO SCH (21:00)
[2018-07-07] MEDS ORDERED: risperiDONE 1 MG TABLET. PO SCH (21:00)
[2018-07-07] MEDS ORDERED: traZODone 100 MG TABLET. PO SCH (21:00)
--- NOTE | 2018-07-08 14:54 | EKG ---
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
== END 2018-07-07 12:10 | disposition home or self-care (01) ==
LOC: ER 20:20 → 6 SOUTH 22:51
PROVIDERS: ADMIT Family Medicine; ATTEND Family Medicine
DX: R07.89 Other chest pain (principal); J45.901 Unspecified asthma with (acute) exacerbation; E03.9 Hypothyroidism, unspecified; E78.5 Hyperlipidemia, unspecified; I11.0 Hypertensive heart disease with heart failure; I50.9 Heart failure, unspecified; J44.9 Chronic obstructive pulmonary disease, unspecified; E11.42 Type 2 diabetes mellitus with diabetic polyneuropathy; K21.9 Gastro-esophageal reflux disease without esophagitis; F32.9 Major depressive disorder, single episode, unspecified; N39.0 Urinary tract infection, site not specified; M19.90 Unspecified osteoarthritis, unspecified site; Z90.710 Acquired absence of both cervix and uterus; Z82.49 Family history of ischemic heart disease and other diseases of the circulatory system; Z79.899 Other long term (current) drug therapy; Z79.51 Long term (current) use of inhaled steroids
CPT/HCPCS: 36415; 71045; 80053; 83880; 84484; 85025; 87641; 93005; 94640; 99284; G0378; J1815; J7512; J7620; G0379

== ENCOUNTER → 2018-07-16 | Day surgery (SDC) | payer OTHER ==
[~2018-07-16] MED LIST changes: +ACET500T68 PO; +ARIP5TAB13 PO; +BENZ200C47 PO; +CARV6.2511 PO; +CITA40TA5 PO; +EMU OIL TOP; +FLUT9.9S NS; +HYDR-2761 PO; +HYDR-2869 PO; +HYDR12.575 PO; +IV RINGERS,LACTATED 1000ML 1,000 ML IV SCH; +LEVO150T5 PO; +LIDOCAINE 2% PF 5 ML VIAL. ONE; +LOSA1TAB19 PO; +MONT10TA49 PO; -MONT10TA6 PO; -MONT10TA9 PO; +MULT-650 PO; +PROPOFOL 10 MG/ML (20ML) VIAL. IV ONE; +PROPOFOL 20 ML IV ONE; +PROPOFOL 40 ML IV ONE; +PROVENTIL HFA6.7 G2 INH
--- NOTE | 2018-07-16 14:01 | PDOC4 ---
PROCEDURE Procedure EGD/polypectomies Indication: Known residual polyps from recent colonoscopy. Meds: per anesthesia Findings: LAURA: normal --'Scope advanced to cecum. Mucosa normal. Fair/good prep needing some lavage. No diverticular disease. --2, 6-20mm polyps in hepatic flexure. Smaller one totally snared. Larger one removed piecemeal; unclear total removal. Area tattooed; placed diametrically across from polyp site. --10mm polyp, descending, snared. --8mm polyp proximal sigmoid, snared. Small IH's noted on retroflex. Kobe. well. IMP: Polyps, removed. Internal hemorrhoids. REC: No ASA, NSAIDs for 2 weeks. F/u in office in 2 weeks to review path. Repeat colonoscopy pending path. VIDAL LAN MD Jul 16, 2018 14:01
[2018-07-16 14:35] VITALS: BP 160/89
--- NOTE | 2018-07-18 16:06 | PATHOLOGY ---
[facility] Accession Number: [id number] . 01 Material submitted: . PART A: hepatic flexure - HEPATIC FLEXURE POLYP PART B: colon - DESCENDING COLON POLYP. Modifiers: descending PART C: colon - SIGMOID POLYP. Modifiers: sigmoid . 01 Clinical history: . Polyps . 02 Diagnosis: A. Colonic mucosa "hepatic flexure polyp", polypectomy: - Tubulovillous adenoma with focal high-grade dysplasia. See comment. . B. Colonic mucosa "descending polyp", biopsy: - Tubular adenoma. - There is no evidence of high-grade dysplasia or malignancy. . C. Colonic mucosa "sigmoid polyp", biopsy: - Tubular adenoma. - There is no evidence of high-grade dysplasia or malignancy. ([facility] 07/18/2018) [facility]/07/18/2018 . 02 Comment: This case is also reviewed by Dr. Loreta Tellse. ([facility] 07/18/2018) . 02 Electronically signed: . Dar Lawson MD, Pathologist NPI- [id number] . 01 Gross description: . A. Received in formalin labeled "Mike, Kevin, hepatic flexure polyp," is a 2.1 x 1.5 x 1.7 cm polypoid piece of chaudhry soft tissue. The margin is inked and the tissue is sectioned perpendicular to the margin and submitted in its entirely in cassette A1 through A3. Additionally received in the same container are multiple fragments of armando-chaudhry soft tissue measuring 2.7 x 1.8 x 0.6 cm in aggregate dimensions. The specimen is filtered and entirely submitted in cassette A4 and A5. . B. Received in formalin labeled "Mike, Kevin, colon polyp," is a 0.8 x 0.5 x 0.5 cm polypoid piece of chaudhry soft tissue. The margin is inked and the tissue is sectioned perpendicular to the margin and submitted in its entirely in cassette B1. . C. Received in formalin labeled "Kevin Mckeon, sigmoid polyp," is a 0.5 x 0.4 x 0.4 cm polypoid piece of chaudhry soft tissue. The margin is inked and the tissue is sectioned perpendicular to the margin and submitted in its entirely in cassette C1. ([facility]; 07/17/2018) TOB/TOB . 02 Pathologist provided ICD-10: D12.3, D12.4, D12.5 . 02 CPT . 394926, 085917, 332778 Specimen Comment: A courtesy copy of this report has been sent to Specimen Comment: [phone], . Specimen Comment: Report sent to / DR PORTER Performed at: 01 [facility] [address] [facility] [address], [place] [id number] MD Jayden Bolden MD Phone: [phone] Performed at: 02 [facility] [address] [place], [place] [id number] MD Luis Alberto Brady MD Phone: [phone]
== END ==
LOC: ENDOS 11:50
PROVIDERS: ATTEND Internal Medicine Gastroenterology
DX: D12.5 Benign neoplasm of sigmoid colon (principal); D12.4 Benign neoplasm of descending colon; D12.3 Benign neoplasm of transverse colon; K64.0 First degree hemorrhoids; E78.5 Hyperlipidemia, unspecified; E11.9 Type 2 diabetes mellitus without complications; E03.9 Hypothyroidism, unspecified; F32.9 Major depressive disorder, single episode, unspecified; I11.0 Hypertensive heart disease with heart failure; I50.9 Heart failure, unspecified; K21.9 Gastro-esophageal reflux disease without esophagitis; J45.909 Unspecified asthma, uncomplicated; F41.9 Anxiety disorder, unspecified; Z86.010 Personal history of colon polyps; Z88.6 Allergy status to analgesic agent; Z88.1 Allergy status to other antibiotic agents; Z88.8 Allergy status to other drugs, medicaments and biological substances; Z80.0 Family history of malignant neoplasm of digestive organs; Z87.891 Personal history of nicotine dependence; Z72.89 Other problems related to lifestyle; Z90.49 Acquired absence of other specified parts of digestive tract; Z90.710 Acquired absence of both cervix and uterus; Z98.890 Other specified postprocedural states; Z79.84 Long term (current) use of oral hypoglycemic drugs
CPT/HCPCS: 45381; 45385; 88305; C1757; J2001; J2704; 45380

== ENCOUNTER 2018-07-28 17:45 | Emergency (ER) | payer OTHER ==
[~2018-07-28] VITALS: Ht 176.5 cm; Wt 123.1 kg
[~2018-07-28 17:45] MED LIST changes: -IV RINGERS,LACTATED 1000ML 1,000 ML IV SCH; -LIDOCAINE 2% PF 5 ML VIAL. ONE; -PROPOFOL 10 MG/ML (20ML) VIAL. IV ONE; -PROPOFOL 20 ML IV ONE; -PROPOFOL 40 ML IV ONE; -PROVENTIL HFA6.7 G2 INH
[2018-07-28] MEDS ORDERED: IPRATRPIUM/ALBUTEROL 0.5/2.5MG 3 ML NEBU. NEB ONE (18:30)
[2018-07-28] MEDS ORDERED: IV NORMAL SALINE 1000ML BAG 1,000 ML IV ONE (18:30)
[2018-07-28] MEDS ORDERED: DEXAMETHASONE SOD PHOS 20 MG/5 ML VIAL. IV ONE (18:30)
[2018-07-28 18:36] LABS: BASO # 0.1 x10^3/uL (0.0-0.2); BASO % 1 % (0-3); EOS # 0.9 x10^3/uL (0.0-0.7); EOS % 12 % (0-3); HEMOGLOBIN 11.3 g/dL (12.0-15.5); LYMPH # 2.4 x10^3/uL (1.0-4.8); LYMPH % 34 % (24-48); MEAN CORPUSCULAR HEMOGLOBIN 25 pg (25-35); MEAN CORPUSCULAR HGB CONC 32 g/dL (31-37); MEAN CORPUSCULAR VOLUME 77 fL (79-100); MONO # 0.6 x10^3/uL (0.0-1.1); MONO % 9 % (0-9); NEUT # 3.2 x10^3uL (1.8-7.7); NEUT % 44 % (31-73); PLATELET COUNT 280 x10^3/uL (140-400); RED BLOOD COUNT 4.57 x10^6/uL (3.50-5.40); WHITE BLOOD COUNT 7.2 x10^3/uL (4.0-11.0)
[2018-07-28 19:03] LABS: CALCIUM 10.3 mg/dL (8.5-10.1); CREATININE 1.4 mg/dL (0.6-1.0); GFR 46.4; POTASSIUM 3.8 mmol/L (3.5-5.1)
[2018-07-28 19:06] LABS: ALBUMIN 3.7 g/dL (3.4-5.0); ALBUMIN/GLOBULIN RATIO 0.8 (1.0-1.7); TOTAL BILIRUBIN 0.6 mg/dL (0.2-1.0); TOTAL PROTEIN 8.3 g/dL (6.4-8.2)
--- NOTE | 2018-07-28 19:22 | RAD ---
EXAM: CHEST 2 VIEWS. HISTORY: Cough, shortness of breath. COMPARISON: 07/06/2018. FINDINGS: Frontal and lateral views of the chest are obtained. Mild atelectasis is noted in the bases and along the right minor fissure. There is no pneumothorax or pleural effusion. The heart is mildly enlarged. The aorta is tortuous. IMPRESSION: 1. Mild cardiomegaly. Electronically signed by: Rogelio Marin MD (07/28/2018 7:19 PM) [facility]
[2018-07-28 20:20] VITALS: BP 165/100
[2018-07-28] MEDS ORDERED: AZIT250T PO (20:22)
[2018-07-28] MEDS ORDERED: PRED20TA PO (20:22)
--- NOTE | 2018-07-28 20:22 | PHYS DOC ---
Past Medical History Past Medical History: Anxiety, Asthma, CHF, Constipation, Depression, High Cholesterol, Hypertension, Hypothyroid, Other Additional Past Medical Histor: graves disease,lupus,pre-CA polyps Past Surgical History: Cholecystectomy, , Hysterectomy, Other Additional Past Surgical Histo: HERNIA REPAIR,NASAL POLYPS Smoking: Quit Greater Than 1 Year Alcohol Use: Sober Drug Use: None Social History Narrative: sober since 2002 Adult General Chief Complaint Chief Complaint: CHEST PAIN HPI HPI 62 y/o female presents with report of shortness of breath with report of chest wall pain x 3 days. Reports associated productive cough with yellow sputum. Hx of asthma and former smoker. Denies fever/chills. Denies trauma. Cardiac risk factors of HTN, hyperlipidemia, and smoking Denies leg swelling or calves t enderness. Denies N/V. Denies diaphoresis. Review of Systems Review of Systems Constitutional: Denies fever or chills Eyes: Denies change in visual acuity, redness, or eye pain HENT: Denies nasal congestion or sore throat Respiratory: Reports productive cough and shortness of breath Cardiovascular: Reports chest wall pain; denies palpitations GI: Denies abdominal pain, nausea, vomiting, or diarrhea : Denies dysuria or hematuria Musculoskeletal: Denies back pain or joint pain Integument: Denies rash or skin lesions Neurologic: Denies headache, focal weakness or sensory changes Complete systems were reviewed and found to be within normal limits, except as documented in this note. Current Medications Current Medications Current Medications Medications (Trade) Dose Ordered Sig/Indra Start Time Stop Time Status Last Admin Dose Admin Albuterol/ Ipratropium (Duoneb) 3 ml 1X ONCE 07/28/18 18:30 07/28/18 18:31 DC 07/28/18 18:48 3 ML Dexamethasone Sodium Phosphate (Decadron) 10 mg 1X ONCE 07/28/18 18:30 07/28/18 18:31 DC 07/28/18 19:02 10 MG Sodium Chloride 1,000 ml @ 1,000 mls/hr 1X ONCE 07/28/18 18:30 07/28/18 19:29 DC 07/28/18 19:02 1,000 MLS/HR Allergies Allergies Allergies Coded Allergies Type Severity Reaction Last Updated Verified NSAIDS (Non-Steroidal Anti-Inflamma Allergy Severe itching,throat"swells" 07/16/18 Yes aspirin Allergy Severe Shortness of Air 07/16/18 Yes Sulfa (Sulfonamide Antibiotics) Allergy Intermediate 07/16/18 Yes ketorolac Allergy Intermediate 07/16/18 Yes sulfamethoxazole Allergy Intermediate 07/16/18 Yes trimethoprim Allergy Intermediate 07/16/18 Yes I S O L A T I O N *CONTACT* Allergy Unknown 10/17/17 Yes Physical Exam Physical Exam Constitutional: Well developed, well nourished, no acute distress, non-toxic appearance HENT: Normocephalic, atraumatic, oropharynx moist, nose normal Eyes: Conjunctiva normal, no discharge Neck: Normal range of motion, no tenderness, supple, no meningeal signs Cardiovascular: Heart rate normal and regular rhythm Lungs & Thorax: Bilateral breath sounds diminished at bases, no respiratory distress, chest wall tenderness on palpation which patient reports reproduces discomfort Abdomen: Soft, no tenderness Skin: Warm, dry, no erythema, no rash Back: No tenderness, no CVA tenderness Extremities: No tenderness, ROM intact, no edema Neurologic: Alert and oriented X 3, no focal deficits noted Psychologic: Affect normal, judgement normal, mood normal Current Patient Data Vital Signs Vital Signs Date Time Temp Pulse Resp B/P (MAP) Pulse Ox O2 Delivery O2 Flow Rate FiO2 07/28/18 20:20 78 21 165/100 (121) 94 Room Air 07/28/18 18:00 99.0 99.0 Lab Values Laboratory Tests Test 07/28/18 18:00 07/28/18 19:09 White Blood Count 7.2 x10^3/uL (4.0-11.0) Red Blood Count 4.57 x10^6/uL (3.50-5.40) Hemoglobin 11.3 g/dL (12.0-15.5) L Hematocrit 35.0 % (36.0-47.0) L Mean Corpuscular Volume 77 fL (79-100) L Mean Corpuscular Hemoglobin 25 pg (25-35) Mean Corpuscular Hemoglobin Concent 32 g/dL (31-37) Red Cell Distribution Width 16.0 % (11.5-14.5) H Platelet Count 280 x10^3/uL (140-400) Neutrophils (%) (Auto) 44 % (31-73) Lymphocytes (%) (Auto) 34 % (24-48) Monocytes (%) (Auto) 9 % (0-9) Eosinophils (%) (Auto) 12 % (0-3) H Basophils (%) (Auto) 1 % (0-3) Neutrophils # (Auto) 3.2 x10^3uL (1.8-7.7) Lymphocytes # (Auto) 2.4 x10^3/uL (1.0-4.8) Monocytes # (Auto) 0.6 x10^3/uL (0.0-1.1) Eosinophils # (Auto) 0.9 x10^3/uL (0.0-0.7) H Basophils # (Auto) 0.1 x10^3/uL (0.0-0.2) Lactic Acid Level 1.3 mmol/L (0.4-2.0) Creatine Kinase 293 U/L (26-192) H Creatine Kinase MB (Mass) 2.2 ng/mL (0.0-3.6) Creatine Kinase MB Relative Index 0.8 % (0-4) Troponin I Quantitative < 0.017 ng/mL (0.000-0.055) UF-Wtt-D-Type Natriuretic Peptide 332 pg/mL (0-124) H Sodium Level 142 mmol/L (136-145) Potassium Level 3.8 mmol/L (3.5-5.1) Chloride Level 106 mmol/L (98-107) Carbon Dioxide Level 26 mmol/L (21-32) Anion Gap 10 (6-14) Blood Urea Nitrogen 15 mg/dL (7-20) Creatinine 1.4 mg/dL (0.6-1.0) H Estimated GFR (Cockcroft-Gault) 46.4 BUN/Creatinine Ratio 11 (6-20) Glucose Level 102 mg/dL (70-99) H Calcium Level 10.3 mg/dL (8.5-10.1) H Total Bilirubin 0.6 mg/dL (0.2-1.0) Aspartate Amino Transferase (AST) 23 U/L (15-37) Alanine Aminotransferase (ALT) 24 U/L (14-59) Alkaline Phosphatase 64 U/L (46-116) Total Protein 8.3 g/dL (6.4-8.2) H Albumin 3.7 g/dL (3.4-5.0) Albumin/Globulin Ratio 0.8 (1.0-1.7) L Lipase 193 U/L (73-393) Laboratory Tests 07/28/18 18:00 Laboratory Tests 07/28/18 19:09 EKG EKG @1801 NSR at 81bpm, NO ST elevation, occasional PVC Radiology/Procedures Radiology/Procedures PROCEDURE: CHEST PA & LATERAL EXAM: CHEST 2 VIEWS. HISTORY: Cough, shortness of breath. COMPARISON: 07/06/2018. FINDINGS: Frontal and lateral views of the chest are obtained. Mild atelectasis is noted in the bases and along the right minor fissure. There is no pneumothorax or pleural effusion. The heart is mildly enlarged. The aorta is tortuous. IMPRESSION: 1. Mild cardiomegaly. Electronically signed by: Rogelio Marin MD (07/28/2018 7:19 PM) [facility] Course & Med Decision Making Course & Med Decision Making Pertinent Labs and Imaging studies reviewed. (See chart for details) Patient presents with reports of chest wall pain with associated SOA and productive cough x 3 days. EKG stable. Labs obtained and posted to chart. Troponin WNL. CXR without acute process. HEART score 3. Symptomatic treatment provided with interval improvement. Patient stable for discharge home with outpatient follow-up with PCP. Discussed findings and plan with patient, who acknowledges understanding and agreement. Dragon Disclaimer Dragon Disclaimer This electronic medical record was generated, in whole or in part, using a voice recognition dictation system. Departure Departure Impression: Primary Impression: Asthmatic bronchitis with acute exacerbation Additional Impression: Chest wall pain Disposition: ADMITTED INPATIENT Condition: STABLE Referrals: MALLIKA PORTER MD, PHD (PCP) Patient Instructions: Acute Bronchitis, Neuw-ua-Reiw, Chest Wall Pain, [id number] Additional Instructions: Hold antibiotics for 48 hours. If symptoms worsen or for fever > 100.3 F after 48 hours then start antibiotics as prescribed. Scripts Azithromycin (ZITHROMAX) 250 Mg Tablet 1 PKG PO UD for bronchitis, #6 TAB Take 2 tablets on day 1 and then 1 tablet each day for the next 4 days as directed Prov: VIDAL KITCHEN DO 07/28/18 Prednisone (PREDNISONE) 20 Mg Tablet 2 TAB PO DAILY, #8 TAB Prov: VIDAL KITCHEN DO 07/28/18 The HEART Score for CP Pts HEART Score for Chest Pain: HEART Score for Chest Pain Response (Comments) Value History Slighlty/Non-Suspicious 0 ECG Normal 0 Age >45 - < 65 1 Risk Factors >3 Risk Factors or Hx CAD 2 Troponin < Normal Limit 0 Total 3 Risk Factors: Risk Factors: DM, Current or recent (<one month) smoker, HTN, HLP, family history of CAD, obesity. Risk Scores: Score 0 - 3: 2.5% MACE over next 6 weeks - Discharge Home Score 4 - 6: 20.3% MACE over next 6 weeks - Admit for Clinical Observation Score 7 - 10: 72.7% MACE over next 6 weeks - Early Invasive Strategies Problem Qualifiers Primary Impression: Asthmatic bronchitis with acute exacerbation Asthma severity: mild Asthma persistence: intermittent Qualified Codes: J45.21 - Mild intermittent asthma with (acute) exacerbation VIDAL KITCHEN DO Jul 28, 2018 20:22
--- NOTE | 2018-07-30 08:03 | EKG ---
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
== END 2018-07-28 20:35 | disposition home or self-care (01) ==
LOC: ER 17:45
DX: J45.21 Mild intermittent asthma with (acute) exacerbation (principal); R07.89 Other chest pain; I11.0 Hypertensive heart disease with heart failure; I50.9 Heart failure, unspecified; E03.9 Hypothyroidism, unspecified; E78.00 Pure hypercholesterolemia, unspecified; M32.9 Systemic lupus erythematosus, unspecified; Z90.49 Acquired absence of other specified parts of digestive tract; Z90.710 Acquired absence of both cervix and uterus; Z98.890 Other specified postprocedural states; Z87.891 Personal history of nicotine dependence; Z88.2 Allergy status to sulfonamides; Z88.1 Allergy status to other antibiotic agents; Z88.6 Allergy status to analgesic agent; Z91.041 Radiographic dye allergy status
CPT/HCPCS: 36415; 71046; 80053; 82553; 83605; 83690; 83880; 84484; 85025; 93005; 94640; 96374; 99285; J1100; J7030; J7620

== ENCOUNTER 2018-08-23 09:50 | Emergency (ER) | payer OTHER ==
[~2018-08-23] VITALS: Ht 175.3 cm; Wt 120.7 kg
--- NOTE | 2018-08-23 10:12 | PHYS DOC ---
Past Medical History Past Medical History: Anxiety, Asthma, CHF, Constipation, Depression, High Cholesterol, Hypertension, Hypothyroid, Other Additional Past Medical Histor: graves disease,lupus,pre-CA polyps Past Surgical History: Cholecystectomy, , Hysterectomy, Other Additional Past Surgical Histo: HERNIA REPAIR,NASAL POLYPS Alcohol Use: Sober Drug Use: None Adult General Chief Complaint Chief Complaint: SHORTNESS OF BREATH HPI HPI Patient is a 62 year old female with history of asthma, hypertension, high cholesterol, anxiety, depression who presents to the ED today complaining of shortness of breath that began a week ago as well as 6 out of 10 sharp subs ternal chest pain nonradiating in nature that began 5 days ago. Patient denies anything exacerbating or relieving her chest pain. She states she has tried using her inhaler with no relief. PCP [facility]-she cannot remember the name Review of Systems Review of Systems Constitutional: Denies fever or chills [] Eyes: Denies change in visual acuity, redness, or eye pain [] HENT: Denies nasal congestion or sore throat [] Respiratory: Reports cough and shortness of breath [] Cardiovascular: Reports substernal chest pain GI: Denies abdominal pain, nausea, vomiting, bloody stools or diarrhea [] : Denies dysuria or hematuria [] Musculoskeletal: Denies back pain or joint pain [] Integument: Denies rash or skin lesions [] Neurologic: Denies headache, focal weakness or sensory changes [] All other systems were reviewed and found to be within normal limits, except as documented in this note. Current Medications Current Medications Current Medications Medications (Trade) Dose Ordered Sig/Indra Start Time Stop Time Status Last Admin Dose Admin Albuterol/ Ipratropium (Duoneb) 3 ml 1X ONCE 08/23/18 11:30 08/23/18 11:31 DC 08/23/18 11:33 3 ML Clonidine HCl (Catapres) 0.1 mg 1X ONCE 08/23/18 11:30 08/23/18 11:31 DC 08/23/18 11:50 0.1 MG Methylprednisolone Sodium Succinate (SOLU-Medrol 125MG VIAL) 125 mg 1X ONCE 08/23/18 10:15 08/23/18 10:16 DC 08/23/18 10:24 125 MG Morphine Sulfate (Morphine Sulfate) 4 mg PRN Q15MIN PRN 08/23/18 10:15 08/24/18 10:14 08/23/18 11:50 4 MG Nitroglycerin (Nitrostat) 0.4 mg PRN Q5MIN PRN 08/23/18 10:15 Allergies Allergies Allergies Coded Allergies Type Severity Reaction Last Updated Verified NSAIDS (Non-Steroidal Anti-Inflamma Allergy Severe itching,throat"swells" 07/16/18 Yes aspirin Allergy Severe Shortness of Air 07/16/18 Yes Sulfa (Sulfonamide Antibiotics) Allergy Intermediate 07/16/18 Yes ketorolac Allergy Intermediate 07/16/18 Yes sulfamethoxazole Allergy Intermediate 07/16/18 Yes trimethoprim Allergy Intermediate 07/16/18 Yes I S O L A T I O N *CONTACT* Allergy Unknown 10/17/17 Yes Physical Exam Physical Exam Constitutional: Well developed, well nourished, no acute distress, non-toxic appearance. [] HENT: Normocephalic, atraumatic, bilateral external ears normal, oropharynx moist, no oral exudates, nose normal. [] Eyes: PERRLA, EOMI, conjunctiva normal, no discharge. [] Neck: Normal range of motion, no tenderness, supple, no stridor. [] Cardiovascular:Heart rate regular rhythm, no murmur [] Lungs & Thorax: Tight chest barely moving air Abdomen: Bowel sounds normal, soft, no tenderness, no masses, no pulsatile masses. [] Skin: Warm, dry, no erythema, no rash. [] Back: No tenderness, no CVA tenderness. [] Extremities: No tenderness, no cyanosis, no clubbing, ROM intact, no edema. [] Neurologic: Alert and oriented X 3, normal motor function, normal sensory function, no focal deficits noted. [] Psychologic: Affect normal, judgement normal, mood normal. [] Current Patient Data Vital Signs Vital Signs Date Time Temp Pulse Resp B/P (MAP) Pulse Ox O2 Delivery O2 Flow Rate FiO2 08/23/18 11:50 81 138/96 08/23/18 11:33 99 Room Air 08/23/18 11:00 98.1 22 98.1 Lab Values Laboratory Tests Test 08/23/18 10:20 08/23/18 10:30 White Blood Count 7.3 x10^3/uL (4.0-11.0) Red Blood Count 5.03 x10^6/uL (3.50-5.40) Hemoglobin 12.3 g/dL (12.0-15.5) Hematocrit 37.7 % (36.0-47.0) Mean Corpuscular Volume 75 fL (79-100) L Mean Corpuscular Hemoglobin 25 pg (25-35) Mean Corpuscular Hemoglobin Concent 33 g/dL (31-37) Red Cell Distribution Width 16.5 % (11.5-14.5) H Platelet Count 285 x10^3/uL (140-400) Neutrophils (%) (Auto) 54 % (31-73) Lymphocytes (%) (Auto) 25 % (24-48) Monocytes (%) (Auto) 7 % (0-9) Eosinophils (%) (Auto) 13 % (0-3) H Basophils (%) (Auto) 1 % (0-3) Neutrophils # (Auto) 3.9 x10^3/uL (1.8-7.7) Lymphocytes # (Auto) 1.8 x10^3/uL (1.0-4.8) Monocytes # (Auto) 0.5 x10^3/uL (0.0-1.1) Eosinophils # (Auto) 0.9 x10^3/uL (0.0-0.7) H Basophils # (Auto) 0.1 x10^3/uL (0.0-0.2) Prothrombin Time 13.0 SEC (11.7-14.0) Prothrombin Time INR 1.0 (0.8-1.1) Sodium Level 139 mmol/L (136-145) Potassium Level 4.1 mmol/L (3.5-5.1) Chloride Level 105 mmol/L (98-107) Carbon Dioxide Level 25 mmol/L (21-32) Anion Gap 9 (6-14) Blood Urea Nitrogen 13 mg/dL (7-20) Creatinine 1.2 mg/dL (0.6-1.0) H Estimated GFR (Cockcroft-Gault) 55.4 BUN/Creatinine Ratio 11 (6-20) Glucose Level 117 mg/dL (70-99) H Calcium Level 10.3 mg/dL (8.5-10.1) H Magnesium Level 2.0 mg/dL (1.8-2.4) Total Bilirubin 1.1 mg/dL (0.2-1.0) H Aspartate Amino Transferase (AST) 26 U/L (15-37) Alanine Aminotransferase (ALT) 28 U/L (14-59) Alkaline Phosphatase 71 U/L (46-116) Creatine Kinase 154 U/L (26-192) Creatine Kinase MB (Mass) 1.9 ng/mL (0.0-3.6) Creatine Kinase MB Relative Index 1.2 % (0-4) Troponin I Quantitative 0.036 ng/mL (0.000-0.055) XN-Zfp-R-Type Natriuretic Peptide 148 pg/mL (0-124) H Total Protein 8.0 g/dL (6.4-8.2) Albumin 3.5 g/dL (3.4-5.0) Albumin/Globulin Ratio 0.8 (1.0-1.7) L Urine Collection Type Void Urine Color Yellow Urine Clarity Clear Urine pH 6.5 Urine Specific [place] 1.015 Urine Protein 30 mg/dL (NEG-TRACE) Urine Glucose (UA) Negative mg/dL (NEG) Urine Ketones (Stick) Negative mg/dL (NEG) Urine Blood Negative (NEG) Urine Nitrite Negative (NEG) Urine Bilirubin Negative (NEG) Urine Urobilinogen Dipstick 0.2 mg/dL (0.2 mg/dL) Urine Leukocyte Esterase Negative (NEG) Urine RBC Occ /HPF (0-2) Urine WBC 1-4 /HPF (0-4) Urine Squamous Epithelial Cells Few /LPF Urine Bacteria Few /HPF (0-FEW) Urine Opiates Screen Neg (NEG) Urine Methadone Screen Neg (NEG) Urine Barbiturates Neg (NEG) Urine Phencyclidine Screen Neg (NEG) Urine Amphetamine/Methamphetamine Neg (NEG) Urine Benzodiazepines Screen Neg (NEG) Urine Cocaine Screen Neg (NEG) Urine Cannabinoids Screen Neg (NEG) Urine Ethyl Alcohol Neg (NEG) Laboratory Tests 08/23/18 10:20 Laboratory Tests 08/23/18 10:20 EKG EKG 09:[address] Sinclair sinus rhythm HR 87 no STEMI Radiology/Procedures Radiology/Procedures []PROCEDURE: PORTABLE CHEST 1V AP portable chest radiograph 08/23/2018 Clinical History: Shortness of breath and chest pain. An AP erect portable digital radiograph of the chest was obtained. Comparison study is dated 07/28/2018. The cardiac silhouette is mildly enlarged. The thoracic aorta is tortuous. Right midlung subsegmental atelectasis is unchanged. No acute pulmonary infiltrate is seen. No pleural effusion or pneumothorax is noted. The osseous structures are unchanged. IMPRESSION: No acute pulmonary infiltrate is seen. Electronically signed by: Vikash Slaughter MD (08/23/2018 10:25 AM) [facility] DICTATED and SIGNED BY: VIKASH SLAUGHTER MD DATE: 08/23/18 1025 Course & Med Decision Making Course & Med Decision Making Pertinent Labs and Imaging studies reviewed. (See chart for details) This is a 62-year-old female patient presenting to the ED today with chest pain and shortness of breath. Chest pain began 5 days ago, shortness of breath for one week. Hx of asthma. Heart score documented on add section tab. Chest x-ray is negative, EKG was negative, labs including cardiac workup is negative. Patient has been given 2 breathing treatments and Solu-Medrol, lungs are clear, O2 sats have remained at 97% with HR in the 80s. 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 The heart score is only 2. She was discharged to home. Her blood pressures have been running in the 170s/ low 100s. She states she has not taken her blood pressure medications this mo rning because she has not picked it up from the pharmacy. Recommended patient wishes she picks up her medication today. She was discharged to home. Note for work provided for today. Discharged with prednisone. Dragon Disclaimer Dragon Disclaimer This electronic medical record was generated, in whole or in part, using a voice recognition dictation system. The HEART Score for CP Pts HEART Score for Chest Pain: HEART Score for Chest Pain Response (Comments) Value History Slighlty/Non-Suspicious 0 ECG Normal 0 Age >45 - < 65 1 Risk Factors 1 or 2 Risk Factors 1 Troponin < Normal Limit 0 Total 2 Risk Factors: Risk Factors: DM, Current or recent (<one month) smoker, HTN, HLP, family history of CAD, obesity. Risk Scores: Score 0 - 3: 2.5% MACE over next 6 weeks - Discharge Home Score 4 - 6: 20.3% MACE over next 6 weeks - Admit for Clinical Observation Score 7 - 10: 72.7% MACE over next 6 weeks - Early Invasive Strategies Departure Departure Impression: Primary Impression: Chest pain Additional Impressions: Asthma exacerbation Hypertension Disposition: 01 HOME, SELF-CARE Condition: STABLE Referrals: MALLIKA PORTER MD, PHD (PCP) follow up in 1 week Patient Instructions: Asthma, Adult, Chest Pain (Nonspecific) Additional Instructions: You were evaluated in the emergency room for asthma exacerbation and chest pain. You stated you have an appointment with your base filler operator today at 3 PM, ensure you follow-up. Take the prescribed medications as ordered. Come back to the ED at any point symptoms worsen. Scripts Prednisone (PREDNISONE) 50 Mg Tablet 1 TAB PO DAILY, #5 TAB Prov: LAMONT SCHREIBER APRN 08/23/18 Albuterol Sulfate (Proventil Hfa) 6.7 Gm Hfa.aer.ad 1 PUFF INH PRN Q6HRS PRN for SHORTNESS OF BREATH, #1 INHALER Prov: LAMONT SCHREIBER APRN 08/23/18 Problem Qualifiers Primary Impression: Chest pain Chest pain type: unspecified Qualified Codes: R07.9 - Chest pain, unspecified Additional Impressions: Asthma exacerbation Asthma severity: mild Asthma persistence: intermittent Qualified Codes: J45.21 - Mild intermittent asthma with (acute) exacerbation Hypertension Hypertension type: unspecified Qualified Codes: I10 - Essential (primary) hypertension LAMONT SCHREIBER APRN Aug 23, 2018 10:12
[2018-08-23] MEDS ORDERED: IPRATRPIUM/ALBUTEROL 0.5/2.5MG 3 ML NEBU. NEB ONE ×2 (10:15→11:30)
[2018-08-23] MEDS ORDERED: methylPREDNISolone SOD SUCC PF 125 MG/2 ML VIAL. IV ONE (10:15)
[2018-08-23] MEDS ORDERED: NITROGLYCERIN SUBLINGUAL 0.4 MG BOTTLE OF 25. SL PRN (10:15)
[2018-08-23] MEDS: MORPHINE SULFATE 4 MG/ML VIAL. IV/SQ PRN ×2 (10:24→11:50)
--- NOTE | 2018-08-23 10:28 | RAD ---
AP portable chest radiograph 08/23/2018 Clinical History: Shortness of breath and chest pain. An AP erect portable digital radiograph of the chest was obtained. Comparison study is dated 07/28/2018. The cardiac silhouette is mildly enlarged. The thoracic aorta is tortuous. Right midlung subsegmental atelectasis is unchanged. No acute pulmonary infiltrate is seen. No pleural effusion or pneumothorax is noted. The osseous structures are unchanged. IMPRESSION: No acute pulmonary infiltrate is seen. Electronically signed by: Vikash Slaughter MD (08/23/2018 10:25 AM) [place] [id number]
[2018-08-23 10:39] LABS: BASO # 0.1 x10^3/uL (0.0-0.2); BASO % 1 % (0-3); EOS # 0.9 x10^3/uL (0.0-0.7); EOS % 13 % (0-3); HEMATOCRIT 37.7 % (36.0-47.0); HEMOGLOBIN 12.3 g/dL (12.0-15.5); LYMPH # 1.8 x10^3/uL (1.0-4.8); LYMPH % 25 % (24-48); MEAN CORPUSCULAR HEMOGLOBIN 25 pg (25-35); MEAN CORPUSCULAR HGB CONC 33 g/dL (31-37); MEAN CORPUSCULAR VOLUME 75 fL (79-100); MONO # 0.5 x10^3/uL (0.0-1.1); MONO % 7 % (0-9); NEUT # 3.9 x10^3/uL (1.8-7.7); NEUT % 54 % (31-73); PLATELET COUNT 285 x10^3/uL (140-400); RED BLOOD COUNT 5.03 x10^6/uL (3.50-5.40); RED CELL DISTRIBUTION WIDTH 16.5 % (11.5-14.5); WHITE BLOOD COUNT 7.3 x10^3/uL (4.0-11.0)
[2018-08-23 10:47] LABS: BILIRUBIN,URINE NEGATIVE (NEG); CLARITY,URINE CLEAR; COLOR,URINE YELLOW; NITRITE,URINE NEGATIVE (NEG); PH,URINE 6.5; PROTEIN,URINE 30 mg/dL (NEG-TRACE); UROBILINOGEN,URINE 0.2 mg/dL (0.2 mg/dL)
[2018-08-23 10:52] LABS: CALCIUM 10.3 mg/dL (8.5-10.1); CREATININE 1.2 mg/dL (0.6-1.0); GFR 55.4; POTASSIUM 4.1 mmol/L (3.5-5.1)
[2018-08-23 10:53] LABS: BARBITURATES NEG (NEG); BENZODIAZEPINES NEG (NEG); CANNABINOIDS NEG (NEG); COCAINE NEG (NEG); METHADONE NEG (NEG); OPIATES NEG (NEG); PHENCYCLIDINE NEG (NEG)
[2018-08-23 10:54] LABS: AMPHETAMINE/METHAMPHETAMINE NEG (NEG)
[2018-08-23 10:59] LABS: ALBUMIN 3.5 g/dL (3.4-5.0); ALBUMIN/GLOBULIN RATIO 0.8 (1.0-1.7); TOTAL BILIRUBIN 1.1 mg/dL (0.2-1.0)
[2018-08-23 11:02] LABS: BACTERIA,URINE FEW /HPF (0-FEW); RBC,URINE OCC /HPF (0-2); SQUAMOUS EPITHELIAL CELL,UR FEW /LPF
[2018-08-23] MEDS ORDERED: cloNIDine HCL 0.1 MG TABLET PO ONE (11:30)
--- NOTE | 2018-08-23 11:40 | EKG ---
[facility] [address] [place] [address] Test Date: 2018-08-23 Test Time: 09:59:25 Pat Name: JERRY WAYNE Department: Room: Gender: F Management Internship: : 1955 Requested By: LAMONT SCHREIBER Order Number: [id number] Reading MD: Measurements Intervals [place] Rate: 87 P: 4 UT: 196 QRS: -11 QRSD: 88 T: -15 QT: 378 QTc: 455 Interpretive Statements SINUS RHYTHM VENTRICULAR PREMATURE COMPLEX(ES) LEFTWARD AXIS ABNORMAL ECG RI6.01 Unconfirmed report No previous ECG available for comparison
[2018-08-23 11:50] VITALS: BP 138/96
[2018-08-23] MEDS ORDERED: PROVENTIL HFA6.7 G2 INH (12:13)
[2018-08-23] MEDS ORDERED: PRED50TA PO (12:13)
== END 2018-08-23 13:04 | disposition home or self-care (01) ==
LOC: ER 09:50
DX: J45.21 Mild intermittent asthma with (acute) exacerbation (principal); R07.89 Other chest pain; I11.0 Hypertensive heart disease with heart failure; I50.9 Heart failure, unspecified; E78.00 Pure hypercholesterolemia, unspecified; E03.9 Hypothyroidism, unspecified; Z88.1 Allergy status to other antibiotic agents; Z88.2 Allergy status to sulfonamides; Z88.6 Allergy status to analgesic agent; Z91.041 Radiographic dye allergy status
CPT/HCPCS: 36415; 71045; 80053; 80307; 81001; 82553; 83735; 83880; 84484; 85025; 85610; 93005; 94640; 96374; 96375; 96376; 99285; J2270; J2930; J7620

== ENCOUNTER 2018-09-07 21:09 | Emergency (ER) | payer MEDICAID, OTHER ==
[~2018-09-07] VITALS: Ht 175.3 cm; Wt 121.1 kg
[~2018-09-07 21:09] MED LIST changes: -D-ME118S2 PO; +PROM118S9 PO; +PROVENTIL HFA6.7 G2 INH
[2018-09-07 21:18] VITALS: BP 149/89
--- NOTE | 2018-09-07 21:32 | PHYS DOC ---
Past Medical History Past Medical History: Anxiety, Asthma, CHF, Constipation, Depression, High Cholesterol, Hypertension, Hypothyroid, Other Additional Past Medical Histor: graves disease,lupus,pre-CA polyps Past Surgical History: Cholecystectomy, , Hysterectomy, Other Additional Past Surgical Histo: HERNIA REPAIR,NASAL POLYPS Alcohol Use: Sober Drug Use: None Adult General Chief Complaint Chief Complaint: SHOULDER INJURY [facility] HPI Patient is a 63 year old female that presents with left shoulder pain after she fell down 8 steps around 7:30 PM. The patient is complaining of left scapular pain as well. States her pain as 6 out of 10 in severity and throbbing and sharp. The patient is not taking medicine prior to arrival. Review of Systems Review of Systems Constitutional: Denies fever or chills [] Eyes: Denies change in visual acuity, redness, or eye pain [] HENT: Denies nasal congestion or sore throat [] Respiratory: Denies cough or shortness of breath [] Cardiovascular: No additional information not addressed in HPI [] GI: Denies abdominal pain, nausea, vomiting, bloody stools or diarrhea [] : Denies dysuria or hematuria [] Musculoskeletal: Reports left shoulder pain. Integument: Denies rash or skin lesions [] Neurologic: Denies headache, focal weakness or sensory changes [] Endocrine: Denies polyuria or polydipsia [] Complete systems were reviewed and found to be within normal limits, except as documented in this note. Current Medications Current Medications Current Medications Medications (Trade) Dose Ordered Sig/Indra Start Time Stop Time Status Last Admin Dose Admin Acetaminophen/ Hydrocodone Bitart (Lortab 5/325) 1 tab 1X ONCE 09/07/18 21:45 09/07/18 21:46 DC 09/07/18 21:43 1 TAB Allergies Allergies Allergies Coded Allergies Type Severity Reaction Last Updated Verified NSAIDS (Non-Steroidal Anti-Inflamma Allergy Severe itching,throat"swells" 07/16/18 Yes aspirin Allergy Severe Shortness of Air 07/16/18 Yes Sulfa (Sulfonamide Antibiotics) Allergy Intermediate 07/16/18 Yes ketorolac Allergy Intermediate 07/16/18 Yes sulfamethoxazole Allergy Intermediate 07/16/18 Yes trimethoprim Allergy Intermediate 07/16/18 Yes I S O L A T I O N *CONTACT* Allergy Unknown 10/17/17 Yes Physical Exam Physical Exam Constitutional: Well developed, well nourished, no acute distress, non-toxic appearance. [] HENT: Normocephalic, atraumatic, bilateral external ears normal, oropharynx moist, no oral exudates, nose normal. [] Eyes: PERRLA, EOMI, conjunctiva normal, no discharge. [] Neck: Normal range of motion, no tenderness, supple, no stridor. [] Cardiovascular:Heart rate regular rhythm, no murmur [] Lungs & Thorax: Bilateral breath sounds clear to auscultation [] Abdomen: Bowel sounds normal, soft, no tenderness, no masses, no pulsatile masses. [] Skin: Warm, dry, no erythema, no rash. [] Back: tender to left scapula, left shoulder, and left clavicle. Extremities: No tenderness, no cyanosis, no clubbing, ROM intact, no edema. [] Neurologic: Alert and oriented X 3, normal motor function, normal sensory func tion, no focal deficits noted. [] Psychologic: Affect normal, judgement normal, mood normal. [] Current Patient Data Vital Signs Vital Signs Date Time Temp Pulse Resp B/P (MAP) Pulse Ox O2 Delivery O2 Flow Rate FiO2 09/07/18 21:43 16 99 Room Air 09/07/18 21:18 98.4 79 149/89 (109) 98.4 EKG EKG [] Radiology/Procedures Radiology/Procedures Preliminary x-rays by Dr. Gonzalez No obvious acute fractures or dislocations to ribs, shoulder, clavicle, or scapula. Course & Med Decision Making Course & Med Decision Making Pertinent Labs and Imaging studies reviewed. (See chart for details) Will get x-rays and give [place]. X-rays are negative. Will d/c home. Dragon Disclaimer Dragon Disclaimer This electronic medical record was generated, in whole or in part, using a voice recognition dictation system. Departure Departure Impression: Primary Impression: Fall Disposition: 01 HOME, SELF-CARE Condition: STABLE Referrals: MALLIKA PORTER MD, PHD (PCP) Patient Instructions: Fall Prevention and Home Safety Additional Instructions: Thank you for visiting [facility]. We appreciate you trusting us with your care. If any additional problems come up don't hesitate to return to visit us. Please follow up with your primary care provider so they can plan additional care if needed and know about the problem that you had. If symptoms worsen come back to the Emergency Department. Any concerning symptoms that start such as chest pain, shortness of air, weakness or numbness on one side of the body, running high fevers or any other concerning symptoms return to the ER. Problem Qualifiers Primary Impression: Fall Encounter type: initial encounter Qualified Codes: W19.XXXA - Unspecified fall, initial encounter VIDAL GRULLON APRN Sep 07, 2018 21:32
[2018-09-07] MEDS ORDERED: HYDROcodone/APAP 5/325MG 1 TAB TABLET PO ONE (21:45)
--- NOTE | 2018-09-08 08:48 | RAD ---
Left clavicle 2 views, left shoulder 3 views, left scapula 2 views HISTORY: Fall Left clavicle 2 views were taken of the left clavicle. There is not evidence of a fracture or acute osseous abnormality. Left shoulder 3 views were taken of the left shoulder. There is not evidence of an acute fracture or osseous abnormality. There is no dislocation at the shoulder. Left scapula. 2 views were taken of the left scapula. There is no fracture or acute osseous abnormality. IMPRESSION: 1. No fracture noted in the left clavicle. 2. No fracture or dislocation at the left shoulder. 3. No fracture noted in the left scapula. Electronically signed by: Escobar Rodriguez MD (09/08/2018 8:46 AM) [facility]
--- NOTE | 2018-09-08 08:51 | RAD ---
Left RIBS with PA chest. HISTORY: Fall PA view was taken of the chest. There is no pneumothorax or pleural effusion. There is mild pleural thickening bilaterally. There is mild linear scarring or atelectasis in both lungs. Heart is mildly enlarged. There are no other infiltrates. The aorta is tortuous. AP and oblique views were taken of the left ribs. There is no acute rib fracture or acute osseous abnormality. IMPRESSION: 1. Cardiomegaly. 2. No acute chest disease. 3. No rib fracture noted. Electronically signed by: Escobar Rodriguez MD (09/08/2018 8:48 AM) [facility]
== END 2018-09-07 23:00 | disposition home or self-care (01) ==
LOC: ER 21:09
DX: M25.512 Pain in left shoulder (principal); G89.11 Acute pain due to trauma; I11.0 Hypertensive heart disease with heart failure; I50.9 Heart failure, unspecified; E03.9 Hypothyroidism, unspecified; E78.00 Pure hypercholesterolemia, unspecified; J45.909 Unspecified asthma, uncomplicated; Z88.2 Allergy status to sulfonamides; Z88.1 Allergy status to other antibiotic agents; Z88.8 Allergy status to other drugs, medicaments and biological substances; Z88.6 Allergy status to analgesic agent; Z91.041 Radiographic dye allergy status; W10.9XXA Fall (on) (from) unspecified stairs and steps, initial encounter; Y93.89 Activity, other specified; Y92.89 Other specified places as the place of occurrence of the external cause; Y99.8 Other external cause status
CPT/HCPCS: 71101; 73000; 73010; 73030; 99284

== ENCOUNTER 2018-10-11 10:15 | Inpatient (IN) | payer OTHER ==
[~2018-10-11] VITALS: Ht 182.9 cm; Wt 131.1 kg
[~2018-10-11 10:15] MED LIST changes: +DOXY100T PO; +IPRA3AMP29 NEB; +METH4TAB2 PO
[2018-10-24] MEDS ORDERED: HYDR-3164 PO (10:38)
[2018-10-24] MEDS ORDERED: CARV6.2511 PO (10:38)
[2018-10-24] MEDS ORDERED: SPIR25TA5 PO (10:38)
[2018-10-24] MEDS ORDERED: HYDR100T24 PO (10:38)
[2018-10-24] MEDS ORDERED: RISP0.5T3 PO (10:38)
[2018-10-24] MEDS ORDERED: ATOR40TA59 PO (10:38)
[2018-10-24] MEDS ORDERED: ALBU2.5V8 INH (10:38)
[2018-10-24] MEDS ORDERED: PROM5SYR2 PO (10:38)
[2018-10-25] VITALS (9 sets, daily range): BP systolic 102–145; BP diastolic 57–90
[2018-10-25] MEDS ORDERED: BUPIVACAINE-EPI 0.25%-1:200000 MPF 30 ML VIAL. INJ ONE (06:00)
[2018-10-25] MEDS ORDERED: ACETAMINOPHEN 500 MG TABLET PO PRN (06:00)
[2018-10-25] MEDS ORDERED: INDOCYANINE GREEN 7.5 MG in TOTAL VOLUME SYRINGE 3 ML IVP ONE (06:00)
[2018-10-25] MEDS ORDERED: ceFAZolin SODIUM 3 GM in IV DEXTROSE 5% 100ML 100 ML IV PRN (06:00)
[2018-10-25] MEDS ORDERED: HYDROmorphone 2 MG/ML VIAL IV PRN (07:00)
[2018-10-25] MEDS ORDERED: PROCHLORPERAZINE 10 MG/2 ML VIAL. IV PRN (07:00)
[2018-10-25] MEDS ORDERED: IV RINGERS,LACTATED 1000ML 1,000 ML IV SCH (07:00)
[2018-10-25] MEDS ORDERED: fentaNYL PF VIAL 100 MCG/2 ML VIAL IV PRN (07:00)
[2018-10-25] MEDS ORDERED: INSULIN LISPRO 100 UNIT/ML 3ML VIAL for OP,RR ONLY. SQ PRN (09:00)
--- NOTE | 2018-10-25 09:12 | PDOC1 ---
History and Physical Date of Admission Date of Admission DATE: 10/25/18 TIME: 09:10 Identification/Chief Complaint Chief Complaint Abnormal colonoscopy with tubulovillous adenoma with dysplasia in the hepatic flexure Source Source: Patient History of Present Illness History of Present Illness 63-year-old female recently underwent a colonoscopy in May 2018 was found to have a tubulovillous adenoma the hepatic flexure quite large incompletely removed pathology report shows high-grade dysplasia. Patient has family history of colon cancer Past Medical History Cardiovascular: CHF, HTN, Other Pulmonary: Asthma, COPD CENTRAL NERVOUS SYSTEM: Periperal neuropathy, Other GI: Constipation, GERD Heme/Onc: Other Hepatobiliary: Other Psych: Depression Musculoskeletal: Osteoarthritis, Other Renal/: UTI Endocrine: Hypothyroidism Past Surgical History Past Surgical History: Cholecystectomy, , Hernia Repair, Hysterectomy Family History Family History: Cancer, Hypertension Social History ALCOHOL: none Drugs: None Current Medications Current Medications Current Medications Indocyanine Green 7.5 mg/ Miscellaneous 3 ml @ 180 mls/hr 1X ONCE IVP ; Start 10/25/18 at 06:00; Stop 10/25/18 at 06:01; Status DC Bupivacaine HCl/ Epinephrine Bitart (Sensorcaine-Epi 0.25%-1:909856 Mpf) 30 ml 1X ONCE INJ ; Start 10/25/18 at 06:00; Stop 10/25/18 at 06:01; Status DC Fentanyl Citrate (Fentanyl 2ml Vial) 25 mcg PRN Q5MIN PRN IV MILD PAIN 1-3; Start 10/25/18 at 07:00; Stop 10/26/18 at 06:59 Fentanyl Citrate (Fentanyl 2ml Vial) 50 mcg PRN Q5MIN PRN IV MODERATE TO SEVERE PAIN; Start 10/25/18 at 07:00; Stop 10/26/18 at 06:59 Morphine Sulfate (Morphine Sulfate) 1 mg PRN Q10MIN PRN IV SEVERE PAIN 7-10; Start 10/25/18 at 07:00; Stop 10/26/18 at 06:59 Ringer's Solution 1,000 ml @ 30 mls/hr Q24H IV Last administered on 10/25/18at 08:52; Start 10/25/18 at 07:00; Stop 10/25/18 at 18:59 Hydromorphone HCl (Dilaudid) 0.5 mg PRN Q10MIN PRN IV SEV PAIN, Second choice; Start 10/25/18 at 07:00; Stop 10/26/18 at 06:59 Prochlorperazine Edisylate (Compazine) 5 mg PACU PRN PRN IV NAUSEA, MRX1; Start 10/25/18 at 07:00; Stop 10/26/18 at 06:59 Cefazolin Sodium 3 gm/Dextrose 100 ml @ 200 mls/hr 1X PREOP PRN IV PRIOR TO PROCEDURE; Start 10/25/18 at 06:00; Stop 10/25/18 at 15:00 Acetaminophen (Tylenol) 1,000 mg OC PROC PRN PO PRE-OP Last administered on 10/25/18at 08:56; Start 10/25/18 at 06:00; Stop 10/25/18 at 18:00 Insulin Human Lispro (HumaLOG VIAL for OP,RR ONLY) 0-10 units PRN Q1HR PRN SQ PER PROTOCOL; Start 10/25/18 at 09:00; Stop 10/26/18 at 08:59 Active Scripts Active Symbicort 160-4.5 Mcg Inhaler (Budesonide/Formoterol Fumarate) 10.2 Gm Hfa.aer.ad 2 Puff IH BID MDD 1 Montelukast Sodium Tablet (Montelukast Sodium) 10 Mg Tablet 10 Mg PO HS MDD 1 Reported [place] 5-325 Tablet (Acetaminophen/Hydrocodone Bitart) 1 Each Tablet 1 Tab PO PRN Q6HRS PRN Spironolactone 25 Mg Tablet 25 Mg PO BID Risperidone 0.5 Mg Tablet 1 Tab PO BID Prometh-Codein 6.25-10 mg/5 ml (Promethazine HCl/Codeine) 5 Ml Syrup 5 Ml PO PRN DAILY PRN Hydralazine Hcl 100 Mg Tablet 50 Mg PO TID Carvedilol (Carvedilol) 6.25 Mg Tablet 6.25 Mg PO BIDWMEALS Atorvastatin Calcium 40 Mg Tablet 40 Mg PO HS Proair Hfa Inhaler (Albuterol Sulfate) 8.5 Gm Hfa.aer.ad 2 Puff INH PRN Q6HRS PRN Levothyroxine Sodium 150 Mcg Tablet 150 Mcg PO DAILYAC Flonase Allergy Relief (Fluticasone Propionate) 9.9 Ml [place].susp 2 Sprays NS DAILY Citalopram Hbr (Citalopram Hydrobromide) 40 Mg Tablet 40 Mg PO DAILY Centrum Silver Women Tablet (Multivits-Min/Iron/FA/Lutein) 1 Each Tablet 1 Each PO DAILY08 Abilify (Aripiprazole) 5 Mg Tablet 5 Mg PO DAILY08 Trazodone Hcl 100 Mg Tablet 100 Mg PO HS Protonix (Pantoprazole Sodium) 20 Mg Tablet.dr 40 Mg PO DAILY Metformin Hcl 1,000 Mg Tablet 1 Tab PO BIDWMEALS Doxepin Hcl 10 Mg Capsule 25 Mg PO QHS Furosemide 40 Mg Tablet 40 Mg PO DAILY Epipen (Epinephrine) 0.3 Mg/0.3 Ml Auto.injct 0.3 Mg IJ PRN Allergies Allergies: Coded Allergies: NSAIDS (Non-Steroidal Anti-Inflamma (Verified Allergy, Severe, itching,throat"swells", 10/25/18) aspirin (Verified Allergy, Severe, Shortness of Air, 10/25/18) Sulfa (Sulfonamide Antibiotics) (Verified Allergy, Intermediate, 10/25/18) ketorolac (Verified Allergy, Intermediate, 10/25/18) sulfamethoxazole (Verified Allergy, Intermediate, 10/25/18) trimethoprim (Verified Allergy, Intermediate, 10/25/18) I S O L A T I O N *CONTACT* (Verified Allergy, Unknown, 09/20/18) mrsa Vitals Vitals Vital Signs Date Time Temp Pulse Resp B/P (MAP) Pulse Ox O2 Delivery O2 Flow Rate FiO2 10/25/18 08:50 97.4 71 145/95 98 Room Air 97.4 10/25/18 08:43 20 Labs Labs Laboratory Tests Test 10/25/18 08:42 Glucose (Fingerstick) 87 mg/dL (70-99) Laboratory Tests Test 10/25/18 08:42 Glucose (Fingerstick) 87 mg/dL (70-99) VTE Prophylaxis Ordered VTE Prophylaxis Devices: Yes VTE Pharmacological Prophylaxi: Contraindicated Assessment/Plan Assessment/Plan 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
[2018-10-25] MEDS ORDERED: PROPOFOL 20 ML IV ONE (09:48)
[2018-10-25] MEDS ORDERED: ROCURONIUM 50 MG/5 ML VIAL. ONE (09:48)
[2018-10-25] MEDS ORDERED: LIDOCAINE 2% PF 5 ML VIAL. ONE (09:48)
[2018-10-25] MEDS ORDERED: ROCURONIUM 100 MG/10 ML VIAL. ONE (10:18)
[2018-10-25] MEDS ORDERED: fentaNYL PF VIAL 100 MCG/2 ML VIAL ONE (10:20)
[2018-10-25] MEDS ORDERED: hydrALAZINE 20 MG/ML VIAL. ONE (10:23)
[2018-10-25] MEDS ORDERED: SEVOFLURANE > 120 MINUTES. IH ONE (12:16)
[2018-10-25] MEDS ORDERED: DEXAMETHASONE SOD PHOS 4 MG/ML VIAL ONE (12:17)
[2018-10-25] MEDS ORDERED: ONDANSETRON PF 4 MG/2 ML VIAL. ONE (12:17)
[2018-10-25] MEDS ORDERED: DEXAMETHASONE SOD PHOS 20 MG/5 ML VIAL. ONE (13:29)
[2018-10-25] MEDS ORDERED: BUPIVACAINE MPF 0.5% 30 ML VIAL. ONE (13:29)
[2018-10-25] MEDS ORDERED: EPINEPHrine 1 MG/ML VIAL ONE (13:29)
[2018-10-25] MEDS ORDERED: NEOSTIGMINE METHYLSULFATE 5 MG/5 ML SYRINGE. ONE (13:35)
[2018-10-25] MEDS ORDERED: GLYCOPYRROLATE 1 MG/5 ML VIAL. ONE (13:35)
--- NOTE | 2018-10-25 14:14 | PDOC4 ---
Operative Note Operative Note Date: 10/25/2018 Preoperative diagnosis: Tubulovillous adenoma hepatic flexure with dysplasia Postoperative diagnosis: Same Procedure: Robotic-assisted laparoscopic right colon resection of hepatic flexure Surgeon: Faustino Specimen: Right colon Dictation: Patient is a 63-year-old female who underwent a colonoscopy was found to have a large tubulovillous adenomatous polyp in the hepatic flexure biopsy showed some dysplasia no evidence of malignancy. Because the polyp could not be removed completely with colonoscopy is recommended that it be removed surgically. Procedure of robotic-assisted laparoscopic right colon resection was explained to the patient detail risk benefits were also discussed including bleeding infection injury to intra-abdominal contents possibly necessitating further or open operations alternatives to this procedure also discussed with patient who seemed to understand gave both verbal and written consent to have the procedure performed. Patient was taken to the operating room placed in supine position general anesthesia was initiated once patient was sleep and intubated her abdomen was prepped and draped usual sterile fashion using ChloraPrep and area just in the left upper quadrant was injected with quarter percent Marcaine with epinephrine incision was made 11 blade scalpel and a 5 mill meter Visiport was placed under direct visualization and the abdomen pneumoperitoneum was created the abdomen was inspected with 5 mm scope was noted that she had quite a few adhesions to the anterior abdominal wall were she previously had had a hernia repair with mesh da Digna ports were placed one in the left mid abdomen one on the left lower abdomen and one in the left upper abdomen that eventually robot was brought in and docked all port sites surgeon went to the robotic console using a grasper and Endo Reymundo scissors the previous adhesions to the anterior abdominal wall were taken down with blunt and sharp dissection was noted that part of the mesh was not incorporated into the abdominal wall the other half was. Attentions were then turned to the right colon was noted that the tattooed portion of the right colon was in the hepatic flexure using vessel sealer graspers the right colon was mobilized along the white line of Toldt and to the hepatic flexure which was taken down giving good mobilization medially of the right colon and to the mid transverse colon. A ESTRELLITA stapler for that eventually was used to staple the colon both proximally and distally to the tattooing cevallos mesentery was then taken down with the vessel sealer and the specimen was parked in the right lower quadrant a side to side isoperistaltic stapled anastomosis was completed between the 2 ends of the colon the enterotomy sites were then closed with a running 20V LOC absorbable suture and Lemberted with the same suture. The specimen was removed from incision was extended for the left lower port site a wound protector was placed and a specimen removed. The fascial defect was then closed with a running O loop PDS. Insufflation of the abdomen was performed a 5 mm laparoscopic camera was placed within the abdomen and was irrigated and suctioned dry also noted that there was some fascial defect at the left lower quadrant incision this was then closed with 0 Vicryl on a needle passer visualized laparoscopically. Once irrigation been completed ports were all removed and the pneumoperitoneum reduced all port sites were closed for septic and a Monocryl Mastisol Steri-Strips and island dressings were applied. Patient was awakened and asked bated operating room taken to recovery in stable condition all sponge instrument needle counts listed as correct estimate blood loss 100 mL. HONG MARTÍNEZ MD Oct 25, 2018 14:14
[2018-10-25] MEDS ORDERED: 0.9 % SODIUM CHLORIDE 10 ML DISP.SYRIN. IV PRN (14:15)
[2018-10-25] MEDS: fentaNYL PF VIAL 100 MCG/2 ML VIAL IV PRN ×2 (15:00→15:13)
[2018-10-25] MEDS: MORPHINE SULFATE 2 MG/ML VIAL. IV PRN ×4 (15:01→22:09)
[2018-10-25] MEDS: IV DEXTROSE 5%-LACT RINGERS 1,000 ML IV SCH (16:08)
[2018-10-25] MEDS: cefOXitin SODIUM IV Push 1 GM VIAL. IVP SCH (17:05)
[2018-10-25] MEDS ORDERED: cefOXitin SODIUM IV Push 1 GM VIAL. IVP SCH (18:00)
[2018-10-26] VITALS (7 sets, daily range): BP systolic 83–106; BP diastolic 49–72
[2018-10-26] MEDS: MORPHINE SULFATE 2 MG/ML VIAL. IV PRN ×4 (01:14→15:15)
[2018-10-26] MEDS: cefOXitin SODIUM IV Push 1 GM VIAL. IVP SCH ×3 (02:25→17:54)
[2018-10-26] MEDS: IV DEXTROSE 5%-LACT RINGERS 1,000 ML IV SCH ×2 (05:02→21:04)
[2018-10-26 06:48] LABS: BASO % 0 % (0-3); EOS % 0 % (0-3); HEMATOCRIT 30.7 % (36.0-47.0); HEMOGLOBIN 9.6 g/dL (12.0-15.5); LYMPH # 1.2 x10^3/uL (1.0-4.8); LYMPH % 9 % (24-48); MEAN CORPUSCULAR HEMOGLOBIN 24 pg (25-35); MEAN CORPUSCULAR HGB CONC 31 g/dL (31-37); MEAN CORPUSCULAR VOLUME 75 fL (79-100); MONO # 1.1 x10^3/uL (0.0-1.1); MONO % 8 % (0-9); NEUT # 10.9 x10^3/uL (1.8-7.7); NEUT % 83 % (31-73); PLATELET COUNT 221 x10^3/uL (140-400); RED BLOOD COUNT 4.08 x10^6/uL (3.50-5.40); RED CELL DISTRIBUTION WIDTH 18.7 % (11.5-14.5); WHITE BLOOD COUNT 13.2 x10^3/uL (4.0-11.0)
--- NOTE | 2018-10-26 08:54 | PDOC ---
RAYMOND TAN NURSE INTERN 10/26/18 0854: SURGICAL PROGRESS NOTE Subjective no flatus yet some pain no nausea Vital Signs Vital Signs Date Time Temp Pulse Resp B/P (MAP) Pulse Ox O2 Delivery O2 Flow Rate FiO2 10/26/18 07:00 98.1 76 16 83/57 (66) 99 Room Air 98.1 10/26/18 05:35 2.0 I&O Intake and Output 10/26/18 06:59 Intake Total 2300 ml Output Total 1175 ml Balance 1125 ml Intake IV Total 2300 ml Output Urine Total 1075 ml Estimated Blood Loss 100 ml General: Alert, Oriented X3, Cooperative Abdomen: Soft, Other (dressings dry, incisional TTP) Labs Laboratory Tests Test 10/25/18 08:42 10/26/18 05:50 Glucose (Fingerstick) 87 mg/dL (70-99) White Blood Count 13.2 x10^3/uL (4.0-11.0) Red Blood Count 4.08 x10^6/uL (3.50-5.40) Hemoglobin 9.6 g/dL (12.0-15.5) Hematocrit 30.7 % (36.0-47.0) Mean Corpuscular Volume 75 fL (79-100) Mean Corpuscular Hemoglobin 24 pg (25-35) Mean Corpuscular Hemoglobin Concent 31 g/dL (31-37) Red Cell Distribution Width 18.7 % (11.5-14.5) Platelet Count 221 x10^3/uL (140-400) Neutrophils (%) (Auto) 83 % (31-73) Lymphocytes (%) (Auto) 9 % (24-48) Monocytes (%) (Auto) 8 % (0-9) Eosinophils (%) (Auto) 0 % (0-3) Basophils (%) (Auto) 0 % (0-3) Neutrophils # (Auto) 10.9 x10^3/uL (1.8-7.7) Lymphocytes # (Auto) 1.2 x10^3/uL (1.0-4.8) Monocytes # (Auto) 1.1 x10^3/uL (0.0-1.1) Eosinophils # (Auto) 0.0 x10^3/uL (0.0-0.7) Basophils # (Auto) 0.0 x10^3/uL (0.0-0.2) Laboratory Tests Test 10/26/18 05:50 White Blood Count 13.2 x10^3/uL (4.0-11.0) Red Blood Count 4.08 x10^6/uL (3.50-5.40) Hemoglobin 9.6 g/dL (12.0-15.5) Hematocrit 30.7 % (36.0-47.0) Mean Corpuscular Volume 75 fL (79-100) Mean Corpuscular Hemoglobin 24 pg (25-35) Mean Corpuscular Hemoglobin Concent 31 g/dL (31-37) Red Cell Distribution Width 18.7 % (11.5-14.5) Platelet Count 221 x10^3/uL (140-400) Neutrophils (%) (Auto) 83 % (31-73) Lymphocytes (%) (Auto) 9 % (24-48) Monocytes (%) (Auto) 8 % (0-9) Eosinophils (%) (Auto) 0 % (0-3) Basophils (%) (Auto) 0 % (0-3) Neutrophils # (Auto) 10.9 x10^3/uL (1.8-7.7) Lymphocytes # (Auto) 1.2 x10^3/uL (1.0-4.8) Monocytes # (Auto) 1.1 x10^3/uL (0.0-1.1) Eosinophils # (Auto) 0.0 x10^3/uL (0.0-0.7) Basophils # (Auto) 0.0 x10^3/uL (0.0-0.2) Problem List s/p right colon await bowel function lovenox added dc aguilar ambulate HONG MARTÍNEZ MD 10/26/18 0937: SURGICAL PROGRESS NOTE Assessment/Plan Agree with [place] assessment and plan RAYMOND TAN APRN Oct 26, 2018 08:54 HONG MARTÍNEZ MD Oct 26, 2018 09:37
--- NOTE | 2018-10-26 09:02 | NUR ---
IP: Pt's hx of mrsa was a + mrsa screen in 2013. Pt has had 2 negative screens and does not require contact precautions at this time. Flag removed.
--- NOTE | 2018-10-26 09:55 | NUR ---
SS following for discharge planning. SS reviewed pt chart. Pt is from home and is currently requiring oxygen. No discharge needs noted at this time. SS will continue to follow for discharge planning.
--- NOTE | 2018-10-26 11:12 | NUR ---
Atraumatic removal of aguilar catheter per order removal postop day #1 after explanation of procedure to patient. She tolerated without any discomfort. Continue cares and monitor.
[2018-10-26] MEDS ORDERED: IV NORMAL SALINE 1000ML BAG 1,000 ML IV ONE (12:00)
[2018-10-26] MEDS: ENOXAPARIN 40 MG/0.4 ML SYRINGE. SQ SCH (12:09)
--- NOTE | 2018-10-26 13:08 | NUR ---
Functional screen complete Pt admitted for colon resection and per [facility] Daily pt has not been out of bed. Pt would benefit from PT/OT assessment to ensure safe mobility for home. Please write PT/OT eval and treat orders if you agree. Addendum: 10/26/18 at 1309 by WILMA CAVAZOS PT Amended: Links added.
--- NOTE | 2018-10-26 13:58 | NUR ---
See VS record, nursing communication and orders. Dr. Harmon notified of patient low blood pressure and UO 200 cc opal urine with discontinue aguilar catheter at 1110. Will recheck blood pressure with fluid bolus completion. Patient asymptomatic, but "tired". Continue cares and monitor.
--- NOTE | 2018-10-26 16:44 | NUR ---
Patient void 150 cc clear yellow urine with up to BSC.
--- NOTE | 2018-10-26 17:00 | NUR ---
PVR bladder scan 9ml.
[2018-10-27] MEDS: cefOXitin SODIUM IV Push 1 GM VIAL. IVP SCH ×3 (02:19→17:24)
[2018-10-27] MEDS: MORPHINE SULFATE 2 MG/ML VIAL. IV PRN ×3 (02:26→16:13)
[2018-10-27 03:00] VITALS: BP 103/74
[2018-10-27 07:00] VITALS: BP 104/83
--- NOTE | 2018-10-27 09:25 | PDOC ---
SURGICAL PROGRESS NOTE Subjective Patient doing okay this morning complaining of abdominal soreness no nausea no vomiting passing flatus Vital Signs Vital Signs Date Time Temp Pulse Resp B/P (MAP) Pulse Ox O2 Delivery O2 Flow Rate FiO2 10/27/18 09:00 Nasal Cannula 2.0 10/27/18 07:00 98.0 100 16 104/83 (90) 98 98.0 I&O Intake and Output 10/27/18 06:59 Intake Total 1200 ml Output Total 500 ml Balance 700 ml Intake Oral 200 ml IV Total 1000 ml Output Urine Total 500 ml PATIENT HAS A WHITE: No General: Alert, Oriented X3, Cooperative, mild distress Abdomen: Normal bowel sounds, Soft, Other (abdomen is soft mildly distended wounds clean dry and intact mild incisional tenderness) Labs Laboratory Tests Test 10/25/18 16:00 10/26/18 05:50 Nasal Screen MRSA (PCR) Negative (Negative) White Blood Count 13.2 x10^3/uL (4.0-11.0) Red Blood Count 4.08 x10^6/uL (3.50-5.40) Hemoglobin 9.6 g/dL (12.0-15.5) Hematocrit 30.7 % (36.0-47.0) Mean Corpuscular Volume 75 fL (79-100) Mean Corpuscular Hemoglobin 24 pg (25-35) Mean Corpuscular Hemoglobin Concent 31 g/dL (31-37) Red Cell Distribution Width 18.7 % (11.5-14.5) Platelet Count 221 x10^3/uL (140-400) Neutrophils (%) (Auto) 83 % (31-73) Lymphocytes (%) (Auto) 9 % (24-48) Monocytes (%) (Auto) 8 % (0-9) Eosinophils (%) (Auto) 0 % (0-3) Basophils (%) (Auto) 0 % (0-3) Neutrophils # (Auto) 10.9 x10^3/uL (1.8-7.7) Lymphocytes # (Auto) 1.2 x10^3/uL (1.0-4.8) Monocytes # (Auto) 1.1 x10^3/uL (0.0-1.1) Eosinophils # (Auto) 0.0 x10^3/uL (0.0-0.7) Basophils # (Auto) 0.0 x10^3/uL (0.0-0.2) Assessment/Plan Status post colon resection Awaiting return of full bowel function Start clear liquid diet HONG MARTÍNEZ MD Oct 27, 2018 09:25
[2018-10-27] MEDS: IV DEXTROSE 5%-LACT RINGERS 1,000 ML IV SCH ×2 (10:32→23:01)
[2018-10-27 11:21] VITALS: BP 110/77
[2018-10-27] MEDS: ENOXAPARIN 40 MG/0.4 ML SYRINGE. SQ SCH (12:03)
[2018-10-27 15:23] VITALS: BP 135/101
[2018-10-27] MEDS: oxyCODONE/APAP 5/325 1 TAB TABLET PO PRN (17:21)
[2018-10-27 19:30] VITALS: BP 105/73
[2018-10-27 23:23] VITALS: BP 121/75
[2018-10-28] MEDS: oxyCODONE/APAP 5/325 1 TAB TABLET PO PRN ×2 (00:15→06:34)
[2018-10-28] MEDS: cefOXitin SODIUM IV Push 1 GM VIAL. IVP SCH ×3 (02:25→17:36)
[2018-10-28 03:42] VITALS: BP 111/65
[2018-10-28 07:00] VITALS: BP 124/74
--- NOTE | 2018-10-28 08:47 | PDOC ---
SURGICAL PROGRESS NOTE Subjective Patient complains of being tired with abdominal pain although she does state the pain medicine helps when she takes it. Denies any bowel movement or passing flatus Vital Signs Vital Signs Date Time Temp Pulse Resp B/P (MAP) Pulse Ox O2 Delivery O2 Flow Rate FiO2 10/28/18 07:53 Room Air 10/28/18 07:00 97.9 89 16 124/74 (91) 92 97.9 10/27/18 23:23 2.0 I&O Intake and Output 10/28/18 06:59 Intake Total 540 ml Balance 540 ml Intake Oral 540 ml # Voids 3 PATIENT HAS A WHITE: No General: Alert, Oriented X3, Cooperative, mild distress Abdomen: Normal bowel sounds, Soft, Other (mild incisional tenderness wounds clean dry and intact) Assessment/Plan Status post robotic-assisted laparoscopic right colon resection Continue supportive care awaiting for bowel function to return HONG MARTÍNEZ MD Oct 28, 2018 08:47
[2018-10-28] MEDS: IV DEXTROSE 5%-LACT RINGERS 1,000 ML IV SCH (10:27)
[2018-10-28 10:32] VITALS: BP 99/68
[2018-10-28] MEDS: ENOXAPARIN 40 MG/0.4 ML SYRINGE. SQ SCH (11:55)
[2018-10-28 14:52] VITALS: BP 152/96
[2018-10-28] MEDS: ONDANSETRON PF 4 MG/2 ML VIAL. IV PRN (17:31)
[2018-10-28] MEDS: MORPHINE SULFATE 2 MG/ML VIAL. IV PRN (17:36)
[2018-10-28 19:35] VITALS: BP 112/74
--- NOTE | 2018-10-28 23:28 | NUR ---
Patient triggered positive for sepsis on my assessment this shift. I notified the ICU lease broker, Luda, and she asked me to notify Dr. Harmon. I called Dr. Harmon and spoke with him about it. He has no new orders at this time.
[2018-10-28 23:48] VITALS: BP 118/82
[2018-10-29] MEDS: IV DEXTROSE 5%-LACT RINGERS 1,000 ML IV SCH ×2 (01:57→17:06)
[2018-10-29] MEDS: cefOXitin SODIUM IV Push 1 GM VIAL. IVP SCH ×3 (01:57→17:06)
[2018-10-29 03:08] VITALS: BP 120/80
[2018-10-29] MEDS: oxyCODONE/APAP 5/325 1 TAB TABLET PO PRN ×3 (03:59→14:54)
[2018-10-29 07:00] VITALS: BP 121/77
--- NOTE | 2018-10-29 08:37 | PDOC ---
RAYMOND TAN TOWER OBSERVER 10/29/18 0837: SURGICAL PROGRESS NOTE Subjective tolerating clears, would like more to eat no emesis + flatus pain managed Vital Signs Vital Signs Date Time Temp Pulse Resp B/P (MAP) Pulse Ox O2 Delivery O2 Flow Rate FiO2 10/29/18 07:00 98.0 82 18 121/77 (92) 93 Room Air 98.0 I&O Intake and Output 10/29/18 06:59 Intake Total 480 ml Output Total 850 ml Balance -370 ml Intake Oral 480 ml Output Urine Total 850 ml # Voids 2 # Bowel Movements 1 General: Alert, Oriented X3, Cooperative, No acute distress Abdomen: Soft, Other (ND, incisions c/d/i, no erythema ) Assessment/Plan s/p resection advance diet HONG MARTÍNEZ MD 10/29/18 1034: SURGICAL PROGRESS NOTE Assessment/Plan Agree with Griselda's assessment and plan RAYMOND TAN TOWER OBSERVER Oct 29, 2018 08:37 HONG MARTÍNEZ MD Oct 29, 2018 10:34
[2018-10-29] MEDS: ONDANSETRON PF 4 MG/2 ML VIAL. IV PRN (09:03)
--- NOTE | 2018-10-29 10:29 | NUR ---
SS following up with discharge planning. Pt is currently on room air. No discharge needs noted at this time. SS will continue to follow for discharge planning.
[2018-10-29 11:00] VITALS: BP 94/63
--- NOTE | 2018-10-29 13:40 | NUR ---
notified dr vazquez at this time of pt having bleeding from loyd-area with clots. pt states she has had a hysterectomy so it could not be her period. dr vazquez stated to just monitor pt for further bleeding and orders were received. pt vital signs are stable at this time. will continue to monitor.
[2018-10-29] MEDS: ENOXAPARIN 40 MG/0.4 ML SYRINGE. SQ SCH (14:55)
[2018-10-29 15:00] VITALS: BP 119/86
--- NOTE | 2018-10-29 15:07 | PATHOLOGY ---
[facility] Accession Number: [id number] . 01 Material submitted: . colon - RIGHT COLON. Modifiers: right . 01 Clinical history: . Hepatic flexure polyp . 02 Diagnosis: Right colon, resection: - Tattoo pigment compatible with prior biopsy site; negative for residual high-grade dysplasia and tubulovillous adenoma. - Separate tubular adenoma, negative for high-grade dysplasia. - One benign lymph node. - See comment. (MAP:[facility]; 10/29/2018) [facility] 10/29/2018 1456 Local . 02 Comment: The patient's history of a tubulovillous adenoma with high-grade dysplasia is noted. Tattoo pigment is present in the specimen indicative of a prior biopsy site. Residual tubulovillous adenoma and high-grade dysplasia is not identified. (MAP:[facility]; 10/29/2018) . 02 Electronically signed: . Francisco Franco MD, Pathologist NPI- [id number] . 01 Gross description: . The specimen is received in formalin, labeled "Latonia Mckeonius, right colon" and consists of a previously opened segment of colon measuring 10.3 cm in length and up to 2 4.5 cm in diameter with pericolic fat measuring up to 4.2 cm. Both margins have a staple line. The serosa is pink-chaudhry with edematous creeping fat and extensive black tattoo ink. The mucosa in relation to the tattoo ink shows a linear ragged area consistent with a probable previous biopsy measuring approximately 3.0 x 1.1 cm. Adjacent and including the previous biopsy area is a submucosal clot. The previous biopsy site extends 1.0 cm from one margin and greater than 3 cm from the opposite margin. 2 additional polyps are identified measuring 0.3 x 0.3 cm and 0.4 x 0.3 cm. The serosa in relation to the tattoo ink is further inked black. No additional masses or lesions identified. Sectioning through the probable previous biopsy site reveals no grossly identifiable polyp/invasion of the muscular wall. Present within the pericolic fat is a single lymph node candidate measuring 0.3 x 0.3 cm. Buttonhole Maker Hand sections are submitted as follows: . A1: Margin closest tattoo ink A2: Margin furthest tattoo ink A3-A8: Entire previous biopsy site/tattoo ink A9: 2 additional polyps A10: Lymph node candidates intact A11-A13: Lymphovascular bundles (SDY; 10/26/2018) SYU/SYU 10/26/2018 1046 Local . 02 Pathologist provided ICD-10: D12.6 . 02 CPT . 041228 Specimen Comment: A courtesy copy of this report has been sent to Specimen Comment: [phone], . Specimen Comment: Report sent to / DR ESTEBAN Performed at: [facility] [address], [place] [id number] MD Jayden Bolden MD Phone: [phone] Performed at: [facility] [address] [place], [place] [id number] MD Luis Alberto Brady MD Phone: [phone]
[2018-10-29 19:00] VITALS: BP 114/55
[2018-10-29 23:00] VITALS: BP 121/71
[2018-10-30] MEDS: cefOXitin SODIUM IV Push 1 GM VIAL. IVP SCH ×3 (02:11→17:12)
[2018-10-30 03:00] VITALS: BP 121/67
[2018-10-30] MEDS: oxyCODONE/APAP 5/325 1 TAB TABLET PO PRN ×3 (04:20→17:12)
[2018-10-30 06:00] LABS: BASO # 0.1 x10^3/uL (0.0-0.2); BASO % 1 % (0-3); EOS # 1.3 x10^3/uL (0.0-0.7); EOS % 15 % (0-3); HEMATOCRIT 26.2 % (36.0-47.0); HEMOGLOBIN 8.2 g/dL (12.0-15.5); LYMPH # 2.1 x10^3/uL (1.0-4.8); LYMPH % 26 % (24-48); MEAN CORPUSCULAR HEMOGLOBIN 24 pg (25-35); MEAN CORPUSCULAR HGB CONC 32 g/dL (31-37); MEAN CORPUSCULAR VOLUME 77 fL (79-100); MONO # 0.8 x10^3/uL (0.0-1.1); MONO % 9 % (0-9); NEUT # 4.2 x10^3/uL (1.8-7.7); NEUT % 50 % (31-73); PLATELET COUNT 161 x10^3/uL (140-400); RED BLOOD COUNT 3.41 x10^6/uL (3.50-5.40); RED CELL DISTRIBUTION WIDTH 18.8 % (11.5-14.5); WHITE BLOOD COUNT 8.4 x10^3/uL (4.0-11.0)
[2018-10-30 07:00] VITALS: BP 96/69
[2018-10-30] MEDS: IV DEXTROSE 5%-LACT RINGERS 1,000 ML IV SCH ×2 (08:41→17:18)
--- NOTE | 2018-10-30 08:54 | PDOC ---
RAYMOND TAN FRONT CLERK 10/30/18 0854: SURGICAL PROGRESS NOTE Subjective wants to go home d/w nursing--large blood/clots x 1 rectally yesterday--did have a stool no n/v no further episodes of bleeding Vital Signs Vital Signs Date Time Temp Pulse Resp B/P (MAP) Pulse Ox O2 Delivery O2 Flow Rate FiO2 10/30/18 07:00 97.8 74 16 96/69 (78) 98 Room Air 97.8 I&O Intake and Output 10/30/18 06:59 Intake Total 1000 ml Output Total 250 ml Balance 750 ml IV Total 1000 ml Output Urine Total 250 ml # Voids 1 # Bowel Movements 1 General: Alert, Oriented X3, Cooperative, No acute distress Abdomen: Soft, No tenderness, Other (incisions c/d/i, no erythema ) Labs Laboratory Tests Test 10/30/18 05:30 White Blood Count 8.4 x10^3/uL (4.0-11.0) Red Blood Count 3.41 x10^6/uL (3.50-5.40) Hemoglobin 8.2 g/dL (12.0-15.5) Hematocrit 26.2 % (36.0-47.0) Mean Corpuscular Volume 77 fL (79-100) Mean Corpuscular Hemoglobin 24 pg (25-35) Mean Corpuscular Hemoglobin Concent 32 g/dL (31-37) Red Cell Distribution Width 18.8 % (11.5-14.5) Platelet Count 161 x10^3/uL (140-400) Neutrophils (%) (Auto) 50 % (31-73) Lymphocytes (%) (Auto) 26 % (24-48) Monocytes (%) (Auto) 9 % (0-9) Eosinophils (%) (Auto) 15 % (0-3) Basophils (%) (Auto) 1 % (0-3) Neutrophils # (Auto) 4.2 x10^3/uL (1.8-7.7) Lymphocytes # (Auto) 2.1 x10^3/uL (1.0-4.8) Monocytes # (Auto) 0.8 x10^3/uL (0.0-1.1) Eosinophils # (Auto) 1.3 x10^3/uL (0.0-0.7) Basophils # (Auto) 0.1 x10^3/uL (0.0-0.2) Laboratory Tests Test 10/30/18 05:30 White Blood Count 8.4 x10^3/uL (4.0-11.0) Red Blood Count 3.41 x10^6/uL (3.50-5.40) Hemoglobin 8.2 g/dL (12.0-15.5) Hematocrit 26.2 % (36.0-47.0) Mean Corpuscular Volume 77 fL (79-100) Mean Corpuscular Hemoglobin 24 pg (25-35) Mean Corpuscular Hemoglobin Concent 32 g/dL (31-37) Red Cell Distribution Width 18.8 % (11.5-14.5) Platelet Count 161 x10^3/uL (140-400) Neutrophils (%) (Auto) 50 % (31-73) Lymphocytes (%) (Auto) 26 % (24-48) Monocytes (%) (Auto) 9 % (0-9) Eosinophils (%) (Auto) 15 % (0-3) Basophils (%) (Auto) 1 % (0-3) Neutrophils # (Auto) 4.2 x10^3/uL (1.8-7.7) Lymphocytes # (Auto) 2.1 x10^3/uL (1.0-4.8) Monocytes # (Auto) 0.8 x10^3/uL (0.0-1.1) Eosinophils # (Auto) 1.3 x10^3/uL (0.0-0.7) Basophils # (Auto) 0.1 x10^3/uL (0.0-0.2) Assessment/Plan s/p resection hbg 8.2 from 9.6--hemodynamically stable, no further bleeding advance diet possible dc after lunch if no further bleeding and tolerating diet HONG MARTÍNEZ MD 10/30/18 1137: SURGICAL PROGRESS NOTE Assessment/Plan Agree with Griselda's assessment and plan RAYMOND TAN APRN Oct 30, 2018 08:54 HONG MARTÍNEZ MD Oct 30, 2018 11:37
[2018-10-30] MEDS ORDERED: OXYC1TAB15 PO (08:55)
--- NOTE | 2018-10-30 08:56 | DISCH ---
DISCHARGE INSTRUCTIONS Condition on Discharge Condition on Discharge: Stable Activity After Discharge Activity Instructions for Disc: No restrictions Lifting Instructions after Dis: No heavy lifting, No pulling or pushing Exercise Instruction after Dis: Progress as tolerated Driving Instructions after Dis: Do not drive today Weight Bearing Status after Di: No restrictions Diet after Discharge Diet after Discharge: Diabetic No Calorie Level Diet Texture: Regular Liquid Texture: Thin Liquid Swallowing Supervision: None needed Wound Incision Care Wound/Incision Care: May get incision wet, No wound care needed Other wound/incision instructi: no tub baths x 2 weeks Checks after Discharge Checks after discharge: Check blood press - daily, Check blood sugar, ac/hs Contacting the D[facility] after DC Call your doctor for: Concerns you may have Follow-Up Follow up with: Dr Harmon 2 weeks, call to schedule [phone] Treatment/Equipment after DC Adaptive Equipment Issued: None RAYMOND TAN APRN Oct 30, 2018 08:56
[2018-10-30 11:00] VITALS: BP 93/53
[2018-10-30] MEDS: ENOXAPARIN 40 MG/0.4 ML SYRINGE. SQ SCH (12:23)
[2018-10-30 13:08] LABS: % BANDS 3 % (0-9); % BASOS 2 % (0-3); % EOS 13 % (0-5); % LYMPHS 23 % (24-48); % MONOS 15 % (0-10); % SEGS 44 % (35-66)
[2018-10-30 13:09] LABS: ANISOCYTOSIS PRESENT; HYPOCHROMIA PRESENT; PLATELET CLUMP PRESENT; PLT ESTIMATE ADEQUATE (ADEQUATE)
--- NOTE | 2018-10-30 14:30 | NUR ---
Report received from FELIX Rosado, this nurse is taking over care for this pt.
[2018-10-30 15:00] VITALS: BP 112/67
[2018-10-30] MEDS ORDERED: ALBUTEROL SULFATE 2.5 MG/3 ML NEBU. NEB ONE (17:15)
[2018-10-30 19:00] VITALS: BP 101/62
[2018-10-30] MEDS: ALBUTEROL SULFATE 2.5 MG/3 ML NEBU. NEB SCH (19:33)
[2018-10-30 22:53] VITALS: BP 114/89
[2018-10-31] MEDS: cefOXitin SODIUM IV Push 1 GM VIAL. IVP SCH ×2 (01:49→10:00)
[2018-10-31] MEDS: oxyCODONE/APAP 5/325 1 TAB TABLET PO PRN (01:49)
[2018-10-31 03:00] VITALS: BP 121/80
[2018-10-31 07:00] VITALS: BP 120/80
[2018-10-31] MEDS: ALBUTEROL SULFATE 2.5 MG/3 ML NEBU. NEB SCH ×2 (08:18→12:26)
--- NOTE | 2018-10-31 09:42 | NUR ---
Notified of dismissal home today, agreeable with home health also
--- NOTE | 2018-10-31 10:00 | NUR ---
SS following up with discharge planning. SS was notified that pt needs home healthcare at home. SS met with pt and pt was agreeable to home healthcare with no preference of company. Nurse navigator following pt for home healthcare. SS phoned and faxed referral and discharge orders to [facility], ; fax [phone]. SS will continue to follow for discharge planning.
[2018-10-31 11:00] VITALS: BP 122/78
[2018-10-31] MEDS ORDERED: LACTOBACILLUS RHAMNOSUS GG 1 CAPSULE. PO SCH (12:00)
--- NOTE | 2018-10-31 13:15 | NUR ---
Discharge instructions given with follow up to Dr. Harmon in 2 weeks, has attempted to call ride several times without success, refused pain medication for transport home, stated valuables already retrieved from security
--- NOTE | 2018-10-31 13:59 | NUR ---
Discharged to home per w/c accompanied by friend
== END 2018-10-31 14:00 | disposition home health service (06) | DRG 330 ==
LOC: OPSVCIP 10-25 07:45 → 4 NORTH 10-25 15:54
PROVIDERS: ADMIT Surgery; ATTEND Surgery
PROC: 8E0W4CZ Robotic Assisted Procedure of Trunk Region, Percutaneous Endoscopic Approach (ICD-10-PCS; 2018-10-25)
PROC: 0DTF4ZZ Resection of Right Large Intestine, Percutaneous Endoscopic Approach (ICD-10-PCS; principal; 2018-10-25 10:00)
DX: D12.3 Benign neoplasm of transverse colon (principal); Z68.41 Body mass index [BMI] 40.0-44.9, adult; E66.01 Morbid (severe) obesity due to excess calories; E03.9 Hypothyroidism, unspecified; I11.0 Hypertensive heart disease with heart failure; I50.9 Heart failure, unspecified; J44.9 Chronic obstructive pulmonary disease, unspecified; K21.9 Gastro-esophageal reflux disease without esophagitis; F32.9 Major depressive disorder, single episode, unspecified; G62.9 Polyneuropathy, unspecified; M19.90 Unspecified osteoarthritis, unspecified site; Z80.0 Family history of malignant neoplasm of digestive organs; Z82.49 Family history of ischemic heart disease and other diseases of the circulatory system; Z90.710 Acquired absence of both cervix and uterus; Z87.440 Personal history of urinary (tract) infections; Z88.2 Allergy status to sulfonamides; Z88.8 Allergy status to other drugs, medicaments and biological substances; Z79.899 Other long term (current) drug therapy; Z90.49 Acquired absence of other specified parts of digestive tract
CPT/HCPCS: 36415; 82962; 85007; 85025; 87641; 88309; 94640; 94760; A7015; C1769; J0171; J0360; J0690; J0694; J1100; J1650; J2001; J2270; J2405; J2704; J2710; J3010; J3490; J7030; J7120; J7613; G0378

== ENCOUNTER → 2018-11-19 | Outpatient (CLI) | payer OTHER, MEDICAID ==
[2018-10-31 11:00] VITALS: BP 122/78
[~2018-11-19] MED LIST changes: +ATOR40TA59 PO; +HYDR100T24 PO; +OXYC1TAB15 PO; +PROM5SYR2 PO; +RISP0.5T3 PO
[2018-11-19 11:06] LABS: BASO # 0.1 x10^3/uL (0.0-0.2); BASO % 1 % (0-3); EOS % 13 % (0-3); HEMATOCRIT 30.4 % (36.0-47.0); HEMOGLOBIN 9.7 g/dL (12.0-15.5); LYMPH # 3.1 x10^3/uL (1.0-4.8); LYMPH % 39 % (24-48); MEAN CORPUSCULAR HEMOGLOBIN 23 pg (25-35); MEAN CORPUSCULAR HGB CONC 32 g/dL (31-37); MEAN CORPUSCULAR VOLUME 73 fL (79-100); MONO # 0.5 x10^3/uL (0.0-1.1); MONO % 6 % (0-9); NEUT # 3.3 x10^3/uL (1.8-7.7); NEUT % 41 % (31-73); PLATELET COUNT 345 x10^3/uL (140-400); RED CELL DISTRIBUTION WIDTH 18.5 % (11.5-14.5)
== END | disposition home or self-care (01) ==
LOC: LAB 10:35
PROVIDERS: ATTEND Surgery
DX: Z09 Encounter for follow-up examination after completed treatment for conditions other than malignant neoplasm (principal)
CPT/HCPCS: 36415; 85025

== ENCOUNTER 2019-02-02 17:57 | Emergency (ER) | payer OTHER, MEDICAID ==
[~2019-02-02] VITALS: Ht 162.6 cm; Wt 81.6 kg
[2019-02-02] MEDS: IV NORMAL SALINE 1000ML BAG 1,000 ML IV ONE (18:26)
[2019-02-02] MEDS: diphenhydrAMINE 50 MG/ML VIAL IVP ONE (18:29)
[2019-02-02] MEDS: METOCLOPRAMIDE HCL 10 MG/2 ML VIAL. IV ONE (18:30)
[2019-02-02 18:32] LABS: BASO # 0.1 x10^3/uL (0.0-0.2); BASO % 1 % (0-3); EOS # 0.9 x10^3/uL (0.0-0.7); EOS % 10 % (0-3); HEMOGLOBIN 10.7 g/dL (12.0-15.5); LYMPH % 23 % (24-48); MEAN CORPUSCULAR HEMOGLOBIN 22 pg (25-35); MEAN CORPUSCULAR HGB CONC 31 g/dL (31-37); MEAN CORPUSCULAR VOLUME 71 fL (79-100); MONO # 0.7 x10^3/uL (0.0-1.1); MONO % 7 % (0-9); NEUT # 5.1 x10^3/uL (1.8-7.7); NEUT % 59 % (31-73); PLATELET COUNT 322 x10^3/uL (140-400); RED BLOOD COUNT 4.76 x10^6/uL (3.50-5.40); RED CELL DISTRIBUTION WIDTH 20.3 % (11.5-14.5); WHITE BLOOD COUNT 8.8 x10^3/uL (4.0-11.0)
[2019-02-02] MEDS: IPRATRPIUM/ALBUTEROL 0.5/2.5MG 3 ML NEBU. NEB ONE (18:35)
[2019-02-02 18:40] LABS: CALCIUM 9.9 mg/dL (8.5-10.1); CREATININE 1.4 mg/dL (0.6-1.0); GFR 46.3; POTASSIUM 3.6 mmol/L (3.5-5.1)
[2019-02-02 18:47] LABS: ALBUMIN 3.6 g/dL (3.4-5.0); ALBUMIN/GLOBULIN RATIO 0.8 (1.0-1.7); TOTAL BILIRUBIN 0.5 mg/dL (0.2-1.0); TOTAL PROTEIN 8.2 g/dL (6.4-8.2)
--- NOTE | 2019-02-02 19:17 | PHYS DOC ---
Past Medical History Past Medical History: Asthma, Hypertension Additional Past Medical Histor: graves disease,lupus,pre-CA polyps Past Surgical History: No Surgical History Additional Past Surgical Histo: HERNIA REPAIR,NASAL POLYPS Alcohol Use: None Drug Use: None Adult General Chief Complaint Chief Complaint: HEADACHE HPI HPI 63-year-old female presents to the emergency department this evening secondary to a headache. She states this started early this morning. She states the pain is throbbing in nature. She denies any lateralizing neurologic weakness. She denies any speech or gait disturbance. She states she feels like her blood pressure is elevated. She denies any fever or neck pain. She denies any chest pain. She does have occasional shortness of breath but she is not short of breath now. She denies dyspnea on exertion. She has not had any fever chills or sweats.[] Review of Systems Review of Systems Constitutional: Denies fever or chills [] Eyes: Denies change in visual acuity, redness, or eye pain [] HENT: Denies nasal congestion or sore throat [] Respiratory: Denies cough or shortness of breath [] Cardiovascular: No additional information not addressed in HPI [] GI: Denies abdominal pain, nausea, vomiting, bloody stools or diarrhea [] : Denies dysuria or hematuria [] Musculoskeletal: Denies back pain or joint pain [] Integument: Denies rash or skin lesions [] Neurologic: Per history of present illness[] Endocrine: Denies polyuria or polydipsia [] All other systems were reviewed and found to be within normal limits, except as documented in this note. Current Medications Current Medications Current Medications Medications (Trade) Dose Ordered Sig/Indra Start Time Stop Time Status Last Admin Dose Admin Albuterol/ Ipratropium (Duoneb) 3 ml 1X ONCE 02/02/19 18:30 02/02/19 18:31 DC 02/02/19 18:35 3 ML Diphenhydramine HCl (Benadryl) 25 mg 1X ONCE 02/02/19 18:30 02/02/19 18:31 DC 02/02/19 18:29 25 MG Metoclopramide HCl (Reglan Vial) 10 mg 1X ONCE 02/02/19 18:30 02/02/19 18:31 DC 02/02/19 18:30 10 MG Sodium Chloride 1,000 ml @ 1,000 mls/hr 1X ONCE 02/02/19 18:30 02/02/19 19:29 DC 02/02/19 18:26 1,000 MLS/HR Allergies Allergies Allergies Coded Allergies Type Severity Reaction Last Updated Verified NSAIDS (Non-Steroidal Anti-Inflamma Allergy Severe itching,throat"swells" 10/25/18 Yes aspirin Allergy Severe Shortness of Air 10/25/18 Yes Sulfa (Sulfonamide Antibiotics) Allergy Intermediate 10/25/18 Yes ketorolac Allergy Intermediate 10/25/18 Yes sulfamethoxazole Allergy Intermediate 10/25/18 Yes trimethoprim Allergy Intermediate 10/25/18 Yes Physical Exam Physical Exam Constitutional: Well developed, well nourished, appears uncomfortable, non-toxic appearance. [] HENT: Normocephalic, atraumatic, bilateral external ears normal, oropharynx moist, no oral exudates, nose normal. [] Eyes: PERRLA, EOMI, conjunctiva normal, no discharge. [] Neck: Normal range of motion, no tenderness, supple, no stridor. [] Cardiovascular:Heart rate regular rhythm, no murmur [] Lungs & Thorax: Bilateral breath sounds clear to auscultation [] Abdomen: Bowel sounds normal, soft, no tenderness, no masses, no pulsatile masses. [] Skin: Warm, dry, no erythema, no rash. [] Back: No tenderness, no CVA tenderness. [] Extremities: No tenderness, no cyanosis, no clubbing, ROM intact, no edema. [] Neurologic: Alert and oriented X 3, normal motor function, normal sensory function, no focal deficits noted. [] Psychologic: Anxious. [] Current Patient Data Vital Signs Vital Signs Date Time Temp Pulse Resp B/P (MAP) Pulse Ox O2 Delivery O2 Flow Rate FiO2 02/02/19 19:38 92 19 97 02/02/19 18:35 Room Air 02/02/19 18:06 98.7 160/92 (114) 98.7 Lab Values Laboratory Tests Test 02/02/19 18:25 White Blood Count 8.8 x10^3/uL (4.0-11.0) Red Blood Count 4.76 x10^6/uL (3.50-5.40) Hemoglobin 10.7 g/dL (12.0-15.5) L Hematocrit 34.0 % (36.0-47.0) L Mean Corpuscular Volume 71 fL (79-100) L Mean Corpuscular Hemoglobin 22 pg (25-35) L Mean Corpuscular Hemoglobin Concent 31 g/dL (31-37) Red Cell Distribution Width 20.3 % (11.5-14.5) H Platelet Count 322 x10^3/uL (140-400) Neutrophils (%) (Auto) 59 % (31-73) Lymphocytes (%) (Auto) 23 % (24-48) L Monocytes (%) (Auto) 7 % (0-9) Eosinophils (%) (Auto) 10 % (0-3) H Basophils (%) (Auto) 1 % (0-3) Neutrophils # (Auto) 5.1 x10^3/uL (1.8-7.7) Lymphocytes # (Auto) 2.0 x10^3/uL (1.0-4.8) Monocytes # (Auto) 0.7 x10^3/uL (0.0-1.1) Eosinophils # (Auto) 0.9 x10^3/uL (0.0-0.7) H Basophils # (Auto) 0.1 x10^3/uL (0.0-0.2) Platelet Estimate Adequate (ADEQUATE) Large Platelets Occ Polychromasia Slight Hypochromasia Mod Anisocytosis Mod Microcytosis Mod Target Cells Occ Tear Drop Cells Occ Sodium Level 141 mmol/L (136-145) Potassium Level 3.6 mmol/L (3.5-5.1) Chloride Level 105 mmol/L (98-107) Carbon Dioxide Level 29 mmol/L (21-32) Anion Gap 7 (6-14) Blood Urea Nitrogen 17 mg/dL (7-20) Creatinine 1.4 mg/dL (0.6-1.0) H Estimated GFR (Cockcroft-Gault) 46.3 BUN/Creatinine Ratio 12 (6-20) Glucose Level 112 mg/dL (70-99) H Calcium Level 9.9 mg/dL (8.5-10.1) Total Bilirubin 0.5 mg/dL (0.2-1.0) Aspartate Amino Transferase (AST) 27 U/L (15-37) Alanine Aminotransferase (ALT) 29 U/L (14-59) Alkaline Phosphatase 63 U/L (46-116) Troponin I Quantitative 0.033 ng/mL (0.000-0.055) Total Protein 8.2 g/dL (6.4-8.2) Albumin 3.6 g/dL (3.4-5.0) Albumin/Globulin Ratio 0.8 (1.0-1.7) L Laboratory Tests 02/02/19 18:25 Laboratory Tests 02/02/19 18:25 EKG EKG [EKG: Normal sinus rhythm rate of [address]-T changes] Radiology/Procedures Radiology/Procedures [] Course & Med Decision Making Course & Med Decision Making Pertinent Labs and Imaging studies reviewed. (See chart for details) [ED course: Evaluation reveals a 63-year-old female with what sounded like a migraine-type headache. She was given IV fluids Reglan and Benadryl which completely alleviated her symptoms. She continued to deny any chest pain. She had no further nausea. At this point the patient is feeling better her blood pressure has improved and she is safe for discharge home.] Dragon Disclaimer Dragon Disclaimer This electronic medical record was generated, in whole or in part, using a voice recognition dictation system. Departure Departure Impression: Primary Impression: Migraine Disposition: 01 HOME, SELF-CARE Condition: IMPROVED Referrals: RAJI BHATT MD (PCP) Patient Instructions: Migraine Headache Additional Instructions: Return to the emergency department with any new or concerning symptoms Problem Qualifiers Primary Impression: Migraine Migraine type: unspecified Status migrainosus presence: without status migrainosus Intractability: not intractable Qualified Codes: G43.909 - Migraine, unspecified, not intractable, without status migrainosus GEORGE CONTRERAS DO Feb 02, 2019 19:17
[2019-02-02 19:38] VITALS: BP 134/75
[2019-02-02 19:49] LABS: PLT ESTIMATE ADEQUATE (ADEQUATE)
[2019-02-02 19:50] LABS: ANISOCYTOSIS MOD; HYPOCHROMIA MOD; MICROCYTOSIS MOD; POLYCHROMASIA SLIGHT; TARGET CELLS OCC; TEAR DROP CELLS OCC
--- NOTE | 2019-02-04 06:35 | EKG ---
[facility] [address] [place] [address] Test Date: 2019-02-02 Test Time: 18:17:06 Pat Name: JERRY WAYNE Department: Room: Gender: F [employer]: : 1955 Requested By: GEORGE CONTRERAS Order Number: [id number] Reading MD: Measurements Intervals [place] Rate: 96 P: 11 IA: 196 QRS: -10 QRSD: 88 T: 16 QT: 314 QTc: 403 Interpretive Statements SINUS RHYTHM LEFT ATRIAL ABNORMALITY LEFTWARD AXIS ABNORMAL ECG RI6.01 No previous ECG available for comparison
== END 2019-02-02 19:38 | disposition home or self-care (01) ==
LOC: ER 17:57
DX: G43.909 Migraine, unspecified, not intractable, without status migrainosus (principal); I10 Essential (primary) hypertension; M32.9 Systemic lupus erythematosus, unspecified; J45.909 Unspecified asthma, uncomplicated; Z88.1 Allergy status to other antibiotic agents; Z88.2 Allergy status to sulfonamides; Z88.6 Allergy status to analgesic agent; Z88.8 Allergy status to other drugs, medicaments and biological substances
CPT/HCPCS: 36415; 80053; 84484; 85025; 93005; 94640; 96374; 96375; 99285; J1200; J2765; J7030; J7620; 96361

== ENCOUNTER 2019-09-29 13:32 | Emergency (ER) | payer OTHER, MEDICAID ==
[~2019-09-29] VITALS: Ht 175.3 cm; Wt 115.0 kg
[~2019-09-29 13:32] MED LIST changes: +LEVO-101 PO; -LEVO100T PO; +PROM118S10 PO; -PROM118S9 PO; +TRAZ-123 PO; -TRAZ-86 PO
--- NOTE | 2019-09-29 14:39 | RAD ---
Examination: CHEST AP ONLY History: cough / Comparison: 10/02/2018 two-view chest x-ray exam. Findings: AP portable upright frontal view of the chest was obtained. The cardiomediastinal silhouette is normal. Tortuosity of thoracic aorta noted. Lungs are clear. There is no pneumothorax. No pleural effusion is appreciated. No acute bone abnormality. IMPRESSION: No acute cardiopulmonary process. Electronically signed by: Gene Campuzano MD (09/29/2019 2:36 PM) [id number]
--- NOTE | 2019-09-29 14:51 | PHYS DOC ---
Past Medical History Past Medical History: Asthma, Cancer, Hypertension Additional Past Medical Histor: graves disease,lupus,kidney tumor/CA-right kidney. Past Surgical History: No Surgical History Additional Past Surgical Histo: HERNIA REPAIR,NASAL POLYPS Smoking Status: Never Smoker Alcohol Use: None Drug Use: None General Adult EDM: Chief Complaint: SHORTNESS OF BREATH HPI: HPI: Patient is a 64-year-old female who presents with a 2 to 3-week history of runny nose dry cough nasal congestion. She states when she coughs she has a sharp pain in her chest at times. She denies any fever chills or sweats. She has had no hemoptysis. She denies any shortness of breath or dyspnea on exertion. She states she has had similar episodes in the past. She denies any nausea or vomiting. [] Review of Systems: Review of Systems: Constitutional: Denies fever or chills. [] Eyes: Denies change in visual acuity. [] HENT: Per HPI. [] Respiratory: Per HPI. [] Cardiovascular: Denies chest pain or edema. [] GI: Denies abdominal pain, nausea, vomiting, bloody stools or diarrhea. [] : Denies dysuria. [] Musculoskeletal: Denies back pain or joint pain. [] Integument: Denies rash. [] Neurologic: Denies headache, focal weakness or sensory changes. [] Endocrine: Denies polyuria or polydipsia. [] Lymphatic: Denies swollen glands. [] Psychiatric: Denies depression or anxiety. [] Heart Score: Risk Factors: Risk Factors: DM, Current or recent (<one month) smoker, HTN, HLP, family history of CAD, obesity. Risk Scores: Score 0 - 3: 2.5% MACE over next 6 weeks - Discharge Home Score 4 - 6: 20.3% MACE over next 6 weeks - Admit for Clinical Observation Score 7 - 10: 72.7% MACE over next 6 weeks - Early Invasive Strategies Allergies: Allergies: Allergies Coded Allergies Type Severity Reaction Last Updated Verified NSAIDS (Non-Steroidal Anti-Inflamma Allergy Severe itching,throat"swells" 10/25/18 Yes aspirin Allergy Severe Shortness of Air 10/25/18 Yes Sulfa (Sulfonamide Antibiotics) Allergy Intermediate 10/25/18 Yes ketorolac Allergy Intermediate 10/25/18 Yes sulfamethoxazole Allergy Intermediate 10/25/18 Yes trimethoprim Allergy Intermediate 10/25/18 Yes Physical Exam: PE: Constitutional: Well developed, well nourished, no acute distress, non-toxic appearance. [] HENT: Normocephalic, atraumatic, bilateral external ears normal, oropharynx moist, no oral exudates, nose normal. [] Eyes: PERRLA, EOMI, conjunctiva normal, no discharge. [] Neck: Normal range of motion, no tenderness, supple, no stridor. [] Cardiovascular:Heart rate regular rhythm, no murmur [] Lungs & Thorax: Bilateral breath sounds clear to auscultation [] Abdomen: Bowel sounds normal, soft, no tenderness, no masses, no pulsatile masses. [] Skin: Warm, dry, no erythema, no rash. [] Back: No tenderness, no CVA tenderness. [] Extremities: No tenderness, no cyanosis, no clubbing, ROM intact, no edema. [] Neurologic: Alert and oriented X 3, normal motor function, normal sensory function, no focal deficits noted. [] Psychologic: Affect normal, judgement normal, mood normal. [] Current Patient Data: Vital Signs: Vital Signs Date Time Temp Pulse Resp B/P (MAP) Pulse Ox O2 Delivery O2 Flow Rate FiO2 09/29/19 13:43 98.9 62 16 178/99 (125) 99 98.9 EKG: EKG: [] Radiology/Procedures: Radiology/Procedures: [] Impression: PROCEDURE: CHEST AP ONLY Examination: CHEST AP ONLY History: cough / Comparison: 10/02/2018 two-view chest x-ray exam. Findings: AP portable upright frontal view of the chest was obtained. The cardiomediastinal silhouette is normal. Tortuosity of thoracic aorta noted. Lungs are clear. There is no pneumothorax. No pleural effusion is appreciated. No acute bone abnormality. IMPRESSION: No acute cardiopulmonary process. Course & Med Decision Making: Course & Med Decision Making Pertinent Labs and Imaging studies reviewed. (See chart for details) [] Dragon Disclaimer: Dragon Disclaimer: This electronic medical record was generated, in whole or in part, using a voice recognition dictation system. Departure Departure Impression: Primary Impression: Viral upper respiratory infection Disposition: 01 HOME, SELF-CARE Condition: STABLE Referrals: RAJI BHATT MD (PCP) Patient Instructions: Viral Pneumonia, Additional Instructions: Return to the emergency department with any new or concerning symptoms Justicifation of Admission Dx: Justifications for Admission: Justification of Admission Dx: GEORGE Liriano DO Sep 29, 2019 14:50
[2019-09-29 14:57] VITALS: BP 175/102
== END 2019-09-29 15:06 | disposition home or self-care (01) ==
LOC: ER 13:32
DX: J06.9 Acute upper respiratory infection, unspecified (principal); R07.89 Other chest pain; R05 Cough; R09.81 Nasal congestion; J45.909 Unspecified asthma, uncomplicated; I10 Essential (primary) hypertension; Z98.890 Other specified postprocedural states; Z88.2 Allergy status to sulfonamides; Z88.6 Allergy status to analgesic agent; Z88.8 Allergy status to other drugs, medicaments and biological substances
CPT/HCPCS: 71045; 99283

== ENCOUNTER 2019-12-01 09:51 | Emergency (ER) | payer OTHER, MEDICAID ==
[~2019-12-01] VITALS: Ht 175.3 cm; Wt 103.0 kg
[~2019-12-01 09:51] MED LIST changes: +AMLO-186 PO; +AMLO-187 PO; -AMLO10TA8 PO; -AMLO5TAB10 PO
[2019-12-01 11:35] LABS: INFLUENZA A PATIENT NEGATIVE (NEGATIVE); INFLUENZA B PATIENT NEGATIVE (NEGATIVE)
--- NOTE | 2019-12-01 12:19 | RAD ---
CHEST AP ONLY Clinical History: Reason: SOA, COUGH / Spl. Instructions: / History: Technique: AP view of the chest was obtained at 12/01/2019 11:30 AM. Comparison: September 29, 2019. Findings: The heart is moderately enlarged. The aorta is tortuous. The pulmonary vessels appear normal. There is a few perihilar linear opacities. Impression: 1. Moderate cardiomegaly. 2. Mild basal bilateral traits likely discoid atelectasis. Electronically signed by: London Shanks III, MD (12/01/2019 12:15 PM) [facility]
--- NOTE | 2019-12-01 12:37 | ED.ADGEN ---
Past Medical History Past Medical History: Asthma, Cancer, Hypertension Additional Past Medical Histor: graves disease,lupus,kidney tumor/CA-right kidney. Past Surgical History: No Surgical History Additional Past Surgical Histo: HERNIA REPAIR,NASAL POLYPS Smoking Status: Never Smoker Alcohol Use: None Drug Use: None General Adult EDM: Chief Complaint: SORE THROAT HPI: HPI: Patient is a 64 year old AA female who presents to the emergency department with complaints of a sore throat, nonproductive cough, shortness of breath, and decreased taste. She reports that initially her symptoms began 2 days ago, she did not develop the change in her taste until today. She denies any fever, nausea, vomiting, diarrhea, abdominal pain, chest pain, ear pain, or headache. Patient reports a history of CHF, she states that she takes Lasix as prescribed for that. She denies any swelling of her lower extremities, palpitations, or chest pain. Denies having any problems swallowing she reports that her pain is a 3 out of 10 on the pain scale, she denies any alleviating factors. She denies any known contact with anyone who has COVID-19. Review of Systems: Review of Systems: Complete ROS is negative unless otherwise stated in the HPI. Current Medications: Current Medications Medications (Trade) Dose Ordered Sig/Indra Start Time Stop Time Status Last Admin Dose Admin Dexamethasone Sodium Phosphate (Decadron) 10 mg 1X ONCE 12/01/19 12:45 12/01/19 12:46 DC 12/01/19 12:40 10 MG Allergies: Allergies: Allergies Coded Allergies Type Severity Reaction Last Updated Verified NSAIDS (Non-Steroidal Anti-Inflamma Allergy Severe itching,throat"swells" 10/25/18 Yes aspirin Allergy Severe Shortness of Air 10/25/18 Yes Sulfa (Sulfonamide Antibiotics) Allergy Intermediate 10/25/18 Yes ketorolac Allergy Intermediate 10/25/18 Yes sulfamethoxazole Allergy Intermediate 10/25/18 Yes trimethoprim Allergy Intermediate 10/25/18 Yes Physical Exam: PE: Constitutional: Well developed, well nourished, no acute distress, non-toxic appearance. [] HENT: Normocephalic, atraumatic, bilateral external ears normal, nose normal. [] Eyes: PERRLA, EOMI, conjunctiva normal, no discharge. [] Neck: Normal range of motion, no stridor. [] Cardiovascular:Heart rate regular rhythm Lungs & Thorax: Respirations even and unlabored, no retractions, no respiratory distress, lungs diminished in posterior bases otherwise clear Skin: Warm, dry, no erythema, no rash. [] Extremities: No cyanosis, ROM intact, no edema. [] Neurologic: Alert and oriented X 3, no focal deficits noted. [] Psychologic: Affect normal, judgement normal, mood normal. [] Current Patient Data: Labs: Laboratory Tests Test 12/01/19 11:00 12/01/19 12:40 Influenza Type A Antigen Negative (NEGATIVE) Influenza Type B Antigen Negative (NEGATIVE) Group A Streptococcus Rapid Negative (NEGATIVE) White Blood Count 6.4 x10^3/uL (4.0-11.0) Red Blood Count 4.72 x10^6/uL (3.50-5.40) Hemoglobin 12.6 g/dL (12.0-15.5) Hematocrit 37.8 % (36.0-47.0) Mean Corpuscular Volume 80 fL (79-100) Mean Corpuscular Hemoglobin 27 pg (25-35) Mean Corpuscular Hemoglobin Concent 33 g/dL (31-37) Red Cell Distribution Width 18.4 % (11.5-14.5) H Platelet Count 193 x10^3/uL (140-400) Neutrophils (%) (Auto) 45 % (31-73) Lymphocytes (%) (Auto) 36 % (24-48) Monocytes (%) (Auto) 6 % (0-9) Eosinophils (%) (Auto) 11 % (0-3) H Basophils (%) (Auto) 1 % (0-3) Neutrophils # (Auto) 2.9 x10^3/uL (1.8-7.7) Lymphocytes # (Auto) 2.3 x10^3/uL (1.0-4.8) Monocytes # (Auto) 0.4 x10^3/uL (0.0-1.1) Eosinophils # (Auto) 0.7 x10^3/uL (0.0-0.7) Basophils # (Auto) 0.1 x10^3/uL (0.0-0.2) Sodium Level 143 mmol/L (136-145) Potassium Level 3.9 mmol/L (3.5-5.1) Chloride Level 110 mmol/L (98-107) H Carbon Dioxide Level 28 mmol/L (21-32) Anion Gap 5 (6-14) L Blood Urea Nitrogen 9 mg/dL (7-20) Creatinine 1.1 mg/dL (0.6-1.0) H Estimated GFR (Cockcroft-Gault) 60.9 BUN/Creatinine Ratio 8 (6-20) Glucose Level 81 mg/dL (70-99) Calcium Level 9.2 mg/dL (8.5-10.1) Total Bilirubin 0.6 mg/dL (0.2-1.0) Aspartate Amino Transferase (AST) 17 U/L (15-37) Alanine Aminotransferase (ALT) 17 U/L (14-59) Alkaline Phosphatase 39 U/L (46-116) L XZ-Gpk-X-Type Natriuretic Peptide 124 pg/mL (0-124) Total Protein 5.7 g/dL (6.4-8.2) L Albumin 2.8 g/dL (3.4-5.0) L Albumin/Globulin Ratio 1.0 (1.0-1.7) Laboratory Tests 12/01/19 12:40 Laboratory Tests 12/01/19 12:40 Vital Signs: Vital Signs Date Time Temp Pulse Resp B/P (MAP) Pulse Ox O2 Delivery O2 Flow Rate FiO2 12/01/19 13:56 50 140/76 (97) 97 Room Air 12/01/19 10:10 97.8 20 97.8 EKG: EKG: [] Heart Score: Risk Factors: Risk Factors: DM, Current or recent (<one month) smoker, HTN, HLP, family history of CAD, obesity. Risk Scores: Score 0 - 3: 2.5% MACE over next 6 weeks - Discharge Home Score 4 - 6: 20.3% MACE over next 6 weeks - Admit for Clinical Observation Score 7 - 10: 72.7% MACE over next 6 weeks - Early Invasive Strategies Radiology/Procedures: Radiology/Procedures: PROCEDURE: CHEST AP ONLY CHEST AP ONLY Clinical History: Reason: SOA, COUGH / Spl. Instructions: / History: Technique: AP view of the chest was obtained at 12/01/2019 11:30 AM. Comparison: September 29, 2019. Findings: The heart is moderately enlarged. The aorta is tortuous. The pulmonary vessels appear normal. There is a few perihilar linear opacities. Impression: 1. Moderate cardiomegaly. 2. Mild basal bilateral traits likely discoid atelectasis. [] Course & Med Decision Making: Course & Med Decision Making Pertinent Labs and Imaging studies reviewed. (See chart for details) 64-year-old female presents to the emergency room with multiple complaints. Rapid strep and rapid influenza are negative CXR is concerning for cardiomegaly and Mild basal bilateral traits likely discoid atelectasis. CBC is unremarkable; CMP reveals a chloride of 110, creatinine 1.1, BNP of 124 Patient's vital signs are stable throughout her stay, she was given 10 mg of IV Decadron. I advised the patient of the likelihood of COVID-19 related pneumonia. Prescriptions written for Medrol Dosepak to start tomorrow, azithromycin started today, and an albuterol MDI The patient was encouraged to return to the ER if she develops worsening shortness of breath or chest pain, or fever that did not respond to Tylenol or ibuprofen. She was provided with quarantine instructions and instructed to go home and follow the instructions. Patient verbalized an understanding of home care, medications, follow-up, and return to ED instructions and was in agreement with the plan of care. COVID-19 CRITERIA: The patient was evaluated during the global COVID-19 pandemic, and that diagnosis was suspected/considered upon their initial presentation. Their evaluation, treatment and testing was consistent with current guidelines for patients who present with complaints or symptoms that may be related to COVID-19. [] Dragon Disclaimer: Dragon Disclaimer: This electronic medical record was generated, in whole or in part, using a voice recognition dictation system. Departure Departure Impression: Primary Impression: Person under investigation for COVID-19 Additional Impression: Pneumonia due to 2019 novel coronavirus Disposition: 01 DC HOME SELF CARE/HOMELESS Condition: STABLE Referrals: NON,STAFF (PCP) Patient Instructions: Pneumonia, Adult, [id number] Additional Instructions: Fill the prescriptions and use them as directed, follow the following COVID-19 instructions. Return to the ER if your symptoms worsen or you develop worsening shortness of breath or chest pain. You have been tested for or diagnosed with COVID-19. It is an infection caused by a new type of coronavirus. COVID-19 will cause cold-like or mild flu symptoms in most. It can cause more severe symptoms like problems breathing in some. There is no treatment for COVID-19. The body will clear the infection over time. Self-care will help to ease discomfort. Steps to Take: Self-Care Rest as needed. Healthy habits may help you feel better. Steps include: Choose healthy foods including fruits and vegetables. Drink water throughout the day. Get plenty of sleep each night. If you smoke, try to quit. It may ease breathing. Avoid alcohol. Keep Others Healthy The virus can spread to others. Droplets are released every time you sneeze or cough. The droplets can get into the mouth, nose, or eyes of people near you and lead to infection. To lower the chances of spreading COVID-19 to others: Stay at home until your doctor has said it is safe to leave. If you tested positive this will mean staying isolated until both of the following are true: At least 7 days have passed since the start of illness. You are free of fever for at least 72 hours without the use of medicine. During this time: - Avoid public areas, events, or transportation. Do not return to work or school until your doctor has said it is safe to do so. - Call ahead if you need to go to a medical center. Let them know you may have COVID-19. It will help them guide you where to go. They may also ask you to wear a facemask when you come to the office. - If you call for emergency medical services, let them know you may have COVID- 19. While at home: - Try to avoid close contact with others. Stay about 6 feet away. - If possible, spend most of your time in a separate room from others. - Use a face mask if you will be in close contact with others such as sharing a room or vehicle. - Have someone wipe down common surfaces in the home. Use household kaiawhina kura kaupapa maori every day on areas like doorknobs, counters, or sinks. - Cough or sneeze into a tissue. Throw the tissue away right after use. If a tissue is not available, cough or sneeze into your elbow. - Wash your hands often. Wash them after sneezing or coughing. Use soap and water and wash for at least 20 seconds. Alcohol based hand paper cleaner can be used if soap and water is not available. - Do not prepare food for others. Avoid sharing personal items like forks, spoons, or toothbrushes. - Avoid close contact with pets while you are sick. There is no evidence of the virus passing to pets. This is a safety step until more is known about this virus. Isolation can be frustrating. Social interaction can help. Keep in touch with friends and family through phone and tech options. You can still interact with others in your home, just keep a safe distance of about 6 feet. Follow-up: Your doctors office will check in with you to see if there are any changes in your health. You may be asked to keep track of symptoms to share with them. They will also le t you know when you are clear to be in public again. Problems to Look Out For: Contact your doctor if your recovery is not going as you expect. Get emergency care if you have problems such as: - Trouble breathing - Nonstop chest pain or pressure - Changes in awareness, confusion, or problems waking - Lips or face have bluish color - Worsening of symptoms If you think you have an emergency, call for emergency medical services right away. As taken from [facility] Albuterol Sulfate (Proair Hfa) 8.5 Gm Hfa.aer.ad 2 PUFF IH PRN Q4-6HRS PRN for wheezing for 21 Days, #1 INHALER 0 Refills Prov: THERESA ASTUDILLO APRN 12/01/19 Methylprednisolone (MEDROL) 4 Mg Tab.ds.pk 1 PKG PO UD for 6 Days, #1 PKG 0 Refills start taking on 12/02/19 Prov: THERESA ASTUDILLO APRN 12/01/19 Azithromycin (AZITHROMYCIN TABLET) 250 Mg Tablet 1 PKG PO UD for 5 Days, #6 TAB 0 Refills 2 the first day followed by 1 for days 2-5 Prov: THERESA ASTUDILLO APRN 12/01/19 COVID-19 Assessment: COVID-19 Patient Risks: Age 65 or older: No Sign of co-morbidity: No Exp to person + for COVID: No Exp to PUI: No Travel from affected area: No Lower respiratory symptoms: Yes Fever: No PPE Use: Full PPE with N95 mask or PAPR: Yes Problem Qualifiers THERESA ASTUDILLO APRN Dec 01, 2019 12:37
[2019-12-01] MEDS ORDERED: DEXAMETHASONE SOD PHOS 20 MG/5 ML VIAL. IV ONE (12:45)
[2019-12-01 12:59] LABS: BASO # 0.1 x10^3/uL (0.0-0.2); BASO % 1 % (0-3); EOS # 0.7 x10^3/uL (0.0-0.7); EOS % 11 % (0-3); HEMATOCRIT 37.8 % (36.0-47.0); HEMOGLOBIN 12.6 g/dL (12.0-15.5); LYMPH # 2.3 x10^3/uL (1.0-4.8); LYMPH % 36 % (24-48); MEAN CORPUSCULAR HEMOGLOBIN 27 pg (25-35); MEAN CORPUSCULAR HGB CONC 33 g/dL (31-37); MEAN CORPUSCULAR VOLUME 80 fL (79-100); MONO # 0.4 x10^3/uL (0.0-1.1); MONO % 6 % (0-9); NEUT # 2.9 x10^3/uL (1.8-7.7); NEUT % 45 % (31-73); PLATELET COUNT 193 x10^3/uL (140-400); RED BLOOD COUNT 4.72 x10^6/uL (3.50-5.40); RED CELL DISTRIBUTION WIDTH 18.4 % (11.5-14.5); WHITE BLOOD COUNT 6.4 x10^3/uL (4.0-11.0)
[2019-12-01 13:06] LABS: CALCIUM 9.2 mg/dL (8.5-10.1); CREATININE 1.1 mg/dL (0.6-1.0); GFR 60.9; POTASSIUM 3.9 mmol/L (3.5-5.1)
[2019-12-01 13:56] VITALS: BP 140/76
[2019-12-01 14:01] LABS: ALBUMIN 2.8 g/dL (3.4-5.0); TOTAL BILIRUBIN 0.6 mg/dL (0.2-1.0); TOTAL PROTEIN 5.7 g/dL (6.4-8.2)
[2019-12-01] MEDS ORDERED: METH4TAB2 PO (14:10)
[2019-12-01] MEDS ORDERED: AZIT250T6 PO (14:10)
[2019-12-01] MEDS ORDERED: ALBU2.5V8 IH (14:10)
--- NOTE | 2019-12-03 10:13 | NUR ---
IP: Informed pt of negative COVID test. Pt verbalized understanding.
== END 2019-12-01 14:35 | disposition home or self-care (01) ==
LOC: ER 09:51
DX: J18.9 Pneumonia, unspecified organism (principal); Z20.828 Contact with and (suspected) exposure to other viral communicable diseases; R06.02 Shortness of breath; R05 Cough; J45.909 Unspecified asthma, uncomplicated; I10 Essential (primary) hypertension; Z85.9 Personal history of malignant neoplasm, unspecified; Z98.890 Other specified postprocedural states; Z88.2 Allergy status to sulfonamides; Z88.8 Allergy status to other drugs, medicaments and biological substances; Z88.6 Allergy status to analgesic agent
CPT/HCPCS: 36415; 71045; 80053; 83880; 85025; 87070; 87804; 87880; 96374; 99285; C9803; J1100; U0003

== ENCOUNTER 2020-01-31 15:15 | Emergency (ER) | payer OTHER, MEDICAID ==
[~2020-01-31] VITALS: Ht 172.7 cm; Wt 81.8 kg
[~2020-01-31 15:15] MED LIST changes: -RISP0.5T3 PO; +RISP0.5T62 PO
--- NOTE | 2020-01-31 17:27 | ED.ADGEN ---
Past Medical History Past Medical History: Asthma, Cancer, Hypertension Additional Past Medical Histor: graves disease,lupus,kidney tumor/CA-right kidney. Past Surgical History: No Surgical History Additional Past Surgical Histo: HERNIA REPAIR,NASAL POLYPS Smoking Status: Never Smoker Alcohol Use: None Drug Use: None General Adult EDM: Chief Complaint: SHORTNESS OF BREATH HPI: HPI: Patient is a 64 year old AA female who presents to the emergency department with complaints of sinus pressure with thick yellow drainage from the nose, sore throat, swollen lymph nodes in the right side of her neck, dry cough, wheezing, body aches, and headache for the last week. Patient denies any known exposure to COVID-19. States that she has a history of asthma and has always of bronchitis. She denies any abdominal pain, palpitations, nausea, vomiting, diar johana, or fever. Patient denies any vision changes or photosensitivity. She currently rates her pain a 6 out of 10 on the pain scale, she denies any alleviating factors, the pain increases with coughing. Review of Systems: Review of Systems: Complete ROS is negative unless otherwise noted in HPI. Allergies: Allergies: Allergies Coded Allergies Type Severity Reaction Last Updated Verified NSAIDS (Non-Steroidal Anti-Inflamma Allergy Severe itching,throat"swells" 10/25/18 Yes aspirin Allergy Severe Shortness of Air 10/25/18 Yes Sulfa (Sulfonamide Antibiotics) Allergy Intermediate 10/25/18 Yes ketorolac Allergy Intermediate 10/25/18 Yes sulfamethoxazole Allergy Intermediate 10/25/18 Yes trimethoprim Allergy Intermediate 10/25/18 Yes Physical Exam: PE: See Above Constitutional: Well developed, well nourished, no acute distress, ill appearance HENT: Normocephalic, atraumatic, bilateral external ears normal, posterior pharynx normal, oropharynx moist, no oral exudates, nose normal. [] Eyes: PERRLA, EOMI, conjunctiva normal, no discharge. [] Neck: Normal range of motion, no stridor, right anterior cervical chain lymph node enlargement with mild tenderness Cardiovascular:Heart rate regular rhythm Lungs & Thorax: Respirations even and unlabored, no retractions, no respiratory distress Skin: Warm, dry, no erythema, no rash. [] Back: No tenderness Extremities: No cyanosis, ROM intact, no edema. [] Neurologic: Alert and oriented X 3, normal motor function, normal sensory function, no focal deficits noted. [] Psychologic: Affect normal, judgement normal, mood normal. [] Current Patient Data: Labs: Laboratory Tests Test 01/31/20 17:27 01/31/20 17:44 01/31/20 18:41 White Blood Count 5.9 x10^3/uL (4.0-11.0) Red Blood Count 4.42 x10^6/uL (3.50-5.40) Hemoglobin 11.6 g/dL (12.0-15.5) L Hematocrit 36.1 % (36.0-47.0) Mean Corpuscular Volume 82 fL (79-100) Mean Corpuscular Hemoglobin 26 pg (25-35) Mean Corpuscular Hemoglobin Concent 32 g/dL (31-37) Red Cell Distribution Width 16.6 % (11.5-14.5) H Platelet Count 256 x10^3/uL (140-400) Neutrophils (%) (Auto) 50 % (31-73) Lymphocytes (%) (Auto) 41 % (24-48) Monocytes (%) (Auto) 10 % (0-9) H Eosinophils (%) (Auto) 0 % (0-3) Basophils (%) (Auto) 0 % (0-3) Neutrophils # (Auto) 2.9 x10^3/uL (1.8-7.7) Lymphocytes # (Auto) 2.4 x10^3/uL (1.0-4.8) Monocytes # (Auto) 0.6 x10^3/uL (0.0-1.1) Eosinophils # (Auto) 0.0 x10^3/uL (0.0-0.7) Basophils # (Auto) 0.0 x10^3/uL (0.0-0.2) Sodium Level 142 mmol/L (136-145) Potassium Level 3.9 mmol/L (3.5-5.1) Chloride Level 108 mmol/L (98-107) H Carbon Dioxide Level 26 mmol/L (21-32) Anion Gap 8 (6-14) Blood Urea Nitrogen 11 mg/dL (7-20) Creatinine 1.1 mg/dL (0.6-1.0) H Estimated GFR (Cockcroft-Gault) 60.9 BUN/Creatinine Ratio 10 (6-20) Glucose Level 84 mg/dL (70-99) Calcium Level 9.4 mg/dL (8.5-10.1) Total Bilirubin 0.4 mg/dL (0.2-1.0) Aspartate Amino Transferase (AST) 18 U/L (15-37) Alanine Aminotransferase (ALT) 20 U/L (14-59) Alkaline Phosphatase 54 U/L (46-116) Creatine Kinase 45 U/L (26-192) Creatine Kinase MB (Mass) 0.5 ng/mL (0.0-3.6) Creatine Kinase MB Relative Index % (0-4) Troponin I Quantitative < 0.017 ng/mL (0.000-0.055) EG-Fnk-I-Type Natriuretic Peptide 116 pg/mL (0-124) Total Protein 6.2 g/dL (6.4-8.2) L Albumin 2.8 g/dL (3.4-5.0) L Albumin/Globulin Ratio 0.8 (1.0-1.7) L Influenza Type A Antigen Negative (NEGATIVE) Influenza Type B Antigen Negative (NEGATIVE) Group A Streptococcus Rapid Negative (NEGATIVE) Laboratory Tests 01/31/20 17:27 Laboratory Tests 01/31/20 17:27 Vital Signs: Vital Signs Date Time Temp Pulse Resp B/P (MAP) Pulse Ox O2 Delivery O2 Flow Rate FiO2 01/31/20 19:12 77 135/88 (104) 95 Room Air 01/31/20 17:15 98.4 20 98.4 EKG: EKG: [] Heart Score: Risk Factors: Risk Factors: DM, Current or recent (<one month) smoker, HTN, HLP, family history of CAD, obesity. Risk Scores: Score 0 - 3: 2.5% MACE over next 6 weeks - Discharge Home Score 4 - 6: 20.3% MACE over next 6 weeks - Admit for Clinical Observation Score 7 - 10: 72.7% MACE over next 6 weeks - Early Invasive Strategies Radiology/Procedures: Radiology/Procedures: PROCEDURE: CHEST AP ONLY EXAM: Chest, single view. HISTORY: Cough. COMPARISON: 12/01/2019 FINDINGS: A frontal view of the chest obtained. There is no infiltrate, pleural effusion or pneumothorax. There is stable cardiomegaly. IMPRESSION: Stable cardiomegaly. [] Course & Med Decision Making: Course & Med Decision Making Pertinent Labs and Imaging studies reviewed. (See chart for details) COVID-19 CRITERIA: The patient was evaluated during the global COVID-19 pandemic, and that diagnosis was suspected/considered upon their initial presentation. Their evaluation, treatment and testing was consistent with current guidelines for patients who present with complaints or symptoms that may be related to COVID-19. [] Dragon Disclaimer: Dragon Disclaimer: This electronic medical record was generated, in whole or in part, using a voice recognition dictation system. Departure Departure Impression: Primary Impression: Sinusitis Additional Impressions: Bronchitis Pharyngitis Person under investigation for COVID-19 Disposition: DC HOME SELF CARE/HOMELESS Condition: STABLE Referrals: NON,STAFF (PCP) Patient Instructions: Acute Bronchitis, [id number], Sinusitis, [id number], Viral Pharyngitis Additional Instructions: Fill prescription and use as directed. Recommend warm salt water gargles as needed for relief of discomfort. Alternate Tylenol and ibuprofen as needed for fever/pain. Increase clear fluids. Avoid airway triggers such as smoke, fragrance, dust, and pollen. May take [id number]-[id number] cough suppressants as needed. Follow-up with your primary care doctor if symptoms persist, return to the ER if symptoms worsen. You have been tested for or diagnosed with COVID-19. It is an infection caused by a new type of coronavirus. COVID-19 will cause cold-like or mild flu symptoms in most. It can cause more severe symptoms like problems breathing in some. There is no treatment for COVID-19. The body will clear the infection over time. Self-care will help to ease discomfort. Steps to Take: Self-Care Rest as needed. Healthy habits may help you feel better. Steps include: Choose healthy foods including fruits and vegetables. Drink water throughout the day. Get plenty of sleep each night. If you smoke, try to quit. It may ease breathing. Avoid alcohol. Keep Others Healthy The virus can spread to others. Droplets are released every time you sneeze or cough. The droplets can get into the mouth, nose, or eyes of people near you and lead to infection. To lower the chances of spreading COVID-19 to others: Stay at home until your doctor has said it is safe to leave. If you tested positive this will mean staying isolated until both of the following are true: At least 7 days have passed since the start of illness. You are free of fever for at least 72 hours without the use of medicine. During this time: - Avoid public areas, events, or transportation. Do not return to work or school until your doctor has said it is safe to do so. - Call ahead if you need to go to a medical center. Let them know you may have COVID-19. It will help them guide you where to go. They may also ask you to wear a facemask when you come to the office. - If you call for emergency medical services, let them know you may have COVID- 19. While at home: - Try to avoid close contact with others. Stay about 6 feet away. - If possible, spend most of your time in a separate room from others. - Use a face mask if you will be in close contact with others such as sharing a room or vehicle. - Have someone wipe down common surfaces in the home. Use household balance wheel motion inspector every day on areas like doorknobs, counters, or sinks. - Cough or sneeze into a tissue. Throw the tissue away right after use. If a tissue is not available, cough or sneeze into your elbow. - Wash your hands often. Wash them after sneezing or coughing. Use soap and water and wash for at least 20 seconds. Alcohol based hand spinneret cleaner can be used if soap and water is not available. - Do not prepare food for others. Avoid sharing personal items like forks, spoons, or toothbrushes. - Avoid close contact with pets while you are sick. There is no evidence of the virus passing to pets. This is a safety step until more is known about this virus. Isolation can be frustrating. Social interaction can help. Keep in touch with friends and family through phone and tech options. You can still interact with others in your home, just keep a safe distance of about 6 feet. Follow-up: Your doctors office will check in with you to see if there are any changes in your health. You may be asked to keep track of symptoms to share with them. They will also let you know when you are clear to be in public again. Problems to Look Out For: Contact your doctor if your recovery is not going as you expect. Get emergency care if you have problems such as: - Trouble breathing - Nonstop chest pain or pressure - Changes in awareness, confusion, or problems waking - Lips or face have bluish color - Worsening of symptoms If you think you have an emergency, call for emergency medical services right away. As taken from [facility] [address] [place] [address] [facility] [address] [place] [address] [facility] [address] [place] [address] [facility] [address] [place] [address] [facility] [address] [place] [address] [facility] [address] [place] [address] [facility] [address] [place] [address] [facility] [address] [place] [address] [facility] [address] [place] [address] [facility] [address] [place] [address] [facility] Benzonatate (TESSALON PERLE) 100 Mg Capsule 100 MG PO TID PRN for COUGH for 10 Days, #30 CAP 0 Refills Prov: THERESA ASTUDILLO ACOU[employer]ICAL MATERIAL WORKER 01/31/20 Amoxicillin/Potassium Clav (AUGMENTIN 875-125 TABLET) 1 Each Tablet 1 TAB PO BID for 7 Days, #14 TAB 0 Refills Prov: THERESA ASTUDILLO ACOU[employer]ICAL MATERIAL WORKER 01/31/20 COVID-19 Assessment: COVID-19 Patient Risks: Age 65 or older: No Sign of co-morbidity: No Exp to person + for COVID: No Exp to PUI: No Travel from affected area: No Lower respiratory symptoms: Yes Fever: No PPE Use: Full PPE with N95 mask or PAPR: Yes Problem Qualifiers Primary Impression: Sinusitis Sinusitis location: unspecified location Chronicity: acute Recurrence: not specified as recurrent Qualified Codes: J01.90 - Acute sinusitis, unspecified Additional Impressions: Pharyngitis Pharyngitis/tonsillitis etiology: unspecified etiology Qualified Codes: J02.9 - Acute pharyngitis, unspecified THERESA ASTUDILLO ACOUSTICAL MATERIAL WORKER Jan 31, 2020 17:27
[2020-01-31 18:02] LABS: BASO % 0 % (0-3); EOS % 0 % (0-3); HEMATOCRIT 36.1 % (36.0-47.0); HEMOGLOBIN 11.6 g/dL (12.0-15.5); LYMPH # 2.4 x10^3/uL (1.0-4.8); LYMPH % 41 % (24-48); MEAN CORPUSCULAR HEMOGLOBIN 26 pg (25-35); MEAN CORPUSCULAR HGB CONC 32 g/dL (31-37); MEAN CORPUSCULAR VOLUME 82 fL (79-100); MONO # 0.6 x10^3/uL (0.0-1.1); MONO % 10 % (0-9); NEUT # 2.9 x10^3/uL (1.8-7.7); NEUT % 50 % (31-73); PLATELET COUNT 256 x10^3/uL (140-400); RED BLOOD COUNT 4.42 x10^6/uL (3.50-5.40); RED CELL DISTRIBUTION WIDTH 16.6 % (11.5-14.5); WHITE BLOOD COUNT 5.9 x10^3/uL (4.0-11.0)
[2020-01-31 18:09] LABS: INFLUENZA A PATIENT NEGATIVE (NEGATIVE); INFLUENZA B PATIENT NEGATIVE (NEGATIVE)
[2020-01-31 18:09] LABS: CALCIUM 9.4 mg/dL (8.5-10.1); CREATININE 1.1 mg/dL (0.6-1.0); GFR 60.9; POTASSIUM 3.9 mmol/L (3.5-5.1)
[2020-01-31 18:14] LABS: ALBUMIN 2.8 g/dL (3.4-5.0); ALBUMIN/GLOBULIN RATIO 0.8 (1.0-1.7); TOTAL BILIRUBIN 0.4 mg/dL (0.2-1.0); TOTAL PROTEIN 6.2 g/dL (6.4-8.2)
--- NOTE | 2020-01-31 18:25 | EKG ---
[facility] [address] [place] [address] Test Date: 2020-01-31 Test Time: 17:57:45 Pat Name: JERRY WAYNE Department: Room: Gender: F Instructional Supervisor: : 1955 Requested By: THERESA ASTUDILLO Order Number: [id number] Reading MD: Measurements Intervals [place] Rate: 71 P: 44 ME: 256 QRS: -14 QRSD: 96 T: 28 QT: 400 QTc: 435 Interpretive Statements SINUS RHYTHM PROLONGED ME INTERVAL LEFTWARD AXIS QRS(T) CONTOUR ABNORMALITY CONSIDER ANTEROLATERAL MYOCARDIAL DAMAGE ABNORMAL ECG RI6.01 No previous ECG available for comparison
[2020-01-31 18:26] LABS: CREATINE KINASE 45 U/L (26-192)
--- NOTE | 2020-01-31 18:34 | RAD ---
EXAM: Chest, single view. HISTORY: Cough. COMPARISON: 12/01/2019 FINDINGS: A frontal view of the chest obtained. There is no infiltrate, pleural effusion or pneumotho rax. There is stable cardiomegaly. IMPRESSION: Stable cardiomegaly. Electronically signed by: Hansa Cintron MD (01/31/2020 6:31 PM) [facility]
[2020-01-31 19:12] VITALS: BP 135/88
[2020-01-31] MEDS ORDERED: AMOX1TAB61 PO (19:12)
[2020-01-31] MEDS ORDERED: BENZ100C PO (19:12)
== END 2020-01-31 19:25 | disposition home or self-care (01) ==
LOC: ER 15:15
DX: J32.9 Chronic sinusitis, unspecified (principal); Z20.828 Contact with and (suspected) exposure to other viral communicable diseases; J02.9 Acute pharyngitis, unspecified; J45.909 Unspecified asthma, uncomplicated; I10 Essential (primary) hypertension; Z85.9 Personal history of malignant neoplasm, unspecified; Z98.890 Other specified postprocedural states; Z88.2 Allergy status to sulfonamides; Z88.6 Allergy status to analgesic agent; Z88.8 Allergy status to other drugs, medicaments and biological substances
CPT/HCPCS: 36415; 71045; 80053; 82553; 83880; 84484; 85025; 87070; 87804; 87880; 93005; 99285; U0003; C9803

== ENCOUNTER 2020-02-13 09:06 | Emergency (ER) | payer OTHER, MEDICAID ==
[~2020-02-13] VITALS: Ht 177.8 cm; Wt 100.0 kg
[~2020-02-13 09:06] MED LIST changes: +AMOX1TAB61 PO
--- NOTE | 2020-02-13 10:20 | RAD ---
Examination: XR CHEST 1V History: sob, HX ASTHMA Comparison/Correlation: 10/10/2018 Findings: Portable upright frontal view of chest was obtained. Heart size is within the upper limit of normal. No pneumothorax. No infiltrate or effusion. Fullness of the right hilum is present. This is not delineated on previous exams probably due to differences i n positioning. No acute bony process. Impression: Fullness of the right hilum. Further evaluation with CT of the chest with contrast is recommended to exclude possibility of mass or underlying lymphadenopathy. Electronically signed by: Gene Campuzano MD (02/13/2020 10:17 AM) [id number]
[2020-02-13 10:27] LABS: BASO % 0 % (0-3); EOS % 0 % (0-3); HEMATOCRIT 35.2 % (36.0-47.0); HEMOGLOBIN 11.5 g/dL (12.0-15.5); LYMPH # 1.5 x10^3/uL (1.0-4.8); LYMPH % 32 % (24-48); MEAN CORPUSCULAR HEMOGLOBIN 26 pg (25-35); MEAN CORPUSCULAR HGB CONC 33 g/dL (31-37); MEAN CORPUSCULAR VOLUME 79 fL (79-100); MONO # 0.3 x10^3/uL (0.0-1.1); MONO % 8 % (0-9); NEUT # 2.7 x10^3/uL (1.8-7.7); NEUT % 60 % (31-73); PLATELET COUNT 275 x10^3/uL (140-400); RED BLOOD COUNT 4.44 x10^6/uL (3.50-5.40); RED CELL DISTRIBUTION WIDTH 16.6 % (11.5-14.5); WHITE BLOOD COUNT 4.5 x10^3/uL (4.0-11.0)
[2020-02-13 10:33] LABS: CALCIUM 9.7 mg/dL (8.5-10.1); CREATININE 1.2 mg/dL (0.6-1.0); GFR 55.1; POTASSIUM 4.6 mmol/L (3.5-5.1)
[2020-02-13 10:46] VITALS: BP 154/100
--- NOTE | 2020-02-13 11:15 | ED.ADGEN ---
Past Medical History Past Medical History: Asthma, Cancer, Hypertension Additional Past Medical Histor: graves disease,lupus,kidney tumor/CA-right kidney. Past Surgical History: No Surgical History Additional Past Surgical Histo: HERNIA REPAIR,NASAL POLYPS Smoking Status: Never Smoker Alcohol Use: None Drug Use: None General Adult EDM: Chief Complaint: ASTHMA HPI: HPI: Patient is 64-year-old female who presents to the emergency room complaining of cough, sore throat, shortness of breath. Body aches that have been ongoing for last 2 weeks. Patient was seen here 2 weeks ago and at that time was put on Tessalon Perles and antibiotics at that time. She states that she initially was feeling better and then started feeling worse again. She was negative for novel coronavirus 19 2 weeks ago. She has a follow-up appointment with her doctor next week. She states she feels this constant chest pressure. This is been ongoing for the last 2 weeks. It is unchanged from prior pain she had at her last visit. Review of Systems: Review of Systems: Complete ROS is negative unless otherwise documented in HPI Allergies: Allergies: Allergies Coded Allergies Type Severity Reaction Last Updated Verified NSAIDS (Non-Steroidal Anti-Inflamma Allergy Severe itching,throat"swells" 10/25/18 Yes aspirin Allergy Severe Shortness of Air 10/25/18 Yes Sulfa (Sulfonamide Antibiotics) Allergy Intermediate 10/25/18 Yes ketorolac Allergy Intermediate 10/25/18 Yes sulfamethoxazole Allergy Intermediate 10/25/18 Yes trimethoprim Allergy Intermediate 10/25/18 Yes Physical Exam: PE: General: Awake, alert, NAD. Well Nourished, well hydrated. Cooperative HEENT: Atraumatic, EOMI, PERRL, airway patent, moist oral mucosa Neck: Supple, trachea midline Respiratory: CTA bilaterally, normal effort, no wheezing/crackles CV: RRR, no murmur, cap refill <2 GI: Soft, nondistended, nontender, no masses MSK: No obvious deformities Skin: Warm, dry, intact Neuro: A&O x3, speech NL, sensory and motor grossly intact, no focal deficits Psych: Normal affect, normal mood, not suicidal or homicidal Current Patient Data: Labs: Laboratory Tests Test 02/13/20 10:12 White Blood Count 4.5 x10^3/uL (4.0-11.0) Red Blood Count 4.44 x10^6/uL (3.50-5.40) Hemoglobin 11.5 g/dL (12.0-15.5) L Hematocrit 35.2 % (36.0-47.0) L Mean Corpuscular Volume 79 fL (79-100) Mean Corpuscular Hemoglobin 26 pg (25-35) Mean Corpuscular Hemoglobin Concent 33 g/dL (31-37) Red Cell Distribution Width 16.6 % (11.5-14.5) H Platelet Count 275 x10^3/uL (140-400) Neutrophils (%) (Auto) 60 % (31-73) Lymphocytes (%) (Auto) 32 % (24-48) Monocytes (%) (Auto) 8 % (0-9) Eosinophils (%) (Auto) 0 % (0-3) Basophils (%) (Auto) 0 % (0-3) Neutrophils # (Auto) 2.7 x10^3/uL (1.8-7.7) Lymphocytes # (Auto) 1.5 x10^3/uL (1.0-4.8) Monocytes # (Auto) 0.3 x10^3/uL (0.0-1.1) Eosinophils # (Auto) 0.0 x10^3/uL (0.0-0.7) Basophils # (Auto) 0.0 x10^3/uL (0.0-0.2) Sodium Level 140 mmol/L (136-145) Potassium Level 4.6 mmol/L (3.5-5.1) Chloride Level 109 mmol/L (98-107) H Carbon Dioxide Level 27 mmol/L (21-32) Anion Gap 4 (6-14) L Blood Urea Nitrogen 9 mg/dL (7-20) Creatinine 1.2 mg/dL (0.6-1.0) H Estimated GFR (Cockcroft-Gault) 55.1 Glucose Level 83 mg/dL (70-99) Calcium Level 9.7 mg/dL (8.5-10.1) Troponin I Quantitative < 0.017 ng/mL (0.000-0.055) Laboratory Tests 02/13/20 10:12 Laboratory Tests 02/13/20 10:12 Vital Signs: Vital Signs Date Time Temp Pulse Resp B/P (MAP) Pulse Ox O2 Delivery O2 Flow Rate FiO2 02/13/20 10:46 60 18 154/100 (118) 99 Room Air 02/13/20 09:15 98.1 98.1 EKG: EKG: [] Heart Score: Risk Factors: Risk Factors: DM, Current or recent (<one month) smoker, HTN, HLP, family history of CAD, obesity. Risk Scores: Score 0 - 3: 2.5% MACE over next 6 weeks - Discharge Home Score 4 - 6: 20.3% MACE over next 6 weeks - Admit for Clinical Observation Score 7 - 10: 72.7% MACE over next 6 weeks - Early Invasive Strategies Radiology/Procedures: Radiology/Procedures: [] Course & Med Decision Making: Course & Med Decision Making Pertinent Labs and Imaging studies reviewed. (See chart for details) Patient is 64-year-old female who presents to the emergency room with ongoing URI symptoms and chest pressure. These are unchanged from prior visit. Repeat labs were done today which were normal. Chest x-ray shows concern for possible mass versus lymphadenopathy and recommends a CT of the chest which was ordered. CT chest is negative for mass but does show infectious bronchitis. Patient be started on antibiotics and steroids. She is feeling better at this time. Patient's test results and vitals while in the ED were fully reviewed and d iscussed with the patient. Patient is stable and at this time does not need admission to the hospital. We have discussed strict return precautions and the importance of following up with their Primary Care Physician. Patient stated understanding and was given an opportunity to ask any questions. Patient is in agreement with plan. Stephani Disclaimer: Stephani Disclaimer: This electronic medical record was generated, in whole or in part, using a voice recognition dictation system. Departure Departure Impression: Primary Impression: Bronchitis Disposition: 01 HOME SELF CARE/HOMELESS Condition: STABLE Referrals: NON,STAFF (PCP) Patient Instructions: Acute Bronchitis Scripts Amoxicillin/Potassium Clav (AUGMENTIN 500-125 TABLET) 1 Each Tablet 1 TAB PO BID for 7 Days, #14 TAB 0 Refills Prov: JOSE HERNANDEZ MD 02/13/20 Prednisone (PREDNISONE) 50 Mg Tablet 1 TAB PO DAILY, #5 TAB Prov: JOSE HERNANDEZ MD 02/13/20 JOSE HERNANDEZ MD Feb 13, 2020 11:14
--- NOTE | 2020-02-13 11:38 | RAD ---
CT THORAX WO INDICATION: possible mass COMPARISON STUDY: Radiograph 02/13/2020. CT 05/30/2018. TECHNIQUE: Unenhanced axial images were obtained through the lungs and upper abdomen. Coronal and sa gittal multiplanar reconstructions were also obtained. PQRS compliance statement: One or more of the following individualized dose reduction techniques were utilized for this examinat ion: 1. Automated exposure control 2. Adjustment of the mA and/or kV according to patient size 3. Use of iterative reconstruction technique FINDINGS: Lungs and Airways: Left upper lobe tree-in-bud opacities. Middle lobe subsegmental atelectasis. Mari l central airways. Pleura: The pleural spaces are normal. Heart and Mediastinum: The visualized thyroid gland is normal in size and attenuation. No axillary or supraclavicular lymphadenopathy. No mediastinal, hilar or retrocrural lymphadenopathy. Cardiomegaly. Coronary artery atherosclerotic disease. No pericardial effusion. Dilated ascending thoracic aorta m easures 4.5 cm at the level of the right pulmonary artery. Dilated pulmonary trunk measures 4.0 cm. Abdomen: The visualized abdominal organs demonstrate no abnormality. Bones and Soft Tissues: Degenerative changes of the spine. IMPRESSION: 1. No pulmonary mass or thoracic lymphadenopathy. Right hilar fullness likely related to patient rota tion and prominent vasculature. 2. Left upper lobe tree-in-bud opacities, likely infectious bronchiolitis. 3. Aneurysmal ascending thoracic aorta measures 4.5 cm in diameter. 4. Dilated pulmonary trunk measures 4.0 cm, which can be seen with pulmonary hypertension. Electronically signed by: Asa Weir MD (02/13/2020 11:36 AM) [id number]
[2020-02-13] MEDS ORDERED: AMOX1TAB58 PO (12:15)
[2020-02-13] MEDS ORDERED: PRED50TA PO (12:15)
== END 2020-02-13 12:30 | disposition home or self-care (01) ==
LOC: ER 09:06
DX: J40 Bronchitis, not specified as acute or chronic (principal); R05 Cough; R06.02 Shortness of breath; Z88.2 Allergy status to sulfonamides; Z88.8 Allergy status to other drugs, medicaments and biological substances; Z88.6 Allergy status to analgesic agent
CPT/HCPCS: 36415; 71045; 71250; 80048; 84484; 85025; 99285

== ENCOUNTER → 2020-02-21 | Outpatient (CLI) | payer OTHER, MEDICAID ==
[2020-02-13 10:46] VITALS: BP 154/100
[~2020-02-21] MED LIST changes: +AMOX1TAB58 PO; -HYDR50TA6 PO; +HYDR50TA9 PO
--- NOTE | 2020-02-21 16:48 | KCIC ---
Bilateral digital screening mammograms and tomosynthesis Reason for examination: Routine screening. History of benign left breast biopsy. Comparison is made to previous study dated December 13, 2017 Routine CC and MLO digital views obtained. Interpretation was made with the benefit of CAD. The skin and nipples show no abnormalities. No abnormal lymph nodes are seen. The breast parenchyma i s scattered fibroglandular elements. (Breast density: Category B.) There are no suspicious masses, lisa spicious calcifications or architectural distortions. Benign calcifications. Impression: Negative mammogram. Recommend routine screening. BI-RADS Category 1: Negative. "Our facility is accredited by the [employer] Mammography Program." This patient's information has been entered into a reminder system for the patient to be notified wit h the results of her examination and a target date for the next mammogram. Electronically signed by: Jose Abrams MD (02/21/2020 4:44 PM) [id number]
== END ==
LOC: KCIC MAMMO 09:02
PROVIDERS: ATTEND Family Medicine
DX: Z12.31 Encounter for screening mammogram for malignant neoplasm of breast (principal)
CPT/HCPCS: 77063; 77067

== ENCOUNTER 2020-03-28 11:23 | Emergency (ER) | payer OTHER, MEDICAID ==
[~2020-03-28] VITALS: Ht 170.2 cm; Wt 100.0 kg
[2020-03-28] MEDS ORDERED: ONDANSETRON PF 4 MG/2 ML VIAL. IV ONE ×2 (12:00→14:30)
[2020-03-28] MEDS ORDERED: fentaNYL PF VIAL 100 MCG/2 ML VIAL IV ONE ×2 (12:00→14:30)
--- NOTE | 2020-03-28 12:04 | ED.ADGEN ---
Past Medical History Past Medical History: Asthma, Cancer, Hypertension Additional Past Medical Histor: graves disease,lupus,kidney tumor/CA-right kidney. Past Surgical History: Other Additional Past Surgical Histo: HERNIA REPAIR,NASAL POLYPS Smoking Status: Former Smoker (Quit in 2002) Alcohol Use: None Drug Use: None General Adult EDM: Chief Complaint: MULTIPLE COMPLAINTS HPI: HPI: Patient is a 64 year old AA female who presents to emergency department with complaints of increased cough, chest tightness, sore throat, body aches, fatigue, and nausea for the last week. Patient reports that she has also been having hot and cold chills accompanied by episodes of diaphoresis. She denies any palpitations, extremity swelling, abdominal pain, vomiting, diarrhea, rash, or alteration in sense of taste/smell. Patient states she has been battling a respiratory infection for months now. She reports that the symptoms seem to start coming back right after she finishes the steroids and antibiotics that are prescribed. She denies any fever, s or known exposure to influenza or COVID-19. Patient currently rates her pain a 5 out of 10 on the pain scale, pain occurs with coughing, she denies any alleviating factors. Review of Systems: Review of Systems: Complete ROS is negative unless otherwise noted in HPI. Current Medications: Current Medications Medications (Trade) Dose Ordered Sig/[facility] Start Time Stop Time Status Last Admin Dose Admin Fentanyl Citrate (Fentanyl 2ml Vial) 50 mcg 1X ONCE 03/28/20 14:30 03/28/20 14:31 DC 03/28/20 14:26 50 MCG Info (CONTRAST GIVEN -- Rx MONITORING) 1 each PRN DAILY PRN 03/28/20 17:00 03/30/20 16:59 Iohexol (Omnipaque 350 Mg/ml) 90 ml 1X ONCE 03/28/20 17:00 03/28/20 17:01 DC Ondansetron HCl (Zofran) 4 mg 1X ONCE 03/28/20 14:30 03/28/20 14:31 DC 03/28/20 14:27 4 MG Sodium Chloride 1,000 ml @ 1,000 mls/hr 1X ONCE 03/28/20 14:30 03/28/20 15:29 DC 03/28/20 14:26 1,000 MLS/HR Allergies: Allergies: Allergies Coded Allergies Type Severity Reaction Last Updated Verified NSAIDS (Non-Steroidal Anti-Inflamma Allergy Severe itching,throat"swells" 10/25/18 Yes aspirin Allergy Severe Shortness of Air 10/25/18 Yes Sulfa (Sulfonamide Antibiotics) Allergy Intermediate 10/25/18 Yes ketorolac Allergy Intermediate 10/25/18 Yes sulfamethoxazole Allergy Intermediate 10/25/18 Yes trimethoprim Allergy Intermediate 10/25/18 Yes Physical Exam: PE: See Above Constitutional: Well developed, well nourished, no acute distress, non-toxic appearance. [] HENT: Normocephalic, atraumatic, bilateral external ears normal, nose normal. [] Eyes: PERRLA, EOMI, conjunctiva normal, no discharge. [] Neck: Normal range of motion, no stridor. [] Cardiovascular:Heart rate regular rhythm, no edema Lungs & Thorax: Respirations even and unlabored, no retractions, no respiratory distress, no wheezing Abdomen: soft, no tenderness Skin: Warm, dry, no erythema, no rash. [] Extremities: No cyanosis, ROM intact, no edema. [] Neurologic: Alert and oriented X 3, no focal deficits noted. [] Psychologic: Affect normal, judgement normal, mood normal. [] Current Patient Data: Labs: Laboratory Tests Test 03/28/20 11:35 03/28/20 12:40 03/28/20 13:06 03/28/20 14:15 Urine Collection Type Unknown Urine Color Yellow Urine Clarity Clear Urine pH 6.5 (<5.0-8.0) Urine Specific [place] 1.015 (1.000-1.030) Urine Protein Negative mg/dL (NEG-TRACE) Urine Glucose (UA) Negative mg/dL (NEG) Urine Ketones (Stick) Negative mg/dL (NEG) Urine Blood Negative (NEG) Urine Nitrite Negative (NEG) Urine Bilirubin Negative (NEG) Urine Urobilinogen Dipstick 1.0 mg/dL (0.2 mg/dL) Urine Leukocyte Esterase Negative (NEG) Urine RBC 0 /HPF (0-2) Urine WBC 0 /HPF (0-4) Urine Squamous Epithelial Cells Few /LPF Urine Bacteria 0 /HPF (0-FEW) Urine Hyaline Casts Few /HPF White Blood Count 6.0 x10^3/uL (4.0-11.0) Red Blood Count 4.85 x10^6/uL (3.50-5.40) Hemoglobin 12.5 g/dL (12.0-15.5) Hematocrit 38.6 % (36.0-47.0) Mean Corpuscular Volume 80 fL (79-100) Mean Corpuscular Hemoglobin 26 pg (25-35) Mean Corpuscular Hemoglobin Concent 33 g/dL (31-37) Red Cell Distribution Width 17.3 % (11.5-14.5) H Platelet Count 235 x10^3/uL (140-400) Neutrophils (%) (Auto) 53 % (31-73) Lymphocytes (%) (Auto) 38 % (24-48) Monocytes (%) (Auto) 8 % (0-9) Eosinophils (%) (Auto) 0 % (0-3) Basophils (%) (Auto) 1 % (0-3) Neutrophils # (Auto) 3.2 x10^3/uL (1.8-7.7) Lymphocytes # (Auto) 2.3 x10^3/uL (1.0-4.8) Monocytes # (Auto) 0.5 x10^3/uL (0.0-1.1) Eosinophils # (Auto) 0.0 x10^3/uL (0.0-0.7) Basophils # (Auto) 0.0 x10^3/uL (0.0-0.2) Sodium Level 140 mmol/L (136-145) Potassium Level 4.1 mmol/L (3.5-5.1) Chloride Level 108 mmol/L (98-107) H Carbon Dioxide Level 26 mmol/L (21-32) Anion Gap 6 (6-14) Blood Urea Nitrogen 13 mg/dL (7-20) Creatinine 1.2 mg/dL (0.6-1.0) H Estimated GFR (Cockcroft-Gault) 55.1 BUN/Creatinine Ratio 11 (6-20) Glucose Level 93 mg/dL (70-99) Calcium Level 9.7 mg/dL (8.5-10.1) Magnesium Level 2.1 mg/dL (1.8-2.4) Total Bilirubin 0.6 mg/dL (0.2-1.0) Aspartate Amino Transferase (AST) 21 U/L (15-37) Alanine Aminotransferase (ALT) 22 U/L (14-59) Alkaline Phosphatase 45 U/L (46-116) L Creatine Kinase 120 U/L (26-192) Creatine Kinase MB (Mass) 0.6 ng/mL (0.0-3.6) Creatine Kinase MB Relative Index 0.5 % (0-4) Troponin I Quantitative < 0.017 ng/mL (0.000-0.055) < 0.017 ng/mL (0.000-0.055) MQ-Xmc-K-Type Natriuretic Peptide 117 pg/mL (0-124) Total Protein 6.1 g/dL (6.4-8.2) L Albumin 2.7 g/dL (3.4-5.0) L Albumin/Globulin Ratio 0.8 (1.0-1.7) L Lipase 104 U/L (73-393) Influenza Type A Antigen Negative (NEGATIVE) Influenza Type B Antigen Negative (NEGATIVE) D-Dimer (Leanna) 1.09 ug/mlFEU (0.00-0.50) H Laboratory Tests 03/28/20 12:40 Laboratory Tests 03/28/20 12:40 Vital Signs: Vital Signs Date Time Temp Pulse Resp B/P (MAP) Pulse Ox O2 Delivery O2 Flow Rate FiO2 03/28/20 12:50 68 18 127/89 (102) 99 Room Air EKG: EK- SR rate 82, prolonged TN, leftward axis, no STEMI read by Dr. Henriquez[] [id number] bradycardia rhythm, rate 55, prolonged TN interval with leftward axis, no STEMI read by Dr. Henriquez Heart Score: HEART Score for Chest Pain: HEART Score for Chest Pain Response (Comments) Value History Slighlty/Non-Suspicious 0 ECG Nonspecific Repolarizatio 1 Age >45 - < 65 1 Risk Factors 1 or 2 Risk Factors 1 Troponin < Normal Limit 0 Total 3 Risk Factors: Risk Factors: HTN, family history of CAD Risk Scores: Score 0 - 3: 2.5% MACE over next 6 weeks - Discharge Home Score 4 - 6: 20.3% MACE over next 6 weeks - Admit for Clinical Observation Score 7 - 10: 72.7% MACE over next 6 weeks - Early Invasive Strategies Radiology/Procedures: Radiology/Procedures: PROCEDURE: CHEST AP ONLY XR CHEST 1V History: Reason: pui. SOA / Spl. Instructions: / History: Comparison: February 12, 2021 Findings: No consolidation or pleural effusion. Normal heart size. No pneumothorax. Impression: 1. No acute cardiopulmonary process.[] PROCEDURE: CT ANGIOGRAPHY CHEST Exam: CT of chest with contrast INDICATION: Elevated d-dimer, short of air TECHNIQUE: Sequential axial images through the chest obtained following the administration of 90 mL of Omni 350 IV contrast. Sagittal and coronal reformatt ed images were reconstructed from the axial data and reviewed. 3-D reformatted images were reconstructed from the axial data and reviewed. Comparisons: Chest x-ray same day FINDINGS: Visualized portions of the thyroid are unremarkable. No enlarged mediastinal lymph nodes are identified. Heart size is normal. Moderate coronary artery calcification. Thoracic aorta has a normal course and caliber. Pulmonary artery is not enlarged. No pulmonary embolus identified within the main, lobar or segmental pulmonary Airways are patent. No consolidation or pneumothorax. No suspicious lung nodules are identified. No pleural effusion or thickening. Visualized upper abdomen is unremarkable. No suspicious osseous lesions or acute fractures. IMPRESSION: No pulmonary embolus identified within the main, lobar or segmental pulmonary arteries. Exposure: One or more of the following in the visualized dose reduction techniques were utilized for this examination: 1. Automated exposure control 2. Adjustment of the MA and/or KV according to patient size 3. Use of iterative of reconstructive technique Course & Med Decision Making: Course & Med Decision Making Pertinent Labs and Imaging studies reviewed. (See chart for details) 64-year-old female presented to emergency room with complaints of cough, sore throat, shortness of breath that has increased over the last week. Work-up included labs, imaging, EKG, and medications. CBC is unremarkable; CMP revealed a chloride of 108, creatinine 1.2 patient history, otherwise unremarkable, patient's CK index is not elevated, troponins were less than 0.017 x2 while in the department, rapid flu is negative, COVID-19 is pending; urinalysis is unremarkable. Chest x-ray revealed no acute findings. Patient's D-dimer is 1.[address] the patient's chest was ordered, CT was negative for any pulmonary embolism findings. EKGs x2 revealed no acute changes, sinus rhythm with a prolonged TN and leftward axis. Patient's vital signs are stable throughout her emergency department stay. I informed patient of these results. Patient stated that she would like to go home. She requested some codeine cough syrup for her cough. Patient reported that Tessalon Perles did not help her. Prescription was written for guaifenesin and codeine suspension. The patient has been examined and was not found to have an emergency medical condition. The patient was then discharged home in stable condition to follow up with their primary care physician over the next 1-2 days. They were to return if their symptoms worsened or if they were concerned for any reason. They were also instructed to return to the emergency department if they were unable to get the recommended and appropriate follow-up. [id number] discharge instructions and return precautions were given. Patient's questions were answered to their satisfaction. Patient is in agreement with the POC. [] Dragon Disclaimer: Dragon Disclaimer: This electronic medical record was generated, in whole or in part, using a voice recognition dictation system. Departure Departure Impression: Primary Impression: Bronchitis Additional Impression: Person under investigation for COVID-19 Disposition: 01 DC HOME SELF CARE/HOMELESS Condition: STABLE Referrals: KATHY BHATT MD (PCP) Patient Instructions: Acute Bronchitis, [id number] Additional Instructions: Fill prescription(s) and use as directed. Recommend use of a Cool mist humidifier in room at bedtime. Alternate Tylenol or ibuprofen as needed for pain/fever. Increase clear fluids. Avoid airway triggers such as smoke, fragrance, dust, and pollen. May take [id number] cough suppressants as needed. Follow-up with your primary care doctor as needed. Please follow the following COVID-19 discharge instructions. You have been tested for or diagnosed with COVID-19. It is an infection caused by a new type of coronavirus. COVID-19 will cause cold-like or mild flu symptoms in most. It can cause more severe symptoms like problems breathing in some. There is no treatment for COVID-19. The body will clear the infection over time. Self-care will help to ease discomfort. Steps to Take: Self-Care Rest as needed. Healthy habits may help you feel better. Steps include: Choose healthy foods including fruits and vegetables. Drink water throughout the day. Get plenty of sleep each night. If you smoke, try to quit. It may ease breathing. Avoid alcohol. Keep Others Healthy The virus can spread to others. Droplets are released every time you sneeze or cough. The droplets can get into the mouth, nose, or eyes of people near you and lead to infection. To lower the chances of spreading COVID-19 to others: Stay at home until your doctor has said it is safe to leave. If you tested positive this will mean staying isolated until both of the following are true: At least 7 days have passed since the start of illness. You are free of fever for at least 72 hours without the use of medicine. During this time: - Avoid public areas, events, or transportation. Do not return to work or school until your doctor has said it is safe to do so. - Call ahead if you need to go to a medical center. Let them know you may have COVID-19. It will help them guide you where to go. They may also ask you to wear a facemask when you come to the office. - If you call for emergency medical services, let them know you may have COVID- 19. While at home: - Try to avoid close contact with others. Stay about 6 feet away. - If possible, spend most of your time in a separate room from others. - Use a face mask if you will be in close contact with others such as sharing a room or vehicle. - Have someone wipe down common surfaces in the home. Use household hydroelectric operator every day on areas like doorknobs, counters, or sinks. - Cough or sneeze into a tissue. Throw the tissue away right after use. If a tissue is not available, cough or sneeze into your elbow. - Wash your hands often. Wash them after sneezing or coughing. Use soap and water and wash for at least 20 seconds. Alcohol based hand cleaner housekeeping can be used if soap and water is not available. - Do not prepare food for others. Avoid sharing personal items like forks, spoons, or toothbrushes. - Avoid close contact with pets while you are sick. There is no evidence of the virus passing to pets. This is a safety step until more is known about this virus. Isolation can be frustrating. Social interaction can help. Keep in touch with friends and family through phone and tech options. You can still interact with others in your home, just keep a safe distance of about 6 feet. Follow-up: Your doctors office will check in with you to see if there are any changes in your health. You may be asked to keep track of symptoms to share with them. They will also let you know when you are clear to be in public again. Problems to Look Out For: Contact your doctor if your recovery is not going as you expect. Get emergency care if you have problems such as: - Trouble breathing - Nonstop chest pain or pressure - Changes in awareness, confusion, or problems waking - Lips or face have bluish color - Worsening of symptoms If you think you have an emergency, call for emergency medical services right away. As taken from [facility] Guaifenesin/Codeine Phosphate (Codeine-Guaifen 10-100 mg/5 ml) 120 Ml Liquid 5 ML PO PRN Q6HRS PRN for cough and congestion MDD 20 Milliliter(s) for 6 Days, #120 ML 0 Refills Prov: THERESA ASTUDILLO APRN 03/28/20 Problem Qualifiers THERESA ASTUDILLO APRN Mar 28, 2020 12:04
[2020-03-28 12:17] LABS: BILIRUBIN,URINE NEGATIVE (NEG); CLARITY,URINE CLEAR; COLOR,URINE YELLOW; NITRITE,URINE NEGATIVE (NEG); PH,URINE 6.5 (<5.0-8.0); PROTEIN,URINE NEGATIVE (NEG-TRACE)
--- NOTE | 2020-03-28 12:23 | RAD ---
XR CHEST 1V History: Reason: pui. SOA / Spl. Instructions: / History: Comparison: February 12, 2021 Findings: No consolidation or pleural effusion. Normal heart size. No pneumothorax. Impression: 1. No acute cardiopulmonary process. Electronically signed by: Octavio Del Rio DO (03/28/2020 12:21 PM) [facility]
[2020-03-28 12:29] LABS: BACTERIA,URINE 0 /HPF (0-FEW); RBC,URINE 0 /HPF (0-2); WBC,URINE 0 /HPF (0-4)
[2020-03-28 12:30] LABS: HYALINE CASTS, URINE FEW /HPF
[2020-03-28 12:50] VITALS: BP 127/89
[2020-03-28 13:02] LABS: BASO % 1 % (0-3); EOS % 0 % (0-3); HEMATOCRIT 38.6 % (36.0-47.0); HEMOGLOBIN 12.5 g/dL (12.0-15.5); LYMPH # 2.3 x10^3/uL (1.0-4.8); LYMPH % 38 % (24-48); MEAN CORPUSCULAR HEMOGLOBIN 26 pg (25-35); MEAN CORPUSCULAR HGB CONC 33 g/dL (31-37); MEAN CORPUSCULAR VOLUME 80 fL (79-100); MONO # 0.5 x10^3/uL (0.0-1.1); MONO % 8 % (0-9); NEUT # 3.2 x10^3/uL (1.8-7.7); NEUT % 53 % (31-73); PLATELET COUNT 235 x10^3/uL (140-400); RED BLOOD COUNT 4.85 x10^6/uL (3.50-5.40); RED CELL DISTRIBUTION WIDTH 17.3 % (11.5-14.5)
[2020-03-28 13:27] LABS: CALCIUM 9.7 mg/dL (8.5-10.1); CREATININE 1.2 mg/dL (0.6-1.0); GFR 55.1; POTASSIUM 4.1 mmol/L (3.5-5.1)
[2020-03-28 13:34] LABS: ALBUMIN 2.7 g/dL (3.4-5.0); ALBUMIN/GLOBULIN RATIO 0.8 (1.0-1.7); MAGNESIUM 2.1 mg/dL (1.8-2.4); TOTAL BILIRUBIN 0.6 mg/dL (0.2-1.0); TOTAL PROTEIN 6.1 g/dL (6.4-8.2)
[2020-03-28 13:44] LABS: INFLUENZA A PATIENT NEGATIVE (NEGATIVE); INFLUENZA B PATIENT NEGATIVE (NEGATIVE)
[2020-03-28] MEDS ORDERED: IV NORMAL SALINE 1000ML BAG 1,000 ML IV ONE (14:30)
[2020-03-28] MEDS ORDERED: CONTRAST GIVEN. MC PRN (17:00)
[2020-03-28] MEDS ORDERED: IOHEXOL 350 MG/ML 100 ML VIAL. IV ONE (17:00)
--- NOTE | 2020-03-28 17:40 | RAD ---
Exam: CT of chest with contrast INDICATION: Elevated d-dimer, short of air TECHNIQUE: Sequential axial images through the chest obtained following the administration of 90 mL o f Omni 350 IV contrast. Sagittal and coronal reformatted images were reconstructed from the axial gunjan a and reviewed. 3-D reformatted images were reconstructed from the axial data and reviewed. Comparisons: Chest x-ray same day FINDINGS: Visualized portions of the thyroid are unremarkable. No enlarged mediastinal lymph nodes are identifi ed. Heart size is normal. Moderate coronary artery calcification. Thoracic aorta has a normal course and caliber. Pulmonary artery is not enlarged. No pulmonary embolus identified within the main, lobar or segmental pulmonary Airways are patent. No consolidation or pneumothorax. No suspicious lung nodules are identified. No pleural effusion or thickening. Visualized upper abdomen is unremarkable. No suspicious osseous lesions or acute fractures. IMPRESSION: No pulmonary embolus identified within the main, lobar or segmental pulmonary arteries. Exposure: One or more of the following in the visualized dose reduction techniques were utilized for this examination: 1. Automated exposure control 2. Adjustment of the MA and/or KV according to patient size 3. Use of iterative of reconstructive technique Electronically signed by: Owen Subramanian MD (03/28/2020 5:38 PM) [facility]
[2020-03-28] MEDS ORDERED: GUAI120L35 PO (17:45)
--- NOTE | 2020-03-29 06:38 | EKG ---
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
--- NOTE | 2020-03-29 06:40 | EKG ---
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
--- NOTE | 2020-03-30 13:03 | NUR ---
IP: Informed pt of negative COVID test. pt verbalized understanding.
== END 2020-03-28 18:35 | disposition home or self-care (01) ==
LOC: ER 11:23
DX: J45.909 Unspecified asthma, uncomplicated (principal); Z20.822 Contact with and (suspected) exposure to COVID-19; I10 Essential (primary) hypertension; Z87.891 Personal history of nicotine dependence
CPT/HCPCS: 36415; 71045; 71275; 80053; 81001; 82553; 83690; 83735; 83880; 84484; 85025; 85379; 87804; 93005; 96361; 96374; 96375; 96376; 99285; C9803; J2405; J3010; J7030; U0003

== ENCOUNTER 2020-04-01 10:01 | Emergency (ER) | payer OTHER, MEDICAID ==
[~2020-04-01] VITALS: Ht 176.5 cm; Wt 100.0 kg
[2020-04-01] MEDS ORDERED: fentaNYL PF VIAL 100 MCG/2 ML VIAL IV PRN (10:30)
[2020-04-01] MEDS ORDERED: NITROGLYCERIN SUBLINGUAL 0.4 MG BOTTLE OF 25. SL PRN (10:30)
[2020-04-01 10:59] LABS: BASO % 0 % (0-3); EOS % 0 % (0-3); HEMATOCRIT 36.5 % (36.0-47.0); HEMOGLOBIN 11.8 g/dL (12.0-15.5); LYMPH # 1.5 x10^3/uL (1.0-4.8); LYMPH % 28 % (24-48); MEAN CORPUSCULAR HEMOGLOBIN 26 pg (25-35); MEAN CORPUSCULAR HGB CONC 32 g/dL (31-37); MEAN CORPUSCULAR VOLUME 81 fL (79-100); MONO # 0.4 x10^3/uL (0.0-1.1); MONO % 8 % (0-9); NEUT # 3.4 x10^3/uL (1.8-7.7); NEUT % 64 % (31-73); PLATELET COUNT 214 x10^3/uL (140-400); RED BLOOD COUNT 4.53 x10^6/uL (3.50-5.40); RED CELL DISTRIBUTION WIDTH 17.2 % (11.5-14.5); WHITE BLOOD COUNT 5.3 x10^3/uL (4.0-11.0)
--- NOTE | 2020-04-01 11:01 | RAD ---
XR CHEST 1V CLINICAL INDICATIONS: Chest pain COMPARISON: March 28, 2020. Findings: No acute lung infiltrate or pleural effusion or pulmonary edema or lung mass or pneumothora x is seen. Cardiomegaly is again evident and is unchanged. The pulmonary vasculature, mediastinum and both chris are stable. IMPRESSION: No acute radiographic abnormality is seen. Electronically signed by: Franc Wild MD (04/01/2020 10:59 AM) [id number]
--- NOTE | 2020-04-01 11:07 | PHYS DOC ---
Past Medical History Past Medical History: Asthma, Bronchitis, Cancer, Hypertension Additional Past Medical Histor: graves disease,lupus,kidney tumor/CA-right kidney. Past Surgical History: Other Additional Past Surgical Histo: HERNIA REPAIR,NASAL POLYPS,RT KIDNEY ABLATION Smoking Status: Former Smoker Alcohol Use: None Drug Use: None General Adult EDM: Chief Complaint: MULTIPLE COMPLAINTS HPI: HPI: Patient is a 64 year old female with a history of bronchitis, hypertension, asthma, presenting to the ED today with multiple complaints. Patient is complaining of generalized weakness, dizziness, chest pain rated at 5 out of 10 described as sharp and generalized, shortness of air, cough, nausea with no vomiting, symptoms for 2 weeks, looking at her previous visits this patient has been in the ED multiple times since September 2019 with similar complaints. Patient denies anything specifically exacerbating or relieving her chest pain. She has had multiple COVID-19 test which were negative. She was in the ED 03/28/2020 weeks ago for similar symptoms and was diagnosed with bronchitis. Denies any fever. Review of Systems: Review of Systems: Constitutional: Denies fever or chills. [] Eyes: Denies change in visual acuity. [] HENT: Denies nasal congestion or sore throat. [] Respiratory: Reports cough and shortness of breath. [] Cardiovascular: Reports chest pain GI: Denies abdominal pain, nausea, vomiting, bloody stools or diarrhea. [] : Denies dysuria. [] Musculoskeletal: Denies back pain or joint pain. [] Integument: Denies rash. [] Neurologic: Reports dizziness. Reports generalized weakness. Denies headache, focal weakness or sensory changes. [] Psychiatric: Denies depression or anxiety. [] Heart Score: HEART Score for Chest Pain: HEART Score for Chest Pain Response (Comments) Value History Slighlty/Non-Suspicious 0 ECG Normal 0 Age < 45 0 Risk Factors 1 or 2 Risk Factors 1 Troponin < Normal Limit 0 Total 1 Risk Factors: Risk Factors: DM, Current or recent (<one month) smoker, HTN, HLP, family history of CAD, obesity. Risk Scores: Score 0 - 3: 2.5% MACE over next 6 weeks - Discharge Home Score 4 - 6: 20.3% MACE over next 6 weeks - Admit for Clinical Observation Score 7 - 10: 72.7% MACE over next 6 weeks - Early Invasive Strategies Current Medications: Current Medications Medications (Trade) Dose Ordered Sig/Indra Start Time Stop Time Status Last Admin Dose Admin Fentanyl Citrate (Fentanyl 2ml Vial) 50 mcg PRN Q15MIN PRN 04/01/20 10:30 04/02/20 10:29 Nitroglycerin (Nitrostat) 0.4 mg PRN Q5MIN PRN 04/01/20 10:30 04/02/20 10:29 Allergies: Allergies: Allergies Coded Allergies Type Severity Reaction Last Updated Verified NSAIDS (Non-Steroidal Anti-Inflamma Allergy Severe itching,throat"swells" 10/25/18 Yes aspirin Allergy Severe Shortness of Air 10/25/18 Yes Sulfa (Sulfonamide Antibiotics) Allergy Intermediate 10/25/18 Yes ketorolac Allergy Intermediate 10/25/18 Yes sulfamethoxazole Allergy Intermediate 10/25/18 Yes trimethoprim Allergy Intermediate 10/25/18 Yes Physical Exam: PE: Constitutional: Well developed, well nourished, no acute distress, non-toxic appearance. [] HENT: Normocephalic, atraumatic, bilateral external ears normal, oropharynx moist, no oral exudates, nose normal. [] Eyes: PERRLA, EOMI, conjunctiva normal, no discharge. [] Neck: Normal range of motion, no tenderness, supple, no stridor. [] Cardiovascular:Heart rate regular rhythm, no murmur [] Lungs & Thorax: Bilateral breath sounds clear to auscultation [] Abdomen: Bowel sounds normal, soft, no tenderness, no masses, no pulsatile masses. [] Skin: Warm, dry, no erythema, no rash. [] Back: No tenderness, no CVA tenderness. [] Extremities: No tenderness, no cyanosis, no clubbing, ROM intact, no edema. [] Neurologic: Alert and oriented X 3, normal motor function, normal sensory function, no focal deficits noted. [] Psychologic: Flat affect Current Patient Data: Vital Signs: Vital Signs Date Time Temp Pulse Resp B/P (MAP) Pulse Ox O2 Delivery O2 Flow Rate FiO2 04/01/20 10:10 97.0 66 16 154/97 (116) 100 Room Air 97.0 EKG: EK interpreted by Dr. Henriquez sinus rhythm HR 67 no STEMI[] Radiology/Procedures: Radiology/Procedures: []PROCEDURE: PORTABLE CHEST 1V XR CHEST 1V CLINICAL INDICATIONS: Chest pain COMPARISON: March 28, 2020. Findings: No acute lung infiltrate or pleural effusion or pulmonary edema or lung mass or pneumothorax is seen. Cardiomegaly is again evident and is unchanged. The pulmonary vasculature, mediastinum and both chris are stable. IMPRESSION: No acute radiographic abnormality is seen. Electronically signed by: Franc Wild MD (04/01/2020 10:59 AM) [id number] DICTATED and SIGNED BY: FRANC WILD MD DATE: 04/01/20 [id number] 0 Course & Med Decision Making: Course & Med Decision Making Pertinent Labs and Imaging studies reviewed. (See chart for details) This is a 64-year-old female patient presenting to the ED today complaining of generalized weakness, dizziness, chest pain, shortness of air, cough, nausea with no vomiting, symptoms for 2 weeks, looking at her previous visits this patient has been in the ED multiple times since September 2019 with similar complaints. She was seen in the ED on March 28, 2020 and was diagnosed with bronchitis. EKG is negative, chest x-ray is negative, CBC with no acute findings, troponin is normal. Chest x-ray is negative. D-dimer 1.34, CTA chest was ordered. UA is negative. UDS positive for marijuana use and opiates CTA chest is negative. Noted for bronchiolitis. CT of the head is negative. Discharged with albuterol inhaler and prednisone. Follow-up with PCP Stephani Disclaimer: Stephani Disclaimer: This electronic medical record was generated, in whole or in part, using a voice recognition dictation system. Departure Departure Impression: Primary Impression: Bronchiolitis Additional Impression: Marijuana use Disposition: 01 DC HOME SELF CARE/HOMELESS Condition: STABLE Referrals: KATHY BHATT MD (PCP) follow up in 1 week Patient Instructions: Bronchiolitis Additional Instructions: You were evaluated in the emergency room, you are noted to have bronchiolitis. Your urine was positive for marijuana. Please follow-up with your primary care doctor. Scripts Albuterol Sulfate (Proair Hfa) 8.5 Gm Hfa.aer.ad 2 PUFF IH PRN Q4-6HRS PRN for wheezing for 21 Days, #1 INHALER 0 Refills Prov: LAMONT SCHREIBER PERFUME MAKER 04/01/20 Prednisone (PREDNISONE) 50 Mg Tablet 1 TAB PO DAILY, #5 TAB Prov: LAMONT SCHREIBER APRN 04/01/20 LAMONT SCHREIBER APRN Apr 01, 2020 11:07
[2020-04-01 11:08] LABS: CALCIUM 9.8 mg/dL (8.5-10.1); CREATININE 1.2 mg/dL (0.6-1.0); GFR 55.1; POTASSIUM 4.2 mmol/L (3.5-5.1)
[2020-04-01 11:13] LABS: ALBUMIN 2.8 g/dL (3.4-5.0); ALBUMIN/GLOBULIN RATIO 0.8 (1.0-1.7); MAGNESIUM 2.1 mg/dL (1.8-2.4); TOTAL BILIRUBIN 0.5 mg/dL (0.2-1.0); TOTAL PROTEIN 6.4 g/dL (6.4-8.2)
[2020-04-01 11:45] LABS: BILIRUBIN,URINE NEGATIVE (NEG); CLARITY,URINE CLEAR; COLOR,URINE YELLOW; NITRITE,URINE NEGATIVE (NEG); PROTEIN,URINE NEGATIVE (NEG-TRACE)
[2020-04-01 11:52] LABS: BARBITURATES NEG (NEG); BENZODIAZEPINES NEG (NEG); CANNABINOIDS POS (NEG); COCAINE NEG (NEG); METHADONE NEG (NEG); OPIATES POS (NEG); PHENCYCLIDINE NEG (NEG)
[2020-04-01 11:55] LABS: AMPHETAMINE/METHAMPHETAMINE NEG (NEG)
--- NOTE | 2020-04-01 11:58 | RAD ---
STUDY: CT head without contrast INDICATION: Dizziness. COMPARISON: CT head 12/23/2016; MRI of the brain 10/14/2017 TECHNIQUE: Axial CT imaging through the head without the use of intravenous contrast. Sagittal and co jay reformats were obtained. One or more of the following individualized dose reduction techniques were utilized for this examinat ion: 1. Automated exposure control 2. Adjustment of the mA and/or kV according to patient size 3. Use of iterative reconstruction technique. FINDINGS: No acute intracranial hemorrhage. No CT evidence for a large vessel occlusion. No localized mass effe ct, midline shift or hydrocephalus. Unchanged prominence of the basilar artery measuring 5.5 mm transverse. Intracranial calcific atheros clerosis. White matter findings typical of chronic microvascular ischemic change. Parenchymal volume is within normal limits for patient age. The right maxillary sinus is almost fully opacified. Less pronounced opacification of the left maxill clare sinus. Opacified frontal sinus, ethmoidal air cells and majority of the sphenoid sinus the degree of paranasal sinus opacification has progressed from comparison studies. No surrounding osseous dehi scence. Partial opacification of the right nasal passage. No intraconal or extraconal fluid collectio n/inflammation. Symmetric globes. Normally aerated mastoid air cells and middle ears. IMPRESSION: 1. No acute intracranial abnormality by CT. 2. Progressive paranasal sinus opacification from comparison exams. Active sinusitis to account for the patient's dizziness should be considered. 3. Additional chronic observations, as above, to include white matter findings most frequently on ac count of chronic microvascular ischemic change. Electronically signed by: JULIA NAVA MD (04/01/2020 11:56 AM) [id number]
[2020-04-01 12:15] LABS: BACTERIA,URINE 0 /HPF (0-FEW); RBC,URINE 0 /HPF (0-2); WBC,URINE 0 /HPF (0-4)
[2020-04-01] MEDS ORDERED: IOHEXOL 350 MG/ML 100 ML VIAL. IV ONE (12:45)
[2020-04-01] MEDS ORDERED: CONTRAST GIVEN. MC PRN (12:45)
--- NOTE | 2020-04-01 13:01 | EKG ---
[facility] [address] [place] [address] Test Date: 2020-04-01 Test Time: 10:14:52 Pat Name: JERRY WAYNE Department: Room: Gender: F Access Manager: : 1955 Requested By: LAMONT SCHREIBER Order Number: [id number] Reading MD: Measurements Intervals [place] Rate: 67 P: 34 MO: 230 QRS: -16 QRSD: 90 T: 36 QT: 400 QTc: 426 Interpretive Statements SINUS RHYTHM VENTRICULAR PREMATURE COMPLEX(ES) PROLONGED MO INTERVAL LEFTWARD AXIS ABNORMAL ECG RI6.01 No previous ECG available for comparison
--- NOTE | 2020-04-01 13:16 | RAD ---
CTA CHEST INDICATION: chest pain, SOA r/o PE Comparison: None. TECHNIQUE: Following the uneventful administration of intravenous contrast, 80 cc Omnipaque 350, axia l CT sections were obtained through the lungs and upper abdomen. Multiplanar reconstructions and MIP images were obtained. PQRS compliance statement: One or more of the following individualized dose reduction techniques were utilized for this examinat ion: 1. Automated exposure control 2. Adjustment of the mA and/or kV according to patient size 3. Use of iterative reconstruction technique FINDINGS: Pulmonary arteries: No evidence of pulmonary thromboembolic disease. Dilated pulmonary trunk measures 38 mm. Lungs and Airways: Left upper lobe centrilobular groundglass nodules and tree-in-bud opacities. Middl e lobe and lingular endobronchial mucous plugging with volume loss. Pleura: The pleural spaces are normal. Heart and Mediastinum: The visualized thyroid is normal in size and attenuation. No axillary or supra clavicular lymphadenopathy. No mediastinal, hilar or retrocrural lymphadenopathy. Cardiomegaly. Coron clare artery atherosclerotic disease. Minimal pericardial fluid, likely physiologic. Atherosclerosis of the thoracic aorta. Abdomen: Limited images through the upper abdomen show no abnormality of the visualized organs. Bones and Soft Tissues: The visualized bones and chest wall soft tissues are within normal limits. IMPRESSION: 1. No evidence of pulmonary thromboembolic disease. Dilated pulmonary trunk, which can be seen with p ulmonary hypertension. 2. Left upper lobe centrilobular groundglass nodules and tree-in-bud opacities, likely infectious bro nchiolitis. 3. Coronary artery atherosclerotic disease. Electronically signed by: Asa Weir MD (04/01/2020 1:14 PM) [id number]
[2020-04-01] MEDS ORDERED: ALBU2.5V8 IH (13:46)
[2020-04-01] MEDS ORDERED: PRED50TA PO (13:46)
[2020-04-01 13:54] VITALS: BP 138/94
== END 2020-04-01 14:21 | disposition home or self-care (01) ==
LOC: ER 10:01
DX: J21.9 Acute bronchiolitis, unspecified (principal); R42 Dizziness and giddiness; R07.89 Other chest pain; F12.90 Cannabis use, unspecified, uncomplicated; J45.909 Unspecified asthma, uncomplicated; I10 Essential (primary) hypertension; Z87.891 Personal history of nicotine dependence; Z98.890 Other specified postprocedural states; Z85.9 Personal history of malignant neoplasm, unspecified; Z88.2 Allergy status to sulfonamides; Z88.8 Allergy status to other drugs, medicaments and biological substances; Z88.6 Allergy status to analgesic agent
CPT/HCPCS: 36415; 70450; 71045; 71275; 80053; 80307; 81001; 83735; 83880; 84443; 84484; 85025; 85379; 93005; 96374; 99285; J3010; Q9967

== ENCOUNTER 2020-09-02 11:17 | Emergency (ER) | payer OTHER, MEDICAID ==
[~2020-09-02] VITALS: Ht 177.8 cm; Wt 102.7 kg
[2020-09-02 11:38] VITALS: BP 142/92
[2020-09-02] MEDS ORDERED: methylPREDNISolone SOD SUCC PF 125 MG/2 ML VIAL. IV ONE (12:00)
[2020-09-02] MEDS ORDERED: IV NORMAL SALINE 1000ML BAG 1,000 ML IV SCH (12:00)
[2020-09-02] MEDS ORDERED: ALBUTEROL SULFATE 2.5 MG/3 ML NEBU. CONT NEB ONE (12:00)
--- NOTE | 2020-09-02 12:31 | PHYS DOC ---
Past Medical History Past Medical History: Asthma, Bronchitis, Cancer, Hypertension Additional Past Medical Histor: graves disease,lupus,kidney tumor/CA-right kidney.SLEEP APNEA Past Surgical History: Other Additional Past Surgical Histo: HERNIA REPAIR,NASAL POLYPS,RT KIDNEY ABLATION Smoking Status: Former Smoker Alcohol Use: None Drug Use: None General Adult EDM: Chief Complaint: ASTHMA HPI: HPI: Patient is a 65 year old female who presents with 1 week of shortness of breath and chest tightness and coughing up yellow mucus. She states that she had a fever yesterday that was 101. She states that she did get the Covid vaccinations. She states she has not had nebulizer at home that does not seem to be helping. Patient denies any chest pain, abdominal pain, nausea, vomiting, diarrhea, dizziness, headache, focal weakness, numbness or tingling, syncope. Patient has a history of right kidney disease with a kidney ablation, hernia repair, Graves' disease, lupus, asthma, hypertension. Review of Systems: Review of Systems: Constitutional: + fever or chills. [] Eyes: Denies change in visual acuity. [] HENT: Denies nasal congestion or sore throat. [] Respiratory: + cough or +shortness of breath. [] Cardiovascular: + Chest tightness denies chest pain or edema. [] GI: Denies abdominal pain, nausea, vomiting, bloody stools or diarrhea. [] : Denies dysuria. [] Musculoskeletal: Denies back pain or joint pain. [] Integument: Denies rash. [] Neurologic: Denies headache, focal weakness or sensory changes. [] Endocrine: Denies polyuria or polydipsia. [] Lymphatic: Denies swollen glands. [] Psychiatric: Denies depression or anxiety. [] Heart Score: C/O Chest Pain: No HEART Score for Chest Pain: HEART Score for Chest Pain Response (Comments) Value History Slighlty/Non-Suspicious 0 ECG Normal 0 Age >45 - < 65 1 Risk Factors 1 or 2 Risk Factors 1 Troponin < Normal Limit 0 Total 2 Risk Factors: Risk Factors: DM, Current or recent (<one month) smoker, HTN, HLP, family history of CAD, obesity. Risk Scores: Score 0 - 3: 2.5% MACE over next 6 weeks - Discharge Home Score 4 - 6: 20.3% MACE over next 6 weeks - Admit for Clinical Observation Score 7 - 10: 72.7% MACE over next 6 weeks - Early Invasive Strategies Current Medications: Current Medications Medications (Trade) Dose Ordered Sig/Indra Start Time Stop Time Status Last Admin Dose Admin Albuterol Sulfate (Ventolin Neb Soln) 10 mg 1X ONCE 09/02/20 12:00 09/02/20 12:01 DC Methylprednisolone Sodium Succinate (SOLU-Medrol 125MG VIAL) 125 mg 1X ONCE 09/02/20 12:00 09/02/20 12:01 DC Sodium Chloride 1,000 ml @ 1,000 mls/hr Q1H 09/02/20 12:00 09/02/20 12:59 Allergies: Allergies: Allergies Coded Allergies Type Severity Reaction Last Updated Verified NSAIDS (Non-Steroidal Anti-Inflamma Allergy Severe itching,throat"swells" 10/25/18 Yes aspirin Allergy Severe Shortness of Air 10/25/18 Yes Sulfa (Sulfonamide Antibiotics) Allergy Intermediate 10/25/18 Yes ketorolac Allergy Intermediate 10/25/18 Yes sulfamethoxazole Allergy Intermediate 10/25/18 Yes trimethoprim Allergy Intermediate 10/25/18 Yes Physical Exam: PE: Constitutional: Well developed, well nourished, no acute distress, non-toxic appearance. [] HENT: Normocephalic, atraumatic, bilateral external ears normal, oropharynx moist, no oral exudates, nose normal. [] Eyes: PERRLA, EOMI, conjunctiva normal, no discharge. [] Neck: Normal range of motion, no tenderness, supple, no stridor. [] Cardiovascular:Heart rate regular rhythm, no murmur [] Lungs & Thorax: Bilateral upper breath sounds slightly wheezing with generally diminished throughout to auscultation [] Abdomen: Bowel sounds normal, soft, no tenderness, no masses, no pulsatile masses. [] Skin: Warm, dry, no erythema, no rash. [] Back: No tenderness, no CVA tenderness. [] Extremities: No tenderness, no cyanosis, no clubbing, ROM intact, no edema. [] Neurologic: Alert and oriented X 3, normal motor function, normal sensory function, no focal deficits noted. [] Psychologic: Affect normal, judgement normal, mood normal. [] Current Patient Data: Vital Signs: Vital Signs Date Time Temp Pulse Resp B/P (MAP) Pulse Ox O2 Delivery O2 Flow Rate FiO2 09/02/20 11:38 98.6 76 20 142/92 (109) 96 Room Air 98.6 EKG: EK and read by Dr. Velasquez as sinus rhythm with no STEMI. Radiology/Procedures: Radiology/Procedures: [] Impression: [facility] [address] [place] [address] IMAGING REPORT Signed PATIENT: JERRY WAYNE ACCOUNT: [id number] : 1955 LOCATION: ER AGE: 65 SEX: F EXAM STATUS: REG ER ORD. PHYSICIAN: ROSSY NGUYEN APRN REASON: cough, soa PROCEDURE: PORTABLE CHEST 1V EXAM: XR CHEST 1V 09/02/2020 12:13 PM CLINICAL INDICATION: Cough, shortness of air COMPARISON: Chest radiograph 04/01/2020 TECHNIQUE: AP view of the chest FINDINGS: Mild cardiomegaly is unchanged. Lungs are adequately expanded and clear. No pleural effusion or pneumothorax. No acute osseous abnormality. There is a new stimulator device with battery generator in the right chest wall and lead extending toward the right neck. IMPRESSION: No acute cardiopulmonary abnormality. Electronically signed by: Julieta Porter MD (09/02/2020 1:10 PM) [id number] DICTATED and SIGNED BY: JULIETA PORTER MD DATE: 09/02/20 [id number] 0 Course & Med Decision Making: Course & Med Decision Making Pertinent Labs and Imaging studies reviewed. (See chart for details) COVID-19 CRITERIA: The patient was evaluated during the global COVID-19 pandemic, and that diagnosis was suspected/considered upon their initial prese ntation. Their evaluation, treatment and testing was consistent with current guidelines for patients who present with complaints or symptoms that may be related to COVID-19. See HPI. Alert and oriented x4. Ambulatory with steady gait. Speaks full clear sentences. Patient has slight wheezes in the upper lobes but generally diminished. Skin pink warm and dry. No extremity edema. Solu-Medrol and breathing treatment. Patient states she is feeling much better. She states she is ready to go home. Her rapid Covid is negative. Lungs are sounding clear. Vital signs are within normal limits. [] Dragon Disclaimer: Dragon Disclaimer: This electronic medical record was generated, in whole or in part, using a voice recognition dictation system. Departure Departure Impression: Primary Impression: Asthma exacerbation Qualified Codes: J45.31 - Mild persistent asthma with (acute) exacerbation Disposition: HOME / SELF CARE / HOMELESS Condition: STABLE Referrals: KATHY BHATT MD (PCP) Patient Instructions: Asthma Prevention-Brief, Asthma, Adult Additional Instructions: Follow-up with your primary care physician. Take all medications as prescribed. Drink plenty of fluids. If anything worsens you can very short of breath or having chest pain or high fever or any return emergency room. Scripts Albuterol Sulfate (ALBUTEROL SULFATE NEB SOLN) 2.5 Mg/3 Ml Vial.neb 1 VIAL NEB PRN Q4HRS, #50 VIAL Prov: ROSSY NGUYEN APRN 09/02/20 Albuterol Sulfate (PROAIR HFA INHALER) 8.5 Gm Hfa.aer.ad 1 PUFF INH PRN Q6HRS PRN for SHORTNESS OF BREATH, #1 EACH 0 Refills Prov: ROSSY NGUYEN CELL CLEANER 09/02/20 Methylprednisolone (MEDROL) 4 Mg Tab.ds.pk 1 PKG PO UD, #1 PKG Prov: ROSSY NGUYEN APRN 09/02/20 ROSSY NGUYEN CELL CLEANER Sep 02, 2020 12:31
[2020-09-02 12:43] LABS: BASO % 0 % (0-3); EOS % 0 % (0-3); HEMATOCRIT 36.1 % (36.0-47.0); HEMOGLOBIN 11.7 g/dL (12.0-15.5); LYMPH # 1.6 x10^3/uL (1.0-4.8); LYMPH % 35 % (24-48); MEAN CORPUSCULAR HEMOGLOBIN 26 pg (25-35); MEAN CORPUSCULAR HGB CONC 32 g/dL (31-37); MEAN CORPUSCULAR VOLUME 80 fL (79-100); MONO # 0.4 x10^3/uL (0.0-1.1); MONO % 8 % (0-9); NEUT # 2.5 x10^3/uL (1.8-7.7); NEUT % 57 % (31-73); PLATELET COUNT 218 x10^3/uL (140-400); RED BLOOD COUNT 4.51 x10^6/uL (3.50-5.40); RED CELL DISTRIBUTION WIDTH 18.3 % (11.5-14.5); WHITE BLOOD COUNT 4.4 x10^3/uL (4.0-11.0)
[2020-09-02 13:01] LABS: CALCIUM 9.6 mg/dL (8.5-10.1); CREATININE 1.1 mg/dL (0.6-1.0); GFR 60.7; POTASSIUM 4.4 mmol/L (3.5-5.1)
[2020-09-02 13:06] LABS: ALBUMIN 2.8 g/dL (3.4-5.0); ALBUMIN/GLOBULIN RATIO 0.8 (1.0-1.7); TOTAL BILIRUBIN 0.5 mg/dL (0.2-1.0); TOTAL PROTEIN 6.4 g/dL (6.4-8.2)
--- NOTE | 2020-09-02 13:12 | RAD ---
EXAM: XR CHEST 1V 09/02/2020 12:13 PM CLINICAL INDICATION: Cough, shortness of air COMPARISON: Chest radiograph 04/01/2020 TECHNIQUE: AP view of the chest FINDINGS: Mild cardiomegaly is unchanged. Lungs are adequately expanded and clear. No pleural effusio n or pneumothorax. No acute osseous abnormality. There is a new stimulator device with battery genera tor in the right chest wall and lead extending toward the right neck. IMPRESSION: No acute cardiopulmonary abnormality. Electronically signed by: Julieta Porter MD (09/02/2020 1:10 PM) [id number]
[2020-09-02] MEDS ORDERED: ALBU2.5V5 NEB (13:45)
[2020-09-02] MEDS ORDERED: METH4TAB2 PO (13:45)
[2020-09-02] MEDS ORDERED: ALBU2.5V8 INH (13:45)
--- NOTE | 2020-09-02 17:40 | NUR ---
IP: Informed pt of negative COVID test. Pt verbalized understanding.
== END 2020-09-02 14:49 | disposition home or self-care (01) ==
LOC: ER 11:17
DX: J45.31 Mild persistent asthma with (acute) exacerbation (principal); Z20.822 Contact with and (suspected) exposure to COVID-19; I10 Essential (primary) hypertension; Z87.891 Personal history of nicotine dependence; Z88.1 Allergy status to other antibiotic agents; Z88.2 Allergy status to sulfonamides; Z88.6 Allergy status to analgesic agent; Z88.8 Allergy status to other drugs, medicaments and biological substances
CPT/HCPCS: 36415; 71045; 80053; 83880; 84484; 85025; 87426; 94644; 96361; 96374; 99285; J2930; J7030; J7613; U0003; U0005

== ENCOUNTER 2020-09-12 09:29 | Emergency (ER) | payer OTHER, MEDICAID ==
[~2020-09-12] VITALS: Ht 177.8 cm; Wt 99.5 kg
[2020-09-12] MEDS ORDERED: methylPREDNISolone SOD SUCC PF 125 MG/2 ML VIAL. IV ONE (10:00)
--- NOTE | 2020-09-12 10:24 | RAD ---
EXAM: Chest, single view. HISTORY: Cough. Shortness of breath. COMPARISON: 09/02/2020 FINDINGS: A frontal view of the chest is obtained. There is no infiltrate, pleural effusion or pneumo thorax. There is stable cardiomegaly. There is a vagal nerve stimulator generator overlying the right thorax. IMPRESSION: Stable cardiomegaly. Electronically signed by: Hansa Cintron MD (09/12/2020 10:22 AM) [id number]
[2020-09-12 10:27] LABS: BASO % 0 % (0-3); EOS % 0 % (0-3); HEMATOCRIT 35.7 % (36.0-47.0); HEMOGLOBIN 11.7 g/dL (12.0-15.5); LYMPH # 0.9 x10^3/uL (1.0-4.8); LYMPH % 15 % (24-48); MEAN CORPUSCULAR HEMOGLOBIN 26 pg (25-35); MEAN CORPUSCULAR HGB CONC 33 g/dL (31-37); MEAN CORPUSCULAR VOLUME 81 fL (79-100); MONO # 0.4 x10^3/uL (0.0-1.1); MONO % 6 % (0-9); NEUT % 79 % (31-73); PLATELET COUNT 232 x10^3/uL (140-400); RED BLOOD COUNT 4.43 x10^6/uL (3.50-5.40); RED CELL DISTRIBUTION WIDTH 18.2 % (11.5-14.5); WHITE BLOOD COUNT 6.4 x10^3/uL (4.0-11.0)
[2020-09-12 10:54] LABS: CALCIUM 9.8 mg/dL (8.5-10.1); CREATININE 1.1 mg/dL (0.6-1.0); GFR 60.7; POTASSIUM 4.2 mmol/L (3.5-5.1)
[2020-09-12 10:57] LABS: ALBUMIN/GLOBULIN RATIO 0.8 (1.0-1.7); MAGNESIUM 2.3 mg/dL (1.8-2.4); TOTAL BILIRUBIN 0.5 mg/dL (0.2-1.0); TOTAL PROTEIN 6.7 g/dL (6.4-8.2)
[2020-09-12] MEDS ORDERED: IPRATRPIUM/ALBUTEROL 0.5/2.5MG 3 ML NEBU. NEB ONE (11:30)
[2020-09-12] MEDS ORDERED: MORPHINE SULFATE 4 MG/ML INJ. IVP ONE (14:00)
[2020-09-12] MEDS ORDERED: AZIT250T PO (14:00)
[2020-09-12] MEDS ORDERED: ALBU2.5V8 IH (14:00)
[2020-09-12] MEDS ORDERED: PRED20TA PO (14:00)
--- NOTE | 2020-09-12 14:00 | PHYS DOC ---
Past Medical History Past Medical History: Asthma, Bronchitis, Cancer, Hypertension Additional Past Medical Histor: graves disease,lupus,kidney tumor/CA-right kidney.SLEEP APNEA Past Surgical History: Other Additional Past Surgical Histo: HERNIA REPAIR,NASAL POLYPS,RT KIDNEY ABLATION Smoking Status: Never Smoker Alcohol Use: None Drug Use: None General Adult EDM: Chief Complaint: SHORTNESS OF BREATH HPI: HPI: Patient is a 65 year old female who present to ER for evaluation of 3-day history of cough and trouble breathing. Patient was vaccinated for COVID-19 in June. Patient denies any fever. Patient says she coughs so much that her chest hurt. Patient denies any abdominal pain, no nausea vomiting. Patient is not on oxygen at home, she has a history of asthma. Patient is not a smoker. Review of Systems: Review of Systems: Constitutional: Denies fever or chills. [] Eyes: Denies change in visual acuity. [] HENT: Denies nasal congestion or sore throat. [] Respiratory: Positive for cough and trouble breathing Cardiovascular: Denies chest pain or edema. [] GI: Denies abdominal pain, nausea, vomiting, bloody stools or diarrhea. [] : Denies dysuria. [] Musculoskeletal: Denies back pain or joint pain. [] Integument: Denies rash. [] Neurologic: Denies headache, focal weakness or sensory changes. [] Endocrine: Denies polyuria or polydipsia. [] Lymphatic: Denies swollen glands. [] Psychiatric: Denies depression or anxiety. [] Heart Score: C/O Chest Pain: N/A Risk Factors: Risk Factors: DM, Current or recent (<one month) smoker, HTN, HLP, family hi story of CAD, obesity. Risk Scores: Score 0 - 3: 2.5% MACE over next 6 weeks - Discharge Home Score 4 - 6: 20.3% MACE over next 6 weeks - Admit for Clinical Observation Score 7 - 10: 72.7% MACE over next 6 weeks - Early Invasive Strategies Current Medications: Current Medications Medications (Trade) Dose Ordered Sig/Indra Start Time Stop Time Status Last Admin Dose Admin Albuterol/ Ipratropium (Duoneb) 3 ml 1X ONCE 09/12/20 11:30 09/12/20 11:31 DC 09/12/20 11:17 3 ML Methylprednisolone Sodium Succinate (SOLU-Medrol 125MG VIAL) 125 mg 1X ONCE 09/12/20 10:00 09/12/20 10:06 DC 09/12/20 10:23 125 MG Allergies: Allergies: Allergies Coded Allergies Type Severity Reaction Last Updated Verified NSAIDS (Non-Steroidal Anti-Inflamma Allergy Severe itching,throat"swells" 10/25/18 Yes aspirin Allergy Severe Shortness of Air 10/25/18 Yes Sulfa (Sulfonamide Antibiotics) Allergy Intermediate 10/25/18 Yes ketorolac Allergy Intermediate 10/25/18 Yes sulfamethoxazole Allergy Intermediate 10/25/18 Yes trimethoprim Allergy Intermediate 10/25/18 Yes Physical Exam: PE: Constitutional: Well developed, well nourished, no acute distress, non-toxic appearance. [] HENT: Normocephalic, atraumatic, bilateral external ears normal, oropharynx moist, no oral exudates, nose normal. [] Eyes: PERRLA, EOMI, conjunctiva normal, no discharge. [] Neck: Normal range of motion, no tenderness, supple, no stridor. [] Cardiovascular:Heart rate regular rhythm, no murmur [] Lungs & Thorax: Bilateral breath sounds with expiratory wheezing to auscultation [] Abdomen: Bowel sounds normal, soft, no tenderness, no masses, no pulsatile masses. [] Skin: Warm, dry, no erythema, no rash. [] Back: No tenderness, no CVA tenderness. [] Extremities: No tenderness, no cyanosis, no clubbing, ROM intact, no edema. [] Neurologic: Alert and oriented X 3, normal motor function, normal sensory function, no focal deficits noted. [] Psychologic: Affect normal, judgement normal, mood normal. [] Current Patient Data: Labs: Laboratory Tests Test 09/12/20 10:00 09/12/20 10:14 SARS-CoV-2 Antigen (Rapid) Negative (NEGATIVE) White Blood Count 6.4 x10^3/uL (4.0-11.0) Red Blood Count 4.43 x10^6/uL (3.50-5.40) Hemoglobin 11.7 g/dL (12.0-15.5) L Hematocrit 35.7 % (36.0-47.0) L Mean Corpuscular Volume 81 fL (79-100) Mean Corpuscular Hemoglobin 26 pg (25-35) Mean Corpuscular Hemoglobin Concent 33 g/dL (31-37) Red Cell Distribution Width 18.2 % (11.5-14.5) H Platelet Count 232 x10^3/uL (140-400) Neutrophils (%) (Auto) 79 % (31-73) H Lymphocytes (%) (Auto) 15 % (24-48) L Monocytes (%) (Auto) 6 % (0-9) Eosinophils (%) (Auto) 0 % (0-3) Basophils (%) (Auto) 0 % (0-3) Neutrophils # (Auto) 5.0 x10^3/uL (1.8-7.7) Lymphocytes # (Auto) 0.9 x10^3/uL (1.0-4.8) L Monocytes # (Auto) 0.4 x10^3/uL (0.0-1.1) Eosinophils # (Auto) 0.0 x10^3/uL (0.0-0.7) Basophils # (Auto) 0.0 x10^3/uL (0.0-0.2) Sodium Level 138 mmol/L (136-145) Potassium Level 4.2 mmol/L (3.5-5.1) Chloride Level 107 mmol/L (98-107) Carbon Dioxide Level 25 mmol/L (21-32) Anion Gap 6 (6-14) Blood Urea Nitrogen 12 mg/dL (7-20) Creatinine 1.1 mg/dL (0.6-1.0) H Estimated GFR (Cockcroft-Gault) 60.7 BUN/Creatinine Ratio 11 (6-20) Glucose Level 106 mg/dL (70-99) H Lactic Acid Level 1.0 mmol/L (0.4-2.0) Calcium Level 9.8 mg/dL (8.5-10.1) Magnesium Level 2.3 mg/dL (1.8-2.4) Total Bilirubin 0.5 mg/dL (0.2-1.0) Aspartate Amino Transferase (AST) 26 U/L (15-37) Alanine Aminotransferase (ALT) 22 U/L (14-59) Alkaline Phosphatase 45 U/L (46-116) L Troponin I Quantitative < 0.017 ng/mL (0.000-0.055) XW-Vhz-U-Type Natriuretic Peptide 286 pg/mL (0-124) H Total Protein 6.7 g/dL (6.4-8.2) Albumin 3.0 g/dL (3.4-5.0) L Albumin/Globulin Ratio 0.8 (1.0-1.7) L Laboratory Tests 09/12/20 10:14 Laboratory Tests 09/12/20 10:14 Vital Signs: Vital Signs Date Time Temp Pulse Resp B/P (MAP) Pulse Ox O2 Delivery O2 Flow Rate FiO2 09/12/20 13:10 58 17 163/100 (121) 96 Nasal Cannula 2.0 09/12/20 09:45 98.3 98.3 EKG: EKG: EKG was done at 957, heart rate of 78 bpm, sinus rhythm, no ST segment elevation. [] Radiology/Procedures: Radiology/Procedures: [][facility] [address] [place] [address] IMAGING REPORT Signed PATIENT: JERRY WAYNE ACCOUNT: [id number] : 1955 LOCATION: ER AGE: 65 SEX: F EXAM STATUS: REG ER ORD. PHYSICIAN: NICHOLE HUIZAR DO REASON: soa, cough PROCEDURE: CHEST AP ONLY EXAM: Chest, single view. HISTORY: Cough. Shortness of breath. COMPARISON: 09/02/2020 FINDINGS: A frontal view of the chest is obtained. There is no infiltrate, pleural effusion or pneumothorax. There is stable cardiomegaly. There is a vagal nerve stimulator generator overlying the right thorax. IMPRESSION: Stable cardiomegaly. Electronically signed by: Hansa Palacios MD (09/12/2020 10:22 AM) [id number] DICTATED and SIGNED BY: HANSA PALACIOS MD DATE: 09/12/20 [id number] Course & Med Decision Making: Course & Med Decision Making Pertinent Labs and Imaging studies reviewed. (See chart for details) Patient is a 65-year-old female who present to ER due to cough and trouble breathing. Patient chest x-ray did not show any evidence of infiltration, patient was wheezing on examination. Patient was given DuoNeb treatment and Solu-Medrol in ER, she feels much better. Patient will be discharged home with prednisone, Zithromax 5-day course, albuterol inhaler as needed. Patient was tested negative for COVID-19. Patient will need to follow-up with family physician for reevaluation in a few days. Stephani Disclaimer: Dragon Disclaimer: This electronic medical record was generated, in whole or in part, using a voice recognition dictation system. Departure Departure Impression: Primary Impression: Acute bronchitis Disposition: HOME / SELF CARE / HOMELESS Condition: STABLE Referrals: KATHY BHATT MD (PCP) FOLLOW UP WITH YOUR DOCTOR ON MONDAY FOR REEVALUATION Patient Instructions: Acute Bronchitis Additional Instructions: Thank you for visiting our Emergency Department. We appreciate you trusting us with your care. If any additional problems come up don't hesitate to return to visit us. Please follow up with your primary care provider so they can plan additional care if needed and know about the problem that you had. If symptoms worsen come back to the Emergency Department. Any concerning symptoms that start such as chest pain, shortness of air, weakness or numbness on one side of the body, running high fevers or any other concerning symptoms return to the ER. Scripts Azithromycin (ZITHROMAX) 250 Mg Tablet 1 PKG PO UD, #6 TAB Prov: NICHOLE HUIZAR DO 09/12/20 Albuterol Sulfate (PROAIR HFA INHALER) 8.5 Gm Hfa.aer.ad 2 PUFF IH PRN Q4-6HRS PRN for wheezing for 21 Days, #1 INHALER 0 Refills Prov: NICHOLE HUIZAR DO 09/12/20 Prednisone (PREDNISONE) 20 Mg Tablet 1 TAB PO DAILY for 7 Days, #7 TAB Prov: NICHOLE HUIZAR DO 09/12/20 NICHOLE HUIZAR DO Sep 12, 2020 14:00
--- NOTE | 2020-09-12 14:00 | EKG ---
[facility] [address] [place] [address] Test Date: 2020-09-12 Test Time: 09:54:59 Pat Name: JERRY WAYNE Department: Room: Gender: F Package Pick Up: : 1955 Requested By: NICHOLE HUIZAR Order Number: [id number] Reading MD: Measurements Intervals [place] Rate: 78 P: 0 [place]: 222 QRS: 0 QRSD: 100 T: 65 QT: 352 QTc: 405 Interpretive Statements SINUS RHYTHM PROLONGED [place] INTERVAL LEFTWARD AXIS NON SPECIFIC T ABNORMALITY ABNORMAL ECG RI6.02 No previous ECG available for comparison
[2020-09-12 14:21] VITALS: BP 178/106
--- NOTE | 2020-09-14 11:06 | NUR ---
IP: Informed pt of negative covid test. Pt verbalized understanding but states she is not getting better. Referred her to PCP or back to ED.
== END 2020-09-12 14:34 | disposition home or self-care (01) ==
LOC: ER 09:29
DX: J20.9 Acute bronchitis, unspecified (principal); Z20.822 Contact with and (suspected) exposure to COVID-19; J45.909 Unspecified asthma, uncomplicated; I10 Essential (primary) hypertension; Z88.1 Allergy status to other antibiotic agents; Z88.2 Allergy status to sulfonamides; Z88.6 Allergy status to analgesic agent
CPT/HCPCS: 36415; 71045; 80053; 83605; 83735; 83880; 84484; 85025; 87040; 87426; 93005; 94640; 96374; 96375; 99285; J2270; J2930; U0003; U0005

== ENCOUNTER 2020-10-30 15:25 | Emergency (ER) | payer OTHER, MEDICAID ==
[~2020-10-30] VITALS: Ht 177.8 cm; Wt 105.0 kg
[2020-10-30 19:46] VITALS: BP 169/109
--- NOTE | 2020-10-30 19:57 | RAD ---
XR KNEE_LT 1-2 VIEWS DATE: 10/30/2020 7:08 PM INDICATION: pain/swelling COMPARISON: None. FINDINGS: Bones: There is no evidence of acute fracture or dislocation. Joints: Moderate to severe medial compartment joint space narrowing. Mild lateral and patellofemoral compartment degenerative changes. Trace joint effusion. Miscellaneous: None. IMPRESSION: No acute osseous abnormality. Tricompartmental degenerative changes as above, worst and moderate to severe in the medial compartmen t. Electronically signed by: Asa Weir MD (10/30/2020 7:55 PM) [facility]
[2020-10-30] MEDS ORDERED: MORPHINE SULFATE 2 MG/ML INJ. IM ONE (20:15)
[2020-10-30] MEDS ORDERED: HYDR-2761 PO (20:23)
[2020-10-30] MEDS ORDERED: PRED50TA PO (20:23)
--- NOTE | 2020-10-30 20:29 | PHYS DOC ---
Past Medical History Past Medical History: Asthma, Bronchitis, Cancer, Hypertension Additional Past Medical Histor: graves disease,lupus,kidney tumor/CA-right kidney.SLEEP APNEA Past Surgical History: Other Additional Past Surgical Histo: HERNIA REPAIR,NASAL POLYPS,RT KIDNEY ABLATION Smoking Status: Former Smoker Alcohol Use: None Drug Use: None General Adult EDM: Chief Complaint: KNEE SWELLING HPI: HPI: Patient is a 65 year old female presents with a chief complaint of left knee pain. Patient states she woke up yesterday morning with left knee pain. Patient's pain is primarily around her knee radiates up her thigh and around the posterior aspect of her leg. Patient states pain is so intense that she cannot bear weight on her left lower extremity. Patient has decreased range of motion of the left knee. She denies any traumatic injuries. Review of Systems: Review of Systems: Constitutional: Denies fever or chills. [] Eyes: Denies change in visual acuity. [] HENT: Denies nasal congestion or sore throat. [] Respiratory: Denies cough or shortness of breath. [] Cardiovascular: Denies chest pain or edema. [] GI: Denies abdominal pain, nausea, vomiting, bloody stools or diarrhea. [] : Denies dysuria. [] Musculoskeletal: Denies back pain positive knee pain Integument: Denies rash. [] Neurologic: Denies headache, focal weakness or sensory changes. [] Endocrine: Denies polyuria or polydipsia. [] Lymphatic: Denies swollen glands. [] Psychiatric: Denies depression or anxiety. [] Heart Score: C/O Chest Pain: N/A Risk Factors: Risk Factors: DM, Current or recent (<one month) smoker, HTN, HLP, family history of CAD, obesity. Risk Scores: Score 0 - 3: 2.5% MACE over next 6 weeks - Discharge Home Score 4 - 6: 20.3% MACE over next 6 weeks - Admit for Clinical Observation Score 7 - 10: 72.7% MACE over next 6 weeks - Early Invasive Strategies Current Medications: Current Medications Medications (Trade) Dose Ordered Sig/Indra Start Time Stop Time Status Last Admin Dose Admin Morphine Sulfate (Morphine Sulfate) 2 mg 1X ONCE 10/30/20 20:15 10/30/20 20:16 Allergies: Allergies: Allergies Coded Allergies Type Severity Reaction Last Updated Verified NSAIDS (Non-Steroidal Anti-Inflamma Allergy Severe itching,throat"swells" 10/25/18 Yes aspirin Allergy Severe Shortness of Air 10/25/18 Yes Sulfa (Sulfonamide Antibiotics) Allergy Intermediate 10/25/18 Yes ketorolac Allergy Intermediate 10/25/18 Yes sulfamethoxazole Allergy Intermediate 10/25/18 Yes trimethoprim Allergy Intermediate 10/25/18 Yes Physical Exam: PE: General: alert, no acute distress. Skin: warm, dry and intact, no erythema, no rash. HENT: bilateral external ears normal, oropharynx moist, nose normal. Head:: Normocephalic, atraumatic. Neck: Trachea midline. Eyes: EOMI, Normal conjunctiva, No drainage CARDIOVASCULAR: Regular rate and rhythm RESPIRATORY: No respiratory distress Back: Full range of motion. MUSCULOSKELETAL: Decreased range of motion of left knee due to pain. Small effusion noted of the left knee GASTROINTESTINAL: Abdomen soft without rebound or guarding. NEUROLOGICAL: Alert and noted to person, place and time. No neurological deficits observed Psychiatric: Cooperative. Normal judgment Current Patient Data: Vital Signs: Vital Signs Date Time Temp Pulse Resp B/P (MAP) Pulse Ox O2 Delivery O2 Flow Rate FiO2 10/30/20 19:46 98.4 72 20 169/109 (129) 100 Room Air 98.4 EKG: EKG: [] Radiology/Procedures: Radiology/Procedures: [] Impression: XR KNEE_LT 1-2 VIEWS DATE: 10/30/2020 7:08 PM INDICATION: pain/swelling COMPARISON: None. FINDINGS: Bones: There is no evidence of acute fracture or dislocation. Joints: Moderate to severe medial compartment joint space narrowing. Mild lateral and patellofemoral compartment degenerative changes. Trace joint effusion. Miscellaneous: None. IMPRESSION: No acute osseous abnormality. Tricompartmental degenerative changes as above, worst and moderate to severe in the medial compartment. Electronically signed by: Asa Weir MD (10/30/2020 7:55 PM) [facility] Course & Med Decision Making: Course & Med Decision Making Treated with morphine IM in the ER. Discharged home on prednisone and hydrocodone. Advised to take [id number] NSAIDs. Patient will be referred to orthopedics Stephani Disclaimer: Stephani Disclaimer: This electronic medical record was generated, in whole or in part, using a voice recognition dictation system. Departure Departure Impression: Primary Impression: Knee pain Additional Impression: Knee effusion, left Disposition: HOME / SELF CARE / HOMELESS Condition: STABLE Referrals: KATHY BHATT MD (PCP) VIDAL NEVAREZ DO Patient Instructions: Knee Effusion, Knee Pain Scripts Hydrocodone Bit/Acetaminophen (HYDROCODONE-APAP 5-325 ) 1 Tab Tablet 1 TAB PO PRN Q6HRS PRN for PAIN, #20 TAB 0 Refills Prov: VIVIEN VALLES DO 10/30/20 Prednisone (PREDNISONE) 50 Mg Tablet 1 TAB PO DAILY, #5 TAB Prov: VIVIEN VALLES DO 10/30/20 VIVIEN VALLES DO Oct 30, 2020 20:29
== END 2020-10-30 21:05 | disposition home or self-care (01) ==
LOC: ER 15:25
DX: M25.462 Effusion, left knee (principal); M25.562 Pain in left knee; J45.909 Unspecified asthma, uncomplicated; I10 Essential (primary) hypertension; Z88.6 Allergy status to analgesic agent; Z88.1 Allergy status to other antibiotic agents; Z88.2 Allergy status to sulfonamides; Z88.8 Allergy status to other drugs, medicaments and biological substances
CPT/HCPCS: 73560; 96372; 99283; J2270

== ENCOUNTER 2020-11-23 05:37 | Emergency (ER) | payer OTHER, MEDICAID ==
[~2020-11-23] VITALS: Ht 177.8 cm; Wt 101.0 kg
--- NOTE | 2020-11-23 07:03 | PHYS DOC ---
Past Medical History Past Medical History: Asthma, Bronchitis, Cancer, Hypertension Additional Past Medical Histor: graves disease,lupus,kidney tumor/CA-right kidney.SLEEP APNEA Past Surgical History: Other Additional Past Surgical Histo: HERNIA REPAIR,NASAL POLYPS,RT KIDNEY ABLATION Smoking Status: Never Smoker Alcohol Use: None Drug Use: None General Adult EDM: Chief Complaint: MULTIPLE COMPLAINTS HPI: HPI: 65-year-old female presents the emergency department complaining of fever, body aches, chills, headache, fatigue, cough productive of yellow-green sputum for the last several days with gradual onset. She denies any sick contacts at home. She is fully vaccinated for COVID-19. She also admits to abnormal taste in her mouth and some shortness of breath. She does not require supplemental oxygen at home. The patient denies nausea, vomiting, delayed abdominal pain, urinary symptoms, recent trauma, or any other complaints. Review of Systems: Review of Systems: ROS otherwise negative except for what was mentioned in HPI Heart Score: C/O Chest Pain: No Allergies: Allergies: Allergies Coded Allergies Type Severity Reaction Last Updated Verified NSAIDS (Non-Steroidal Anti-Inflamma Allergy Severe itching,throat"swells" 10/25/18 Yes aspirin Allergy Severe Shortness of Air 10/25/18 Yes Sulfa (Sulfonamide Antibiotics) Allergy Intermediate 10/25/18 Yes ketorolac Allergy Intermediate 10/25/18 Yes sulfamethoxazole Allergy Intermediate 10/25/18 Yes trimethoprim Allergy Intermediate 10/25/18 Yes Physical Exam: PE: Constitutional: No acute distress, non-toxic appearance. HENT: Atraumatic, bilateral external ears normal, nose normal. Eyes: PERRLA, EOMI, conjunctiva normal, no discharge. Neck: Normal range of motion, supple, no stridor. Cardiovascular: Heart rate regular rhythm. 2+ radial pulses Lungs & Thorax: No respiratory distress, symmetrical expansion. Bilateral breath sounds clear to auscultation Abdomen: Soft, no tenderness Skin: Warm, dry. Extremities: No tenderness, no cyanosis, ROM intact, no edema. Neurologic: Alert and oriented X 3, normal motor function, normal sensory function, no focal deficits noted. Non ataxic gait. GCS 15. Psychologic: Affect normal, judgment normal, mood normal. Current Patient Data: Labs: Laboratory Tests Test 11/23/20 06:08 SARS-CoV-2 Antigen (Rapid) Negative (NEGATIVE) Vital Signs: Vital Signs Date Time Temp Pulse Resp B/P (MAP) Pulse Ox O2 Delivery O2 Flow Rate FiO2 11/23/20 05:52 99.8 107 20 159/93 (115) 98 Room Air 99.8 EKG: EKG: Time read: 0800 Sinus tachycardia rate of 103, low voltage, occasional PVC, left axis deviation, normal ND, QRS, and QTc intervals. Impression: Sinus tachycardia, no STEMI. Interpreted by me, Ulises Wilson D.O. Radiology/Procedures: Radiology/Procedures: EXAMINATION: XR CHEST 1V CLINICAL HISTORY: Cough EXAM DATE/TIME: 11/23/2020 7:14 AM COMPARISON: 09/12/2020 FINDINGS: Lines, Tubes, and Devices: Vagal nerve stimulator overlying the right hemithorax. Cardiomediastinal Silhouette: Prominent cardiac silhouette, similar to prior study and likely accentuated by portable technique. Lungs and Pleura: Mild patchy opacities in the right lower lung zone. Questionable blunting of the right costophrenic angle partially obscured by overlying wires, cannot exclude a small pleural effusion. No pneumothorax. Bones and Soft Tissues: Degenerative changes in the thoracic spine. IMPRESSION: Mild patchy airspace disease in the right lower lung zone with possible small pleural effusion. Electronically signed by: Don Membreno DO (11/23/2020 7:37 AM) Course & Med Decision Making: Course & Med Decision Making Chest x-ray with evidence for right lower lobe pneumonia. We will treat the patient with doxycycline. She has no submental oxygen requirement, improved with medication. She was given a dose of Rocephin in the emergency department. She is comfortable with the plan and return precautions were discussed with Heart rate 98 at the time of discharge My Orders - ULISES WILSON DO Procedure Category Date Status Time Chest Ap Only RAD 11/23/20 Resulted 06:59 Acetaminophen PHA 11/23/20 Complete (Tylenol) 07:30 Iv Normal Saline PHA 11/23/20 Complete 1000ml Bag (Iv Sodium 07:30 Basic Metabolic Panel LAB 11/23/20 Complete 07:27 Cbc W Autodiff LAB 11/23/20 Complete 07:27 Nt-Pro Bnp LAB 11/23/20 Complete 07:27 Troponini LAB 11/23/20 Complete 07:27 12 Lead Ekg EKG 11/23/20 Logged 07:27 Ceftriaxone Iv Push PHA 11/23/20 Complete (Rocephin) 08:00 Morphine Sulfate PHA 11/23/20 Complete (Morphine Sulfate) 08:45 Ua, Cult If Indicated LAB 11/23/20 Complete 08:49 Departure Departure Impression: Primary Impression: Pneumonia Disposition: 01 HOME / SELF CARE / HOMELESS Condition: IMPROVED Referrals: KATHY BHATT MD (PCP) Patient Instructions: Pneumonia, Adult, [id number] Additional Instructions: You were seen in the emergency department for a pneumonia. You should return to the ED if you develop worsening cough, shortness of breath, chest pain, or any other new or concerning symptoms. Your cough may persist for a few weeks but your other symptoms should gradually improve. You should make sure to drink plenty of fluids at home. You have been given a prescription for doxycycline. This medicine is an antibiotic for pneumonia. Please take as prescribed for the full course of the prescription. Do not stop taking the medicine early if you feel better, as this could risk building antibiotic resistance and may put you at risk for a more harmful infection later. The most common side effect of antibiotics include nausea, vomiting, diarrhea and rash. Please come to be evaluated if you develop any symptoms that are concerning to you. One major adverse effect of antibiotics is the development of a diarrheal illness called c. diff colitis, if you develop an excessive amount of diarrhea or are concerned about this please return to the ER or consult a physician. Scripts Doxycycline Hyclate (DOXYCYCLINE HYCLATE) 100 Mg Capsule 1 CAP PO BID, #14 CAP Prov: ULISES WILSON DO 11/23/20 ULISES WILSON DO Nov 23, 2020 07:03
--- NOTE | 2020-11-23 07:40 | RAD ---
EXAMINATION: XR CHEST 1V CLINICAL HISTORY: Cough EXAM DATE/TIME: 11/23/2020 7:14 AM COMPARISON: 09/12/2020 FINDINGS: Lines, Tubes, and Devices: Vagal nerve stimulator overlying the right hemithorax. Cardiomediastinal Silhouette: Prominent cardiac silhouette, similar to prior study and likely accentu ated by portable technique. Lungs and Pleura: Mild patchy opacities in the right lower lung zone. Questionable blunting of the ri ght costophrenic angle partially obscured by overlying wires, cannot exclude a small pleural effusion . No pneumothorax. Bones and Soft Tissues: Degenerative changes in the thoracic spine. IMPRESSION: Mild patchy airspace disease in the right lower lung zone with possible small pleural effusion. Electronically signed by: Don Membreno DO (11/23/2020 7:37 AM) [facility]
[2020-11-23] MEDS ORDERED: cefTRIAXone IV Push 1 GM VIAL. IVP ONE (07:45)
[2020-11-23] MEDS: IV NORMAL SALINE 1000ML BAG 1,000 ML IV ONE (08:25)
[2020-11-23] MEDS: cefTRIAXone IV Push 2 GM VIAL. IVP ONE (08:26)
[2020-11-23] MEDS: ACETAMINOPHEN 500 MG TABLET PO ONE (08:27)
[2020-11-23 08:29] LABS: BASO % 0 % (0-3); EOS % 0 % (0-3); HEMATOCRIT 37.1 % (36.0-47.0); HEMOGLOBIN 12.1 g/dL (12.0-15.5); LYMPH % 11 % (24-48); MEAN CORPUSCULAR HEMOGLOBIN 26 pg (25-35); MEAN CORPUSCULAR HGB CONC 33 g/dL (31-37); MEAN CORPUSCULAR VOLUME 81 fL (79-100); MONO # 0.7 x10^3/uL (0.0-1.1); MONO % 8 % (0-9); NEUT # 7.4 x10^3/uL (1.8-7.7); NEUT % 82 % (31-73); PLATELET COUNT 216 x10^3/uL (140-400); RED BLOOD COUNT 4.58 x10^6/uL (3.50-5.40); RED CELL DISTRIBUTION WIDTH 17.4 % (11.5-14.5)
[2020-11-23] MEDS ORDERED: MORPHINE SULFATE 10 MG/ML VIAL. ONE (08:36)
[2020-11-23] MEDS: MORPHINE SULFATE 10 MG/ML VIAL. IV ONE (08:39)
[2020-11-23 08:41] LABS: CALCIUM 9.8 mg/dL (8.5-10.1); CREATININE 1.2 mg/dL (0.6-1.0); GFR 54.9; POTASSIUM 4.1 mmol/L (3.5-5.1)
[2020-11-23 09:24] LABS: BILIRUBIN,URINE NEGATIVE (NEG); CLARITY,URINE CLEAR; COLOR,URINE YELLOW; NITRITE,URINE NEGATIVE (NEG); PROTEIN,URINE NEGATIVE (NEG-TRACE)
[2020-11-23 09:45] VITALS: BP 140/83
[2020-11-23 09:56] LABS: BACTERIA,URINE 0 /HPF (0-FEW)
[2020-11-23] MEDS ORDERED: DOXY100C3 PO (10:01)
--- NOTE | 2020-11-23 12:32 | EKG ---
[facility] [address] [place] [address] Test Date: 2020-11-23 Test Time: 07:56:33 Pat Name: JERRY WAYNE Department: Room: Gender: F [employer] Supervisor: : 1955 Requested By: ULISES ESTEBAN Order Number: [id number] Reading MD: Scott Rivera MD Measurements Intervals [place] Rate: 103 P: -45 [place]: 178 QRS: -8 QRSD: 94 T: 56 QT: 390 QTc: 513 Interpretive Statements SINUS TACHYCARDIA VENTRICULAR PREMATURE COMPLEX(ES) NON-SPECIFIC ST/T CHANGES Electronically Signed On 11-30-2020 12:04:39 CDT by Scott Rivera MD
--- NOTE | 2020-11-23 16:36 | NUR ---
IP: Informed pt of negative covid results. Pt verbalized understanding.
== END 2020-11-23 10:14 | disposition home or self-care (01) ==
LOC: ER 05:37
DX: J18.9 Pneumonia, unspecified organism (principal); J45.909 Unspecified asthma, uncomplicated; I10 Essential (primary) hypertension; Z20.822 Contact with and (suspected) exposure to COVID-19; Z88.6 Allergy status to analgesic agent; Z88.2 Allergy status to sulfonamides; Z88.1 Allergy status to other antibiotic agents; Z88.8 Allergy status to other drugs, medicaments and biological substances
CPT/HCPCS: 36415; 71045; 80048; 81001; 83880; 84484; 85025; 87426; 93005; 96361; 96374; 96375; 99285; J0696; J2270; J7030; U0003; U0005

== ENCOUNTER 2020-12-17 15:47 | Emergency (ER) | payer OTHER, MEDICAID ==
[~2020-12-17] VITALS: Ht 177.8 cm; Wt 100.1 kg
[~2020-12-17 15:47] MED LIST changes: -CITA40TA5 PO; +CITA40TA6 PO; +CYCL10TA19 PO; -CYCL10TA2 PO; +DOXY100C3 PO
--- NOTE | 2020-12-17 16:22 | PHYS DOC ---
Past Medical History Past Medical History: Asthma, Bronchitis, Cancer, Hypertension Additional Past Medical Histor: graves disease,lupus,kidney tumor/CA-right kidney.SLEEP APNEA (MATT SAINZ APRN) Past Surgical History: Other Additional Past Surgical Histo: HERNIA REPAIR,NASAL POLYPS,RT KIDNEY ABLATION (MATT SAINZ APRN) Smoking Status: Never Smoker Alcohol Use: None Drug Use: None (MATT SAINZ APRN) General Adult EDM: Chief Complaint: FLU SYMPTOM HPI: HPI: Patient is a 65-year-old female that presents today with flu symptoms. Patient states that 2 weeks ago she saw her primary care physician was diagnosed with pneumonia took a 10-day course of what she thinks is Keflex, she finished that course about 6 days ago and her symptoms started 5 days ago with cough chest pressure and body aches. She states that she has had both Covid vaccines, was going tomorrow to get her flu and her Covid booster. (MATT SAINZ APRN) Review of Systems: Review of Systems: Constitutional: chills. [] Eyes: Denies change in visual acuity. [] HENT: Denies nasal congestion or sore throat. [] Respiratory: cough or shortness of breath. [] Cardiovascular: chest pain or denies edema. [] GI: Denies abdominal pain, nausea, vomiting, bloody stools or diarrhea. [] : Denies dysuria. [] Musculoskeletal: Denies back pain or joint pain. [] Integument: Denies rash. [] Neurologic: Denies headache, focal weakness or sensory changes. [] Endocrine: Denies polyuria or polydipsia. [] Lymphatic: Denies swollen glands. [] Psychiatric: Denies depression or anxiety. [] (MATT SAINZ COMMERCIAL PRODUCER) Heart Score: C/O Chest Pain: Yes HEART Score for Chest Pain: HEART Score for Chest Pain Response (Comments) Value History Slighlty/Non-Suspicious 0 ECG Normal 0 Age >45 - < 65 1 Risk Factors 1 or 2 Risk Factors 1 Total 2 Risk Factors: Risk Factors: DM, Current or recent (<one month) smoker, HTN, HLP, family history of CAD, obesity. Risk Scores: Score 0 - 3: 2.5% MACE over next 6 weeks - Discharge Home Score 4 - 6: 20.3% MACE over next 6 weeks - Admit for Clinical Observation Score 7 - 10: 72.7% MACE over next 6 weeks - Early Invasive Strategies (MATT SAINZ APRN) Allergies: Allergies: Allergies Coded Allergies Type Severity Reaction Last Updated Verified NSAIDS (Non-Steroidal Anti-Inflamma Allergy Severe itching,throat"swells" 10/25/18 Yes aspirin Allergy Severe Shortness of Air 10/25/18 Yes Sulfa (Sulfonamide Antibiotics) Allergy Intermediate 10/25/18 Yes ketorolac Allergy Intermediate 10/25/18 Yes sulfamethoxazole Allergy Intermediate 10/25/18 Yes trimethoprim Allergy Intermediate 10/25/18 Yes (MATT SAINZ APRN) Physical Exam: PE: Constitutional: Well developed, well nourished, no acute distress, non-toxic appearance. [] HENT: Normocephalic, atraumatic, bilateral external ears normal, oropharynx moist, no oral exudates, nares are reddened, pain noted with palpation to forehead and the area under the eyes Eyes: PERRLA, EOMI, conjunctiva normal, no discharge. [] Neck: Normal range of motion, no tenderness, supple, no stridor. [] Cardiovascular:Heart rate regular rhythm, no murmur [] Lungs & Thorax: Bilateral breath sounds clear to auscultation [] Abdomen: Bowel sounds normal, soft, no tenderness, no masses, no pulsatile masses. [] Skin: Warm, dry, no erythema, no rash. [] Back: No tenderness, no CVA tenderness. [] Extremities: No tenderness, no cyanosis, no clubbing, ROM intact, no edema. [] Neurologic: Alert and oriented X 3, normal motor function, normal sensory function, no focal deficits noted. [] Psychologic: Affect normal, judgement normal, mood normal. [] (MATT SAINZ APRN) Current Patient Data: Labs: Laboratory Tests Test 12/17/20 16:10 12/17/20 16:20 Influenza Type A Antigen Negative Influenza Type B Antigen Negative SARS-CoV-2 Antigen (Rapid) Negative White Blood Count 4.9 x10^3/uL Red Blood Count 4.12 x10^6/uL Hemoglobin 11.0 g/dL Hematocrit 33.7 % Mean Corpuscular Volume 82 fL Mean Corpuscular Hemoglobin 27 pg Mean Corpuscular Hemoglobin Concent 33 g/dL Red Cell Distribution Width 17.5 % Platelet Count 235 x10^3/uL Neutrophils (%) (Auto) 57 % Lymphocytes (%) (Auto) 33 % Monocytes (%) (Auto) 10 % Eosinophils (%) (Auto) 0 % Basophils (%) (Auto) 0 % Neutrophils # (Auto) 2.8 x10^3/uL Lymphocytes # (Auto) 1.6 x10^3/uL Monocytes # (Auto) 0.5 x10^3/uL Eosinophils # (Auto) 0.0 x10^3/uL Basophils # (Auto) 0.0 x10^3/uL Sodium Level 141 mmol/L Potassium Level 4.1 mmol/L Chloride Level 106 mmol/L Carbon Dioxide Level 29 mmol/L Anion Gap 6 Blood Urea Nitrogen 10 mg/dL Creatinine 1.1 mg/dL Estimated GFR (Cockcroft-Gault) 60.7 BUN/Creatinine Ratio 9 Glucose Level 81 mg/dL Calcium Level 9.8 mg/dL Total Bilirubin 0.6 mg/dL Aspartate Amino Transf (AST/SGOT) 23 U/L Alanine Aminotransferase (ALT/SGPT) 21 U/L Alkaline Phosphatase 60 U/L Troponin I High Sensitivity 80 ng/L Total Protein 8.0 g/dL Albumin 3.3 g/dL Albumin/Globulin Ratio 0.7 Vital Signs: Vital Signs Date Time Temp Pulse Resp B/P (MAP) Pulse Ox O2 Delivery O2 Flow Rate FiO2 12/17/20 19:00 54 20 156/93 (114) 98 Room Air 12/17/20 18:30 58 20 172/94 (120) 98 Room Air 12/17/20 18:00 59 20 157/103 (121) 98 Room Air 12/17/20 17:30 57 20 177/96 (123) 98 Room Air 12/17/20 17:00 58 20 172/106 (128) 98 Room Air 12/17/20 16:30 60 20 156/92 (113) 98 Room Air 12/17/20 16:00 98.6 63 16 156/92 (113) 97 Room Air 98.6 (MATT SAINZ APRN) EKG: EKG: EKG done at [address] Wilson at 1605 no STEMI was reported sinus rhythm with prolonged SC intervals noted [] (MATT SAINZ APRN) Radiology/Procedures: Radiology/Procedures: [REASON: chest pressure.cough PROCEDURE: PORTABLE CHEST 1V EXAM: XR CHEST 1V 12/17/2020 4:43 PM CLINICAL INDICATION: Chest pressure, cough COMPARISON: Chest radiograph 11/23/2020 TECHNIQUE: AP upright view of the chest FINDINGS: The heart is mildly enlarged. Lungs are well-expanded. There is improved aeration of right lung base. Mild streaky opacities in the left lung base, likely atelectasis. No pleural effusion or pneumothorax. There is a stimulator device in the right chest wall with leads extending to the right neck. IMPRESSION: Improved aeration of the right lung base. No acute abnormality. Electronically signed by: Julieta Porter MD (12/17/2020 4:48 PM) [id number] ] (MATT SAINZ APRN) Course & Med Decision Making: Course & Med Decision Making Pertinent Labs and Imaging studies reviewed. (See chart for details) 1839 reexamined patient, she states she continues to have this chest heaviness, her oxygenation level was at 100%, heart rate was 85. Patient does state that she has an appointment on December 28 with her primary care physician at the [facility], she also states she sees a qi specialist at the [facility] that manages her asthma and her other lung conditions. Spoke to patient about improvement of chest x-ray from last visit also the lack of a white count that everything points that she is getting better just may take more time. Patient is agreeable to outpatient therapy at this time. We will send home patient with a 5 day course of Levaquin 750mg. Instructed patient to return to the emergency department for increased shortness of breath, increased chest pain, use of inhalers increases by 5 times, inability to take breath or feel her symptoms are worsening. Patient instructed to call both of her physicians tomorrow her primary care and qi specialist for follow- up. (MATT SAINZ APRN) Course & Med Decision Making I have participated in the care of this patient and I have reviewed and agree with all pertinent clinical information above including history, exam, and recommendations. Marvel Wilson DO (MARVEL WILSON DO) Stephani Disclaimer: Stephani Disclaimer: This electronic medical record was generated, in whole or in part, using a voice recognition dictation system. (MATT SAINZ APRN) Departure Departure Impression: Primary Impression: Pneumonia Qualified Codes: J18.9 - Pneumonia, unspecified organism Disposition: HOME / SELF CARE / HOMELESS Condition: STABLE Referrals: KATHY BHATT MD (PCP) Patient Instructions: Pneumonia, Adult Additional Instructions: Return to the emergency department for increased chest pain, increased shortness of breath, increased use of inhalers, and inability to take deep breaths that is worsening. Follow-up with your primary care and your qi specialist at the [facility] by phone for update on condition Levaquin 750 mg once daily x5 days Continue use of inhaler as needed at home as labeled directed Increase fluids and make sure having good healthy meals. Scripts Levofloxacin (LEVOFLOXACIN) 750 Mg Tablet 1 TAB PO DAILY for pneumonia, #5 TAB Prov: MATT SAINZ APRN 12/17/20 MATT SAINZ APRN Dec 17, 2020 16:22 MARVEL WILSON DO Dec 18, 2020 07:39
--- NOTE | 2020-12-17 16:27 | EKG ---
[facility] [address] [place] [address] Test Date: 2020-12-17 Test Time: 16:00:10 Pat Name: JERRY WAYNE Department: Room: Gender: F Tray Drier: : 1955 Requested By: MATT SAINZ Order Number: [id number] Reading MD: Ethan Oseguera Measurements Intervals [place] Rate: 62 P: 36 WI: 248 QRS: -19 QRSD: 92 T: 31 QT: 514 QTc: 524 Interpretive Statements SINUS RHYTHM PROLONGED WI INTERVAL LEFTWARD AXIS T ABNORMALITY IN ANTERIOR LEADS PROLONGED QT ABNORMAL ECG Electronically Signed On 12-21-2020 9:46:17 DEVELOPMENT PLANNER by Ethan Oseguera
[2020-12-17 16:34] LABS: BASO % 0 % (0-3); EOS % 0 % (0-3); HEMATOCRIT 33.7 % (36.0-47.0); LYMPH # 1.6 x10^3/uL (1.0-4.8); LYMPH % 33 % (24-48); MEAN CORPUSCULAR HEMOGLOBIN 27 pg (25-35); MEAN CORPUSCULAR HGB CONC 33 g/dL (31-37); MEAN CORPUSCULAR VOLUME 82 fL (79-100); MONO # 0.5 x10^3/uL (0.0-1.1); MONO % 10 % (0-9); NEUT # 2.8 x10^3/uL (1.8-7.7); NEUT % 57 % (31-73); PLATELET COUNT 235 x10^3/uL (140-400); RED BLOOD COUNT 4.12 x10^6/uL (3.50-5.40); RED CELL DISTRIBUTION WIDTH 17.5 % (11.5-14.5); WHITE BLOOD COUNT 4.9 x10^3/uL (4.0-11.0)
[2020-12-17 16:48] LABS: CALCIUM 9.8 mg/dL (8.5-10.1); CREATININE 1.1 mg/dL (0.6-1.0); GFR 60.7; POTASSIUM 4.1 mmol/L (3.5-5.1)
--- NOTE | 2020-12-17 16:50 | RAD ---
EXAM: XR CHEST 1V 12/17/2020 4:43 PM CLINICAL INDICATION: Chest pressure, cough COMPARISON: Chest radiograph 11/23/2020 TECHNIQUE: AP upright view of the chest FINDINGS: The heart is mildly enlarged. Lungs are well-expanded. There is improved aeration of right lung base. Mild streaky opacities in the left lung base, likely atelectasis. No pleural effusion or pneumothorax. There is a stimulator device in the right chest wall with leads extending to the right neck. IMPRESSION: Improved aeration of the right lung base. No acute abnormality. Electronically signed by: Julieta Porter MD (12/17/2020 4:48 PM) [id number]
[2020-12-17 16:54] LABS: ALBUMIN 3.3 g/dL (3.4-5.0); ALBUMIN/GLOBULIN RATIO 0.7 (1.0-1.7); TOTAL BILIRUBIN 0.6 mg/dL (0.2-1.0)
[2020-12-17 17:09] LABS: INFLUENZA A PATIENT NEGATIVE (NEGATIVE); INFLUENZA B PATIENT NEGATIVE (NEGATIVE)
[2020-12-17] MEDS ORDERED: LEVO750T5 PO ×2 (18:49→19:06)
[2020-12-17 19:00] VITALS: BP 156/93
--- NOTE | 2020-12-21 11:29 | NUR ---
IP: Attempted to contact pt concerning covid results. No answer, voice mailbox is full. Unable to leave a message.
== END 2020-12-17 19:17 | disposition home or self-care (01) ==
LOC: ER 15:47
DX: J18.9 Pneumonia, unspecified organism (principal); Z20.822 Contact with and (suspected) exposure to COVID-19; J45.909 Unspecified asthma, uncomplicated; I10 Essential (primary) hypertension; Z98.890 Other specified postprocedural states; Z88.1 Allergy status to other antibiotic agents; Z88.2 Allergy status to sulfonamides; Z88.6 Allergy status to analgesic agent; Z88.8 Allergy status to other drugs, medicaments and biological substances
CPT/HCPCS: 36415; 71045; 80053; 84484; 85025; 87426; 87804; 93005; 99285; U0003; U0005

== ENCOUNTER 2021-04-21 10:18 | Observation (INO) | payer OTHER, MEDICAID ==
[~2021-04-21] VITALS: Ht 177.8 cm; Wt 102.6 kg
[~2021-04-21 10:18] MED LIST changes: +LEVO750T5 PO
[2021-04-21 11:26] LABS: BASO % 0 % (0-3); EOS % 0 % (0-3); HEMATOCRIT 34.9 % (36.0-47.0); HEMOGLOBIN 10.9 g/dL (12.0-15.5); LYMPH # 0.9 x10^3/uL (1.0-4.8); LYMPH % 15 % (24-48); MEAN CORPUSCULAR HEMOGLOBIN 26 pg (25-35); MEAN CORPUSCULAR HGB CONC 31 g/dL (31-37); MEAN CORPUSCULAR VOLUME 84 fL (79-100); MONO # 0.5 x10^3/uL (0.0-1.1); MONO % 9 % (0-9); NEUT # 4.5 x10^3/uL (1.8-7.7); NEUT % 76 % (31-73); PLATELET COUNT 221 x10^3/uL (140-400); RED BLOOD COUNT 4.17 x10^6/uL (3.50-5.40); RED CELL DISTRIBUTION WIDTH 18.1 % (11.5-14.5); WHITE BLOOD COUNT 5.9 x10^3/uL (4.0-11.0)
[2021-04-21 11:26] LABS: BILIRUBIN,URINE NEGATIVE (NEG); CLARITY,URINE HAZY; COLOR,URINE YELLOW; NITRITE,URINE NEGATIVE (NEG); PROTEIN,URINE 100 mg/dL (NEG-TRACE); UROBILINOGEN,URINE 0.2 mg/dL (0.2 mg/dL)
[2021-04-21 11:27] LABS: BACTERIA,URINE MANY /HPF (0-FEW); RBC,URINE 0 /HPF (0-2); WBC,URINE 0 /HPF (0-4)
[2021-04-21 11:37] LABS: CALCIUM 9.4 mg/dL (8.5-10.1); CREATININE 1.2 mg/dL (0.6-1.0); GFR 54.9; POTASSIUM 4.1 mmol/L (3.5-5.1)
[2021-04-21 11:46] LABS: INFLUENZA A PATIENT NEGATIVE (NEGATIVE); INFLUENZA B PATIENT NEGATIVE (NEGATIVE)
--- NOTE | 2021-04-21 11:47 | RAD ---
XR CHEST 1V Clinical Indication: Reason: chest tightness / Spl. Instructions: / History: Comparison: AP chest December 17, 2020. Findings: There is right chest sleep apnea device, stable. Stable mild cardiac enlargement. Tortuous thoracic a karma. Lungs are clear. There is no pneumothorax. No pleural effusion is appreciated. No acute bone ab normality. IMPRESSION: No acute cardiopulmonary process. Electronically signed by: Sly Becerra MD (04/21/2021 11:45 AM) [id number]
[2021-04-21 11:51] LABS: ALBUMIN 3.3 g/dL (3.4-5.0); ALBUMIN/GLOBULIN RATIO 0.7 (1.0-1.7); TOTAL BILIRUBIN 0.5 mg/dL (0.2-1.0); TOTAL PROTEIN 7.9 g/dL (6.4-8.2)
--- NOTE | 2021-04-21 12:06 | PHYS DOC ---
Past Medical History Past Medical History: Asthma, Bronchitis, Cancer, Hypertension Additional Past Medical Histor: graves disease,lupus,kidney tumor/CA-right kidney,SLEEP APNEA Past Surgical History: Cholecystectomy, , Hysterectomy, Other Additional Past Surgical Histo: HERNIA REPAIR,NASAL POLYPS,RT KIDNEY ABLATION Smoking Status: Never Smoker Alcohol Use: None Drug Use: None General Adult EDM: Chief Complaint: FLU SYMPTOM HPI: HPI: Patient is a 65 year old female who presents with two week history of fatigue, mental "fogginess" and body aches. For the past week, she reports associated congestion, sore throat, intermittent cough and chest heaviness. Today, she has had a few episodes of loose stool and one episode of emesis. Patient has received COVID-19 vaccination x3 and a flu shot this season. Review of Systems: Review of Systems: Constitutional: Denies fever, chills Eyes: Denies change in visual acuity, visual field deficits or discharge HENT: See HPI Respiratory: See HPI Cardiovascular: See HPI GI: See HPI : Denies dysuria or hematuria Musculoskeletal: Denies back pain or joint pain Integument: Denies rash or other skin lesion Neurologic: Denies headache, focal weakness or sensory changes Heart Score: C/O Chest Pain: Yes HEART Score for Chest Pain: HEART Score for Chest Pain Response (Comments) Value History Slighlty/Non-Suspicious 0 ECG Nonspecific Repolarizatio 1 Age >45 - < 65 1 Risk Factors 1 or 2 Risk Factors 1 Troponin >3 x Normal Limit 2 Total 5 Risk Factors: Risk Factors: HTN, obesity Risk Scores: Score 0 - 3: 2.5% MACE over next 6 weeks - Discharge Home Score 4 - 6: 20.3% MACE over next 6 weeks - Admit for Clinical Observation Score 7 - 10: 72.7% MACE over next 6 weeks - Early Invasive Strategies Allergies: Allergies: Allergies Coded Allergies Type Severity Reaction Last Updated Verified NSAIDS (Non-Steroidal Anti-Inflamma Allergy Severe itching,throat"swells" 10/25/18 Yes aspirin Allergy Severe Shortness of Air 10/25/18 Yes Sulfa (Sulfonamide Antibiotics) Allergy Intermediate 10/25/18 Yes ketorolac Allergy Intermediate 10/25/18 Yes sulfamethoxazole Allergy Intermediate 10/25/18 Yes trimethoprim Allergy Intermediate 10/25/18 Yes Physical Exam: PE: Constitutional: Well developed, well nourished, no acute distress, non-toxic appearance. HENT: Normocephalic, atraumatic, bilateral external ears normal, oropharynx moist, no oral exudates, nose normal. Eyes: EOMI, conjunctiva normal, no discharge. Neck: Normal range of motion, no tenderness, supple, no stridor. Cardiovascular: Heart rate regular rhythm, no apparent murmur/rub/gallop. Lungs & Thorax: Bilateral breath sounds clear to auscultation. Abdomen: Bowel sounds normal, soft, no tenderness, no masses, no pulsatile masses. Skin: Warm, dry, no erythema, no rash. Extremities: No tenderness, no cyanosis, no clubbing, ROM intact, no edema. Neurologic: Alert and oriented x4, no focal deficits noted. Current Patient Data: Labs: Laboratory Tests Test 04/21/21 10:38 04/21/21 11:20 Urine Collection Type Unknown Urine Color Yellow Urine Clarity Hazy Urine pH 6.0 (<5.0-8.0) Urine Specific [place] 1.015 (1.000-1.030) Urine Protein 100 mg/dL (NEG-TRACE) Urine Glucose (UA) Negative mg/dL (NEG) Urine Ketones (Stick) Negative mg/dL (NEG) Urine Blood Negative (NEG) Urine Nitrite Negative (NEG) Urine Bilirubin Negative (NEG) Urine Urobilinogen Dipstick 0.2 mg/dL (0.2 mg/dL) Urine Leukocyte Esterase Trace (NEG) Urine RBC 0 /HPF (0-2) Urine WBC 0 /HPF (0-4) Urine Squamous Epithelial Cells Many /LPF Urine Bacteria Many /HPF (0-FEW) White Blood Count 5.9 x10^3/uL (4.0-11.0) Red Blood Count 4.17 x10^6/uL (3.50-5.40) Hemoglobin 10.9 g/dL (12.0-15.5) Hematocrit 34.9 % (36.0-47.0) Mean Corpuscular Volume 84 fL (79-100) Mean Corpuscular Hemoglobin 26 pg (25-35) Mean Corpuscular Hemoglobin Concent 31 g/dL (31-37) Red Cell Distribution Width 18.1 % (11.5-14.5) Platelet Count 221 x10^3/uL (140-400) Neutrophils (%) (Auto) 76 % (31-73) Lymphocytes (%) (Auto) 15 % (24-48) Monocytes (%) (Auto) 9 % (0-9) Eosinophils (%) (Auto) 0 % (0-3) Basophils (%) (Auto) 0 % (0-3) Neutrophils # (Auto) 4.5 x10^3/uL (1.8-7.7) Lymphocytes # (Auto) 0.9 x10^3/uL (1.0-4.8) Monocytes # (Auto) 0.5 x10^3/uL (0.0-1.1) Eosinophils # (Auto) 0.0 x10^3/uL (0.0-0.7) Basophils # (Auto) 0.0 x10^3/uL (0.0-0.2) Sodium Level 142 mmol/L (136-145) Potassium Level 4.1 mmol/L (3.5-5.1) Chloride Level 108 mmol/L (98-107) Carbon Dioxide Level 24 mmol/L (21-32) Anion Gap 10 (6-14) Blood Urea Nitrogen 18 mg/dL (7-20) Creatinine 1.2 mg/dL (0.6-1.0) Estimated GFR (Cockcroft-Gault) 54.9 BUN/Creatinine Ratio 15 (6-20) Glucose Level 118 mg/dL (70-99) Calcium Level 9.4 mg/dL (8.5-10.1) Magnesium Level 2.0 mg/dL (1.8-2.4) Total Bilirubin 0.5 mg/dL (0.2-1.0) Aspartate Amino Transf (AST/SGOT) 29 U/L (15-37) Alanine Aminotransferase (ALT/SGPT) 20 U/L (14-59) Alkaline Phosphatase 59 U/L (46-116) Troponin I High Sensitivity 127 ng/L (4-50) Total Protein 7.9 g/dL (6.4-8.2) Albumin 3.3 g/dL (3.4-5.0) Albumin/Globulin Ratio 0.7 (1.0-1.7) Influenza Type A Antigen Negative (NEGATIVE) Influenza Type B Antigen Negative (NEGATIVE) 04/21/21 11:20 04/21/21 11:20 Vital Signs: Vital Signs Date Time Temp Pulse Resp B/P (MAP) Pulse Ox O2 Delivery O2 Flow Rate FiO2 04/21/21 13:30 97.9 59 18 160/98 (118) 100 Room Air 97.9 04/21/21 12:52 64 17 132/87 (102) 97 Room Air 04/21/21 10:27 98.1 85 20 169/98 (121) 97 Room Air 98.1 EKG: EKG: EKG Interpreted by Dr. Courtney at 1041: Regular rate and rhythm 84 bpm with no ectopic beats. First-degree heart block with MT interval 238 ms. QT 362 ms/QTc 431 ms. No STEMI. EKG Interpreted by Dr. Courtney at 1316: Regular rate and rhythm 60 bpm with no ectopic beats. First-degree heart block with MT interval 268 ms. QT 546 ms/QTc 552 ms. No STEMI. Radiology/Procedures: Radiology/Procedures: PROCEDURE: CHEST AP ONLY XR CHEST 1V Clinical Indication: Reason: chest tightness / Spl. Instructions: / History: Comparison: AP chest December 17, 2020. Findings: There is right chest sleep apnea device, stable. Stable mild cardiac enlargement. Tortuous thoracic aorta. Lungs are clear. There is no pneumothorax. No pleural effusion is appreciated. No acute bone abnormality. IMPRESSION: No acute cardiopulmonary process. Electronically signed by: Sly Becerra MD (04/21/2021 11:45 AM) [id number] Course & Med Decision Making: Course & Med Decision Making Pertinent Labs and Imaging studies reviewed. (See chart for details) Patient is a 65-year-old female who presents with multiple symptoms concerning for viral illness, COVID-19 cannot be excluded, as well as chest "heaviness." Work-up today will consist of labs including troponin, EKG, chest x-ray, urinalysis, swabs for influenza A&B as well as COVID-19. Patient's troponin is elevated at 127. Patient's heart score is 5, she will be admitted for cardiac rule out. Spoke with Dr. Rivera, who does recommend 1 mg/kg Lovenox. Patient understands and is agreeable to admission. Dr. Monte, hospitalist, gladly accepts patient for admission. Stephani Disclaimer: Stephani Disclaimer: This electronic medical record was generated, in whole or in part, using a voice recognition dictation system. Departure Departure Impression: Primary Impression: NSTEMI (non-ST elevated myocardial infarction) Disposition: 09 ADMITTED INPATIENT Admitting Physician: LADARIUS Collins) Condition: GUARDED Referrals: KATHY BHATT MD (PCP) CHAPARRITA CRAWLEY Apr 21, 2021 12:06
[2021-04-21] MEDS ORDERED: IV NORMAL SALINE 1000ML BAG 1,000 ML IV SCH (12:15)
--- NOTE | 2021-04-21 12:54 | EKG ---
[facility] [address] [place] [address] Test Date: 2021-04-21 Test Time: 10:33:09 Pat Name: JERRY WAYNE Department: Room: [facility] Gender: F Prosthetics Lab Technician: : 1955 Requested By: CHAPARRITA CRAWLEY Order Number: [id number] Reading MD: Justino Rodriguez Measurements Intervals [place] Rate: 84 P: 10 PA: 238 QRS: -16 QRSD: 86 T: -19 QT: 362 QTc: 431 Interpretive Statements SINUS RHYTHM PROLONGED PA INTERVAL LEFTWARD AXIS T ABNORMALITY IN ANTEROLATERAL LEADS ABNORMAL ECG Electronically Signed On 04-22-2021 8:30:02 BUSINESS LAW TEACHER by Justino Rodriguez
[2021-04-21 13:30] VITALS: BP 160/98
[2021-04-21] MEDS ORDERED: ACETAMINOPHEN 325 MG TABLET. PO PRN (13:30)
[2021-04-21] MEDS ORDERED: CALCIUM CARBONATE 500 MG TAB.CHEW PO PRN (13:30)
[2021-04-21] MEDS ORDERED: ONDANSETRON PF 4 MG/2 ML VIAL. IVP PRN (13:30)
[2021-04-21] MEDS ORDERED: ZOLPIDEM 5 MG TABLET. PO PRN (13:30)
[2021-04-21] MEDS ORDERED: ELECTROLYTE (NON-ICU) PROTOCOL. MC PRN (13:30)
[2021-04-21] MEDS ORDERED: oxyCODONE/APAP 5/325 1 TAB TABLET PO PRN ×2 (13:30)
--- NOTE | 2021-04-21 13:30 | NUR ---
PT ARRIVES VIA WHEELCHAIR FROM ER. SHE IS ON RA. IVF REINITIATED. VS ASSESSED, TELE INITIATED. ADMISSION ASSESSMENT COMPLETE. CALL LIGHT IN REACH. DR WEST IN ROOM.
[2021-04-21] MEDS ORDERED: ASPIRIN CHEWABLE 81 MG TABLET. PO ONE (13:45)
--- NOTE | 2021-04-21 13:45 | PDOC1 ---
History and Physical Date of Service: DOS: DATE: 04/21/21 TIME: 13:40 Chief Complaint: Chief Complain: weakness, cough, lethargy History of Present Illness: HPI: Patient is a 65-year-old -Nepalese female presented the emergency room today due to couple week history of weakness lethargy and is over the past few days developed sore throat cough viral-like symptoms. Had episode of diarrhea today no further episodes since. With ongoing symptoms presented to the emergency room today. In the emergency room troponin elevated up above 100 concern for NSTEMI patient with plan for admission. Cardiology consulted in emergency room. Aspirin not given due to allergy Patient reports to me history of hypothyroidism. She says most days she tries to take her Synthroid without her other pills and on empty stomach but sometimes forgets. Check TSH. She does have history of sleep apnea but has an implanted device that sounds like an Inspire Past Medical/Surgical History: PMH/PSH: Past Medical History: Asthma, Bronchitis, Cancer, Hypertension Additional Past Medical Histor: graves disease,lupus,kidney tumor/CA-right kidney,SLEEP APNEA Past Surgical History: Cholecystectomy, , Hysterectomy Additional Past Surgical Histo: HERNIA REPAIR,NASAL POLYPS,RT KIDNEY ABLATION Smoking Status: Former smoker 1 pack/week Alcohol Use: None Drug Use: None Allergies: Allergies: Coded Allergies: NSAIDS (Non-Steroidal Anti-Inflamma (Verified Allergy, Severe, itching,throat"swells", 10/25/18) aspirin (Verified Allergy, Severe, Shortness of Air, 10/25/18) Sulfa (Sulfonamide Antibiotics) (Verified Allergy, Intermediate, 10/25/18) ketorolac (Verified Allergy, Intermediate, 10/25/18) sulfamethoxazole (Verified Allergy, Intermediate, 10/25/18) trimethoprim (Verified Allergy, Intermediate, 10/25/18) Family History: Family History: Hypertension Current Medications: Current Medications Current Medications Sodium Chloride 1,000 ml @ 100 mls/hr Q10H IV Last administered on 04/21/21at 12:53; Start 04/21/21 at 12:15; Stop 04/21/21 at 22:14 Enoxaparin Sodium (Lovenox 100mg Syringe) 100 mg 1X ONCE SQ Last administered on 04/21/21at 12:53; Start 04/21/21 at 12:45; Stop 04/21/21 at 12:46; Status DC Ondansetron HCl (Zofran) 4 mg PRN Q6HRS PRN IVP NAUSEA/VOMITING; Start 04/21/21 at 13:30; Status UNV Calcium Carbonate/ Glycine (Tums) 500 mg PRN Q3HRS PRN PO UPSET STOMACH; Start 04/21/21 at 13:30; Status UNV Zolpidem Tartrate (Ambien) 5 mg PRN QHS PRN PO INSOMNIA, MAY REPEAT IN 1HR; Start 04/21/21 at 13:30; Status UNV Info (Non-Icu Electrolyte Protocol) 1 ea PRN DAILY PRN MC SEE COMMENTS; Start 04/21/21 at 13:30; Status UNV Oxycodone/ Acetaminophen (Percocet 5/325) 1 tab PRN Q4HRS PRN PO MILD PAIN, 1ST CHOICE; Start 04/21/21 at 13:30; Status UNV Oxycodone/ Acetaminophen (Percocet 5/325) 2 tab PRN Q4HRS PRN PO MODERATE PAIN, SEVERE PAIN; Start 04/21/21 at 13:30; Status UNV Acetaminophen (Tylenol) 650 mg PRN Q6HRS PRN PO Headaches, Temp > 101.5F; Start 04/21/21 at 13:30; Status UNV Senna/Docusate Sodium (Senna Plus) 1 tab BID PO ; Start 04/21/21 at 21:00; Status UNV Active Scripts Active Levofloxacin 750 Mg Tablet 1 Tab PO DAILY Doxycycline Hyclate 100 Mg Capsule 1 Cap PO BID Hydrocodone-Apap 5-325 (Hydrocodone Bit/Acetaminophen) 1 Tab Tablet 1 Tab PO PRN Q6HRS PRN Prednisone 50 Mg Tablet 1 Tab PO DAILY Zithromax (Azithromycin) 250 Mg Tablet 1 Pkg PO UD Proair Hfa Inhaler (Albuterol Sulfate) 8.5 Gm Hfa.aer.ad 2 Puff IH PRN Q4-6HRS PRN 21 Days Prednisone 20 Mg Tablet 1 Tab PO DAILY 7 Days Albuterol Sulfate Neb Soln (Albuterol Sulfate) 2.5 Mg/3 Ml Vial.neb 1 Vial NEB PRN Q4HRS Proair Hfa Inhaler (Albuterol Sulfate) 8.5 Gm Hfa.aer.ad 1 Puff INH PRN Q6HRS PRN Medrol (Methylprednisolone) 4 Mg Tab.ds.pk 1 Pkg PO UD Proair Hfa (Albuterol Sulfate) 8.5 Gm Hfa.aer.ad 2 Puff IH PRN Q4-6HRS PRN 21 Days Prednisone 50 Mg Tablet 1 Tab PO DAILY Codeine-Guaifen 10-100 mg/5 ml (Guaifenesin/Codeine Phosphate) 120 Ml Liquid 5 Ml PO PRN Q6HRS PRN MDD 20 Milliliter(s) 6 Days Augmentin 500-125 Tablet (Amoxicillin/Potassium Clav) 1 Each Tablet 1 Tab PO BID 7 Days Prednisone 50 Mg Tablet 1 Tab PO DAILY Tessalon Perle (Benzonatate) 100 Mg Capsule 100 Mg PO TID PRN 10 Days Augmentin 875-125 Tablet (Amoxicillin/Potassium Clav) 1 Each Tablet 1 Tab PO BID 7 Days Proair Hfa (Albuterol Sulfate) 8.5 Gm Hfa.aer.ad 2 Puff IH PRN Q4-6HRS PRN 21 Days Medrol (Methylprednisolone) 4 Mg Tab.ds.pk 1 Pkg PO UD 6 Days start taking on 12/02/19 Azithromycin Tablet (Azithromycin) 250 Mg Tablet 1 Pkg PO UD 5 Days 2 the first day followed by 1 for days 2-5 Percocet 5-325 Mg Tablet (Oxycodone/Acetaminophen) 1 Each Tablet 1 Tab PO PRN Q4HRS PRN Symbicort 160-4.5 Mcg Inhaler (Budesonide/Formoterol Fumarate) 10.2 Gm Hfa.aer.ad 2 Puff IH BID MDD 1 Montelukast Sodium Tablet (Montelukast Sodium) 10 Mg Tablet 10 Mg PO HS MDD 1 Reported Spironolactone 25 Mg Tablet 25 Mg PO BID Risperidone 0.5 Mg Tablet 1 Tab PO BID Prometh-Codein 6.25-10 mg/5 ml (Promethazine HCl/Codeine) 5 Ml Syrup 5 Ml PO PRN DAILY PRN Hydralazine Hcl 100 Mg Tablet 50 Mg PO TID Carvedilol (Carvedilol) 6.25 Mg Tablet 6.25 Mg PO BIDWMEALS Atorvastatin Calcium 40 Mg Tablet 40 Mg PO HS Proair Hfa Inhaler (Albuterol Sulfate) 8.5 Gm Hfa.aer.ad 2 Puff INH PRN Q6HRS PRN Levothyroxine Sodium 150 Mcg Tablet 150 Mcg PO DAILYAC Flonase Allergy Relief (Fluticasone Propionate) 9.9 Ml [place].susp 2 Sprays NS DAILY Citalopram Hbr (Citalopram Hydrobromide) 40 Mg Tablet 40 Mg PO DAILY Centrum Silver Women Tablet (Multivits-Min/Iron/FA/Lutein) 1 Each Tablet 1 Each PO DAILY08 Abilify (Aripiprazole) 5 Mg Tablet 5 Mg PO DAILY08 Trazodone Hcl 100 Mg Tablet 100 Mg PO HS Protonix (Pantoprazole Sodium) 20 Mg Tablet.dr 40 Mg PO DAILY Metformin Hcl 1,000 Mg Tablet 1 Tab PO BIDWMEALS Doxepin Hcl 10 Mg Capsule 25 Mg PO QHS Furosemide 40 Mg Tablet 40 Mg PO DAILY Epipen (Epinephrine) 0.3 Mg/0.3 Ml Auto.injct 0.3 Mg IJ PRN ROS: Review of Systems Review of System Unless noted in HPI 14 point review of systems was negative Physical Exam: Vital Signs: Vital Signs Date Time Temp Pulse Resp B/P (MAP) Pulse Ox O2 Delivery O2 Flow Rate FiO2 04/21/21 12:52 64 17 132/87 (102) 97 Room Air 04/21/21 10:27 98.1 98.1 Physcial Exam: GEN: No apparent distress. Alert and oriented. Obese HEENT: Normal cephalic, atraumatic, external auditory canals are patent EYES: Extraocular muscles are intact, pupil are equally round and reactive to light and accommodation MUSCULOSKELETAL: Well developed , well nourished, good range of motion ENDOCRINE: No thyromegaly was palpated LYMPHATICS: No cervical chain or axillary nodes were noted HEMATOPOIETIC: No bruising NECK: Supple, no JVD, no thyromegaly was noted LUNGS: Clear to auscultation in all lung green without rhonchi or wheezing HEART: RRR, S1, S2 present. Peripheral pulses intact, no obvious murmurs noted ABDOMEN: Soft, nontender. Positive bowel sounds, no organomegaly, normal bowel sounds EXTREMITIES: Without clubbing, cyanosis, or edema. Pedal pulses intact. Negative Homans sign NEUROLOGIC: Normal speech and tone. A&O x 3, moves all extremities, no obvious focal deficits PSYCHIATRIC: Normal affect, normal mood. Stable SKIN: No ulcerations or rashes, good skin turgor, no jaundice VASCULAR: Good capillary refill, neurovascular bundle appears to be intact Labs: Labs: Laboratory Tests Test 04/21/21 10:38 04/21/21 11:20 Urine Collection Type Unknown Urine Color Yellow Urine Clarity Hazy Urine pH 6.0 (<5.0-8.0) Urine Specific [place] 1.015 (1.000-1.030) Urine Protein 100 mg/dL (NEG-TRACE) Urine Glucose (UA) Negative mg/dL (NEG) Urine Ketones (Stick) Negative mg/dL (NEG) Urine Blood Negative (NEG) Urine Nitrite Negative (NEG) Urine Bilirubin Negative (NEG) Urine Urobilinogen Dipstick 0.2 mg/dL (0.2 mg/dL) Urine Leukocyte Esterase Trace (NEG) Urine RBC 0 /HPF (0-2) Urine WBC 0 /HPF (0-4) Urine Squamous Epithelial Cells Many /LPF Urine Bacteria Many /HPF (0-FEW) White Blood Count 5.9 x10^3/uL (4.0-11.0) Red Blood Count 4.17 x10^6/uL (3.50-5.40) Hemoglobin 10.9 g/dL (12.0-15.5) Hematocrit 34.9 % (36.0-47.0) Mean Corpuscular Volume 84 fL (79-100) Mean Corpuscular Hemoglobin 26 pg (25-35) Mean Corpuscular Hemoglobin Concent 31 g/dL (31-37) Red Cell Distribution Width 18.1 % (11.5-14.5) Platelet Count 221 x10^3/uL (140-400) Neutrophils (%) (Auto) 76 % (31-73) Lymphocytes (%) (Auto) 15 % (24-48) Monocytes (%) (Auto) 9 % (0-9) Eosinophils (%) (Auto) 0 % (0-3) Basophils (%) (Auto) 0 % (0-3) Neutrophils # (Auto) 4.5 x10^3/uL (1.8-7.7) Lymphocytes # (Auto) 0.9 x10^3/uL (1.0-4.8) Monocytes # (Auto) 0.5 x10^3/uL (0.0-1.1) Eosinophils # (Auto) 0.0 x10^3/uL (0.0-0.7) Basophils # (Auto) 0.0 x10^3/uL (0.0-0.2) Sodium Level 142 mmol/L (136-145) Potassium Level 4.1 mmol/L (3.5-5.1) Chloride Level 108 mmol/L (98-107) Carbon Dioxide Level 24 mmol/L (21-32) Anion Gap 10 (6-14) Blood Urea Nitrogen 18 mg/dL (7-20) Creatinine 1.2 mg/dL (0.6-1.0) Estimated GFR (Cockcroft-Gault) 54.9 BUN/Creatinine Ratio 15 (6-20) Glucose Level 118 mg/dL (70-99) Calcium Level 9.4 mg/dL (8.5-10.1) Magnesium Level 2.0 mg/dL (1.8-2.4) Total Bilirubin 0.5 mg/dL (0.2-1.0) Aspartate Amino Transf (AST/SGOT) 29 U/L (15-37) Alanine Aminotransferase (ALT/SGPT) 20 U/L (14-59) Alkaline Phosphatase 59 U/L (46-116) Troponin I High Sensitivity 127 ng/L (4-50) Total Protein 7.9 g/dL (6.4-8.2) Albumin 3.3 g/dL (3.4-5.0) Albumin/Globulin Ratio 0.7 (1.0-1.7) Influenza Type A Antigen Negative (NEGATIVE) Influenza Type B Antigen Negative (NEGATIVE) Laboratory Tests Test 04/21/21 10:38 04/21/21 11:20 Urine Collection Type Unknown Urine Color Yellow Urine Clarity Hazy Urine pH 6.0 (<5.0-8.0) Urine Specific [place] 1.015 (1.000-1.030) Urine Protein 100 mg/dL (NEG-TRACE) Urine Glucose (UA) Negative mg/dL (NEG) Urine Ketones (Stick) Negative mg/dL (NEG) Urine Blood Negative (NEG) Urine Nitrite Negative (NEG) Urine Bilirubin Negative (NEG) Urine Urobilinogen Dipstick 0.2 mg/dL (0.2 mg/dL) Urine Leukocyte Esterase Trace (NEG) Urine RBC 0 /HPF (0-2) Urine WBC 0 /HPF (0-4) Urine Squamous Epithelial Cells Many /LPF Urine Bacteria Many /HPF (0-FEW) White Blood Count 5.9 x10^3/uL (4.0-11.0) Red Blood Count 4.17 x10^6/uL (3.50-5.40) Hemoglobin 10.9 g/dL (12.0-15.5) Hematocrit 34.9 % (36.0-47.0) Mean Corpuscular Volume 84 fL (79-100) Mean Corpuscular Hemoglobin 26 pg (25-35) Mean Corpuscular Hemoglobin Concent 31 g/dL (31-37) Red Cell Distribution Width 18.1 % (11.5-14.5) Platelet Count 221 x10^3/uL (140-400) Neutrophils (%) (Auto) 76 % (31-73) Lymphocytes (%) (Auto) 15 % (24-48) Monocytes (%) (Auto) 9 % (0-9) Eosinophils (%) (Auto) 0 % (0-3) Basophils (%) (Auto) 0 % (0-3) Neutrophils # (Auto) 4.5 x10^3/uL (1.8-7.7) Lymphocytes # (Auto) 0.9 x10^3/uL (1.0-4.8) Monocytes # (Auto) 0.5 x10^3/uL (0.0-1.1) Eosinophils # (Auto) 0.0 x10^3/uL (0.0-0.7) Basophils # (Auto) 0.0 x10^3/uL (0.0-0.2) Sodium Level 142 mmol/L (136-145) Potassium Level 4.1 mmol/L (3.5-5.1) Chloride Level 108 mmol/L (98-107) Carbon Dioxide Level 24 mmol/L (21-32) Anion Gap 10 (6-14) Blood Urea Nitrogen 18 mg/dL (7-20) Creatinine 1.2 mg/dL (0.6-1.0) Estimated GFR (Cockcroft-Gault) 54.9 BUN/Creatinine Ratio 15 (6-20) Glucose Level 118 mg/dL (70-99) Calcium Level 9.4 mg/dL (8.5-10.1) Magnesium Level 2.0 mg/dL (1.8-2.4) Total Bilirubin 0.5 mg/dL (0.2-1.0) Aspartate Amino Transf (AST/SGOT) 29 U/L (15-37) Alanine Aminotransferase (ALT/SGPT) 20 U/L (14-59) Alkaline Phosphatase 59 U/L (46-116) Troponin I High Sensitivity 127 ng/L (4-50) Total Protein 7.9 g/dL (6.4-8.2) Albumin 3.3 g/dL (3.4-5.0) Albumin/Globulin Ratio 0.7 (1.0-1.7) Influenza Type A Antigen Negative (NEGATIVE) Influenza Type B Antigen Negative (NEGATIVE) Assessment/Plan Assessment/Plan NSTEMI, nonspecific viral-like symptoms, history of Graves' disease asthma hypertension Lupus sleep apnea -Several week history worsening weakness lethargy. Started developing upper respiratory type symptoms this week and chest heaviness -Presented to ER today elevated troponin above 100. Cardiology consulted. Giv en weight-based Lovenox in ER -Does have history of Graves' disease on Synthroid. Check TSH with free T4 reflex if abnormal -Has received all 3 Covid vaccines. Also has recently flu vaccine. Flu negative. Covid pending -Home meds resumed as indicated -Patient has an implanted device for ALFRED management -Home meds as indicated - Justifications for Admission Other Justification RICARDO WEST MD Apr 21, 2021 13:45
[2021-04-21] MEDS ORDERED: LEVO175T5 PO (13:56)
[2021-04-21] MEDS ORDERED: SACU1TAB4 PO (13:56)
[2021-04-21] MEDS ORDERED: TIOT18CA IH (13:56)
[2021-04-21] MEDS ORDERED: ALBUTEROL SULFATE 2.5 MG/3 ML NEBU. NEB PRN (14:00)
--- NOTE | 2021-04-21 14:57 | PDOC2 ---
FATOU ALMONTE CRA 04/21/21 1457: CARDIAC CONSULT DATE OF CONSULT Date of Consult DATE: 04/21/21 TIME: 14:37 REASON FOR CONSULT Reason for Consult: elevated troponin REFERRING PHYSICIAN Referring Physician: rajesh SOURCE Source: Chart review, Patient HISTORY OF PRESENT ILLNESS HISTORY OF PRESENT ILLNESS This is a pleasant 65 yo female admitted for complains of chest congestion and chest pain. Reports that she has been having frontal HERRERA with nasal congestion and has been having coughing spells, low grade fever, fatigue and sore throat. No nausea or vomiting. No recent falls or injury. No recent antibiotics. She thought she was having asthma attack but denies any wheezing and no significnat SOA. Her chest pain is pressure to her left chest but experienced this starting few days ago after her coughing spells. Presently no chest pain nor SOA. No recent falls or injury. 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 She has cardiomyopathy and was told due to her cocaine abuse in the past and no stents in the past. She is allergic to ASA as she reported having rash with it. No hx of VTE, arrhythmias. Her last stress test was over a yr ago. No diaphoresis, palpitations. PAST MEDICAL HISTORY Past Medical History Cardiovascular: CHF, HTN, Cardiomyopathy Pulmonary: Asthma, COPD, Asthma, ALFRED, pneumonia CENTRAL NERVOUS SYSTEM: Peripheral neuropathy, Other GI: Constipation, GERD Heme/Onc: right renal tumor removed by ablation, anemia, Sickle cell trait Hepatobiliary: cholelithiasis Psych: Depression Musculoskeletal: Osteoarthritis Renal/: UTI ENT: vestibular neuronitis Endocrine: Hypothyroidism PAST SURGICAL HISTORY Past Surgical History Cholecystectomy, , Hernia Repair, Hysterectomy, hypoglossal nerve stimulator FAMILY HISTORY Family History: Hypertension, Stroke (mother) SOCIAL HISTORY Smoke: No ALCOHOL: none Drugs: Other (remote hx of cocaine abuse) Lives: with Family CURRENT MEDICATIONS CURRENT MEDICATIONS Current Medications Medications (Trade) Dose Ordered Sig/Indra Route PRN Reason Start Time Stop Time Status Last Admin Dose Admin Sodium Chloride 1,000 ml @ 100 mls/hr Q10H IV 04/21/21 12:15 04/21/21 22:14 04/21/21 12:53 Enoxaparin Sodium (Lovenox 100mg Syringe) 100 mg 1X ONCE SQ 04/21/21 12:45 04/21/21 12:46 DC 04/21/21 12:53 ALLERGIES ALLERGIES: Coded Allergies: NSAIDS (Non-Steroidal Anti-Inflamma (Verified Allergy, Severe, itching,throat"swells", 10/25/18) aspirin (Verified Allergy, Severe, Shortness of Air, 10/25/18) Sulfa (Sulfonamide Antibiotics) (Verified Allergy, Intermediate, 10/25/18) ketorolac (Verified Allergy, Intermediate, 10/25/18) sulfamethoxazole (Verified Allergy, Intermediate, 10/25/18) trimethoprim (Verified Allergy, Intermediate, 10/25/18) ROS Review of System 14 point ROS evaluated with pertinent positives noted per HPI PHYSICAL EXAM General: Alert, Oriented X3, Cooperative, No acute distress HEENT: Atraumatic, Mucous membr. moist/pink, Other (maxillary tenderness with palpation) Lungs: Clear to auscultation, Normal air movement Heart: Regular rate (SR), Normal S1, Normal S2, No murmurs Abdomen: Soft, No tenderness Extremities: No cyanosis, No edema Skin: No breakdown, No significant lesion Neuro: Normal speech, Sensation intact Psych/Mental Status: Mental status NL, Mood NL MUSCULOSKELETAL: Osteoarthritic changes both hands VITALS/I&O VITALS/I&O: Vital Signs Date Time Temp Pulse Resp B/P (MAP) Pulse Ox O2 Delivery O2 Flow Rate FiO2 04/21/21 13:30 97.9 59 18 160/98 (118) 100 Room Air 97.9 LABS Lab: Laboratory Tests Test 04/21/21 10:38 04/21/21 11:20 Urine Collection Type Unknown Urine Color Yellow Urine Clarity Hazy Urine pH 6.0 (<5.0-8.0) Urine Specific [place] 1.015 (1.000-1.030) Urine Protein 100 mg/dL (NEG-TRACE) Urine Glucose (UA) Negative mg/dL (NEG) Urine Ketones (Stick) Negative mg/dL (NEG) Urine Blood Negative (NEG) Urine Nitrite Negative (NEG) Urine Bilirubin Negative (NEG) Urine Urobilinogen Dipstick 0.2 mg/dL (0.2 mg/dL) Urine Leukocyte Esterase Trace (NEG) Urine RBC 0 /HPF (0-2) Urine WBC 0 /HPF (0-4) Urine Squamous Epithelial Cells Many /LPF Urine Bacteria Many /HPF (0-FEW) White Blood Count 5.9 x10^3/uL (4.0-11.0) Red Blood Count 4.17 x10^6/uL (3.50-5.40) Hemoglobin 10.9 g/dL (12.0-15.5) L Hematocrit 34.9 % (36.0-47.0) L Mean Corpuscular Volume 84 fL (79-100) Mean Corpuscular Hemoglobin 26 pg (25-35) Mean Corpuscular Hemoglobin Concent 31 g/dL (31-37) Red Cell Distribution Width 18.1 % (11.5-14.5) H Platelet Count 221 x10^3/uL (140-400) Neutrophils (%) (Auto) 76 % (31-73) H Lymphocytes (%) (Auto) 15 % (24-48) L Monocytes (%) (Auto) 9 % (0-9) Eosinophils (%) (Auto) 0 % (0-3) Basophils (%) (Auto) 0 % (0-3) Neutrophils # (Auto) 4.5 x10^3/uL (1.8-7.7) Lymphocytes # (Auto) 0.9 x10^3/uL (1.0-4.8) L Monocytes # (Auto) 0.5 x10^3/uL (0.0-1.1) Eosinophils # (Auto) 0.0 x10^3/uL (0.0-0.7) Basophils # (Auto) 0.0 x10^3/uL (0.0-0.2) Sodium Level 142 mmol/L (136-145) Potassium Level 4.1 mmol/L (3.5-5.1) Chloride Level 108 mmol/L (98-107) H Carbon Dioxide Level 24 mmol/L (21-32) Anion Gap 10 (6-14) Blood Urea Nitrogen 18 mg/dL (7-20) Creatinine 1.2 mg/dL (0.6-1.0) H Estimated GFR (Cockcroft-Gault) 54.9 BUN/Creatinine Ratio 15 (6-20) Glucose Level 118 mg/dL (70-99) H Calcium Level 9.4 mg/dL (8.5-10.1) Magnesium Level 2.0 mg/dL (1.8-2.4) Total Bilirubin 0.5 mg/dL (0.2-1.0) Aspartate Amino Transferase (AST) 29 U/L (15-37) Alanine Aminotransferase (ALT) 20 U/L (14-59) Alkaline Phosphatase 59 U/L (46-116) Troponin I High Sensitivity 127 ng/L (4-50) H Total Protein 7.9 g/dL (6.4-8.2) Albumin 3.3 g/dL (3.4-5.0) L Albumin/Globulin Ratio 0.7 (1.0-1.7) L Triglycerides Level 46 mg/dL (0-150) Cholesterol Level 172 mg/dL (0-200) LDL Cholesterol, Calculated 105 mg/dL (0-100) H VLDL Cholesterol, Calculated 9 mg/dL (0-40) Non-HDL Cholesterol Calculated 114 mg/dL (0-129) HDL Cholesterol 58 mg/dL (40-60) Cholesterol/HDL Ratio 3.0 Thyroid Stimulating Hormone (TSH) 2.123 uIU/mL (0.358-3.74) Influenza Type A Antigen Negative (NEGATIVE) Influenza Type B Antigen Negative (NEGATIVE) Laboratory Tests 04/21/21 11:20 Laboratory Tests 04/21/21 11:20 ECHOCARDIOGRAM ECHOCARDIOGRAM 04/13/2020 [facility] The left ventricle is mildly dilated. Eccentric hypertrophy. The left ventricular systolic function is normal. The visually estimated ejection fraction is 55%. There are no segmental wall motion abnormalities. The right ventricular size is normal. The right ventricular systolic function is probably normal. Normal biatrial size. No significant valve disease. Estimated Peak Systolic PA Pressure 21 mmHg Compared with study dated 09/12/18, there has been a mild improvement in global LV function. ASSESSMENT/PLAN ASSESSMENT/PLAN 1. Viral syndrome with sinusitis and post nasal drip syndrome: Awaiting covid-19 PCR. She is fully vaccinated 2. Atypical chest pain: possibly precipitated by coughing spells. 3. MIld troponin elevation: no acute EKG changes. Suspect demand mediated, type 2 4. Hx of NICM: on entresto, presumed due to cocaine abuse per pt. Recovered 5. HTN: controlled 6. Chronic systolic CHF: compensated 7. Sickle cell trait 8. ASA allergy: rash 9. Hx of asthma and ALFRED: has hypoglossal nerve stimulator Recommendations 1. Secondary prevention measures 2. Trend troponin, Will obtain TTE if none recent 3. Supportive care 4. Will consider for ischemic workup possibly as an outpt. Follow with Dr. Martino at [facility] cardiology KRISTI MARTINEZ MD 04/21/21 1732: CARDIAC CONSULT ASSESSMENT/PLAN ASSESSMENT/PLAN Patient seen and examined. Agree with CHIEF ANALYTICS OFFICER's assessment and plan. Chest pain with atypical features Troponin elevation probably demand ischemia Chronic systolic heart failure well compensated Check 2D echo to assess LV systolic function Consider ischemic evaluation as outpatient Thank you for your consultation FATOU ALMONTE APRN Apr 21, 2021 14:57 KRISTI MARTINEZ MD Apr 21, 2021 17:32
--- NOTE | 2021-04-21 15:09 | EKG ---
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
[2021-04-21] MEDS: IPRATRPIUM/ALBUTEROL 0.5/2.5MG 3 ML NEBU. NEB SCH ×2 (15:54→20:00)
[2021-04-21] MEDS: CARVEDILOL 6.25 MG TABLET. PO SCH (17:40)
[2021-04-21 18:00] VITALS: BP 147/89
[2021-04-21] MEDS: BUDESONIDE 0.5 MG/2 ML NEBU. NEB SCH (20:00)
[2021-04-21] MEDS ORDERED: NON FORMULARY ITEM (Budesonide/Formoterol Fumarate (Symbicort 160-4.5 Mcg Inhaler) 2 PUFF) IH SCH (21:00)
[2021-04-21] MEDS ORDERED: SACUBITRIL PO SCH (21:00)
[2021-04-21] MEDS ORDERED: VALSARTAN PO SCH (21:00)
[2021-04-21] MEDS: SENNOSIDES/DOCUSATE 8.6/50MG TABLET. PO SCH ×2 (21:00→21:50)
[2021-04-21] MEDS: traZODone 100 MG TABLET. PO SCH (21:50)
[2021-04-21] MEDS: MONTELUKAST SODIUM 10 MG TABLET. PO SCH (21:50)
[2021-04-21] MEDS: DOXEPIN HCL 25 MG CAPSULE. PO SCH (21:51)
[2021-04-21] MEDS: SACUBITRIL/VALSARTAN 49/51MG TABLET. PO SCH (21:51)
[2021-04-21 22:47] VITALS: BP 158/93
[2021-04-22 02:20] VITALS: BP 155/96
[2021-04-22] MEDS: LEVOTHYROXINE 175 MCG TABLET PO SCH (06:38)
[2021-04-22] MEDS: PANTOPRAZOLE 40 MG TABLET.DR. PO SCH (06:38)
[2021-04-22 07:00] VITALS: BP 153/87
[2021-04-22] MEDS: FLUTICASONE 50MCG/NASAL SPRAY 16GM BOTTLE. NS SCH (07:53)
[2021-04-22] MEDS: CARVEDILOL 6.25 MG TABLET. PO SCH ×2 (07:54→17:00)
[2021-04-22] MEDS: SENNOSIDES/DOCUSATE 8.6/50MG TABLET. PO SCH ×2 (07:54→20:53)
[2021-04-22] MEDS: MULTIVITAMIN with MINERAL TABLET. PO SCH (07:54)
[2021-04-22] MEDS: CITALOPRAM 20 MG TABLET. PO SCH (07:54)
[2021-04-22] MEDS: FUROSEMIDE 40 MG TABLET. PO SCH (07:54)
[2021-04-22] MEDS: SACUBITRIL/VALSARTAN 49/51MG TABLET. PO SCH ×2 (07:55→20:53)
[2021-04-22] MEDS: IPRATRPIUM/ALBUTEROL 0.5/2.5MG 3 ML NEBU. NEB SCH ×4 (08:00→20:00)
[2021-04-22] MEDS ORDERED: NON FORMULARY ITEM (Tiotropium Bromide (Spiriva) 2 INH) IH SCH (09:00)
[2021-04-22 10:45] VITALS: BP 146/86
--- NOTE | 2021-04-22 10:59 | PDOC ---
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 [employer] Vitals/I&O Vitals/I&O: Vital Signs Date Time Temp Pulse Resp B/P (MAP) Pulse Ox O2 Delivery O2 Flow Rate FiO2 04/22/21 10:45 98.3 70 18 146/86 (106) 97 Room Air 98.3 I & O 04/21/21 04/21/21 04/22/21 15:00 23:00 07:00 Intake Total 360 ml 1240 ml Output Total 325 ml Balance 360 ml 915 ml Physical Exam General: Alert, Oriented X3, Cooperative, No acute distress Heart: Regular rate (SR), Normal S1, Normal S2, No murmurs Lungs: Wheezing Abdomen: Soft, No tenderness Extremities: No cyanosis, No edema Skin: No breakdown, No significant lesion Labs Labs: Laboratory Tests Test 04/21/21 11:20 04/21/21 14:10 04/21/21 18:40 White Blood Count 5.9 x10^3/uL (4.0-11.0) Red Blood Count 4.17 x10^6/uL (3.50-5.40) Hemoglobin 10.9 g/dL (12.0-15.5) Hematocrit 34.9 % (36.0-47.0) Mean Corpuscular Volume 84 fL (79-100) Mean Corpuscular Hemoglobin 26 pg (25-35) Mean Corpuscular Hemoglobin Concent 31 g/dL (31-37) Red Cell Distribution Width 18.1 % (11.5-14.5) Platelet Count 221 x10^3/uL (140-400) Neutrophils (%) (Auto) 76 % (31-73) Lymphocytes (%) (Auto) 15 % (24-48) Monocytes (%) (Auto) 9 % (0-9) Eosinophils (%) (Auto) 0 % (0-3) Basophils (%) (Auto) 0 % (0-3) Neutrophils # (Auto) 4.5 x10^3/uL (1.8-7.7) Lymphocytes # (Auto) 0.9 x10^3/uL (1.0-4.8) Monocytes # (Auto) 0.5 x10^3/uL (0.0-1.1) Eosinophils # (Auto) 0.0 x10^3/uL (0.0-0.7) Basophils # (Auto) 0.0 x10^3/uL (0.0-0.2) Sodium Level 142 mmol/L (136-145) Potassium Level 4.1 mmol/L (3.5-5.1) Chloride Level 108 mmol/L (98-107) Carbon Dioxide Level 24 mmol/L (21-32) Anion Gap 10 (6-14) Blood Urea Nitrogen 18 mg/dL (7-20) Creatinine 1.2 mg/dL (0.6-1.0) Estimated GFR (Cockcroft-Gault) 54.9 BUN/Creatinine Ratio 15 (6-20) Glucose Level 118 mg/dL (70-99) Calcium Level 9.4 mg/dL (8.5-10.1) Magnesium Level 2.0 mg/dL (1.8-2.4) Total Bilirubin 0.5 mg/dL (0.2-1.0) Aspartate Amino Transf (AST/SGOT) 29 U/L (15-37) Alanine Aminotransferase (ALT/SGPT) 20 U/L (14-59) Alkaline Phosphatase 59 U/L (46-116) Troponin I High Sensitivity 127 ng/L (4-50) 133 ng/L (4-50) 123 ng/L (4-50) Total Protein 7.9 g/dL (6.4-8.2) Albumin 3.3 g/dL (3.4-5.0) Albumin/Globulin Ratio 0.7 (1.0-1.7) Triglycerides Level 46 mg/dL (0-150) Cholesterol Level 172 mg/dL (0-200) LDL Cholesterol, Calculated 105 mg/dL (0-100) VLDL Cholesterol, Calculated 9 mg/dL (0-40) Non-HDL Cholesterol Calculated 114 mg/dL (0-129) HDL Cholesterol 58 mg/dL (40-60) Cholesterol/HDL Ratio 3.0 Thyroid Stimulating Hormone (TSH) 2.123 uIU/mL (0.358-3.74) Coronavirus (COVID-19)(PCR) Not detected (NOT DETECTD) Influenza Type A Antigen Negative (NEGATIVE) Influenza Type B Antigen Negative (NEGATIVE) Assessment and Plan Assessmemt and Plan Problems Medical Problems: (1) NSTEMI (non-ST elevated myocardial infarction) Status: A Atypical chest pain Viral syndrome Mild elevated troponin suspect demand ischemia History of nonischemic cardiomyopathy on Entresto Sickle cell trait Aspirin allergy Graves' Asthma Hypertension Lupus ALFRED Plan Possible discharge later today if cardiology agrees For now continue monitoring Home meds DVT prophylaxis Full code Per cardiology recommendations please see the following and we certainly agree and appreciate their input; ASSESSMENT/PLAN 1. Viral syndrome with sinusitis and post nasal drip syndrome: Awaiting covid-19 PCR. She is fully vaccinated 2. Atypical chest pain: possibly precipitated by coughing spells. 3. MIld troponin elevation: no acute EKG changes. Suspect demand mediated, type 2 4. Hx of NICM: on entresto, presumed due to cocaine abuse per pt. Recovered 5. HTN: controlled 6. Chronic systolic CHF: compensated 7. Sickle cell trait 8. ASA allergy: rash 9. Hx of asthma and ALFRED: has hypoglossal nerve stimulator Recommendations 1. Secondary prevention measures 2. Trend troponin, Will obtain TTE if none recent 3. Supportive care 4. Will consider for ischemic workup possibly as an outpt. Follow with Dr. Martino at [facility] cardiology Comment Review of Relevant I have reviewed the following items gilbert (where applicable) has been applied. Medications: Current Medications Medications (Trade) Dose Ordered Sig/Indra Route PRN Reason Start Time Stop Time Status Last Admin Dose Admin Sodium Chloride 1,000 ml @ 100 mls/hr Q10H IV 04/21/21 12:15 04/21/21 22:14 DC 04/21/21 12:53 Enoxaparin Sodium (Lovenox 100mg Syringe) 100 mg 1X ONCE SQ 04/21/21 12:45 04/21/21 12:46 DC 04/21/21 12:53 Senna/Docusate Sodium (Senna Plus) 1 tab BID PO 04/21/21 21:00 04/22/21 07:54 Carvedilol (Coreg) 6.25 mg BIDWMEALS PO 04/21/21 17:00 04/22/21 07:54 Doxepin HCl (SINEquan) 25 mg QHS PO 04/21/21 21:00 04/21/21 21:51 Furosemide (Lasix) 40 mg DAILY PO 04/22/21 09:00 04/22/21 07:54 Levothyroxine Sodium (Synthroid) 175 mcg DAILY06 PO 04/22/21 06:00 04/22/21 06:38 Montelukast Sodium (Singulair) 10 mg HS PO 04/21/21 21:00 04/21/21 21:50 Trazodone HCl (Desyrel) 100 mg HS PO 04/21/21 21:00 04/21/21 21:50 Citalopram Hydrobromide (CeleXA) 40 mg DAILY PO 04/22/21 09:00 04/22/21 07:54 Fluticasone Propionate (Flonase) 2 spray DAILY NS 04/22/21 09:00 04/22/21 07:53 Multivitamins (Thera M Plus) 1 tab DAILY08 PO 04/22/21 08:00 04/22/21 07:54 Pantoprazole Sodium (Protonix) 40 mg DAILYAC PO 04/22/21 07:30 04/22/21 06:38 Sacubitril/ Valsartan (Entresto 49 Mg-51 Mg) 2 tab BID PO 04/21/21 21:00 04/22/21 07:55 Justifications for Admission Other Justification JORDON HAJI III DO Apr 22, 2021 10:58
[2021-04-22] MEDS ORDERED: SACU1TAB7 PO (11:06)
[2021-04-22] MEDS: BUDESONIDE 0.5 MG/2 ML NEBU. NEB SCH ×2 (11:25→20:00)
--- NOTE | 2021-04-22 11:51 | DS ---
DATE OF DISCHARGE: 04/22/2021 ADMISSION DIAGNOSIS: Chest pain. DISCHARGE DIAGNOSES: 1. Atypical chest pain. 2. History of sickle cell trait. 3. History of nonischemic cardiomyopathy, on Entresto. 4. Chronic congestive heart failure. 5. ASPIRIN ALLERGY. 6. Graves. 7. Asthma. 8. Hypertension. 9. Lupus. 10. Obstructive sleep apnea. CONSULTS: Cardiology. PROCEDURES: None. HOSPITAL COURSE: The patient is a pleasant, middle-aged female who presented with some chest pain. She was admitted. We consulted Cardiology, they felt the chest pain was atypical and not an acute event. She did have a slight bump in her troponin, but they felt like this was secondary to type 2 demand ischemia. Today, I saw and examined her. She is doing well and wants to go home. We plan to discharge to home. DISPOSITION: Home. ACTIVITY: As tolerated. DIET: Low sodium. DISCHARGE MEDICATIONS: Please see the MRAD. Entresto 49/51 one b.i.d., albuterol, Symbicort, carvedilol 6.25 b.i.d., citalopram 40 a day, doxepin 25 a day, she has an EpiPen, Flonase, Lasix 40 a day, Synthroid 175 a day, Singulair 10 a day, vitamins, Protonix 40 a day, Spiriva, trazodone 100 at bedtime. TOTAL TIME: [address]: BREANNA/angel TID: [id number]
--- NOTE | 2021-04-22 13:37 | NUR ---
SS following for discharge planning. SS reviewed pt chart and discussed with pt RN. Pt is from home and is currently on room air. Cardiology following. ECHO pending. COVID19 negative. Discharge order on the chart for home with self care.
--- NOTE | 2021-04-22 13:49 | PDOC ---
FATOU ALMONTE INDUSTRIAL GAS FITTER HELPER 04/22/21 1349: CARDIO Progress Notes Date and Time Date of Service 04/22/2021 Time of Evaluation 1340 Subjective Subjective: No Chest Pain, No shortness of breath, No Palpitations Vitals Vitals Vital Signs Date Time Temp Pulse Resp B/P (MAP) Pulse Ox O2 Delivery O2 Flow Rate FiO2 04/22/21 11:29 96 Room Air 04/22/21 10:45 98.3 70 18 146/86 (106) 98.3 Weight Weight [ ] Input and Output Intake and Output Intake and Output 04/22/21 07:00 Intake Total 1600 ml Output Total 325 ml Balance 1275 ml Intake Oral 600 ml IV Total 1000 ml Output Urine Total 325 ml Laboratory Labs Laboratory Tests Test 04/21/21 14:10 04/21/21 18:40 Troponin I High Sensitivity 133 ng/L (4-50) 123 ng/L (4-50) Physical Exam HEENT: Neck Supple W Full Motion Chest: Symmetric LUNGS: Other (diminished bases) Heart: RRR (SR) Abdomen: Soft N/T Extremities: No Edema, No Calf Tenderness Neurology: alert, oriented, follow commands Assessment Assessment 1. Viral syndrome with sinusitis and post nasal drip syndrome: Awaiting covid-19 PCR. She is fully vaccinated 2. Atypical chest pain: possibly precipitated by coughing spells. 3. MIld troponin elevation: no acute EKG changes. Suspect demand mediated, type 2 4. Hx of NICM: on entresto, presumed due to cocaine abuse per pt. Recovered 5. HTN: controlled 6. Chronic systolic CHF: compensated 7. Sickle cell trait 8. ASA allergy: rash 9. Hx of asthma and ALFRED: has hypoglossal nerve stimulator Recommendations 1. Secondary prevention measures 2. TTE 3. Supportive care 4. Will consider for ischemic workup possibly as an outpt. Follow with Dr. Martino at [facility] cardiology Justicifation of Admission Dx: Justifications for Admission: Justification of Admission Dx: No KRISTI MARTINEZ MD 04/22/21 1545: CARDIO Progress Notes Assessment Assessment Patient seen and examined. Agree with SHRINK PIT OPERATOR's assessment and plan. Chest pain with atypical features Troponin elevation probably demand ischemia Chronic systolic heart failure well compensated Check 2D echo to assess LV systolic function Consider ischemic evaluation as outpatient FATOU ALMONTE INDUSTRIAL G[employer] FITTER HELPER Apr 22, 2021 13:49 KRISTI MARTINEZ MD Apr 22, 2021 15:45
[2021-04-22 15:00] VITALS: BP 136/80
[2021-04-22 19:48] VITALS: BP 140/92
[2021-04-22] MEDS: MONTELUKAST SODIUM 10 MG TABLET. PO SCH (20:51)
[2021-04-22] MEDS: traZODone 100 MG TABLET. PO SCH (20:53)
[2021-04-22] MEDS: DOXEPIN HCL 25 MG CAPSULE. PO SCH (20:53)
[2021-04-22 22:11] VITALS: BP 135/74
[2021-04-23 02:28] VITALS: BP 133/97
[2021-04-23] MEDS: LEVOTHYROXINE 175 MCG TABLET PO SCH (05:38)
[2021-04-23 07:00] VITALS: BP 137/77
[2021-04-23] MEDS: IPRATRPIUM/ALBUTEROL 0.5/2.5MG 3 ML NEBU. NEB SCH ×2 (07:27→12:40)
[2021-04-23] MEDS: BUDESONIDE 0.5 MG/2 ML NEBU. NEB SCH (07:27)
--- NOTE | 2021-04-23 07:53 | CARD ---
MR#: [id number] Date of Study: 04/22/2021 Ordering Physician: FATOU ALMONTE, Referring Physician: FATOU ALMONTE Tech: London Grissom [facility] APPROVED REPORT EXAM: Two-dimensional and M-mode echocardiogram with Doppler and color Doppler. Other Information Quality : FairHR: 58bpm Rhythm : NSR INDICATION Congestive Heart Failure Elevated troponin RISK FACTORS Hypertension Smoking COPD 2D DIMENSIONS Left Atrium(2D)4.4 (1.6-4.0cm)IVSd1.2 (0.7-1.1cm) Aortic Root(2D)3.6 (2.0-3.7cm)LVDd5.3 (3.9-5.9cm) LVOT Diameter2.2 (1.8-2.4cm)PWd1.2 (0.7-1.1cm) LA Dshwtc11 (18-58mL)LVDs3.5 (2.5-4.0cm) FS (%) 34.2 %SV86.3 ml LVEF(%)62.7 (>50%) Aortic Valve AoV Peak Beau.90.4cm/sAoV VTI17.2cm AO Peak GR.3.3mmHgLVOT Peak Beau.86.2cm/s AO Mean GR.2mmHgAVA (VMAX)3.58cm2 Mitral Valve MV E Ltqoknpf96.6cm/sMV E Peak Gr.4mmHg MV DECEL [id number] A Kcowfbyn72.3cm/s MV E Mean Gr.1mmHgE/A Ratio0.5 Pulmonary Valve PV Peak Gpybfuju53.8cm/s Tricuspid Valve TR P. Nnwfkvjq088px/sTR Peak Gr.15mmHg LEFT VENTRICLE The left ventricle is normal size. There is mild concentric left ventricular hypertrophy. The systoli c function is mildly impaired. The Ejection Fraction is 45%. Wall motion suggestive of conduction def ect. Otherwise, there is mild global hypokinesis. Transmitral Doppler flow pattern is Grade I-abnorma l relaxation pattern. No left ventricle thrombus noted on this study. There is no ventricular septal defect visualized. There is no left ventricular aneurysm. There is no mass noted in the left ventricl e. RIGHT VENTRICLE The right ventricle is normal size. There is normal right ventricular wall thickness. The right ventr icular systolic function is normal. ATRIA The left atrium size is normal. The right atrium size is normal. The interatrial septum is intact wit h no evidence for an atrial septal defect or patent foramen ovale as noted on 2-D or Doppler imaging. AORTIC VALVE The aortic valve is normal in structure and function. Doppler and Color Flow revealed no significant aortic regurgitation. There is no significant aortic valvular stenosis. There is no aortic valvular v egetation. MITRAL VALVE The mitral valve is normal in structure and function. There is no evidence of mitral valve prolapse. There is no mitral valve stenosis. Doppler and Color-flow revealed trace to mild mitral regurgitation . TRICUSPID VALVE The tricuspid valve is normal in structure and function. Doppler and Color Flow revealed trace tricus pid regurgitation. The PA pressure was estimated at 26 mmHg. There is no tricuspid valve prolapse or vegetation. There is no tricuspid valve stenosis. PULMONIC VALVE Doppler and Color Flow revealed no pulmonic valvular regurgitation. There is no pulmonic valvular sara nosis. GREAT VESSELS The aortic root is normal in size. The ascending aorta is normal in size. The IVC is normal in size a nd collapses >50% with inspiration. PERICARDIAL EFFUSION There is no pleural effusion. There is no evidence of significant pericardial effusion. Critical Notification Critical Value: No <Conclusion> The systolic function is mildly impaired. The Ejection Fraction is 45%. Wall motion suggestive of conduction defect. Otherwise, there is mild global hypokinesis. Signed by : Scott Rivera, Electronically Approved : 04/23/2021 07:53:17
[2021-04-23] MEDS: SENNOSIDES/DOCUSATE 8.6/50MG TABLET. PO SCH (09:00)
[2021-04-23] MEDS: FLUTICASONE 50MCG/NASAL SPRAY 16GM BOTTLE. NS SCH (09:00)
[2021-04-23] MEDS: CARVEDILOL 6.25 MG TABLET. PO SCH (09:38)
[2021-04-23] MEDS: CITALOPRAM 20 MG TABLET. PO SCH (09:38)
[2021-04-23] MEDS: MULTIVITAMIN with MINERAL TABLET. PO SCH (09:38)
[2021-04-23] MEDS: PANTOPRAZOLE 40 MG TABLET.DR. PO SCH (09:39)
[2021-04-23] MEDS: FUROSEMIDE 40 MG TABLET. PO SCH (09:39)
[2021-04-23] MEDS: SACUBITRIL/VALSARTAN 49/51MG TABLET. PO SCH (09:40)
--- NOTE | 2021-04-23 10:16 | PDOC ---
[employer] PROGRESS NOTE Date of Service DOS: DATE: 04/23/21 TIME: 10:15 Chief Complaint Chief Complaint Atypical chest pain Viral syndrome Mild elevated troponin suspect demand ischemia History of nonischemic cardiomyopathy on Entresto Sickle cell trait Aspirin allergy Graves' Asthma Hypertension Lupus ALFRED History of Present Illness History of Present Illness 04/23/2021 Patient seen and examined She seems to be at her baseline wants to go home Discussed with case management Discussed with RN Chart reviewed 04/22/2021 Patient seen and examined discussed with RN Chart reviewed Apparently she was lethargic yesterday Today she is more awake complained of a headache Knows the year but was slow to answer 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 [employer] Vitals/I&O Vitals/I&O: Vital Signs Date Time Temp Pulse Resp B/P (MAP) Pulse Ox O2 Delivery O2 Flow Rate FiO2 04/23/21 09:40 64 137/77 04/23/21 07:29 100 Room Air 04/23/21 07:00 98.2 18 98.2 I & O 04/22/21 04/22/21 04/23/21 15:00 23:00 07:00 Intake Total 400 ml 380 ml 600 ml Output Total 875 ml Balance 400 ml -495 ml 600 ml Physical Exam General: Alert, Oriented X3, Cooperative, No acute distress Heart: Regular rate (SR), Normal S1, Normal S2, No murmurs Lungs: Wheezing Abdomen: Soft, No tenderness Extremities: No cyanosis, No edema Skin: No breakdown, No significant lesion Assessment and Plan Assessmemt and Plan Problems Medical Problems: (1) NSTEMI (non-ST elevated myocardial infarction) Status: Acute (2) Viral syndrome Status: Acut Atypical chest pain Viral syndrome Mild elevated troponin suspect demand ischemia History of nonischemic cardiomyopathy on Entresto Sickle cell trait Aspirin allergy Graves' Asthma Hypertension Lupus ALFRED Plan Discharge see dictation For now continue monitoring: Home meds DVT prophylaxis Full code Discharge Per cardiology recommendations please see the following and we certainly agree and appreciate their input; Assessment 1. Viral syndrome with sinusitis and post nasal drip syndrome: Awaiting covid-19 PCR. She is fully vaccinated 2. Atypical chest pain: possibly precipitated by coughing spells. 3. MIld troponin elevation: no acute EKG changes. Suspect demand mediated, type 2 4. Hx of NICM: on entresto, presumed due to cocaine abuse per pt. Recovered 5. HTN: controlled 6. Chronic systolic CHF: compensated 7. Sickle cell trait 8. ASA allergy: rash 9. Hx of asthma and ALFRED: has hypoglossal nerve stimulator Recommendations 1. Secondary prevention measures 2. TTE 3. Supportive care 4. Will consider for ischemic workup possibly as an outpt. Follow with Dr. Martino at [facility] cardiology Comment Review of Relevant I have reviewed the following items gilbert (where applicable) has been applied. Justifications for Admission Other Justification JORDON HAJI III DO Apr 23, 2021 10:16
[2021-04-23 11:00] VITALS: BP 145/94
--- NOTE | 2021-04-23 11:49 | NUR ---
SS following up with discharge planning. SS reviewed pt chart and discussed with pt RN. Pt is currently on room air. Discharge order on the chart for home with self care.
[2021-04-23 15:00] VITALS: BP 134/96
== END 2021-04-23 14:15 | disposition home or self-care (01) ==
LOC: ER 10:18 → 6 SOUTH 12:29 → INTOOBSV 12:29
PROVIDERS: ADMIT Student in an Organized Health Care Education/Training Program; ATTEND Student in an Organized Health Care Education/Training Program
DX: R07.89 Other chest pain (principal); Z20.822 Contact with and (suspected) exposure to COVID-19; I42.8 Other cardiomyopathies; I21.4 Non-ST elevation (NSTEMI) myocardial infarction; I11.0 Hypertensive heart disease with heart failure; I50.22 Chronic systolic (congestive) heart failure; M32.9 Systemic lupus erythematosus, unspecified; J40 Bronchitis, not specified as acute or chronic; E05.00 Thyrotoxicosis with diffuse goiter without thyrotoxic crisis or storm; G47.33 Obstructive sleep apnea (adult) (pediatric); E03.9 Hypothyroidism, unspecified; D57.3 Sickle-cell trait; T78.40XA Allergy, unspecified, initial encounter; B34.9 Viral infection, unspecified; M19.90 Unspecified osteoarthritis, unspecified site; K59.00 Constipation, unspecified; N39.0 Urinary tract infection, site not specified; J44.9 Chronic obstructive pulmonary disease, unspecified; Z87.891 Personal history of nicotine dependence; Z88.6 Allergy status to analgesic agent; Z90.710 Acquired absence of both cervix and uterus; Z90.49 Acquired absence of other specified parts of digestive tract; Z98.891 History of uterine scar from previous surgery; Z79.899 Other long term (current) drug therapy; Z98.890 Other specified postprocedural states; Z86.73 Personal history of transient ischemic attack (TIA), and cerebral infarction without residual deficits
CPT/HCPCS: 36415; 71045; 80053; 80061; 81001; 83735; 84443; 84484; 85025; 87086; 87804; 93005; 93306; 94640; 94760; 96360; 96361; 96372; 99285; G0378; J1650; J7030; J7626; U0003; G0379; C8929

== ENCOUNTER 2021-06-08 06:09 | Emergency (ER) | payer OTHER, MEDICAID ==
[~2021-06-08] VITALS: Ht 177.8 cm; Wt 100.9 kg
[~2021-06-08 06:09] MED LIST changes: +LEVO175T5 PO; +SACU1TAB4 PO; +SACU1TAB7 PO; +TIOT18CA IH
--- NOTE | 2021-06-08 06:25 | ED.ADGEN ---
Past Medical History Past Medical History: Asthma, Bronchitis, Cancer, Hypertension Additional Past Medical Histor: graves disease,lupus,kidney tumor/CA-right kidney,SLEEP APNEA Past Surgical History: Cholecystectomy, , Hysterectomy, Other Additional Past Surgical Histo: HERNIA REPAIR,NASAL POLYPS,RT KIDNEY ABLATION Smoking Status: Former Smoker Alcohol Use: None Drug Use: None General Adult HPI: HPI: Patient is a 65-year-old female [facility] of a weeklong history of a headache as well as chest pressure and exertional dyspnea. Patient states during this time she is felt as if she might have a sinus infection. Patient also states she is been coughing during this time and finds that whenever she exerts herself she becomes quickly winded. Patient describes chest pressure and relates this to a history of asthma. Patient states she is vaccinated against COVID-19 and has not had any fevers. She further denies any migration of her chest pain and states she has not had any neurological changes or true headaches but rather facial pain associated with her reported head pressure. She is awake, alert and nontoxic-a ppearing. Review of Systems: Review of Systems: Constitutional: Denies fever or chills. [] Eyes: Denies change in visual acuity. [] HENT: Reports sinus pressure and congestion. Denies sore throat. [] Respiratory: Reports cough and exertional dyspnea. [] Cardiovascular: Reports chest pressure. Denies edema. [] GI: Denies abdominal pain, nausea, vomiting, bloody stools or diarrhea. [] : Denies dysuria. [] Musculoskeletal: Denies back pain or joint pain. [] Integument: Denies rash. [] Neurologic: Denies headache, focal weakness or sensory changes. [] Endocrine: Denies polyuria or polydipsia. [] Lymphatic: Denies swollen glands. [] Psychiatric: Denies depression or anxiety. [] Current Medications: Current Medications Medications (Trade) Dose Ordered Sig/Indra Start Time Stop Time Status Last Admin Dose Admin Methylprednisolone Sodium Succinate (SOLU-Medrol 125MG VIAL) 125 mg 1X ONCE 06/08/21 07:00 06/08/21 07:01 DC 06/08/21 07:23 125 MG Allergies: Allergies: Allergies Coded Allergies Type Severity Reaction Last Updated Verified NSAIDS (Non-Steroidal Anti-Inflamma Allergy Severe itching,throat"swells" 4/26/22 Yes aspirin Allergy Severe Shortness of Air 06/08/21 Yes Sulfa (Sulfonamide Antibiotics) Allergy Intermediate 06/08/21 Yes ketorolac Allergy Intermediate 06/08/21 Yes sulfamethoxazole Allergy Intermediate 06/08/21 Yes trimethoprim Allergy Intermediate 06/08/21 Yes Physical Exam: PE: Constitutional: Well developed, well nourished, no acute distress, non-toxic appearance. [] HENT: Normocephalic, atraumatic, bilateral external ears normal, oropharynx moist, no oral exudates, nose normal. [] Eyes: PERRLA, EOMI, conjunctiva normal, no discharge. [] Neck: Normal range of motion, no tenderness, supple, no stridor. [] Cardiovascular:Heart rate regular rhythm, no murmur [] Lungs & Thorax: Bilateral breath sounds clear to auscultation [] Abdomen: Bowel sounds normal, soft, no tenderness, no masses, no pulsatile masses. [] Skin: Warm, dry, no erythema, no rash. [] Back: No tenderness, no CVA tenderness. [] Extremities: No tenderness, no cyanosis, no clubbing, ROM intact, no edema. [] Neurologic: Alert and oriented X 3, normal motor function, normal sensory function, no focal deficits noted. [] Psychologic: Affect normal, judgement normal, mood normal. [] Current Patient Data: Labs: Laboratory Tests Test 06/08/21 06:40 White Blood Count 3.8 x10^3/uL (4.0-11.0) L Red Blood Count 4.17 x10^6/uL (3.50-5.40) Hemoglobin 11.5 g/dL (12.0-15.5) L Hematocrit 35.3 % (36.0-47.0) L Mean Corpuscular Volume 85 fL (79-100) Mean Corpuscular Hemoglobin 27 pg (25-35) Mean Corpuscular Hemoglobin Concent 32 g/dL (31-37) Red Cell Distribution Width 18.1 % (11.5-14.5) H Platelet Count 222 x10^3/uL (140-400) Neutrophils (%) (Auto) 48 % (31-73) Lymphocytes (%) (Auto) 44 % (24-48) Monocytes (%) (Auto) 8 % (0-9) Eosinophils (%) (Auto) 0 % (0-3) Basophils (%) (Auto) 0 % (0-3) Neutrophils # (Auto) 1.8 x10^3/uL (1.8-7.7) Lymphocytes # (Auto) 1.6 x10^3/uL (1.0-4.8) Monocytes # (Auto) 0.3 x10^3/uL (0.0-1.1) Eosinophils # (Auto) 0.0 x10^3/uL (0.0-0.7) Basophils # (Auto) 0.0 x10^3/uL (0.0-0.2) Sodium Level 142 mmol/L (136-145) Potassium Level 4.1 mmol/L (3.5-5.1) Chloride Level 107 mmol/L (98-107) Carbon Dioxide Level 25 mmol/L (21-32) Anion Gap 10 (6-14) Blood Urea Nitrogen 9 mg/dL (7-20) Creatinine 1.0 mg/dL (0.6-1.0) Estimated GFR (Cockcroft-Gault) 67.8 BUN/Creatinine Ratio 9 (6-20) Glucose Level 98 mg/dL (70-99) Calcium Level 9.6 mg/dL (8.5-10.1) Total Bilirubin 0.5 mg/dL (0.2-1.0) Aspartate Amino Transferase (AST) 28 U/L (15-37) Alanine Aminotransferase (ALT) 25 U/L (14-59) Alkaline Phosphatase 52 U/L (46-116) Creatine Kinase 159 U/L (26-192) Troponin I High Sensitivity 157 ng/L (4-50) H PC-Yyi-R-Type Natriuretic Peptide 219 pg/mL (0-124) H Total Protein 7.8 g/dL (6.4-8.2) Albumin 3.2 g/dL (3.4-5.0) L Albumin/Globulin Ratio 0.7 (1.0-1.7) L Laboratory Tests 06/08/21 06:40 Laboratory Tests 06/08/21 06:40 Vital Signs: Vital Signs Date Time Temp Pulse Resp B/P (MAP) Pulse Ox O2 Delivery O2 Flow Rate FiO2 06/08/21 07:21 58 16 157/97 (117) 100 Room Air 06/08/21 06:46 97.9 97.9 EKG: EKG: [] EKG was obtained at 6:38 AM and revealed a normal sinus rhythm with a ventricular rate of 66 bpm. There is left axis deviation with KS interval prolongation. There are no acute ST/T wave changes to denote ischemia. There is no STEMI present. Heart Score: C/O Chest Pain: Yes HEART Score for Chest Pain: HEART Score for Chest Pain Response (Comments) Value History Slighlty/Non-Suspicious 0 ECG Normal 0 Age >45 - < 65 1 Risk Factors 1 or 2 Risk Factors 1 Total 2 Risk Factors: Risk Factors: DM, Current or recent (<one month) smoker, HTN, HLP, family history of CAD, obesity. Risk Scores: Score 0 - 3: 2.5% MACE over next 6 weeks - Discharge Home Score 4 - 6: 20.3% MACE over next 6 weeks - Admit for Clinical Observation Score 7 - 10: 72.7% MACE over next 6 weeks - Early Invasive Strategies Radiology/Procedures: Radiology/Procedures: [][facility] [address] [place] [address] IMAGING REPORT Signed PATIENT: JERRY WAYNE ACCOUNT: [id number] : 1955 LOCATION: ER AGE: 65 SEX: F EXAM STATUS: PRE ER ORD. PHYSICIAN: KARI CAMARILLO DO REASON: Chest pain PROCEDURE: PORTABLE CHEST 1V Study: XR CHEST 1V Indication: Chest pain. Comparison: 04/21/2021 Findings: Unchanged prominence of the cardiomediastinal silhouette. Within normal limits chris. No confluent airspace infiltrate, layering effusion or pneumothorax. Mild atelectasis/scarring. Right chest wall stimulator hub. Impression: No acute radiographic abnormality of the chest. Electronically signed by: JULIA NAVA MD (06/08/2021 7:05 AM) [facility] DICTATED and SIGNED BY: JULIA NAVA MD DATE: 06/08/21 0704 Course & Med Decision Making: Course & Med Decision Making Pertinent Labs and Imaging studies reviewed. (See chart for details) The patient remains awake, alert and in no acute distress. Patient had an IV established as well as EKG performed with imaging and blood work. Patient's evaluation in the emergency department is relatively unremarkable with the exception of a mildly elevated troponin. The patient does report that she has had chest discomfort she does report it is in the setting of this illness that is been ongoing now for 1 week. While I do believe the patient's troponin elevation may be secondary to the respiratory component of the patient's illness, she was offered admission to the hospital for further evaluation. Patient stated that she did not want to be evaluated in the hospital and would return should she have any substernal chest pain. She is otherwise stated she would like to follow-up with her doctor. Patient also stated that her previous visit to the hospital involved her being admitted and she had a mildly elevated troponin at that time however she did not have any catheterization. I have encouraged the patient return should she have a medical concern in addition to chest pain. The patient understands and has agreed to do so. She is nontoxic- appearing and stable for discharge [] Dragon Disclaimer: Stephani Disclaimer: This electronic medical record was generated, in whole or in part, using a voice recognition dictation system. Departure Departure Impression: Primary Impression: URI (upper respiratory infection) Additional Impressions: Person under investigation for COVID-19 Elevated troponin Atypical chest pain Disposition: 01 HOME / SELF CARE / HOMELESS Condition: STABLE Referrals: KATHY BHATT MD (PCP) Patient Instructions: Chest Pain (Nonspecific), Upper Respiratory Infection, Adult Scripts Albuterol Sulfate (PROAIR HFA INHALER) 8.5 Gm Hfa.aer.ad 2 PUFF IH PRN Q4-6HRS PRN for wheezing for 21 Days, #1 INHALER 0 Refills Prov: KARI CAMARILLO DO 06/08/21 Prednisone (PREDNISONE) 50 Mg Tablet 1 TAB PO DAILY for 5 Days, #5 TAB Prov: KARI CAMARILLO DO 06/08/21 Problem Qualifiers KARI CAMARILLO DO Jun 08, 2021 06:25
--- NOTE | 2021-06-08 06:47 | EKG ---
[facility] [address] [place] [address] Test Date: 2021-06-08 Test Time: 06:38:19 Pat Name: JERRY WAYNE Department: Room: Gender: F Surgery Aid: : 1955 Requested By: KARI CAMARILLO Order Number: [id number] Reading MD: Ethan Oseguera Measurements Intervals [place] Rate: 66 P: 7 PA: 258 QRS: -20 QRSD: 92 T: 0 QT: 394 QTc: 415 Interpretive Statements SINUS RHYTHM PROLONGED PA INTERVAL LEFTWARD AXIS Electronically Signed On 06-09-2021 16:43:27 CDT by Ethan Oseguera
[2021-06-08 06:55] LABS: BASO % 0 % (0-3); EOS % 0 % (0-3); HEMATOCRIT 35.3 % (36.0-47.0); HEMOGLOBIN 11.5 g/dL (12.0-15.5); LYMPH # 1.6 x10^3/uL (1.0-4.8); LYMPH % 44 % (24-48); MEAN CORPUSCULAR HEMOGLOBIN 27 pg (25-35); MEAN CORPUSCULAR HGB CONC 32 g/dL (31-37); MEAN CORPUSCULAR VOLUME 85 fL (79-100); MONO # 0.3 x10^3/uL (0.0-1.1); MONO % 8 % (0-9); NEUT # 1.8 x10^3/uL (1.8-7.7); NEUT % 48 % (31-73); PLATELET COUNT 222 x10^3/uL (140-400); RED BLOOD COUNT 4.17 x10^6/uL (3.50-5.40); RED CELL DISTRIBUTION WIDTH 18.1 % (11.5-14.5); WHITE BLOOD COUNT 3.8 x10^3/uL (4.0-11.0)
[2021-06-08 07:00] LABS: CALCIUM 9.6 mg/dL (8.5-10.1); GFR 67.8; POTASSIUM 4.1 mmol/L (3.5-5.1)
[2021-06-08] MEDS ORDERED: methylPREDNISolone SOD SUCC PF 125 MG/2 ML VIAL. IV ONE (07:00)
[2021-06-08 07:07] LABS: ALBUMIN 3.2 g/dL (3.4-5.0); ALBUMIN/GLOBULIN RATIO 0.7 (1.0-1.7); TOTAL BILIRUBIN 0.5 mg/dL (0.2-1.0); TOTAL PROTEIN 7.8 g/dL (6.4-8.2)
--- NOTE | 2021-06-08 07:07 | RAD ---
Study: XR CHEST 1V Indication: Chest pain. Comparison: 04/21/2021 Findings: Unchanged prominence of the cardiomediastinal silhouette. Within normal limits chris. No confluent air space infiltrate, layering effusion or pneumothorax. Mild atelectasis/scarring. Right chest wall stimulator hub. Impression: No acute radiographic abnormality of the chest. Electronically signed by: JULIA NAVA MD (06/08/2021 7:05 AM) [facility]
[2021-06-08] MEDS ORDERED: PRED50TA PO (07:31)
[2021-06-08] MEDS ORDERED: ALBU2.5V8 IH (07:31)
[2021-06-08 07:51] VITALS: BP 167/99
== END 2021-06-08 07:53 | disposition home or self-care (01) ==
LOC: ER 06:09
DX: J06.9 Acute upper respiratory infection, unspecified (principal); R07.2 Precordial pain; R77.8 Other specified abnormalities of plasma proteins; Z20.822 Contact with and (suspected) exposure to COVID-19; J45.909 Unspecified asthma, uncomplicated; I10 Essential (primary) hypertension; Z87.891 Personal history of nicotine dependence; Z90.49 Acquired absence of other specified parts of digestive tract; Z90.710 Acquired absence of both cervix and uterus; Z88.6 Allergy status to analgesic agent; Z88.2 Allergy status to sulfonamides; Z88.1 Allergy status to other antibiotic agents; Z88.8 Allergy status to other drugs, medicaments and biological substances
CPT/HCPCS: 36415; 71045; 80053; 82550; 83880; 84484; 85025; 87426; 93005; 96374; 99285; J2930